=== PATIENT | male | born 1955 | race Caucasian/White ===

== ENCOUNTER 2023-07-13 09:52 | Outpatient (RCR) | payer OTHER, MEDICARE, SELFPAY ==
[2023-07-13] MEDS: FLEXBUMIN 50 IV (10:07)
[2023-07-13 10:08] VITALS: BP 100/51
[2023-07-13] MEDS: FLEXBUMIN 100 IV ×2 (12:16→13:58)
[2023-07-13 13:53] VITALS: BP 115/42
[2023-07-13 15:44] VITALS: BP 113/53
== END 2023-07-29 23:59 | disposition home or self-care (01) ==
LOC: OID 09:52
PROVIDERS: ATTENDING PHYSICIAN Internal Medicine Gastroenterology; FAMILY PHYSICIAN Family Medicine
DX: K70.31 Alcoholic cirrhosis of liver with ascites (principal)
CPT/HCPCS: 49083; 87015; 87070; 87205; 89051; 96365; 96366; P9047

== ENCOUNTER 2023-07-28 22:17 | Inpatient (IN) | payer OTHER, MEDICARE, SELFPAY ==
[2023-07-28] VITALS (9 sets, daily range): BP systolic 119–154; BP diastolic 56–83; BMI 26.2; BMI 25.6
[2023-07-28 19:19] LABS: % Basophils 0.8 % (0-2); % Eosinophils 3.6 % (0-6); % Immature Granulocytes 0.4 % (0-0.5); % Lymphocytes 16.9 % (20.5-51.1); % Monocytes 15.7 % (1.7-9.3); % Neutrophils 62.6 % (42.2-75.2); Absolute Eosinophils 0.2 10^3/uL (0-0.7); Absolute Lymphocytes 0.8 10^3/uL (1.2-3.4); Absolute Monocytes 0.7 10^3/uL (0.1-0.6); Hematocrit 21.5 % (39.0-52.0); Mean Corp Hgb Conc. 32.6 g/dL (33.0-37.0); Mean Corpuscular Hgb 32.4 pg (27.0-31.0); Mean Corpuscular Volume 99.5 fL (80.0-94.0); Nucleated Red Blood Cells % 0 % (-); Platelet Count 110 10^3/uL (130-400); Red Blood Cell Count 2.16 10^6/uL (4.70-6.10); Red Cell Dist. Width 15.9 % (11.5-14.5); White Blood Cell Count 4.7 10^3/uL (4.8-10.8)
[2023-07-28 19:29] LABS: INR 1.54; PT 18.8 Sec (11.4-14.6)
[2023-07-28 19:30] LABS: APTT 37.2 Sec (23.4-35.0)
[2023-07-28 19:36] LABS: ALT (SGPT) 18 U/L (0-50); AST (SGOT) 36 U/L (17-59); Albumin 2.6 g/dl (3.5-5.0); Alkaline Phosphatase 152 U/L (38-126); Blood Urea Nitrogen 27 mg/dl (9-20); Calcium 8.3 mg/dl (8.4-10.2); Carbon Dioxide 27 mmol/L (22-30); Chloride 96 mmol/L (98-107); Estimated Creatinine Clearance 80 ml/min; Glucose 129 mg/dl (70-99); Sodium 132 mmol/L (135-145); Total Protein 6.3 g/dl (6.3-8.2); eGFR > 60.00
--- NOTE | 2023-07-28 19:39 | ED.GENMED ---
Addendum entered and electronically signed by Balwinder Connor DO 07/28/23 20:29:
Chest x-ray report noted, patient consented for packed cells signed consent on the chart
Original Note:
History of Present Illness
General
Chief Complaint: Rectal Bleeding
Source: patient and records
Exam Limitations: none
Time Seen by Provider: 07/28/23 19:20
Nursing documentation reviewed up to this point in time: agreed with
Travel History
Have you had any contact with someone who has COVID-19?: No
Do you have any symptoms of coronavirus? Fever > 100 degrees, chills, cough, shortness of breath, sore throat, loss of taste or smell, muscle aches, or headache?: No
History of Present Illness
History of Present Illness:
67-year-old male nonalcoholic ? cirrhosis diabetic on aspirin gets biweekly paracentesis presents with fatigue and rectal bleeding a week or so ago fairly brisk earlier today seen in the ER few weeks ago hemoglobin of 10 discharged home nondrinker,
no vomiting
Past History
Past History
ED Past Medical History: Arrthythmia (Atrial fibrillation), HTN, NIDDM and Other (Alcoholic cirrhosis, diverticulitis, anemia)
ED Past Surgical History: Orthopedic (Knee surgery) and Urological (Hydrocele)
Social History
Tobacco: Non-smoker
Alcohol: Former
Drug: None
Personal:
Living: with family
Review of Systems
Review of Systems
All Other Systems: Not applicable
Constitutional: Reports fatigue; Denies fever
Respiratory: Reports no symptoms
ABD/GI: Reports abdominal pain (Distention) and bloody stools
: Reports no symptoms
Musculoskeletal: Reports no symptoms
Skin: Reports no symptoms
Neurological: Reports dizzy
Psychiatric: Reports no symptoms
Phy Exam
Physical Exam
Physical Exam:
Physical Exam
General: Chronically ill-appearing
Neck: Slight
Heart: s1/s2 regular rate and rhythm, no murmur. equal radial pulses.
Lungs: Diminished at the
Abdomen: Distended with ascites, umbilical hernia without tenderness
Rectal external hemorrhoid maroon stool
Neuro: alert and oriented. no focal neurological deficits
Skin: no rash
Psychiatric: Disheveled quite
Extremities: no edema.
Course
Orders/Labs/Results
Orders:
Orders
07/28/23 18:59
Cardiac Monitoring- Treatment ONCE
IV Insert/Care/Rem.- Treatment PRN
O2 Therapy [RESP] Urgent
Titrate/Wean O2 to maintain O2 sat greater than (%): 93
Special Instructions: MAINTAIN CONTINOUS O2 SATS > OR = 93%
Pulse Ox/spot Check [RESP] Urgent
Quantity: 1
Special Instructions: ON ROOM AIR
07/28/23 19:07
Type+Screen Urgent
Complete Blood Count/With Diff Urgent
Comprehensive Metabolic Panel Urgent
PTT Urgent
Prothrombin Time Urgent
07/28/23 19:42
Blood Bank Products [* Blood Bank Products] Urgent
Blood Bank Products: *Packed RBC Leuko(PRBC's)
Quantity: 2
Transfuse Today: Yes
Reason: Anemia
0.9% Sodium Chloride 500 ml [Nss] 500 ml IV BOLUS
07/28/23 19:43
Electrocardiogram (*1) Urgent
Reason for Study: QTc Monitoring
EKG- Treatment ONCE
CR Chest Portable - 1 View Urgent
Comment:
Reason For Exam: sob
Reason Study Needs to be Portable: Unable to Transport
Abnormal Lab Results
07/28/23
19:07
WBC 4.7 L 10^3/uL
(4.8-10.8)
RBC 2.16 L 10^6/uL
(4.70-6.10)
Hgb 7.0 L g/dL
(13.0-18.0)
Hct 21.5 L %
(39.0-52.0)
MCV 99.5 H fL
(80.0-94.0)
MCH 32.4 H pg
(27.0-31.0)
MCHC 32.6 L g/dL
(33.0-37.0)
RDW 15.9 H %
(11.5-14.5)
Plt Count 110 L 10^3/uL
(130-400)
Absolute Lymphs (auto) 0.8 L 10^3/uL
(1.2-3.4)
Absolute Monos (auto) 0.7 H 10^3/uL
(0.1-0.6)
Lymphocytes % 16.9 L %
(20.5-51.1)
Monocytes % 15.7 H %
(1.7-9.3)
PT 18.8 H Sec
(11.4-14.6)
APTT 37.2 H Sec
(23.4-35.0)
Sodium 132 L mmol/L
(135-145)
Chloride 96 L mmol/L
(98-107)
BUN 27 H mg/dl
(9-20)
Glucose 129 H mg/dl
(70-99)
Calcium 8.3 L mg/dl
(8.4-10.2)
Alkaline Phosphatase 152 H U/L
(38-126)
Albumin 2.6 L g/dl
(3.5-5.0)
07/28/23 19:07
07/28/23 19:07
Vital Signs
Initial and Last Documented VS:
Initial Vital Signs
Pulse Resp
77 14
07/28/23 19:00 07/28/23 19:00
Last Documented Vital Signs
Temp Pulse Resp BP Pulse Ox
98.6 F 77 14 137/63 100
07/28/23 19:05 07/28/23 19:00 07/28/23 19:00 07/28/23 19:04 07/28/23 19:04
MDM/Problems Addressed
Differential Diagnosis Includes:
Ascites rectal bleeding hemorrhoidal bleeding liver disease colitis diverticulosis AVM
MDM/Problems Addressed:
Rectal bleed
Chronic conditions affecting care:
Liver disease
Acute Exacerbation and/or Progression of Chronic Illness:
Liver disease
*Radiology
Radiology exam reviewed: preliminary read by ED provider
*Pulse Oximetry
Patient hypoxic: no
*EKG
Interpreted by ED Provider?: Yes
Interpretation: abnormal
Comparison EKG: no comparison EKG present
Heart Rate: 78
Rate: normal
Rhythm: sinus
Ischemia: non-specific ST changes
*Supervisor Pipeline Maintenance Interpretation
Rate: normal
Interpretation: normal
Heart Rate: 78
Rhythm: sinus
*Critical Care Note
Total Time (30-74mins, 75-104mins- exclusive of procedures): 30
Data Reviewed
Review of Other/Old Records Reveals: Labs and Records
Source: patient and records
Update Note
Update Note:
Patient will likely require admission potential for decompensation will get some volume and packed cells to get a paracentesis at some point
ED Attending Note
-
Portions of this chart may have been created with voice recognition software.� Occasional wrong word or��sound alike� substitutions may have occurred due to the inherent limitations of voice recognition software.
Discharge Plan
Departure
Patient Disposition: Admit
Date of Disposition: 07/28/23
Time of Disposition: 19:48
Admit to: Med/Surg
Presentation/result/management discussed w/ accepting MD/DO: Hospitalist
Patient with high blood pressure during this ER visit?: No
Condition: Fair
Discharge Problem:
Ascites due to alcoholic cirrhosis, GI (gastrointestinal bleed)
Prescriptions:
No Action
cyanocobalamin (vitamin B-12) 500 mcg Tablet
500 mcg PO DAILY
pantoprazole [Protonix] 40 mg Tablet,Delayed Release (Dr/Ec)
40 mg PO DAILY
timolol maleate 0.5 % Drops
1 drp LEFT EYE BID
PreserVision AREDS 2,148 mcg-113 mg-45 mg-17.4mg Tablet
1 tab PO BID
acetaminophen 325 mg Tablet
325 mg PO Q4HPRN PRN (Reason: mild pain/fever>100.4) Qty: 0 0RF
Januvia 100 mg Tablet
100 mg PO DAILY Qty: 0 0RF
gabapentin 300 mg Tablet Extended Release 24 Hr
300 mg PO BID
insulin glargine 100 unit/mL Solution
12 unit SC HS
insulin lispro [Humalog Pen] 100 unit/mL Insulin Pen
4 - 10 sliding scale dose SC AC
aspirin 81 mg tablet,chewable
81 mg PO DAILY
cholecalciferol (vitamin D3) [Vitamin D3] 50 mcg (2,000 unit) Capsule
50 mcg PO DAILY
atorvastatin [Lipitor] 10 mg Tablet
10 mg PO HS
tamsulosin [Flomax] 0.4 mg Capsule
0.8 mg PO HS
spironolactone 25 mg Tablet
25 mg PO DAILY
furosemide [Lasix] 20 mg Tablet
20 mg PO DAILY
Interventions
Interventions:
*Risk Screen - Suicide Last Done: 07/28/23 19:00
*General Assessment Last Done: 07/28/23 19:00
*Neglect/Abuse Screening Last Done: 07/28/23 19:00
ED- Fall Risk Assessment Last Done: 07/28/23 19:00
*ED COVID-19 Vaccine History Last Done: 07/28/23 19:00
GT-Cneexs-Ehlqctikir Assessment Last Done: 07/28/23 19:00
ED- Cardiac Assessment Last Done: 07/28/23 19:00
ED- Pulmonary Assessment Last Done: 07/28/23 19:00
[2023-07-28] MEDS: NSS 500 IV (20:01)
--- NOTE | 2023-07-28 21:57 | HPS.HSE ---
Family Physician
-
Family Physician: Chantelle Foster
Chief Complaint
-
BRBPR
History of Present Illness
Patient is a 67y M with PMH significant for alcoholic cirrhosis, ASCVD and DM-II who presents to ED complaining of BRBPR. Patient states that he has known hemorrhoids and notes that he always has small amounts of BRB in the stool / on the paper.
On Thursday evening, pateint had a large episode of gross blood per rectum while moving his bowels. Mostly liquid red blood without significant stool or clots. Some discomfort in the rectal area. Mild R sided abdominal pain. Patient had a second
similar episode this evening. He notes that he was urinating and felt that he has to pass gas. Instead, he passed another large amount of BRB. He estimates about 1 1/2 cups of blood this evening. He presented to the ED for further evaluation.
Patient complains of some lightheadedness - worse with standing.
He denies any chest pain, SOB, N/V, etc.
Patient has intermittent paracenteses for his cirrhosis with ascites. His last was > 2 weeks ago - he was due yesterday but did not go due to the bleeding Thursday evening.
He still has occasional alcohol but notes that his last drink was 3-4 weeks ago.
Medical History
Past Medical History
Past Medical History: Reports Other
Additional Past Medical History:
Alcoholic Cirrhosis with Ascites and Esophageal Varices
ASCVD
DM-II
Hypertension
BPH
Past Surgical History: Reports Other
Additional Past Surgical History:
CABG x 5
Right Knee Arthroscopy
Right Hydrocelectomy
Mastoidectomy
Social History
Tobacco: Former Smoker (Quit smoking 30 years ago)
Alcohol: Chronic Alcoholic (Still occasional glass of wine. Last drink 3-4 weeks ago. Prior history of significant alcohol overuse / abuse.)
Drug: None
Family History
Family History: Not pertinent
Allergies / Home Medications
Allergies reflects when Allergies were last updated in [employer].
Home Medications with original date entered in [employer]
Allergy/Medication List:
Allergies
Allergy/AdvReac Type Severity Reaction Status Date / Time
Sulfa (Sulfonamide Allergy Hives Verified 07/13/23 10:19
Antibiotics)
empagliflozin AdvReac potential Verified 07/13/23 10:19
[From Synjardy XR] cause of
euglycemic
DKA 03/26/23
metformin [From Synjardy XR] AdvReac potential Verified 07/13/23 10:19
cause of
euglycemic
DKA 03/26/23
Home Medications
cyanocobalamin (vitamin B-12) 500 mcg tablet 500 mcg PO DAILY Supplement 03/25/23
pantoprazole 40 mg tablet,delayed release (Protonix) 40 mg PO DAILY Gastrointestinal Issue 03/25/23
timolol maleate 0.5 % eye drops 1 drp LEFT EYE BID Eye Condition 03/25/23
vitamins A,C,J-jbgi-pghaeu 2,148 mcg-113 mg-45 mg-17.4 mg tablet (PreserVision AREDS) 1 tab PO BID Supplement 03/25/23
sitagliptin phosphate 100 mg tablet (Januvia) 100 mg PO DAILY #0 tabs 04/09/23
aspirin 81 mg chewable tablet 81 mg PO DAILY 05/04/23
gabapentin 300 mg tablet,extended release 24 hr 300 mg PO BID 05/04/23
insulin glargine 100 unit/mL subcutaneous solution (Lantus U-100 Insulin) 10 unit SC HS 05/04/23
insulin lispro 100 unit/mL subcutaneous pen 4 sliding scale dose SC AC 05/04/23
cholecalciferol (vitamin D3) 50 mcg (2,000 unit) capsule (Vitamin D3) 50 mcg PO DAILY 05/18/23
atorvastatin 10 mg tablet (Lipitor) 10 mg PO HS 05/20/23
tamsulosin 0.4 mg capsule (Flomax) 0.8 mg PO HS 05/20/23
lactulose 10 gram/15 mL oral solution 10 g PO DAILYPRN PRN constipation 07/28/23
Review of Systems
-
History Source: Patient
A 12 point ROS was completed and negative except as noted: Yes
Constitutional: Reports Fatigue; Denies Fever or Chills
EENT: Denies Sore Throat
Respiratory: Denies Cough or Trouble Breathing
Cardiac: Denies Chest Pain or Palpitations
Abdomen/GI: Reports Bloody Stools and Other (Rectal discomfort); Denies Abdominal Pain, Nausea or Vomiting
: Reports Other (Scrotal swelling.); Denies Dysuria, Frequency or Flank Pain
Neurological: Denies Dizzy or Headache
Psych: Denies Depression or Anxiety
Physical Exam
Vital Signs
Vital Signs
Temp Pulse Resp BP Pulse Ox
98.9 F 71 12 132/61 100
07/28/23 21:00 07/28/23 21:00 07/28/23 21:00 07/28/23 21:00 07/28/23 20:45
Physical Exam
General: Other (67y M in no acute distress.)
HEENT: Moist mucous membranes and PERRLA
Respiratory: Other (Decreased at bases - otherwise clear.)
Cardiac: S1/S2, Regular Rhythm and Murmur (II/ JENNIFER)
GI: Other (Abdomen is distended with pos fluid wave. No focal tenderness / rebound / guarding. Pos bowel sounds.)
Genito-urinary: Other (Scrotal swelling that is easily reduced without induration, erythema, increased warmth or tenderness.)
Musculoskeletal: No Clubbing, No Cyanosis and No Edema
Neuro: AO x 3
Laboratory Results
-
07/28/23 19:07
07/28/23 19:07
Laboratory Results
PT 18.8 Sec (11.4-14.6) H 07/28/23 19:07
INR 1.54 07/28/23 19:07
APTT 37.2 Sec (23.4-35.0) H 07/28/23 19:07
Total Bilirubin 1.0 mg/dl (0.2-1.3) 07/28/23 19:07
AST 36 U/L (17-59) 07/28/23 19:07
ALT 18 U/L (0-50) 07/28/23 19:07
Alkaline Phosphatase 152 U/L (38-126) H 07/28/23 19:07
Impression/Plan
-
A/P: Patient is a 67y M with PMH significant for alcoholic cirrhosis with ascites and varices who presents to ED complaining of BRBPR.
Hematochezia
Acute Blood Loss Anemia
Chronic Iron Deficiency Anemia
- Admit for further evaluation and treatment.
- BRBPR chronically with 2 more acute / large episodes in the past 3 days.
- Transfusion ordered in the ED for Hgb = 7 compared to baseline of around 10.
- Follow for recurrent bleeding, changes in Hgb, etc.
- Seems likely a hemorrhoidal bleed.
- Given cirrhosis / varices - will initiate PPI gtt for now.
- GI evaluation for further recommendations and work-up.
- Check iron studies, B12, etc and replace if needed.
Alcoholic Cirrhosis with Abdominal Ascites and Esophageal Varices
Mild Thrombocytopenia
- Overdue for paracentesis.
- Abdominal distention on exam and scrotal fluid that seems congruous with abdominal ascites.
- Patient not on chronic diuretic therapy or lactulose, etc.
- GI evaluation as noted above.
- IR evaluation for probable paracentesis.
ASCVD
- Stable. No current chest pain, dyspnea, etc.
- Hold ASA acutely given bleeding (no intravascular stents in place).
- Follow for any new symptoms.
DM-II
- Stable. Hold PO medications.
- Continue basal insulin at decreased dose while NPO,
- Follow glucose and cover with SSI as needed.
- Update A1C.
BPH
- Stable. Continue tamsulosin.
- Bladder scan protocol.
Alcohol Use Disorder
- Last drink was 3-4 weeks ago.
- Low risk for withdrawal symptoms.
- Monitor MSAS and advise if patient begins to experience symptoms of withdrawal.
DVT Prophylaxis: SCDs
Code Status: Full
[2023-07-29] VITALS (22 sets, daily range): BP systolic 64–144; BP diastolic 53–92; BMI 25.6
[2023-07-29] MEDS: FLOMAX 0.800000000000000044 MG PO ×2 (00:06→21:32)
[2023-07-29] MEDS: PROTONIX 100 IV ×2 (00:06→08:30)
[2023-07-29 00:08] LABS: Glucose - Point of Care 144 mg/dl (70-99)
[2023-07-29] MEDS: LANTUS 0.0599999999999999978 UNITS SC ×2 (00:30→21:33)
[2023-07-29 01:49] LABS: Iron 48 ug/dl (49-181)
[2023-07-29 01:58] LABS: Percent Saturation 23 % (20-50); Total Iron Binding Capacity 208 ug/dl (261-462)
[2023-07-29 03:15] LABS: TSH 2.65 uIU/ml (0.47-4.68)
[2023-07-29 03:34] LABS: Vitamin B12 > 1000 pg/ml (239-931)
--- NOTE | 2023-07-29 04:23 | PTCARENOTE ---
pt admitted from ED- pt is AAOx3-able to pivot from stretcher to bed x1 assistance- pt is weak. uses cane at baseline. 97% RA- round distended firm abdomen, hernia present. scrotal edema- PPI gtt hung and infusing- 2nd unit of PRBC's infused. pt
oriented to room, call harvey within reach, care ongoing.
[2023-07-29 06:20] LABS: Hematocrit 25.7 % (39.0-52.0)
--- NOTE | 2023-07-29 06:25 | PTCARENOTE ---
pt up to use BSCx1 to have a BM- pt noted to have bright red blood- some blood clots noted, stool formed. pt with mild c/o abdominal pain.
[2023-07-29 07:03] LABS: ALT (SGPT) 15 U/L (0-50); AST (SGOT) 29 U/L (17-59); Albumin 2.2 g/dl (3.5-5.0); Alkaline Phosphatase 138 U/L (38-126); Blood Urea Nitrogen 22 mg/dl (9-20); Calcium 7.9 mg/dl (8.4-10.2); Carbon Dioxide 27 mmol/L (22-30); Chloride 99 mmol/L (98-107); Direct Bilirubin 0.8 mg/dl (0.0-0.4); Estimated Creatinine Clearance 119 ml/min; Glucose 124 mg/dl (70-99); Potassium 3.5 mmol/L (3.5-5.1); Sodium 131 mmol/L (135-145); Total Bilirubin 1.8 mg/dl (0.2-1.3); Total Protein 5.4 g/dl (6.3-8.2); eGFR > 60.00
[2023-07-29 07:06] LABS: Hemoglobin 8.5 g/dL (13.0-18.0)
--- NOTE | 2023-07-29 07:19 | CON.GI ---
Addendum entered and electronically signed by Jill Espino MD 07/29/23 17:12:
I saw and examined the patient.
The WOOD CASKET ASSEMBLER or PA's note was reviewed and I agree with the note.
Comment: 67-year-old female with history of alcoholic liver disease with cirrhosis, history of grade 1 varices without bleeding, history of hepatic encephalopathy, last alcohol use 3 weeks ago presenting with intermittent bright blood per rectum.
History of constipation, has 2-3 bowel movements a week, sometimes hard stool with pushing and straining and some incomplete evacuation. Blood is on the toilet tissue and in the bowl but stool itself is brown. No abdominal or rectal pain.
Recently started MiraLAX 2 days ago but not prior to that was not on any laxatives. Paracentesis today, no evidence of SBP.
MELD-3.0-16
-Rectal bleeding, likely related to hemorrhoids with history of chronic constipation
Noted on colonoscopy in 2021
Continue MiraLAX daily for constipation, avoid pushing/ strain with bowel movements unremarkable for more than a couple of minutes at a time.
Anusol HC suppository to help prevent further rectal bleeding
-History of alcoholic cirrhosis without any active bleeding or decompensation at this time no evidence of SBP on paracentesis
Continue follow-up with Dr. Ramirez as outpatient
Will follow
Addendum entered and electronically signed by MIRELLA Price 07/29/23 14:06:
will add Anusol HC suppository
Addendum entered and electronically signed by MIRELLA Price 07/29/23 11:14:
ok to stop protonix gtt as likely Lower GI bleeding. Pt also with scrotal swelling and ascites will need to consider starting diuretics if Na level can tolerate
Original Note:
Consultation
-
Date/Time Consultation Requested: 07/28/23 1950
Date/Time Consultation Performed: 07/29/23 0720
Requesting Provider: Dakotah Dick DO
Performing Provider: MRIELLA Beltran, Jill Espino MD
Reason for Consultation: rectal bleeding
Medical History
Chief Complaint / HPI
Chief Complaint: rectal bleeding
History of Present Illness:
Pt is a 67yo presents with hx ETOH cirrhosis, grade 1 EV without bleeding, ascites without hx HE, HTN, DM, CAD with prior CABG, Anemia, hydrocele with onset of bright red blood per rectum. Pt with known hx hemorrhoids. Prior Colonoscopy 2021
small polyp due repeat 2026. On admission hbg 7, platelets 110, INR 1.54. In reviewing with patient blood in noted with straining with BM. He is concerned as will pass large amount of red blood at time and periods of blood dripping out. He does
take Miralax to help with constipation.
He also admits to abdominal distention with paracentesis every other week. He dose have occasional diffuse abdominal pain. he denies dysphagia, GERD, nausea, vomiting,diarrhea, or black stools. Pt follows with Dr. Ramirez and no prior
hepatology evaluation. Last ETOH 3 weeks ago.
Past Medical History
Past Medical History: HTN, NIDDM and Other (ETOH cirrhosis with hx EV and ascites , ASCVD, BPH, anemia, ear infection with meningitis and encephalitis )
Past Surgical History: Cardiac (CABG), Orthopedic (right knee arthroscopy) and Other (right hydrocelectomy, mastoidectomy)
Social History
Tobacco: Non-Smoker
Alcohol: Former (quit 3 weeks ago )
Drug: None
Personal:
Living: With Family
Employment: Retired
Family History
Family History: Other (no family hx liver disease )
Allergies / Home Medications
Allergy/AdvReac Type Severity Reaction Status Date / Time
Sulfa (Sulfonamide Allergy Hives Verified 07/13/23 10:19
Antibiotics)
empagliflozin AdvReac potential Verified 07/13/23 10:19
[From Synjardy XR] cause of
euglycemic
DKA 03/26/23
metformin [From Synjardy XR] AdvReac potential Verified 07/13/23 10:19
cause of
euglycemic
DKA 03/26/23
Medication Instructions Recorded
cyanocobalamin (vitamin B-12) 500 500 mcg PO DAILY Supplement 03/25/23
mcg tablet
pantoprazole 40 mg tablet,delayed 40 mg PO DAILY Gastrointestinal 03/25/23
release (Protonix) Issue
timolol maleate 0.5 % eye drops 1 drp LEFT EYE BID Eye Condition 03/25/23
vitamins A,C,V-paww-tnbqge 2,148 1 tab PO BID Supplement 03/25/23
mcg-113 mg-45 mg-17.4 mg tablet
(PreserVision AREDS)
sitagliptin phosphate 100 mg 100 mg PO DAILY #0 tabs 04/09/23
tablet (Januvia)
aspirin 81 mg chewable tablet 81 mg PO DAILY 05/04/23
gabapentin 300 mg tablet,extended 300 mg PO BID 05/04/23
release 24 hr
insulin glargine 100 unit/mL 10 unit SC HS 05/04/23
subcutaneous solution (Lantus
U-100 Insulin)
insulin lispro 100 unit/mL 4 sliding scale dose SC AC 05/04/23
subcutaneous pen
cholecalciferol (vitamin D3) 50 50 mcg PO DAILY 05/18/23
mcg (2,000 unit) capsule (Vitamin
D3)
atorvastatin 10 mg tablet (Lipitor) 10 mg PO HS 05/20/23
tamsulosin 0.4 mg capsule (Flomax) 0.8 mg PO HS 05/20/23
lactulose 10 gram/15 mL oral 10 g PO DAILYPRN PRN constipation 07/28/23
solution
Review of Systems
-
History Source: Patient
Constitutional: Reports No Symptoms
EENT: Reports No Symptoms
Respiratory: Reports No Symptoms
Cardiac: Reports No Symptoms
Abdomen/GI: Reports Abdominal Pain, Constipated and Bloody Stools
: Reports No Symptoms
Musculoskeletal: Reports No Symptoms
Skin: Reports No Symptoms
Neurological: Reports No Symptoms
Endocrine: Reports No Symptoms
Hematologic/Lymphatic: Reports Bleeding
Vital Signs
Temp Pulse Resp BP Pulse Ox
98.4 F 67 10 129/65 97
07/29/23 04:15 07/29/23 06:00 07/29/23 06:00 07/29/23 06:00 07/29/23 06:00
Physical Exam
Exam
General: Well Developed, Well Nourished and No Apparent Distress
HEENT: Normocephalic and Anicteric
Respiratory: Clear
Cardiac: Regular Rhythm
GI: Soft, Distended and Other (umbilical hernia on exam)
Rectal: Other (-- pt consented to exam grade 1 hemorrhoids, no active bleeding, brown stool trace + but noted dried blood on underpad)
Musculoskeletal: No Clubbing and No Cyanosis
Skin: Warm and Dry
Neuro: Awake and Alert
Psych: Calm
Results
WBC 4.7 10^3/uL (4.8-10.8) L 07/28/23 19:07
Hgb 8.5 g/dL (13.0-18.0) L D 07/29/23 05:49
Hct 25.7 % (39.0-52.0) L 07/29/23 05:49
MCV 99.5 fL (80.0-94.0) H 07/28/23 19:07
Plt Count 110 10^3/uL (130-400) L 07/28/23 19:07
Absolute Neuts (auto) 3.0 10^3/uL (1.4-6.5) 07/28/23 19:07
PT 18.8 Sec (11.4-14.6) H 07/28/23 19:07
INR 1.54 07/28/23 19:07
APTT 37.2 Sec (23.4-35.0) H 07/28/23 19:07
Sodium 131 mmol/L (135-145) L 07/29/23 05:49
Potassium 3.5 mmol/L (3.5-5.1) 07/29/23 05:49
Chloride 99 mmol/L (98-107) 07/29/23 05:49
Carbon Dioxide 27 mmol/L (22-30) 07/29/23 05:49
BUN 22 mg/dl (9-20) H 07/29/23 05:49
Creatinine 0.6 mg/dL (0.7-1.3) L 07/29/23 05:49
Calcium 7.9 mg/dl (8.4-10.2) L 07/29/23 05:49
Total Bilirubin 1.8 mg/dl (0.2-1.3) H 07/29/23 05:49
AST 29 U/L (17-59) 07/29/23 05:49
ALT 15 U/L (0-50) 07/29/23 05:49
Alkaline Phosphatase 138 U/L (38-126) H 07/29/23 05:49
Diagnostic Image Results:
07/10/23 � CT Abd/Pel (IV only)-DH only
Large amount of abdominopelvic ascites. Progressed
Hepatic fatty infiltration.
Findings suggesting cirrhosis.
Esophageal varices
Gallstones.
Probable benign small complex right renal cyst.
Nonobstructing right renal stone.
Moderate fecal material in the colon. Stable
Mild diverticulosis. Stable
Prior GI Procedures:
EGD: prior Limon's grade I EV
Colonoscopy: 2021 small polyp due 2026
Assessment / Plan
-
Pt is a 67yo presents with hx ETOH cirrhosis(last ETOH 3 weeks ago), grade 1 EV without bleeding, ascites without hx HE, HTN, DM, CAD with prior CABG, ear infection with encephalitis, Anemia, hydrocele with onset of bright red blood per rectum.
Pt with known hx hemorrhoids. � Prior Colonoscopy [address] Handy small polyp due repeat 2026. On admission hbg 7, platelets 110, INR 1.54. In reviewing with patient blood in noted with straining with BM. He is concerned as will pass large amount of
red blood at time and periods of blood dripping out. He does take Miralax to help with constipation. Pt also with mild abdominal pain. Pt follows with Dr. Ramirez and no prior hepatology evaluation. Last ETOH 3 weeks ago.
-rectal bleeding- hemorrhoids vs other
-abdominal pain
-hx cirrhosis secondary to ETOH and grade I EV
-ascites
-pancytopenia
-coagulopathy
-umbilical hernia on exam no drainage
other medical problems:
-DM
-CAD with prior CABG
-hydrocele
PLAN:
Etiology of bleeding related to hemorrhoids as not bleeding on exam and noted with staining with BM in setting of constipation vs other
if bleeding persists consider flex sig as colonoscopy completed in 2021
ok for clear diet advance tolerating and no further bleeding
for para with mild abdominal pain to eval for SBP -- check cell ct, cult etc
with cirrhosis recent CT as noted due for OP US and follow up labs after admission, AFP 2.31
last EGD 2021
current meld 3.0 -- 16
trend CBC with pancytopenia
add miralax daily with constipation
will follow
OP follow up with Dr. Ramirez
-
-
Thank you for consultation and allowing me to participate in the patient's care. Please call the sonogram technician GI physician during the after hours with any questions or concerns.
--- NOTE | 2023-07-29 07:43 | W.PN.HOSP.TC ---
Today's Communication/Plan
-
Continue Protonix, abdominal paracentesis, GI consult.
Assessment / Plan
Assessment / Plan
General: Other (67y M in no acute distress.)
HEENT: Moist mucous membranes and PERRLA
Respiratory: Other (Decreased at bases - otherwise clear.)
Cardiac: S1/S2, Regular Rhythm and Murmur (II/ JENNIFER)
GI: Other (Abdomen is distended with pos fluid wave.� No focal tenderness / rebound / guarding.� Pos bowel sounds.)
Genito-urinary: Other (Scrotal swelling that is easily reduced without induration, erythema, increased warmth or tenderness.)
Musculoskeletal: No Clubbing, No Cyanosis and No Edema
Neuro: AO x 3
A/P:
Hematochezia
Acute Blood Loss Anemia
Chronic Iron Deficiency Anemia
�- Admit for further evaluation and treatment. Latest hemoglobin 8.5 and continue to monitor.
�- BRBPR chronically with 2 more acute / large episodes in the past 3 days.
�- Transfusion ordered in the ED for Hgb = 7 compared to baseline of around 10.
�- Follow for recurrent bleeding, changes in Hgb, etc.
�- Seems likely a hemorrhoidal bleed.
�- Given cirrhosis / varices - will initiate PPI gtt for now.
�- GI evaluation for further recommendations and work-up.
�- Check iron studies, B12, etc and replace if needed.
Alcoholic Cirrhosis with Abdominal Ascites and Esophageal Varices
Mild Thrombocytopenia
�- Overdue for paracentesis.
�- Abdominal distention on exam and scrotal fluid that seems congruous with abdominal ascites.
�- Patient not on chronic diuretic therapy or lactulose, etc.
�- GI evaluation as noted above.
�- IR evaluation for paracentesis.
�
ASCVD
�- Stable.� No current chest pain, dyspnea, etc.
�- Hold ASA acutely given bleeding (no intravascular stents in place).
�- Follow for any new symptoms.
DM-II
�- Stable.� Hold PO medications.
�- Continue basal insulin at decreased dose while NPO,
�- Follow glucose and cover with SSI as needed.
�- Update A1C.
BPH
�- Stable.� Continue tamsulosin.
�- Bladder scan protocol.
Alcohol Use Disorder
�- Last drink was 3-4 weeks ago.
�- Low risk for withdrawal symptoms.
�- Monitor MSAS and advise if patient begins to experience symptoms of withdrawal.
DVT Prophylaxis:� SCDs
Code Status:� Full
Total time spent on today's encounter was 52 minutes which included time spent in counseling the patient/family regarding diagnosis and treatment plan as listed above, goals of care, and symptom management. Case was discussed with nursing staff,
specialists, and care coordinators/case management. All labs and imaging personally reviewed by me. Remainder the time spent in detailed review of previous records, lab data, imaging, and other medical provider documentation.
Anticipated Discharge: > 48 hours
Subjective/Interval History
-
Date of Service: July 29, 2023
Patient still having some rectal bleeding. He still have abdominal distention. Denies chest pain or shortness of breath. Afebrile
Objective Data
-
Labs:
Laboratory Results
07/28/23 07/29/23 07/29/23
23:40 05:49 11:40
Hgb Cancelled 8.5 L D Pending
Hct Cancelled 25.7 L Pending
Sodium 131 L
Potassium 3.5
Chloride 99
Carbon Dioxide 27
BUN 22 H
Creatinine 0.6 L
Glucose 124 H
Calcium 7.9 L
Total Bilirubin 1.8 H
AST 29
ALT 15
Alkaline Phosphatase 138 H
07/29/23
17:40
Hgb Pending
Hct Pending
Sodium
Potassium
Chloride
Carbon Dioxide
BUN
Creatinine
Glucose
Calcium
Total Bilirubin
AST
ALT
Alkaline Phosphatase
Vital Signs:
Vital Signs
Temp Pulse Resp BP Pulse Ox
98.4 F 67 10 129/65 97
07/29/23 04:15 07/29/23 06:00 07/29/23 06:00 07/29/23 06:00 07/29/23 06:00
I&O
07/28/23 07/29/23 07/30/23
06:59 06:59 06:59
Intake Total 500 / 500
Output Total 325 / 325
Balance 175 / 175
Review of Systems
-
All other systems: Reviewed and negative
[2023-07-29] MEDS: TIMOPTIC 0.5% OPHTHALMIC SOLUTION 1 DROP LEFT EYE ×2 (08:31→19:37)
[2023-07-29] MEDS: NOVOLOG FLEXPEN-LOW RESISTANCE SC ×2 (08:37→11:34)
[2023-07-29 08:45] LABS: Glucose - Point of Care 109 mg/dl (70-99)
[2023-07-29 09:34] LABS: Glycohemoglobin (HgbA1c) 6.9 % (4.0-5.6)
[2023-07-29 11:17] LABS: Body Fluid LDH < 90 U/L
[2023-07-29 11:22] LABS: Body Fluid Mononuclear 88.2 %; Body Fluid Polymorphonuclear 11.8 %; Body Fluid WBC 289 /CUMM
[2023-07-29 11:23] LABS: Body Fluid Second Tech AMA
[2023-07-29] MEDS: MIRALAX 17 GRAMS PO (11:34)
[2023-07-29 11:43] LABS: Glucose - Point of Care 106 mg/dl (70-99)
[2023-07-29] MEDS: DESENEX/MITRAZOL/ZEASORB 1 APPLIC TOPICAL ×2 (12:12→19:37)
--- NOTE | 2023-07-29 12:14 | PTCARENOTE ---
Patient is back from paracentesis with banaid intact on right lower abdomen. Vital signs stable, paracentesis output notified to GI doctor as per their request. Patient does not require Albumin at this time. Patient is tolerating a clear liquid
diet. In chair position in bed. Rash on groin treated with medication powder. Patient denying pain when asked.
[2023-07-29 12:18] LABS: Hematocrit 30.9 % (39.0-52.0)
[2023-07-29 12:19] LABS: Hemoglobin 10.4 g/dL (13.0-18.0)
--- NOTE | 2023-07-29 17:25 | CM ---
Patient with Hx Alcohol Use Disorder with Dx Acute Blood Loss Anemia, Alcoholic Cirrhosis with Abdominal Ascites and Esophageal Varices, s/p paracentesis. Room air. Clear liquids. PT Screen; No skilled PT needed.
Met with patient who was conversant however forgetful and changed his answers to questions asked.
The patient resides with his in a 1 story house.
The patient was Independent ADLs/ambulation. He uses his SPC when inside and RW when outside.
DME - RW, SPC, w/c
Prior [facility] V[facility].
SNF - none
PCP - Chantelle Foster
Pharmacy - [facility]
No CM d/c needs identified.
Plan contact patient's prior to confirm assessment question answers prior to d/c.
Plan home.
[2023-07-29 17:32] LABS: Glucose - Point of Care 200 mg/dl (70-99)
[2023-07-29] MEDS: NOVOLOG FLEXPEN-LOW RESISTANCE 2 UNITS SC (18:14)
[2023-07-29 18:29] LABS: Hematocrit 30.5 % (39.0-52.0); Hemoglobin 10.5 g/dL (13.0-18.0)
[2023-07-29] MEDS: NEURONTIN 300 MG PO (19:37)
[2023-07-29] MEDS: ANUSOL HC 25 MG RECTAL (19:37)
[2023-07-29 21:43] LABS: Glucose - Point of Care 231 mg/dl (70-99)
[2023-07-30] VITALS (11 sets, daily range): BP systolic 87–122; BP diastolic 46–95; BMI 22.4
[2023-07-30 04:35] LABS: Hematocrit 29.8 % (39.0-52.0); Hemoglobin 9.9 g/dL (13.0-18.0); Mean Corp Hgb Conc. 33.2 g/dL (33.0-37.0); Mean Corpuscular Hgb 31.1 pg (27.0-31.0); Mean Corpuscular Volume 93.7 fL (80.0-94.0); Mean Platelet Volume 9.6 fL (7.4-10.4); Platelet Count 106 10^3/uL (130-400); Red Blood Cell Count 3.18 10^6/uL (4.70-6.10); Red Cell Dist. Width 16.7 % (11.5-14.5); White Blood Cell Count 3.8 10^3/uL (4.8-10.8)
[2023-07-30 04:41] LABS: INR 1.47; PT 17.9 Sec (11.4-14.6)
[2023-07-30 04:48] LABS: ALT (SGPT) 15 U/L (0-50); AST (SGOT) 29 U/L (17-59); Albumin 2.4 g/dl (3.5-5.0); Alkaline Phosphatase 164 U/L (38-126); Blood Urea Nitrogen 15 mg/dl (9-20); Calcium 7.9 mg/dl (8.4-10.2); Carbon Dioxide 27 mmol/L (22-30); Chloride 101 mmol/L (98-107); Estimated Creatinine Clearance 116 ml/min; Glucose 138 mg/dl (70-99); Potassium 3.7 mmol/L (3.5-5.1); Sodium 131 mmol/L (135-145); Total Bilirubin 1.7 mg/dl (0.2-1.3); Total Protein 5.9 g/dl (6.3-8.2); eGFR > 60.00
[2023-07-30] MEDS: NOVOLOG FLEXPEN-LOW RESISTANCE SC (07:21)
[2023-07-30 07:31] LABS: Glucose - Point of Care 120 mg/dl (70-99)
[2023-07-30] MEDS: DESENEX/MITRAZOL/ZEASORB 1 APPLIC TOPICAL (08:05)
[2023-07-30] MEDS: TIMOPTIC 0.5% OPHTHALMIC SOLUTION 1 DROP LEFT EYE (08:05)
[2023-07-30] MEDS: NEURONTIN 300 MG PO (08:05)
[2023-07-30] MEDS: ANUSOL HC 25 MG RECTAL (08:05)
[2023-07-30] MEDS: MIRALAX 17 GRAMS PO (08:05)
[2023-07-30] MEDS: PROTONIX 40 MG PO (08:05)
--- NOTE | 2023-07-30 08:41 | W.PN.HOSP.TC ---
Today's Communication/Plan
-
Discharge planning today
Assessment / Plan
Assessment / Plan
General: Other (67y M in no acute distress.)
HEENT: Moist mucous membranes and PERRLA
Respiratory: Other (Decreased at bases - otherwise clear.)
Cardiac: S1/S2, Regular Rhythm and Murmur (II/ JENNIFER)
GI: Soft, nondistended, no tenderness.
Musculoskeletal: No Clubbing, No Cyanosis and No Edema
Neuro: AO x 3
A/P:
Hematochezia
Acute Blood Loss Anemia
Chronic Iron Deficiency Anemia
�- Latest hemoglobin 9.9
-No further bleeding
-GI cleared him for discharge today
Prior to today:
�- BRBPR chronically with 2 more acute / large episodes in the past 3 days.
�- Transfusion ordered in the ED for Hgb = 7 compared to baseline of around 10.
�- Follow for recurrent bleeding, changes in Hgb, etc.
�- Seems likely a hemorrhoidal bleed.
�- Given cirrhosis / varices - will initiate PPI gtt for now.
�- GI evaluation for further recommendations and work-up.
�- Check iron studies, B12, etc and replace if needed.
Alcoholic Cirrhosis with Abdominal Ascites and Esophageal Varices
Mild Thrombocytopenia
-Status post abdominal paracentesis more than 7 L and IV albumin
-Stable 24 hours post paracentesis
Prior to today:
�- Overdue for paracentesis.
�- Abdominal distention on exam and scrotal fluid that seems congruous with abdominal ascites.
�- Patient not on chronic diuretic therapy or lactulose, etc.
�- GI evaluation as noted above.
�- IR evaluation for paracentesis.
�
ASCVD
�- Stable.� No current chest pain, dyspnea, etc.
�- Hold ASA acutely given bleeding (no intravascular stents in place).
�- Follow for any new symptoms.
DM-II
�- Stable.� Hold PO medications.
�- Continue basal insulin at decreased dose while NPO,
�- Follow glucose and cover with SSI as needed.
�- Update A1C.
BPH
�- Stable.� Continue tamsulosin.
�- Bladder scan protocol.
Alcohol Use Disorder
�- Last drink was 3-4 weeks ago.
�- Low risk for withdrawal symptoms.
�- Monitor MSAS and advise if patient begins to experience symptoms of withdrawal.
DVT Prophylaxis:� SCDs
Code Status:� Full
Anticipated Discharge: Today
Subjective/Interval History
-
Date of Service: July 30, 2023
Patient denies abdominal pain. Normal bowel movement. He wants to go home today.
Objective Data
-
Labs:
Laboratory Results
07/30/23
04:21
WBC 3.8 L
Hgb 9.9 L
Hct 29.8 L
Plt Count 106 L
PT 17.9 H
INR 1.47
Sodium 131 L
Potassium 3.7
Chloride 101
Carbon Dioxide 27
BUN 15
Creatinine 0.6 L
Glucose 138 H
Calcium 7.9 L
Total Bilirubin 1.7 H
AST 29
ALT 15
Alkaline Phosphatase 164 H
Vital Signs:
Vital Signs
Temp Pulse Resp BP Pulse Ox
98.7 F 94 13 104/62 100
07/30/23 07:42 07/30/23 06:23 07/30/23 06:23 07/30/23 06:23 07/30/23 04:00
I&O
07/29/23 07/30/23 07/31/23
06:59 06:59 06:59
Intake Total 500 / 500 410 / 410
Output Total 325 / 325 2295 / 2295
Balance 175 / 175 -1885 / -1885
Review of Systems
-
All other systems: Reviewed and negative
--- NOTE | 2023-07-30 12:14 | W.DCSUMMARY ---
Discharge Summary
Discharge Data
Date of Admission: 07/28/23
Date of Discharge: 07/30/23
-
Pending Results: No
Hospital Course
Patient 67 years old male history of alcohol liver disease with cirrhosis, grade 1 varices without bleeding, history of hepatic encephalopathy in the past, alcohol use disorder, came into the hospital with bright blood per rectum, constipation,
worsening abdominal distention. GI consulted. Patient did not require any alcohol withdrawal medications since he has not been drinking 3 weeks prior to his presentation. His hemoglobin was monitored and even though there was a drift he did not
drop significantly. GI recommended MiraLAX for his chronic constipation and Anusol HC suppositories to help prevent further rectal bleeding. He had abdominal paracentesis with 7500 cc of ascitic fluid taken out. No evidence of SBP. Patient
rectal bleeding stopped. Patient abdomen improved after paracentesis. GI cleared him for discharge. He is currently discharged in stable condition today.
Discharge duration: 35 minutes
Discharge Plan
-
Patient Disposition: Home (Routine Discharge)
Discharge Diagnosis/Procedures: Acute lower gastrointestinal bleed. Acute blood loss anemia. Chronic iron deficiency anemia. Alcohol liver cirrhosis. Abdominal ascites status post abdominal paracentesis.
Diet: Low Cholesterol and Low Sodium
Activity: As tolerated
Driving Restrictions: As prior to admission
Blood Work: Please PCP to order CBC, CMP within 1 week.
Specialty Instructions: Weigh Daily- Call MD for wt gain/loss 3 lbs overnight/5 lbs in 1 week
Referrals:
Chantelle Foster MD [Family Provider] - in less than 1 week
Jill Espino MD [Active] - in two to four weeks
Prescriptions:
New
polyethylene glycol 3350 [HealthyLax] 17 gram Powder In Packet
17 g PO DAILY 10 Days Qty: 14 0RF
hydrocortisone acetate 25 mg Suppository
25 mg AR BID 10 Days Qty: 24 0RF
Continued
cyanocobalamin (vitamin B-12) 500 mcg Tablet
500 mcg PO DAILY
pantoprazole [Protonix] 40 mg Tablet,Delayed Release (Dr/Ec)
40 mg PO DAILY
timolol maleate 0.5 % Drops
1 drp LEFT EYE BID
PreserVision AREDS 2,148 mcg-113 mg-45 mg-17.4mg Tablet
1 tab PO BID
Januvia 100 mg Tablet
100 mg PO DAILY Qty: 0 0RF
gabapentin 300 mg Tablet Extended Release 24 Hr
300 mg PO BID
insulin glargine [Lantus U-100 Insulin] 100 unit/mL Solution
10 unit SC HS
insulin lispro 100 unit/mL Insulin Pen
4 sliding scale dose SC AC
aspirin 81 mg tablet,chewable
81 mg PO DAILY
cholecalciferol (vitamin D3) [Vitamin D3] 50 mcg (2,000 unit) Capsule
50 mcg PO DAILY
atorvastatin [Lipitor] 10 mg Tablet
10 mg PO HS
tamsulosin [Flomax] 0.4 mg Capsule
0.8 mg PO HS
lactulose 10 gram/15 mL Solution
10 g PO DAILYPRN PRN (Reason: constipation)
Discharge Orders:
Discharge Patient (As Directed); Ordered 07/30/23
Ordered By: Kieran Grady
Discharge Date and Time
Discharge Date/Time: 07/30/23 13:29
== END 2023-07-30 13:29 | disposition home or self-care (01) | DRG 433 ==
LOC: IMU 22:17
PROVIDERS: Nurse Practitioner Adult Health; Physician Assistant; Radiology Diagnostic Radiology; ADMITTING PHYSICIAN Hospitalist; ATTENDING PHYSICIAN Hospitalist; CONSULT PHYSICIAN Internal Medicine Gastroenterology; EMERGENCY PHYSICIAN Emergency Medicine; FAMILY PHYSICIAN Family Medicine
PROC: 0W9G3ZX Drainage of Peritoneal Cavity, Percutaneous Approach, Diagnostic (ICD-10-PCS; 2023-07-29)
DX: K70.31 Alcoholic cirrhosis of liver with ascites (principal); D61.818 Other pancytopenia; K92.1 Melena; D62 Acute posthemorrhagic anemia; K92.2 Gastrointestinal hemorrhage, unspecified; I85.10 Secondary esophageal varices without bleeding; I25.10 Atherosclerotic heart disease of native coronary artery without angina pectoris; E11.9 Type 2 diabetes mellitus without complications; Z87.891 Personal history of nicotine dependence; N40.0 Benign prostatic hyperplasia without lower urinary tract symptoms; F10.10 Alcohol abuse, uncomplicated; Z79.82 Long term (current) use of aspirin; K80.20 Calculus of gallbladder without cholecystitis without obstruction; D50.9 Iron deficiency anemia, unspecified
CPT/HCPCS: 88305; 36430; 49083; 71045; 80053; 82042; 82248; 82607; 82962; 83036; 83540; 83550; 83615; 84443; 85014; 85018; 85025; 85027; 85610; 85730; 86850; 86900; 86901; 86920; 87015; 87070; 87205; 88112; 89051; 93005; 99291; P9016

== ENCOUNTER 2023-08-07 23:34 | Observation (INO) | payer OTHER, MEDICARE, SELFPAY ==
[2023-08-07 20:34] VITALS: BP 128/68
[2023-08-07 20:36] VITALS: BP 128/68
[2023-08-07 21:00] VITALS: BP 108/57
[2023-08-07 21:10] LABS: % Eosinophils 2.9 % (0-6); % Immature Granulocytes 0.3 % (0-0.5); % Lymphocytes 20.5 % (20.5-51.1); % Monocytes 11.7 % (1.7-9.3); % Neutrophils 63.6 % (42.2-75.2); Absolute Basophils 0.1 10^3/uL (0-0.2); Absolute Eosinophils 0.2 10^3/uL (0-0.7); Absolute Lymphocytes 1.3 10^3/uL (1.2-3.4); Absolute Monocytes 0.7 10^3/uL (0.1-0.6); Hemoglobin 8.2 g/dL (13.0-18.0); Mean Corp Hgb Conc. 34.2 g/dL (33.0-37.0); Mean Corpuscular Hgb 31.3 pg (27.0-31.0); Mean Corpuscular Volume 91.6 fL (80.0-94.0); Mean Platelet Volume 9.2 fL (7.4-10.4); Nucleated Red Blood Cells % 0 % (-); Platelet Count 114 10^3/uL (130-400); Red Blood Cell Count 2.62 10^6/uL (4.70-6.10); Red Cell Dist. Width 15.7 % (11.5-14.5); White Blood Cell Count 6.3 10^3/uL (4.8-10.8)
[2023-08-07 21:19] LABS: INR 1.46; PT 17.5 Sec (11.4-14.6)
[2023-08-07 21:20] LABS: ALT (SGPT) 17 U/L (0-50); APTT 35.4 Sec (23.4-35.0); AST (SGOT) 40 U/L (17-59); Albumin 2.6 g/dl (3.5-5.0); Alkaline Phosphatase 173 U/L (38-126); Blood Urea Nitrogen 21 mg/dl (9-20); Calcium 7.8 mg/dl (8.4-10.2); Carbon Dioxide 29 mmol/L (22-30); Chloride 97 mmol/L (98-107); Glucose 219 mg/dl (70-99); Potassium 4.3 mmol/L (3.5-5.1); Sodium 127 mmol/L (135-145); Total Bilirubin 0.8 mg/dl (0.2-1.3); Total Protein 6.2 g/dl (6.3-8.2); eGFR > 60.00
[2023-08-07 21:32] VITALS: BP 128/80
[2023-08-07 22:00] VITALS: BP 115/66
--- NOTE | 2023-08-07 22:44 | ED.GENMED ---
History of Present Illness
General
Chief Complaint: Rectal Bleeding
Source: patient
Exam Limitations: none
Time Seen by Provider: 08/07/23 21:59
Travel History
Have you had any contact with someone who has COVID-19?: No
Do you have any symptoms of coronavirus? Fever > 100 degrees, chills, cough, shortness of breath, sore throat, loss of taste or smell, muscle aches, or headache?: No
History of Present Illness
History of Present Illness:
67-year-old male onset of lower GI bleeding this evening. Blood was dripping from his rectum. Bowel movement was normal earlier today. No abdominal pain. Some weakness. History of liver failure. Still drinks some.
Past History
Past History
ED Past Medical History: Arrthythmia (Atrial fibrillation), HTN, NIDDM and Other (Alcoholic cirrhosis, diverticulitis, anemia)
ED Past Surgical History: Orthopedic (Knee surgery) and Urological (Hydrocele)
Social History
Tobacco: Non-smoker
Alcohol: Former
Drug: None
Personal:
Living: with family
Review of Systems
Review of Systems
Constitutional: Reports no symptoms
Respiratory: Reports no symptoms
Cardiac: Reports no symptoms
Phy Exam
Physical Exam
Physical Exam:
GENERAL: Alert and oriented in no apparent distress. Pale. Chronically ill-appearing
EYE: Orbits normal.
NECK: Supple, no significant adenopathy.
ENT: Pharynx without erythema
CARDIAC: Regular rate and rhythm without any obvious murmurs.
LUNGS: Clear breath sounds,normal
ABDOMEN: Soft, distended. Bowel sounds present. Positive fluid wave. Periumbilical hernia. Rectal exam with inflamed bleeding hemorrhoid. Stool is brown but test positive
NEUROLOGICAL: Alert and oriented , grossly non-focal
SKIN: Warm and dry, no rash or lesion, no discoloration, skin intact.
MUSCULOSKELETAL: Chronic edema
PSYCH: Normal and appropriate interaction.
Course
Orders/Labs/Results
Orders:
Orders
08/07/23 20:48
Cardiac Monitoring- Treatment ONCE
IV Insert/Care/Rem.- Treatment PRN
O2 Therapy [RESP] Urgent
Titrate/Wean O2 to maintain O2 sat greater than (%): 93
Special Instructions: MAINTAIN CONTINOUS O2 SATS > OR = 93%
Pulse Ox/spot Check [RESP] Urgent
Quantity: 1
Special Instructions: ON ROOM AIR
08/07/23 20:58
Type+Screen Urgent
08/07/23 20:59
Complete Blood Count/With Diff Urgent
Comprehensive Metabolic Panel Urgent
PTT Urgent
Prothrombin Time Urgent
08/07/23 23:09
Admit/Transfer Patient As Directed
Co-Sign Provider:
Level of Care: Observation services
Assign to:: Medical/Surgical
Physician / Group: Kapil
Diagnosis: Rectal bleeding
08/07/23 23:13
Code Status As Directed
Resuscitation Status: Full Code
08/07/23 23:30
Furosemide [Lasix] 20 mg IV NOW STA
Abnormal Lab Results
08/07/23
20:59
RBC 2.62 L 10^6/uL
(4.70-6.10)
Hgb 8.2 L g/dL
(13.0-18.0)
Hct 24.0 L %
(39.0-52.0)
MCH 31.3 H pg
(27.0-31.0)
RDW 15.7 H %
(11.5-14.5)
Plt Count 114 L 10^3/uL
(130-400)
Absolute Monos (auto) 0.7 H 10^3/uL
(0.1-0.6)
Monocytes % 11.7 H %
(1.7-9.3)
PT 17.5 H Sec
(11.4-14.6)
APTT 35.4 H Sec
(23.4-35.0)
Sodium 127 L mmol/L
(135-145)
Chloride 97 L mmol/L
(98-107)
BUN 21 H mg/dl
(9-20)
Glucose 219 H mg/dl
(70-99)
Calcium 7.8 L mg/dl
(8.4-10.2)
Alkaline Phosphatase 173 H U/L
(38-126)
Total Protein 6.2 L g/dl
(6.3-8.2)
Albumin 2.6 L g/dl
(3.5-5.0)
08/07/23 20:59
08/07/23 20:59
Vital Signs
Initial and Last Documented VS:
Initial Vital Signs
Temp Pulse Resp BP Pulse Ox
98.5 F 82 16 128/68 100
08/07/23 20:34 08/07/23 20:34 08/07/23 20:34 08/07/23 20:34 08/07/23 20:34
Last Documented Vital Signs
Temp Pulse Resp BP Pulse Ox
98.5 F 82 16 128/68 98
08/07/23 20:34 08/07/23 20:34 08/07/23 20:34 08/07/23 20:34 08/08/23 00:19
MDM/Problems Addressed
Differential Diagnosis Includes:
Patient with a lower GI bleed likely secondary to hemorrhoids. However with drop in hemoglobin patient is bleeding disorder, hyponatremia patient warrants inpatient management
*Critical Care Note
Total Time (30-74mins, 75-104mins- exclusive of procedures): Not Applicable
Data Reviewed
Review of Other/Old Records Reveals: Labs, Records and Discharge Summary
Update Note
Update Note:
Consent for blood signed. Patient remained stable. Hospitalist contacted. Bleeding likely secondary to hemorrhoidal but with drop in hemoglobin and hyponatremia and liver disease patient warrants inpatient management
ED Attending Note
-
Portions of this chart may have been created with voice recognition software.� Occasional wrong word or��sound alike� substitutions may have occurred due to the inherent limitations of voice recognition software.
Discharge Plan
Departure
Patient Disposition: Admit
Date of Disposition: 08/07/23
Time of Disposition: 22:46
Presentation/result/management discussed w/ accepting MD/DO: Hospitalist
Discharge Problem:
Lower GI bleed, Suspect secondary to hemorrhoids, Acute on chronic anemia, Hyponatremia, History of liver failure
Interventions
Interventions:
*Risk Screen - Suicide Last Done: 08/07/23 20:34
*General Assessment Last Done: 08/07/23 20:34
*Neglect/Abuse Screening Last Done: 08/07/23 20:34
ED- Fall Risk Assessment Last Done: 08/07/23 20:34
*ED COVID-19 Vaccine History Last Done: 08/07/23 20:34
UZ-[id number]-[id number] Assessment Last Done: 08/08/23 00:19
ED- Cardiac Assessment Last Done: 08/08/23 00:19
ED- Pulmonary Assessment Last Done: 08/08/23 00:19
[2023-08-07 23:00] VITALS: BP 115/65
--- NOTE | 2023-08-07 23:25 | HPS.HSE ---
Addendum entered and electronically signed by Dakotah Dick DO 08/07/23 23:57:
Patient seen and examined independently. Agree with findings and plan as set forth by Destiny Li PA-C.
Patient is a 67y M with PMH significant for alcoholic cirrhosis, ASCVD and DM-II who presents to ED complaining of BRBPR. Patient reports bleeding that started about 5 hours ago. Bleeding noted at home and again here in the ED. No rectal pain,
burning, etc. Patient was admitted recently with similar complaints. He notes that he did drink 2 glasses of wine this evening with dinner.
No abdominal pain, fever, N/V, etc.
Ass:
Rectal Bleeding, likely hemorrhoidal
Hypervolemia Hyponatremia
Chronic Anemia
Alcoholic Cirrhosis with Esophageal Varices and Ascites
ASCVD
DM-II
BPH
Plan:
Observe overnight for further evaluation and treatment.
Continue bowel regimen.
Follow H&H for changes.
Monitor for any new / recurrent bleeding.
GI evaluation.
Patient counseled on complete cessation of EtOH, especially given his documented liver disease.
Trial of IV Lasix for hypervolemia, hyponatremia and ascites.
Hold ASA given acute bleeding.
Continue basal insulin + SSI coverage.
Original Note:
Family Physician
-
Family Physician: Chantelle Foster
Chief Complaint
-
Rectal Bleeding
History of Present Illness
Pt is a 67yo M w/ a PMH of HTN, ASCVD, Alcoholic cirrhosis w/ related ascites, esophageal varices, iron deficiency anemia, and BPH presenting to the ED c/o acute rectal bleeding x 5 hours. He states that he noticed the bleeding while urinating and
had seen some blood on the floor. He admits to fatigue and some dizziness/lightheadedness. He had similar presentation about 2 weeks ago at which he was started on Miralax for constipation and Anusol suppositories for hemorrhoids. He admits to
drinking two glasses of wine prior to the onset of his symptoms.He admits to consuming 1-2 glasses of wine with dinner 2-3 days each week, but acknowledges a need to quit. He denies abdominal pain. He denies chest pains or shortness of breath.
Medical History
Past Medical History
Past Medical History: Reports Other
Additional Past Medical History:
Alcoholic Cirrhosis with Ascites and Esophageal Varices
ASCVD
DM-II
Hypertension
BPH
Past Surgical History: Reports Other
Additional Past Surgical History:
CABG x 5
Right Knee Arthroscopy
Right Hydrocelectomy
Mastoidectomy
Social History
Tobacco: Former Smoker (Quit smoking 30 years ago)
Alcohol: Chronic Alcoholic (1-2 glasses of wine about 2-3 times per week)
Drug: None
Family History
Family History: Not pertinent
Allergies / Home Medications
Allergies reflects when Allergies were last updated in [facility].
Home Medications with original date entered in [facility]
Allergy/Medication List:
Allergies
Allergy/AdvReac Type Severity Reaction Status Date / Time
Sulfa (Sulfonamide Allergy Hives Verified 08/07/23 20:34
Antibiotics)
empagliflozin AdvReac potential Verified 08/07/23 20:34
[From Synjardy XR] cause of
euglycemic
DKA 03/26/23
metformin [From Synjardy XR] AdvReac potential Verified 08/07/23 20:34
cause of
euglycemic
DKA 03/26/23
Home Medications
cyanocobalamin (vitamin B-12) 500 mcg tablet 500 mcg PO DAILY Supplement 03/25/23
pantoprazole 40 mg tablet,delayed release (Protonix) 40 mg PO DAILY Gastrointestinal Issue 03/25/23
timolol maleate 0.5 % eye drops 1 drp LEFT EYE BID Eye Condition 03/25/23
vitamins A,C,P-imhw-osxsln 2,148 mcg-113 mg-45 mg-17.4 mg tablet (PreserVision AREDS) 1 tab PO BID Supplement 03/25/23
sitagliptin phosphate 100 mg tablet (Januvia) 100 mg PO DAILY #0 tabs 04/09/23
aspirin 81 mg chewable tablet 81 mg PO DAILY Blood Clot Prevention/Tx 05/04/23
gabapentin 300 mg tablet,extended release 24 hr 300 mg PO BID Pain 05/04/23
insulin glargine 100 unit/mL subcutaneous solution (Lantus U-100 Insulin) 10 unit SC HS Diabetes 05/04/23
insulin lispro 100 unit/mL subcutaneous pen 4 sliding scale dose SC AC Diabetes 05/04/23
cholecalciferol (vitamin D3) 50 mcg (2,000 unit) capsule (Vitamin D3) 50 mcg PO DAILY Supplement 05/18/23
atorvastatin 10 mg tablet (Lipitor) 10 mg PO HS High Cholesterol 05/20/23
tamsulosin 0.4 mg capsule (Flomax) 0.8 mg PO HS Urinary Issue 05/20/23
lactulose 10 gram/15 mL oral solution 10 g PO DAILYPRN PRN constipation 07/28/23
hydrocortisone acetate 25 mg rectal suppository 25 mg MT BID Anti-inflammatory 10 days #24 ea 07/30/23
polyethylene glycol 3350 17 gram oral powder packet (HealthyLax) 17 g PO DAILY 10 days #14 ea 07/30/23
Review of Systems
-
A 12 point ROS was completed and negative except as noted: Yes
Constitutional: Denies Fever
Respiratory: Denies Cough or Trouble Breathing
Cardiac: Denies Chest Pain or Palpitations
Abdomen/GI: Reports See HPI
Physical Exam
Vital Signs
Vital Signs
Temp Pulse Resp BP Pulse Ox
98.5 F 82 16 128/68 100
08/07/23 20:34 08/07/23 20:34 08/07/23 20:34 08/07/23 20:34 08/07/23 20:34
Physical Exam
General: Comfortable, Conversant and Other (Appears pale)
HEENT: Anicteric and Moist mucous membranes
Respiratory: Clear and Non Labored Respirations
Cardiac: S1/S2 and Regular Rhythm
GI: Soft, Non Tender and Distended (Positive fluid wave)
Musculoskeletal: No Clubbing, No Cyanosis, Edema, Left Lower Extremity and Edema, Right Lower Extremity
Skin: Warm and Dry
Neuro: Awake, Alert, Oriented and Nonfocal/grossly intact
Laboratory Results
-
08/07/23 20:59
08/07/23 20:59
Laboratory Results
PT 17.5 Sec (11.4-14.6) H 08/07/23 20:59
INR 1.46 08/07/23 20:59
APTT 35.4 Sec (23.4-35.0) H 08/07/23 20:59
Total Bilirubin 0.8 mg/dl (0.2-1.3) 08/07/23 20:59
AST 40 U/L (17-59) 08/07/23 20:59
ALT 17 U/L (0-50) 08/07/23 20:59
Alkaline Phosphatase 173 U/L (38-126) H 08/07/23 20:59
Data Reviewed
-
Lab Data: Labs Reviewed by me
Impression/Plan
-
Rectal Bleeding, suspect related to hemorrhoids
-Consult GI
-Continue Miralax and Anusol suppositories
-Trend Hgb
Hyponatremia, likely hypervolemic
-Start Lasix 20mg IV BID
-Monitor Is&Os and Daily Weights
-Recheck sodium in AM
Chronic Anemia
-Hgb slightly lower than baseline
-Continue to trend
Alcoholic Cirrhosis with Ascites and Esophageal Varices
Chronic Thrombocytopenia
-Reviewed with patient the importance of abstaining from alcohol in the future
-Continue low sodium diet and fluid restriction
-Patient due for paracentesis on Aug 10
ASCVD s/p CABG
-Hold aspirin
DM-II
-Continue Lantus
-Hold Januvia
-Monitor sugars and continue coverage insulin
BPH
-Continue Flomax
DVT proph: SCDs
Code Status: Full Code
[2023-08-08] VITALS: BP 102/58
[2023-08-08 00:08] VITALS: BP 105/62
[2023-08-08 01:11] VITALS: BP 107/50; BMI 26.5
[2023-08-08 01:55] VITALS: BMI 26.5
[2023-08-08 07:00] VITALS: BP 102/56
[2023-08-08 07:05] LABS: Hematocrit 22.3 % (39.0-52.0); Hemoglobin 7.5 g/dL (13.0-18.0); Mean Corp Hgb Conc. 33.6 g/dL (33.0-37.0); Mean Corpuscular Hgb 31.6 pg (27.0-31.0); Mean Corpuscular Volume 94.1 fL (80.0-94.0); Red Blood Cell Count 2.37 10^6/uL (4.70-6.10); Red Cell Dist. Width 15.7 % (11.5-14.5); White Blood Cell Count 4.5 10^3/uL (4.8-10.8)
[2023-08-08 07:15] LABS: INR 1.53; PT 18.2 Sec (11.4-14.6)
[2023-08-08 07:30] LABS: Glucose - Point of Care 163 mg/dl (70-99)
[2023-08-08 07:39] LABS: Blood Urea Nitrogen 18 mg/dl (9-20); Calcium 7.6 mg/dl (8.4-10.2); Carbon Dioxide 29 mmol/L (22-30); Chloride 100 mmol/L (98-107); Estimated Creatinine Clearance 112 ml/min; Glucose 138 mg/dl (70-99); Magnesium 1.4 mg/dl (1.6-2.3); Sodium 130 mmol/L (135-145); eGFR > 60.00
[2023-08-08 07:46] LABS: Mean Platelet Volume 9.8 fL (7.4-10.4); Platelet Count 99 10^3/uL (130-400)
--- NOTE | 2023-08-08 08:17 | CON.GI ---
Addendum entered and electronically signed by Jill Espino MD 08/08/23 13:35:
I saw and examined the patient.
The INBOUND TELEMARKETER or PA's note was reviewed and I agree with the note.
Comment: 67-year-old female with history of alcoholic liver disease with cirrhosis, history of grade 1 varices without bleeding, history of hepatic encephalopathy, last alcohol use 3 days ago presenting with intermittent bright blood per rectum.� He
was admitted end of June with similar episode, thought to be hemorrhoidal bleeding and was put on Anusol HC suppository which the patient says he was taking but he did stop the MiraLAX that he was supposed to take and came back in with rectal
bleeding yesterday, bright blood in the bowl. History of chronic constipation, has 2-3 bowel movements a week, sometimes hard stool with pushing and straining and some incomplete evacuation.�� No abdominal or rectal pain.� Paracentesis 07/29/2023,
no evidence of SBP.
MELD-3.0-16
-Rectal bleeding, related to hemorrhoids with history of chronic constipation
Anoscopy today showing grade 2 internal hemorrhoids in the right posterior and anterior quadrant, left posterior quadrants with normal-looking brown stool
Hemorrhoids noted on colonoscopy in 2021
Continue MiraLAX daily for constipation, avoid pushing/ strain with bowel movements unremarkable for more than a couple of minutes at a time.
Anusol HC suppository to help prevent further rectal bleeding
If bleeding continues, may need colorectal evaluation for internal hemorrhoids inpatient, if not -can be done as outpatient
-History of alcoholic cirrhosis without any active bleeding or decompensation at this time no evidence of SBP on paracentesis
Currently on Lasix 20 mg twice a day
Continue PPI
Continue follow-up with Dr. Ramirez as outpatient
Will follow
Original Note:
Consultation
-
Date/Time Consultation Requested: 08/08/2023 @ 01:18
Date/Time Consultation Performed: 08/08/2023 @ 08:30
Requesting Provider: Destiny Li PA-C
Performing Provider: MIRELLA Najera; Dr. Espino
Reason for Consultation: Rectal Bleeding
Medical History
Chief Complaint / HPI
Chief Complaint: rectal bleeding
History of Present Illness:
The pt is a 67 yo male with a PMH significant for decompensated alcoholic liver cirrhosis with ascites, hx EV grade 1 without bleeding, HTN, ASCVD, CAD s/p CABG, DM2, anemia, hydrocele, hx hemorrhoids, who presented to the ER with complaints of
rectal bleeding. We are being asked to evaluate for the presenting symptoms. Upon review of records, the pt was seen in the hospital about 2 weeks ago with the same presenting symptoms of rectal bleeding. At that time he had been reported passing of
large amounts of red blood with periods of blood dripping out. His hgb was stable at that time was 7 and he received transfusion. At discharge his hgb was 9.9, and stool was brown. He had reported constipation with straining and had been started on
MiraLax. He was advised to use Anusol suppositories as it was suspected the bleeding was hemorrhoidal related and he was discharged home advised follow-up outpatient with Dr. Ramirez. Today he reports he went home on MiraLAX daily and Anusol
suppositories BID which he was using daily with no subsequent bleeding. He reports he was having regular formed bowel movements that were brown in color with no evidence of blood. It was not until yesterday evening in which he had drank 2 glasses
of wine that within 30 minutes he developed bright red blood per rectum. He denies any abdominal pain, nausea, vomiting, fevers, chills, chest pain, shortness of breath, melena, dizziness, lightheadedness, or syncope. He notes that the blood
sometimes fills the toilet bowl and then other times is just notable on the toilet paper. He reports a history of anemia but does not take any oral iron supplements. He reports a colonoscopy 1-1/[address] Handy at [facility]. He
reports some discomfort intermittently due to his umbilical hernia otherwise no complaints. He denies use of NSAIDs or blood thinners. He undergoes paracentesis every other week and is due this coming Thursday. Routine labs showed a hgb 8.2, MCV
91.6, plt 114,000, INR 1.53, Na 127, BUN 18, Cr 0.6, T 0.8, AST 40, ALT 17, alk phos 173. Stool in the ER was brown/heme + with noted bleeding hemorrhoid. He was placed on CLD and admitted for further evaluation by GI.
Past Medical History
Past Medical History: CAD (Status post CABG), HTN, NIDDM and Other (Decompensated liver cirrhosis with ascites, history of esophageal varices grade 1 without bleeding, chronic anemia, history of hemorrhoids, hydrocele)
Past Surgical History: Other (Mastoidectomy, right hydrocelectomy, right knee arthroscopy)
Social History
Tobacco: Former Smoker
Alcohol: Chronic Alcoholic (Last use yesterday evening with 2 glasses of wine)
Drug: None
Personal:
Living: With Family
Family History
Family History: Reviewed & Not Pertinent
Allergies / Home Medications
Allergy/AdvReac Type Severity Reaction Status Date / Time
Sulfa (Sulfonamide Allergy Hives Verified 08/07/23 20:34
Antibiotics)
empagliflozin AdvReac potential Verified 08/07/23 20:34
[From Synjardy XR] cause of
euglycemic
DKA 03/26/23
metformin [From Synjardy XR] AdvReac potential Verified 08/07/23 20:34
cause of
euglycemic
DKA 03/26/23
Medication Instructions Recorded
cyanocobalamin (vitamin B-12) 500 500 mcg PO DAILY Supplement 03/25/23
mcg tablet
pantoprazole 40 mg tablet,delayed 40 mg PO DAILY Gastrointestinal 03/25/23
release (Protonix) Issue
timolol maleate 0.5 % eye drops 1 drp LEFT EYE BID Eye Condition 03/25/23
vitamins A,C,K-iqbx-lyeyyp 2,148 1 tab PO BID Supplement 03/25/23
mcg-113 mg-45 mg-17.4 mg tablet
(PreserVision AREDS)
sitagliptin phosphate 100 mg 100 mg PO DAILY #0 tabs 04/09/23
tablet (Januvia)
aspirin 81 mg chewable tablet 81 mg PO DAILY Blood Clot 05/04/23
Prevention/Tx
gabapentin 300 mg tablet,extended 300 mg PO BID Pain 05/04/23
release 24 hr
insulin glargine 100 unit/mL 10 unit SC HS Diabetes 05/04/23
subcutaneous solution (Lantus
U-100 Insulin)
insulin lispro 100 unit/mL 4 sliding scale dose SC AC Diabetes 05/04/23
subcutaneous pen
cholecalciferol (vitamin D3) 50 50 mcg PO DAILY Supplement 05/18/23
mcg (2,000 unit) capsule (Vitamin
D3)
atorvastatin 10 mg tablet (Lipitor) 10 mg PO HS High Cholesterol 05/20/23
tamsulosin 0.4 mg capsule (Flomax) 0.8 mg PO HS Urinary Issue 05/20/23
lactulose 10 gram/15 mL oral 10 g PO DAILYPRN PRN constipation 07/28/23
solution
hydrocortisone acetate 25 mg 25 mg DE BID Anti-inflammatory 10 07/30/23
rectal suppository days #24 ea
polyethylene glycol 3350 17 gram 17 g PO DAILY 10 days #14 ea 07/30/23
oral powder packet (HealthyLax)
Review of Systems
-
History Source: Patient
Constitutional: Reports No Symptoms
EENT: Reports No Symptoms
Respiratory: Reports No Symptoms
Cardiac: Reports No Symptoms
Abdomen/GI: Reports Bloody Stools
: Reports No Symptoms
Musculoskeletal: Reports No Symptoms
Skin: Reports No Symptoms
Neurological: Reports No Symptoms
Vital Signs
Temp Pulse Resp BP Pulse Ox
98.2 F 80 17 102/56 99
08/08/23 07:00 08/08/23 07:00 08/08/23 07:00 08/08/23 07:00 08/08/23 07:00
Physical Exam
Exam
General: No Apparent Distress, Comfortable and Other (Chronically ill-appearing)
HEENT: Normocephalic, Anicteric and Atraumatic
Respiratory: Clear
Cardiac: S1/S2 and Regular Rhythm
GI: Soft, Non Tender, Normal Bowel Sounds, Distended and Other (+ Ascites)
Rectal: Other (External hemorrhoid with adherent clot without evidence of active bleeding)
Skin: Warm and Dry
Neuro: Awake, Alert and Oriented
Psych: Calm
Results
WBC 4.5 10^3/uL (4.8-10.8) L 08/08/23 06:32
Hgb 7.5 g/dL (13.0-18.0) L 08/08/23 06:32
Hct 22.3 % (39.0-52.0) L 08/08/23 06:32
MCV 94.1 fL (80.0-94.0) H 08/08/23 06:32
Plt Count 99 10^3/uL (130-400) L 08/08/23 06:32
Absolute Neuts (auto) 4.0 10^3/uL (1.4-6.5) 08/07/23 20:59
PT 18.2 Sec (11.4-14.6) H 08/08/23 06:32
INR 1.53 08/08/23 06:32
APTT 35.4 Sec (23.4-35.0) H 08/07/23 20:59
Sodium 130 mmol/L (135-145) L 08/08/23 06:32
Potassium 4.0 mmol/L (3.5-5.1) 08/08/23 06:32
Chloride 100 mmol/L (98-107) 08/08/23 06:32
Carbon Dioxide 29 mmol/L (22-30) 08/08/23 06:32
BUN 18 mg/dl (9-20) 08/08/23 06:32
Creatinine 0.6 mg/dL (0.7-1.3) L 08/08/23 06:32
Calcium 7.6 mg/dl (8.4-10.2) L 08/08/23 06:32
Total Bilirubin 0.8 mg/dl (0.2-1.3) 08/07/23 20:59
AST 40 U/L (17-59) 08/07/23 20:59
ALT 17 U/L (0-50) 08/07/23 20:59
Alkaline Phosphatase 173 U/L (38-126) H 08/07/23 20:59
Diagnostic Image Results:�
07/29/23 paracentesis: 7500cc removed, WBC 289, PMN 11.8, no SBP
07/10/23 � CT Abd/Pel (IV only)-DH only
Large amount of abdominopelvic ascites. Progressed
Hepatic fatty infiltration.
Findings suggesting cirrhosis.
Esophageal varices
Gallstones.
Probable benign small complex right renal cyst.
Nonobstructing right renal stone.
Moderate fecal material in the colon. Stable
Mild diverticulosis. Stable
Prior GI Procedures:�
EGD:� prior [facility] grade I EV
Colonoscopy:� 2021 small polyp due 2026
Assessment / Plan
-
The pt is a 67 yo male with a PMH significant for decompensated alcoholic liver cirrhosis with ascites, hx EV grade 1 without bleeding, HTN, ASCVD, CAD s/p CABG, DM2, anemia, hydrocele, hx hemorrhoids, who presented to the ER with complaints of
rectal bleeding. We are being asked to evaluate for the presenting symptoms. He has had several hospitalizations for recurrent rectal bleeding thought to be secondary to hemorrhoids. Improved with MiraLAX and Anusol suppositories but recurrent
bleeding after drinking alcohol. Noted with a mild drop of hemoglobin to 7.5. No overt bleeding currently. External hemorrhoid with adherent clot but no active bleeding currently. Last episode earlier this morning of passing blood. He otherwise
denies any complaints.
Problem list:
-rectal bleeding
-chronic macrocytic anemia
-decompensated liver cirrhosis with ascites, EV grade 1 without bleeding, MELD-Na 11 (indicating a 6% 90-day mortality rate)
-mild thrombocytopenia 2/2 liver cirrhosis
-hyponatremia, improving
-hypomagnesemia
-chronically elevated alk phos
Recommendations:
-Etiology of rectal bleeding is likely secondary to hemorrhoids. Seen on anoscope by Dr. Espino.
-Continue Anusol suppository BID for one week, then daily as needed
-Continue MiraLax 1 capful daily, can adjust based on stool response up to 1 capful twice daily
-Avoid straining/constipation/prolonged toileting
-Ensure high fiber diet
-Will ask for colorectal evaluation with recurrent hemorrhoidal bleeding
-Monitor H/H
-Monitor for ongoing bleeding
-Advised on strict alcohol abstinence with hx of liver cirrhosis. He is aware this can lead to mortality in his advanced liver disease.
-electrolyte repletion as per hospitalist
-He will need close follow-up outpatient in regards to his liver cirrhosis with Dr. Ramirez/hepatology eval if he can stop drinking
-Will follow
Data Reviewed
-
Old Records: Reviewed
-
-
Thank you for consultation and allowing me to participate in the patient's care. Please call the staff occupational therapist GI physician during the after hours with any questions or concerns.
[2023-08-08] MEDS: NOVOLOG FLEXPEN-LOW RESISTANCE SC (09:15)
[2023-08-08] MEDS: NOVOLOG FLEXPEN-LOW RESISTANCE 1 UNITS SC (09:15)
[2023-08-08] MEDS: PROTONIX 40 MG PO (09:16)
[2023-08-08] MEDS: LASIX 20 MG IV ×2 (09:16→16:26)
[2023-08-08] MEDS: MIRALAX 17 GRAMS PO (09:16)
[2023-08-08] MEDS: ANUSOL HC 25 MG RECTAL ×2 (09:17→22:00)
--- NOTE | 2023-08-08 11:14 | W.PN.HOSP.TC ---
Today's Communication/Plan
-
Rpt Hb later
If dropping transfuse
Assessment / Plan
Assessment / Plan
67-year-old male presents to the hospital with rectal bleeding. He also had some dizziness and lightheadedness prior to admission. Patient was started on MiraLAX and Anusol for hemorrhoids 2 weeks ago. Patient consumes 1 to 2 glasses of wine with
dinner 3 days a week.
CVS: S1-S2 normal
Chest: CTA B/L
Abdomen: Soft, Distended, NT, Bowel sounds present
Extremities: No edema, normal pulses
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
# Rectal bleeding
Possibly hemorrhoidal or diverticular
Admitted here earlier this month and was discharged as the bleeding was felt to be secondary to hemorrhoids
He was started on Anusol and MiraLAX
Follow H&H-dropped to 7.5
May need transfusion if drops further.
Blood consent signed
GI consultation
Clears
# Hyponatremia
Started on Lasix for hypervolemic hyponatremia
Fluid restriction
# Acute on Chronic anemia
Acute drop from GI Blood loss
# Hypomagnesemia-replace
# Alcoholic cirrhosis with ascites and grade 1 esophageal varices
Patient needs to completely abstain from alcohol discussed
Salt and fluid restriction
Due for paracentesis on August 10
Last paracentesis was on 07/29/2023 and 7500 mL of fluid was removed
# Mild pancytopenia likely secondary to liver disease
# ASCVD status post CABG
Holding aspirin. Continue Lipitor
# Paroxysmal atrial fibrillation-not on anticoagulation as outpatient
# Diabetes with neuropathy
On Lantus and sliding scale-continue
Hold Januvia
On gabapentin for neuropathy
# Prostate disease-continue Flomax
# Hyperlipidemia-on Lipitor
# Foot drop on the right
# Diverticulosis
# Chronic hydrocele
# Hearing impairment
# DVT prophylaxis-SCDs
# CODE STATUS-full code
D/W at bed side
D/W RN
Anticipated Discharge: 24 - 48 hours
Subjective/Interval History
-
Date of Service: August 08, 2023
Objective Data
-
Labs:
Laboratory Results
08/08/23
06:32
WBC 4.5 L
Hgb 7.5 L
Hct 22.3 L
Plt Count 99 L
PT 18.2 H
INR 1.53
Sodium 130 L
Potassium 4.0
Chloride 100
Carbon Dioxide 29
BUN 18
Creatinine 0.6 L
Glucose 138 H
Calcium 7.6 L
Vital Signs:
Vital Signs
Temp Pulse Resp BP Pulse Ox
98.2 F 80 17 102/56 99
08/08/23 07:00 08/08/23 09:16 08/08/23 07:00 08/08/23 09:16 08/08/23 07:00
I&O
08/07/23 08/08/23 08/09/23
06:59 06:59 06:59
Intake Total 120 / 120
Output Total 625 / 625
Balance -505 / -505
[2023-08-08 11:38] LABS: Glucose - Point of Care 201 mg/dl (70-99)
[2023-08-08] MEDS: NOVOLOG FLEXPEN-LOW RESISTANCE 2 UNITS SC ×2 (12:31→16:35)
[2023-08-08 13:05] VITALS: BMI 26.1
[2023-08-08] MEDS: MAGNESIUM SULFATE 50 IV (13:38)
--- NOTE | 2023-08-08 13:49 | CM ---
Patient seen at bedside with . OBS/IRVING form reviewed and signed form placed on chart. Patient states that they live in a one story home with his and physician. Patient has a walker and cane at home. Patient PCP is Dr. Christi Foster and he
uses [facility] [place]. Patient plan is for discharge home when appropriate. Patient states he is to get a transfusion and IV today. CM will continue to follow for discharge planning needs.
Plan; home with VN vs SNF; pending assessment pt/ot
[2023-08-08 14:20] LABS: Iron 69 ug/dl (49-181)
[2023-08-08 14:29] LABS: Percent Saturation 36 % (20-50); Total Iron Binding Capacity 189 ug/dl (261-462)
[2023-08-08 15:00] VITALS: BP 120/60
[2023-08-08 15:08] LABS: Osmolality Serum 301 mOsm/kg (275-300)
[2023-08-08 15:45] LABS: Hematocrit 22.5 % (39.0-52.0); Hemoglobin 7.6 g/dL (13.0-18.0)
[2023-08-08 15:50] LABS: Cortisol, Random 12.5 ug/dl; TSH 1.29 uIU/ml (0.47-4.68)
[2023-08-08 16:09] LABS: Vitamin B12 > 1000 pg/ml (239-931)
[2023-08-08 16:32] LABS: Glucose - Point of Care 212 mg/dl (70-99)
[2023-08-08 21:14] LABS: Osmolality Urine 350 mOsm/kg (300-900)
[2023-08-08 21:59] LABS: Glucose - Point of Care 197 mg/dl (70-99)
[2023-08-08] MEDS: NEURONTIN 300 MG PO (22:00)
[2023-08-08] MEDS: LIPITOR 10 MG PO (22:00)
[2023-08-08] MEDS: FLOMAX 0.800000000000000044 MG PO (22:00)
[2023-08-08] MEDS: LANTUS 0.100000000000000006 UNITS SC (22:03)
[2023-08-08 23:50] VITALS: BP 119/58
[2023-08-09] MEDS: MAGNESIUM OXIDE 250 MG PO (02:30)
[2023-08-09 06:00] VITALS: BMI 26.2
[2023-08-09 06:22] LABS: INR 1.44; PT 17.4 Sec (11.4-14.6)
[2023-08-09 06:28] LABS: Hematocrit 24.8 % (39.0-52.0); Hemoglobin 8.4 g/dL (13.0-18.0); Mean Corp Hgb Conc. 33.9 g/dL (33.0-37.0); Mean Corpuscular Hgb 31.7 pg (27.0-31.0); Mean Corpuscular Volume 93.6 fL (80.0-94.0); Mean Platelet Volume 9.9 fL (7.4-10.4); Platelet Count 120 10^3/uL (130-400); Red Blood Cell Count 2.65 10^6/uL (4.70-6.10); Red Cell Dist. Width 15.3 % (11.5-14.5); White Blood Cell Count 5.9 10^3/uL (4.8-10.8)
[2023-08-09 06:42] LABS: ALT (SGPT) 16 U/L (0-50); AST (SGOT) 36 U/L (17-59); Albumin 2.5 g/dl (3.5-5.0); Alkaline Phosphatase 177 U/L (38-126); Blood Urea Nitrogen 18 mg/dl (9-20); Calcium 7.8 mg/dl (8.4-10.2); Carbon Dioxide 31 mmol/L (22-30); Chloride 95 mmol/L (98-107); Estimated Creatinine Clearance 112 ml/min; Glucose 144 mg/dl (70-99); Magnesium 1.6 mg/dl (1.6-2.3); Potassium 3.2 mmol/L (3.5-5.1); Sodium 128 mmol/L (135-145); Total Bilirubin 1.9 mg/dl (0.2-1.3); Total Protein 6.2 g/dl (6.3-8.2); eGFR > 60.00
[2023-08-09 07:28] LABS: Glucose - Point of Care 163 mg/dl (70-99)
[2023-08-09 07:30] VITALS: BP 95/56
[2023-08-09] MEDS: PROTONIX 40 MG PO (07:45)
[2023-08-09] MEDS: MIRALAX 17 GRAMS PO (07:45)
[2023-08-09] MEDS: ANUSOL HC 25 MG RECTAL ×2 (07:45→22:07)
[2023-08-09] MEDS: NEURONTIN 300 MG PO ×2 (07:45→22:05)
[2023-08-09] MEDS: NOVOLOG FLEXPEN-LOW RESISTANCE SC (07:45)
[2023-08-09] MEDS: LASIX IV ×2 (07:46→07:57)
[2023-08-09] MEDS: MAGNESIUM SULFATE 50 IV (08:02)
[2023-08-09] MEDS: KCL 270 MEQ IV (10:06)
[2023-08-09] MEDS: SAMSCA 15 MG PO (10:21)
--- NOTE | 2023-08-09 12:56 | W.PN.GI.CBS2 ---
Today's Communication / Plan
-
-Rectal bleeding, related to hemorrhoids with history of chronic constipation
Anoscopy 08/08 showing grade 2 internal hemorrhoids in the right posterior and anterior quadrant, left posterior quadrants with normal-looking brown stool
Hemorrhoids noted on colonoscopy in 2021
No further bleeding this admission, continue Anusol HC suppositories at home and MiraLAX at home
Give the number for colorectal surgeon to call and make an appointment for hemorrhoidal banding as outpatient
-History of alcoholic cirrhosis without any active bleeding or decompensation at this time no evidence of SBP on paracentesis
Currently on Lasix 20 mg twice a day
Continue PPI
Continue follow-up with Dr. Ramirez as outpatient
Assessment / Plan
-
The pt is a 67 yo male with a PMH significant for decompensated alcoholic liver cirrhosis with ascites, hx EV grade 1 without bleeding, HTN, ASCVD, CAD s/p CABG, DM2, anemia, hydrocele, hx hemorrhoids, who presented to the ER with complaints of
rectal bleeding. We are being asked to evaluate for the presenting symptoms. He has had several hospitalizations for recurrent rectal bleeding thought to be secondary to hemorrhoids. Improved with MiraLAX and Anusol suppositories but recurrent
bleeding after drinking alcohol. Noted with a mild drop of hemoglobin to 7.5. No overt bleeding currently. External hemorrhoid with adherent clot but no active bleeding currently. Last episode earlier this morning of passing blood. He otherwise
denies any complaints.
Problem list:
-rectal bleeding
-chronic macrocytic anemia
-decompensated liver cirrhosis with ascites, EV grade 1 without bleeding, MELD-Na 11 (indicating a 6% 90-day mortality rate)
-mild thrombocytopenia 2/2 liver cirrhosis
-hyponatremia, improving
-hypomagnesemia
-chronically elevated alk phos
Recommendations:
-Rectal bleeding, related to hemorrhoids with history of chronic constipation
Anoscopy 08/08 showing grade 2 internal hemorrhoids in the right posterior and anterior quadrant, left posterior quadrants with normal-looking brown stool
Hemorrhoids noted on colonoscopy in 2021
No further bleeding this admission, continue Anusol HC suppositories at home and MiraLAX at home
Give the number for colorectal surgeon to call and make an appointment for hemorrhoidal banding as outpatient
-History of alcoholic cirrhosis without any active bleeding or decompensation at this time no evidence of SBP on paracentesis
Currently on Lasix 20 mg twice a day
Continue PPI
Continue follow-up with Dr. Ramirez as outpatient
Subjective
Subjective
Date of Service: August 09, 2023
No further bleeding
Objective
Data Reviewed
Laboratory Data:
Laboratory Results
08/09/23 05:15
08/09/23 05:15
Laboratory Results
PT 17.4 Sec (11.4-14.6) H 08/09/23 05:15
INR 1.44 08/09/23 05:15
APTT 35.4 Sec (23.4-35.0) H 08/07/23 20:59
Magnesium 1.6 mg/dl (1.6-2.3) 08/09/23 05:15
Total Bilirubin 1.9 mg/dl (0.2-1.3) H D 08/09/23 05:15
AST 36 U/L (17-59) 08/09/23 05:15
ALT 16 U/L (0-50) 08/09/23 05:15
Alkaline Phosphatase 177 U/L (38-126) H 08/09/23 05:15
Vital Signs and I&O:
Vital Signs
Temp Pulse Resp BP Pulse Ox
97.6 F 96 18 95/56 100
08/09/23 07:30 08/09/23 07:30 08/09/23 07:30 08/09/23 07:30 08/09/23 07:30
I&O
08/08/23 08/09/23 08/10/23
06:59 06:59 06:59
Intake Total 120 / 120 420 / 420
Output Total 625 / 625 1400 / 1400
Balance -505 / -505 -980 / -980
Physical Exam
Physical Exam
GI: Soft and Non Distended
[2023-08-09 12:58] LABS: Glucose - Point of Care 270 mg/dl (70-99)
[2023-08-09] MEDS: NOVOLOG FLEXPEN-LOW RESISTANCE 3 UNITS SC (13:01)
[2023-08-09 15:30] VITALS: BP 111/61
--- NOTE | 2023-08-09 15:32 | W.PN.HOSP.TC ---
Today's Communication/Plan
-
Replace Lytes
Labs in am
Assessment / Plan
Assessment / Plan
67-year-old male presents to the hospital with rectal bleeding. He also had some dizziness and lightheadedness prior to admission. Patient was started on MiraLAX and Anusol for hemorrhoids 2 weeks ago. Patient consumes 1 to 2 glasses of wine with
dinner 3 days a week.
CVS: S1-S2 normal
Chest: CTA B/L
Abdomen: Soft, Distended, NT, Bowel sounds present
Extremities: No edema, normal pulses
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
# Rectal bleeding
Possibly hemorrhoidal or diverticular
Admitted here earlier this month and was discharged as the bleeding was felt to be secondary to hemorrhoids
He was started on Anusol and MiraLAX
Follow H&H-dropped to 7.5
May need transfusion if drops further.
Blood consent signed
GI did Anoscopy- he has hemorrhoids
Colorectal eval at some point.
Clears- Advance to diabetic diet
# Hyponatremia
Started on Lasix for hypervolemic hyponatremia
Fluid restriction
Samsca one dose
Hold Lasix tonight
# Acute on Chronic anemia
Acute drop from GI Blood loss
# Hypomagnesemia-replace
# Hypokalemia replace
# Alcoholic cirrhosis with ascites and grade 1 esophageal varices
Patient needs to completely abstain from alcohol discussed
Salt and fluid restriction
Due for paracentesis on August 10-IRAD consulted
Last paracentesis was on 07/29/2023 and 7500 mL of fluid was removed
# Mild pancytopenia likely secondary to liver disease
# ASCVD status post CABG
Restart aspirin. Continue Lipitor
# Paroxysmal atrial fibrillation-not on anticoagulation as outpatient
# Diabetes with neuropathy
On Lantus and sliding scale-continue
Restart Januvia
On gabapentin for neuropathy
# Prostate disease-continue Flomax
# Hyperlipidemia-on Lipitor
# Foot drop on the right
# Diverticulosis
# Chronic hydrocele
# Hearing impairment
# DVT prophylaxis-SCDs
# CODE STATUS-full code
D/W RN
Anticipated Discharge: Within 24 hours
Subjective/Interval History
-
Date of Service: August 09, 2023
Objective Data
-
Labs:
Laboratory Results
08/09/23
05:15
WBC 5.9
Hgb 8.4 L
Hct 24.8 L
Plt Count 120 L D
PT 17.4 H
INR 1.44
Sodium 128 L
Potassium 3.2 L
Chloride 95 L
Carbon Dioxide 31 H
BUN 18
Creatinine 0.6 L
Glucose 144 H
Calcium 7.8 L
Total Bilirubin 1.9 H D
AST 36
ALT 16
Alkaline Phosphatase 177 H
Vital Signs:
Vital Signs
Temp Pulse Resp BP Pulse Ox
97.6 F 96 18 95/56 100
08/09/23 07:30 08/09/23 07:30 08/09/23 07:30 08/09/23 07:30 08/09/23 07:30
I&O
08/08/23 08/09/23 08/10/23
06:59 06:59 06:59
Intake Total 120 / 120 420 / 420
Output Total 625 / 625 1400 / 1400
Balance -505 / -505 -980 / -980
[2023-08-09] MEDS: LOW STRENGTH ASPIRIN 81 MG PO (17:00)
[2023-08-09] MEDS: JANUVIA 100 MG PO (17:00)
[2023-08-09 17:01] LABS: Glucose - Point of Care 188 mg/dl (70-99)
[2023-08-09] MEDS: NOVOLOG FLEXPEN-LOW RESISTANCE 1 UNITS SC (17:02)
[2023-08-09 21:44] LABS: Glucose - Point of Care 251 mg/dl (70-99)
[2023-08-09] MEDS: FLOMAX 0.800000000000000044 MG PO (22:03)
[2023-08-09] MEDS: LIPITOR 10 MG PO (22:07)
[2023-08-09] MEDS: MYLICON 80 MG PO (22:07)
[2023-08-09] MEDS: LANTUS 0.100000000000000006 UNITS SC (22:08)
[2023-08-09] MEDS: TIMOPTIC 0.5% OPHTHALMIC SOLUTION 1 DROP LEFT EYE (22:54)
[2023-08-09 23:50] VITALS: BP 131/70
[2023-08-10 05:42] VITALS: BMI 26.2
[2023-08-10 05:44] LABS: Hematocrit 24.8 % (39.0-52.0); Hemoglobin 8.1 g/dL (13.0-18.0); Mean Corp Hgb Conc. 32.7 g/dL (33.0-37.0); Mean Platelet Volume 9.6 fL (7.4-10.4); Platelet Count 115 10^3/uL (130-400); Red Blood Cell Count 2.61 10^6/uL (4.70-6.10); Red Cell Dist. Width 15.6 % (11.5-14.5); White Blood Cell Count 6.5 10^3/uL (4.8-10.8)
[2023-08-10 06:09] LABS: Blood Urea Nitrogen 20 mg/dl (9-20); Calcium 8.2 mg/dl (8.4-10.2); Carbon Dioxide 29 mmol/L (22-30); Chloride 98 mmol/L (98-107); Estimated Creatinine Clearance 74 ml/min; Glucose 120 mg/dl (70-99); Potassium 3.8 mmol/L (3.5-5.1); Sodium 131 mmol/L (135-145); eGFR > 60.00
[2023-08-10 07:30] VITALS: BP 109/60
[2023-08-10 08:33] LABS: Glucose - Point of Care 140 mg/dl (70-99)
[2023-08-10] MEDS: LASIX 20 MG PO (08:39)
[2023-08-10] MEDS: LOW STRENGTH ASPIRIN 81 MG PO (08:40)
[2023-08-10] MEDS: MIRALAX 17 GRAMS PO (08:40)
[2023-08-10] MEDS: KCL 40 MEQ PO (08:40)
[2023-08-10] MEDS: JANUVIA 100 MG PO (08:40)
[2023-08-10] MEDS: PROTONIX 40 MG PO (08:40)
[2023-08-10] MEDS: NEURONTIN 300 MG PO (08:40)
[2023-08-10] MEDS: ANUSOL HC 25 MG RECTAL (08:41)
[2023-08-10] MEDS: TIMOPTIC 0.5% OPHTHALMIC SOLUTION 1 DROP LEFT EYE (08:41)
--- NOTE | 2023-08-10 09:10 | CON.CRS ---
Addendum entered and electronically signed by Rudy Bautista MD 08/10/23 14:27:
I saw and examined the patient.
The PA's note was reviewed and I agree with the note.
Comment:
Patient seen earlier with PA.
History, vitals, labs, imaging reviewed. Patient seen.
67-year-old male with alcoholic cirrhosis with secondary esophageal varices and ascites with a MELD score of 11 and a Genesis classification somewhere between B & C who has come in to the hospital with bright red blood per rectum. This has
apparently been going on intermittently for a while. He came into the ER previously for this. On exam by GI yesterday he had no external hemorrhoids and apparently anoscopy was performed by Dr. Espino showing moderate internal hemorrhoids. GI
felt that this was the source of the bleeding. The patient denies bleeding for the last 2 days or so. He is anxious to be discharged from the hospital with plans for follow-up with us in the office for potential banding. I told him this was
reasonable. He will follow-up with us as described.
Thanks.
Original Note:
Consultation
-
Date/Time Consultation Requested: 08/10/2023, 08:12
Date/Time Consultation Performed: 08/10/2023, 9:45
Requesting Provider: Gustabo Rader MD
Performing Provider: Rudy Bautista MD
Reason for Consultation: rectal bleeding
Medical History
-
Chief Complaint: rectal bleeding
History of Present Illness:
67yo male with a pmh of alcoholic liver disease with cirrhosis, history of grade 1 varices without bleeding presented to the ER on 08/07/2023 with bright red blood per rectum. The patient states he has been bleeding 'for a while' and last bled 5 days
ago. He states his hemorrhoids don't prolapse but just bleed on their own. He has been using Miralax and suppositories at home and has bowel movements 2 to 3 times per week. He denies abdominal or rectal pain. His last paracentesis was 07/29/2023. We
have been consulted for further management of the rectal bleeding.
Past Medical History
Past Medical History: CAD, HTN and Other (Alcoholic Cirrhosis with Ascites and Esophageal Varices, ASCVD, BPH)
Past Surgical History: Cardiac (CABG x 5), Orthopedic (Right Knee Arthroscopy) and Other (Right Hydrocelectomy, Mastoidectomy)
Social History
Tobacco: Former Smoker (quit 30 years ago)
Alcohol: Chronic Alcoholic (1-2 glasses of wine about 2-3 times per week)
Drug: None
Family History
Family History: Reviewed & Not Pertinent
Allergies / Home Medications
Allergy/AdvReac Type Severity Reaction Status Date / Time
Sulfa (Sulfonamide Allergy Hives Verified 08/07/23 20:34
Antibiotics)
empagliflozin AdvReac potential Verified 08/07/23 20:34
[From Synjardy XR] cause of
euglycemic
DKA 03/26/23
metformin [From Synjardy XR] AdvReac potential Verified 08/07/23 20:34
cause of
euglycemic
DKA 03/26/23
Medication Instructions Recorded Confirmed Type
cyanocobalamin (vitamin B-12) 500 500 mcg PO DAILY Supplement 03/25/23 08/07/23 History
mcg tablet
pantoprazole 40 mg tablet,delayed 40 mg PO DAILY Gastrointestinal 03/25/23 08/07/23 History
release (Protonix) Issue
timolol maleate 0.5 % eye drops 1 drp LEFT EYE BID Eye Condition 03/25/23 08/07/23 History
vitamins A,C,E-ydwe-gmmvbv 2,148 1 tab PO BID Supplement 03/25/23 08/07/23 History
mcg-113 mg-45 mg-17.4 mg tablet
(PreserVision AREDS)
aspirin 81 mg chewable tablet 81 mg PO DAILY Blood Clot 05/04/23 08/07/23 History
Prevention/Tx
insulin glargine 100 unit/mL 10 unit SC HS Diabetes 05/04/23 08/07/23 History
subcutaneous solution (Lantus
U-100 Insulin)
insulin lispro 100 unit/mL 4 sliding scale dose SC AC Diabetes 05/04/23 08/07/23 History
subcutaneous pen
cholecalciferol (vitamin D3) 50 50 mcg PO DAILY Supplement 05/18/23 08/07/23 History
mcg (2,000 unit) capsule (Vitamin
D3)
atorvastatin 10 mg tablet (Lipitor) 10 mg PO HS High Cholesterol 05/20/23 08/07/23 History
tamsulosin 0.4 mg capsule (Flomax) 0.8 mg PO HS Urinary Issue 05/20/23 08/07/23 History
lactulose 10 gram/15 mL oral 10 g PO DAILYPRN PRN constipation 07/28/23 08/07/23 History
solution
hydrocortisone acetate 25 mg 25 mg [place] BID Anti-inflammatory 10 07/30/23 08/07/23 Rx
rectal suppository days #24 ea
polyethylene glycol 3350 17 gram 17 g PO DAILY 10 days #14 ea 07/30/23 08/07/23 Rx
oral powder packet (HealthyLax)
gabapentin 300 mg capsule 300 mg PO BID Pain 08/08/23 08/08/23 History
sitagliptin phosphate 100 mg 100 mg PO DAILY Diabetes 08/08/23 08/07/23 History
tablet (Januvia)
Review of Systems
-
History Source: Patient
Constitutional: Fatigue and Other (dizziness/lightheadedness)
Abdomen/GI: Bloody Stools and Other
: Bleeding
A 10 point review of systems was completed, and was negative except as per HPI.
Physical Exam
Vital Signs
Temp 98.2 F 08/10/23 07:30
Pulse 81 08/10/23 07:30
Resp Rate 16 08/10/23 07:30
Blood pressure 109/60 08/10/23 07:30
SaO2 99 02/12/24 07:30
08/09/23 08/10/23 08/11/23
06:59 06:59 06:59
Actual Weight 75.75 kg 75.886 kg
Body Mass Index (BMI) 26.2
Lab Results / Allergies
08/10/23 05:20
08/10/23 05:20
WBC 6.5 10^3/uL (4.8-10.8) 08/10/23 05:20
Hgb 8.1 g/dL (13.0-18.0) L 08/10/23 05:20
Hct 24.8 % (39.0-52.0) L 08/10/23 05:20
Plt Count 115 10^3/uL (130-400) L 08/10/23 05:20
Abs Immat Gran (auto) 0.0 10^3/uL (0-0.05) 08/07/23 20:59
Neutrophils % 63.6 % (42.2-75.2) 08/07/23 20:59
Allergy/AdvReac Type Severity Reaction Status Date / Time
Sulfa (Sulfonamide Allergy Hives Verified 08/07/23 20:34
Antibiotics)
empagliflozin AdvReac potential Verified 08/07/23 20:34
[From Synjardy XR] cause of
euglycemic
DKA 03/26/23
metformin [From Synjardy XR] AdvReac potential Verified 08/07/23 20:34
cause of
euglycemic
DKA 03/26/23
Physical Exam
General: Well Developed and No Apparent Distress
Skin: Warm and Dry
Neuro: AO x 3
Psych: Calm
Data Reviewed
-
Labs: Labs Reviewed by me, Discussed with Physician and Discussed with Patient
Old Records: Reviewed
Assessment / Plan
-
Assessment: 67yo male with rectal bleeding and a history of alcoholic cirrhosis
Plan: Patient is not willing to undergo an exam at this time. He is interested in following up at the office to undergo an anoscopy and possible hemorrhoidal banding. I will provide follow up instructions in his discharge instructions. We will sign
off, please contact us with any further questions.
[2023-08-10] MEDS: NOVOLOG FLEXPEN-LOW RESISTANCE SC (09:45)
[2023-08-10 09:50] VITALS: BP 115/61; BP_SYST 75
[2023-08-10 10:43] LABS: Body Fluid Mononuclear 89.3 %; Body Fluid Polymorphonuclear 10.7 %; Body Fluid WBC 336 /CUMM
[2023-08-10 10:45] VITALS: BP 96/47; BP_SYST 76
[2023-08-10 10:50] LABS: Body Fluid Second Tech AMA
[2023-08-10 10:54] VITALS: BP 89/52
[2023-08-10 11:40] LABS: Glucose - Point of Care 249 mg/dl (70-99)
[2023-08-10] MEDS: NOVOLOG FLEXPEN-LOW RESISTANCE 2 UNITS SC (12:13)
[2023-08-10 12:53] VITALS: BP 96/52
--- NOTE | 2023-08-10 13:08 | W.PN.HOSP.TC ---
Today's Communication/Plan
-
Discharge
Assessment / Plan
Assessment / Plan
67-year-old male presents to the hospital with rectal bleeding. He also had some dizziness and lightheadedness prior to admission. Patient was started on MiraLAX and Anusol for hemorrhoids 2 weeks ago. Patient consumes 1 to 2 glasses of wine with
dinner 3 days a week.
CVS: S1-S2 normal
Chest: CTA B/L
Abdomen: Soft, Distended, NT, Bowel sounds present
Extremities: No edema, normal pulses
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
# Rectal bleeding
Possibly hemorrhoidal
Admitted here earlier this month and was discharged as the bleeding was felt to be secondary to hemorrhoids
He was started on Anusol and MiraLAX
Follow H&H-Hb stable at 8.1
GI did Anoscopy- he has hemorrhoids
Colorectal eval appreciated.
Patient tolerating diet
Plan is to have him follow-up with colorectal surgery office
Rpt BP stable after para
Sitting in a chair and has no complaints
# Hyponatremia
Started on Lasix for hypervolemic hyponatremia
Fluid restriction
Sodium better with Samsca
Continue Lasix for discharge
# Acute on Chronic anemia
Acute drop from GI Blood loss
# Hypomagnesemia-replaced
# Hypokalemia replaced
# Alcoholic cirrhosis with ascites and grade 1 esophageal varices
Patient needs to completely abstain from alcohol discussed
Salt and fluid restriction
Due for paracentesis on August 10-[facility] consulted
Paracentesis done on 08/10/2023 4600 mL of fluid-no evidence of SBP
# Mild pancytopenia likely secondary to liver disease
# ASCVD status post CABG
Restart aspirin. Continue Lipitor
# Paroxysmal atrial fibrillation-not on anticoagulation as outpatient
# Diabetes with neuropathy
On Lantus and sliding scale-continue
Restarted Januvia
On gabapentin for neuropathy
# Prostate disease-continue Flomax
# Hyperlipidemia-on Lipitor
# Foot drop on the right
# Diverticulosis
# Chronic hydrocele
# Hearing impairment
# DVT prophylaxis-SCDs
# CODE STATUS-full code
D/W RN
D/W Colorectal
D/W GI
All OK for discharge
Discharge follow up discussed with the patient
Discharge time 32 min
Anticipated Discharge: Today
Subjective/Interval History
-
Date of Service: August 10, 2023
Objective Data
-
Labs:
Laboratory Results
08/10/23
05:20
WBC 6.5
Hgb 8.1 L
Hct 24.8 L
Plt Count 115 L
Sodium 131 L
Potassium 3.8
Chloride 98
Carbon Dioxide 29
BUN 20
Creatinine 0.9
Glucose 120 H
Calcium 8.2 L
Vital Signs:
Vital Signs
Temp Pulse Resp BP Pulse Ox
98 F 74 14 96/52 100
08/10/23 09:50 08/10/23 12:53 08/10/23 10:54 08/10/23 12:53 08/10/23 10:45
I&O
08/09/23 08/10/23 08/11/23
06:59 06:59 06:59
Intake Total 420 / 420 500 / 500
Output Total 1400 / 1400
Balance -980 / -980 500 / 500
--- NOTE | 2023-08-10 13:12 | W.DS.TRANS ---
Addendum entered and electronically signed by Gustabo Rader MD 08/10/23 16:27:
Dictation- [id number]
Original Note:
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
-
Discharge Instructions:
Sleep Apnea Risk Low
Discharge Diagnosis/Procedures Rectal bleeding, hemorrhoids, ascites, anemia,
cirrhosis, low magnesium, low potassium, low
sodium, diabetes with neuropathy, prostate
disease, high cholesterol, right foot drop,
diverticulosis, chronic hydrocele
Diet Restrict fluids to 48 oz,Diabetic, Carb
Controlled
Activity As tolerated
Driving Restrictions As prior to admission
Blood Work CBC, BMP, liver function test, magnesium levels
-3 to 4 days
Other Services VN
Specialty Instructions Weigh Daily
Instructions:
Stand-Alone Forms:
Changes to Home Medications: Yes
Discharge Medications:
DC Medications w/original date entered in [employer]
cyanocobalamin (vitamin B-12) 500 mcg tablet 500 mcg PO DAILY Supplement 03/25/23
pantoprazole 40 mg tablet,delayed release (Protonix) 40 mg PO DAILY Gastrointestinal Issue 03/25/23
timolol maleate 0.5 % eye drops 1 drp LEFT EYE BID Eye Condition 03/25/23
vitamins A,C,P-dnbu-gnaaab 2,148 mcg-113 mg-45 mg-17.4 mg tablet (PreserVision AREDS) 1 tab PO BID Supplement 03/25/23
aspirin 81 mg chewable tablet 81 mg PO DAILY Blood Clot Prevention/Tx 05/04/23
insulin glargine 100 unit/mL subcutaneous solution (Lantus U-100 Insulin) 10 unit SC HS Diabetes 05/04/23
insulin lispro 100 unit/mL subcutaneous pen 4 sliding scale dose SC AC Diabetes 05/04/23
cholecalciferol (vitamin D3) 50 mcg (2,000 unit) capsule (Vitamin D3) 50 mcg PO DAILY Supplement 05/18/23
atorvastatin 10 mg tablet (Lipitor) 10 mg PO HS High Cholesterol 05/20/23
tamsulosin 0.4 mg capsule (Flomax) 0.8 mg PO HS Urinary Issue 05/20/23
lactulose 10 gram/15 mL oral solution 10 g PO DAILYPRN PRN constipation 07/28/23
hydrocortisone acetate 25 mg rectal suppository 25 mg [place] BID Anti-inflammatory 10 days #24 ea 07/30/23
gabapentin 300 mg capsule 300 mg PO BID Pain 08/08/23
sitagliptin phosphate 100 mg tablet (Januvia) 100 mg PO DAILY Diabetes 08/08/23
furosemide 20 mg tablet (Lasix) 20 mg PO DAILY Fluid retention/Swelling #30 tabs 08/09/23
polyethylene glycol 3350 17 gram oral powder packet (HealthyLax) 17 g PO DAILY Constipation 10 days #14 ea 08/09/23
potassium chloride 10 mEq capsule,extended release 10 meq PO DAILY Electrolyte Repletion #30 caps 08/09/23
Home Medication Changes
new
furosemide 20 mg tablet (Lasix) 20 mg PO DAILY Fluid retention/Swelling #30 tabs 08/09/23
polyethylene glycol 3350 17 gram oral powder packet (HealthyLax) 17 g PO DAILY Constipation 10 days #14 ea 08/09/23
potassium chloride 10 mEq capsule,extended release 10 meq PO DAILY Electrolyte Repletion #30 caps 08/09/23
Pending Results: Yes
Additional Pending Results:
Para fluid cytology and culture
--- NOTE | 2023-08-10 14:18 | CM ---
MD entered order for discharge.
Spoke with patient in room . He said he was ready for discharge.
He said that Jojo will drive him home.
Offered VN he declined need.
PLAN Home no needs
== END 2023-08-10 14:26 | disposition home health service (06) ==
LOC: 3 WEST ACU 23:34
PROVIDERS: Physician Assistant Medical; ADMITTING PHYSICIAN Hospitalist; ATTENDING PHYSICIAN Hospitalist; CONSULT PHYSICIAN Internal Medicine Gastroenterology; EMERGENCY PHYSICIAN Emergency Medicine; FAMILY PHYSICIAN Family Medicine; OTHER PHYSICIAN Surgery
DX: K62.5 Hemorrhage of anus and rectum (principal); K64.8 Other hemorrhoids; D62 Acute posthemorrhagic anemia; I48.0 Paroxysmal atrial fibrillation; E87.1 Hypo-osmolality and hyponatremia; I10 Essential (primary) hypertension; E11.40 Type 2 diabetes mellitus with diabetic neuropathy, unspecified; N40.0 Benign prostatic hyperplasia without lower urinary tract symptoms; K70.31 Alcoholic cirrhosis of liver with ascites; D61.818 Other pancytopenia; E87.6 Hypokalemia; M21.371 Foot drop, right foot; K57.90 Diverticulosis of intestine, part unspecified, without perforation or abscess without bleeding; H91.90 Unspecified hearing loss, unspecified ear; N43.3 Hydrocele, unspecified; D69.6 Thrombocytopenia, unspecified; E83.42 Hypomagnesemia; I85.10 Secondary esophageal varices without bleeding; I25.10 Atherosclerotic heart disease of native coronary artery without angina pectoris; D50.9 Iron deficiency anemia, unspecified; Z87.891 Personal history of nicotine dependence; Z88.2 Allergy status to sulfonamides; Z88.8 Allergy status to other drugs, medicaments and biological substances; Z95.1 Presence of aortocoronary bypass graft
CPT/HCPCS: 46600; 88305; 49083; 80048; 80053; 82533; 82607; 82728; 82962; 83540; 83550; 83735; 83930; 83935; 84443; 85014; 85018; 85025; 85027; 85610; 85730; 86850; 86900; 86901; 87015; 87070; 87205; 88112; 89051; 96374; 99285; G0378

== ENCOUNTER → 2023-08-13 15:47 | Outpatient (REF) | payer OTHER, MEDICARE, SELFPAY | LOC: RAD 15:47 | PROVIDERS: ATTENDING PHYSICIAN Internal Medicine Gastroenterology; FAMILY PHYSICIAN Family Medicine | DX: K70.31 Alcoholic cirrhosis of liver with ascites (principal) | CPT/HCPCS: 76700 ==

== ENCOUNTER → 2023-08-25 08:54 | Outpatient (REF) | payer OTHER, MEDICARE, SELFPAY ==
[2023-08-25 09:05] VITALS: BP 125/61; BP_SYST 79
[2023-08-25 10:35] VITALS: BP 108/54; BP_SYST 78
[2023-08-25 10:57] VITALS: BP 117/56
[2023-08-25 11:46] LABS: Body Fluid Mononuclear 90 %; Body Fluid Polymorphonuclear 10 %; Body Fluid WBC 338 /CUMM
[2023-08-25 11:47] LABS: Body Fluid Second Tech SS
== END ==
LOC: RADI 08:54
PROVIDERS: ATTENDING PHYSICIAN Internal Medicine Gastroenterology
DX: R18.8 Other ascites (principal)
CPT/HCPCS: 49083; 87015; 87070; 87205; 89051

== ENCOUNTER 2023-08-25 11:05 | Outpatient (RCR) | payer OTHER, MEDICARE, SELFPAY ==
[2023-08-25 11:15] VITALS: BP 121/55
[2023-08-25 11:22] VITALS: BP 121/55
[2023-08-25] MEDS: FLEXBUMIN 100 IV ×2 (11:22→12:48)
[2023-08-25 12:48] VITALS: BP 103/39
[2023-08-25 14:13] VITALS: BP 109/48
[2023-08-25] MEDS: FLEXBUMIN 50 IV (14:13)
[2023-08-25 15:08] VITALS: BP 104/40
== END 2023-08-27 23:59 | disposition home or self-care (01) ==
LOC: OID 11:05
PROVIDERS: ATTENDING PHYSICIAN Internal Medicine Gastroenterology; FAMILY PHYSICIAN Family Medicine
DX: K70.31 Alcoholic cirrhosis of liver with ascites (principal)
CPT/HCPCS: 49083; 87015; 87070; 87205; 89051; 96365; 96366; P9047

== ENCOUNTER → 2023-09-02 06:55 | Outpatient (REF) | payer OTHER, MEDICARE, SELFPAY ==
[2023-09-02 07:25] VITALS: BP 101/65; BP_SYST 86
[2023-09-02 08:45] VITALS: BP 101/51; BP_SYST 86
[2023-09-02 09:07] VITALS: BP 101/51
[2023-09-02 09:24] LABS: Body Fluid Mononuclear 92 %; Body Fluid Polymorphonuclear 8 %; Body Fluid WBC 264 /CUMM
[2023-09-02 09:25] LABS: Body Fluid Second Tech SD
== END ==
LOC: RADI 06:55
PROVIDERS: ATTENDING PHYSICIAN Internal Medicine Gastroenterology; FAMILY PHYSICIAN Family Medicine
DX: R18.8 Other ascites (principal)
CPT/HCPCS: 49083; 87015; 87070; 87205; 89051

== ENCOUNTER 2023-09-02 09:04 | Outpatient (RCR) | payer OTHER, MEDICARE, SELFPAY ==
[2023-09-02] MEDS: FLEXBUMIN 50 IV (09:16)
[2023-09-02 09:21] VITALS: BP 97/41
[2023-09-02] MEDS: FLEXBUMIN 100 IV ×2 (10:02→11:27)
[2023-09-02 10:03] VITALS: BP 117/46
[2023-09-02 11:27] VITALS: BP 104/44
[2023-09-02 12:45] VITALS: BP 95/48
== END 2023-09-25 12:50 | disposition home or self-care (01) ==
LOC: OID 09:04
PROVIDERS: ATTENDING PHYSICIAN Internal Medicine Gastroenterology; FAMILY PHYSICIAN Family Medicine
DX: K70.31 Alcoholic cirrhosis of liver with ascites (principal)
CPT/HCPCS: 49083; 87015; 87070; 87205; 89051; 96365; 96366; P9047

== ENCOUNTER → 2023-09-09 08:27 | Outpatient (REF) | payer OTHER, MEDICARE, SELFPAY ==
[2023-09-09 08:47] VITALS: BP 106/75; BP_SYST 89
[2023-09-09 10:21] LABS: Body Fluid Mononuclear 90.8 %; Body Fluid Polymorphonuclear 9.2 %; Body Fluid WBC 273 /CUMM
[2023-09-09 10:25] LABS: Body Fluid Second Tech EF
[2023-09-09 10:27] VITALS: BP 100/56
== END ==
LOC: RADI 08:27
PROVIDERS: ATTENDING PHYSICIAN Internal Medicine Gastroenterology; FAMILY PHYSICIAN Family Medicine
DX: R18.8 Other ascites (principal)
CPT/HCPCS: 49083; 87015; 87070; 87205; 89051

== ENCOUNTER 2023-09-21 19:54 | Inpatient (IN) | payer OTHER, MEDICARE, SELFPAY ==
[2023-09-21] VITALS (22 sets, daily range): BP systolic 90–144; BP diastolic 47–94; BMI 25.8; BMI 27.3
[2023-09-21 17:02] LABS: % Basophils 0.4 % (0-2); % Eosinophils 0.8 % (0-6); % Immature Granulocytes 0.7 % (0-0.5); % Lymphocytes 8.7 % (20.5-51.1); % Monocytes 11.4 % (1.7-9.3); Absolute Eosinophils 0.1 10^3/uL (0-0.7); Absolute Immature Granulocytes 0.1 10^3/uL (0-0.05); Absolute Lymphocytes 0.7 10^3/uL (1.2-3.4); Absolute Monocytes 0.9 10^3/uL (0.1-0.6); Absolute Neutrophils 5.8 10^3/uL (1.4-6.5); Mean Corp Hgb Conc. 29.9 g/dL (33.0-37.0); Mean Corpuscular Hgb 24.5 pg (27.0-31.0); Mean Corpuscular Volume 81.7 fL (80.0-94.0); Mean Platelet Volume 9.1 fL (7.4-10.4); Nucleated Red Blood Cells % 0.5 % (-); Platelet Count 173 10^3/uL (130-400); Red Blood Cell Count 2.29 10^6/uL (4.70-6.10); Red Cell Dist. Width 17.3 % (11.5-14.5); White Blood Cell Count 7.5 10^3/uL (4.8-10.8)
[2023-09-21 17:05] LABS: Hematocrit 18.7 % (39.0-52.0); Hemoglobin 5.6 g/dL (13.0-18.0)
[2023-09-21 17:13] LABS: Ammonia 21 umol/L (9-30)
[2023-09-21 17:15] LABS: ALT (SGPT) 20 U/L (0-50); AST (SGOT) 31 U/L (17-59); Alkaline Phosphatase 142 U/L (38-126); Blood Urea Nitrogen 40 mg/dl (9-20); Calcium 8.9 mg/dl (8.4-10.2); Carbon Dioxide 21 mmol/L (22-30); Chloride 95 mmol/L (98-107); Estimated Creatinine Clearance 51 ml/min; Glucose 245 mg/dl (70-99); Potassium 4.8 mmol/L (3.5-5.1); Sodium 127 mmol/L (135-145); Total Bilirubin 2.4 mg/dl (0.2-1.3); Total Protein 6.8 g/dl (6.3-8.2); eGFR 55.09
[2023-09-21 17:47] LABS: Urine Albumin Negative (Neg - Trace); Urine Bilirubin 1+ (Negative); Urine Character Clear (Clear); Urine Color Yellow; Urine Glucose 2+ (Negative); Urine Ketone 1+ (Negative); Urine Leukocyte Negative (Negative); Urine Nitrite Negative (Negative); Urine Occult Blood Negative (Negative); Urine Urobilinogen 2+ (Neg - 1+)
--- NOTE | 2023-09-21 17:57 | ED.GENMED ---
History of Present Illness
General
Chief Complaint: Fall
Source: patient and spouse
Exam Limitations: none
Time Seen by Provider: 09/21/23 17:15
Nursing documentation reviewed up to this point in time: agreed with
Travel History
Have you had any contact with someone who has COVID-19?: No
Do you have any symptoms of coronavirus? Fever > 100 degrees, chills, cough, shortness of breath, sore throat, loss of taste or smell, muscle aches, or headache?: No
History of Present Illness
History of Present Illness:
Patient is a 67-year-old male with past medical history of previous alcohol abuse now with cirrhosis, diabetes, previous GI bleeds, A-fib not currently anticoagulated, heart disease status post CABG, seizure disorder presenting to the emergency
department today with concerns of generalized weakness fatigue worsening over the past week or so has noted some intermittent blood in his stool had a fall earlier today as well may have hit his head unsure. Denies any specific chest pain no
abdominal pain but has had distention of his abdomen and swelling of his scrotum recently he claims that he is due for a paracentesis. Does get these routinely.
Past History
Past History
ED Past Medical History: Arrthythmia (Atrial fibrillation), HTN, NIDDM and Other (Alcoholic cirrhosis, diverticulitis, anemia)
ED Past Surgical History: Orthopedic (Knee surgery) and Urological (Hydrocele)
Social History
Tobacco: Non-smoker
Alcohol: Former
Drug: None
Personal:
Living: with family
Review of Systems
Review of Systems
Allergies reviewed?: Yes
All Other Systems: ROS reviewed and negative except as documented in HPI and ROS
Phy Exam
Physical Exam
Physical Exam:
GENERAL: Alert , in no apparent distress
EYE: pupils equal and reactive
NECK: Supple, no significant adenopathy.
ENT: o/p clr, mmm.
CARDIAC: Regular rate and rhythm .
LUNGS: Clear breath sounds bilaterally, no acute respiratory distress, no wheezes/rales/rhonchi
ABDOMEN: Diffusely distended abdomen without redness or warmth no focal tenderness. Scrotum is significantly enlarged and swollen without redness or warmth no tenderness
NEUROLOGICAL: Alert and oriented, no focal neuro deficits
SKIN: Warm and dry, skin intact.
MUSCULOSKELETAL: +2 pitting edema of the legs bilaterally. Well perfused.
PSYCH: Normal and appropriate interaction.
Course
Orders/Labs/Results
Orders:
Orders
09/21/23 16:46
EKG [Electrocardiogram (*1)] Urgent
Reason for Study: Vertigo / Dizzy
EKG- Treatment ONCE
09/21/23 16:47
Ammonia Urgent
Complete Blood Count/With Diff Urgent
Comprehensive Metabolic Panel Urgent
09/21/23 17:32
Type+Screen Urgent
PT/INR [Prothrombin Time] Urgent
PTT Urgent
Urinalysis Reflex To Culture Urgent
Date Specimen was Collected: 09/21/23
Time Specimen was Collected: 17:20
09/21/23 17:51
* Blood Bank Products Urgent
Blood Bank Products: *Packed RBC Leuko(PRBC's)
Quantity: 2
Transfuse Today: Yes
Reason: Anemia
09/21/23 17:53
CT Cervical Spine W/o Iv Contr Urgent
Comment:
Reason For Exam: fall neck pain
CT Head W/o Iv Contrast Urgent
Comment:
Reason For Exam: fall hit head
09/21/23 17:58
Pantoprazole [Protonix IV] 80 mg IV NOW STA
09/21/23 19:18
Consult Gastroenterology [GASTROINTESTINAL CONSULT] Routine
Consulting Provider: Darin Estrada
Was physician already notified: Yes
Reason for consult: rectal bleeding
09/21/23 19:21
Admit/Transfer Patient As Directed
Co-Sign Provider:
Level of Care: Inpatient admission
Assign to:: Telemetry
Physician / Group: skyla nowak
Diagnosis: rectal bleeding ,hx esophageal varices
Reason for Telemetry: Arrhythmia
Date to Stop Telemetry: 09/24/23
Time to Stop Telemetry: 11:00
Reason for Hospitalization: rectal bleeding ,hx esophageal varices
Expected length of stay greater than two midnights?: Yes
ELOS- Estimated Length of Stay in days: 4
I certify the patient meets the requirements for IP care: Yes
Code Status As Directed
Resuscitation Status: Full Code
09/21/23 19:30
Pantoprazole 80 mg/100 ml Nss [Protonix] 80 mg in 100 ml IV Q10H
09/21/23 19:32
0.9% Sodium Chloride [Nss (Preservative Free)] 20 ml IV NOW STA
09/21/23 20:00
Octreotide Acetate [Sandostatin] 600 mcg 0.9% Sodium Chloride 500 ml [Nss] 500 ml IV Q12H
09/21/23 22:00
H&H Q8H
09/22/23 06:00
H&H Q8H
09/24/23 11:00
DC Protocol for Telemetry ONCE
Abnormal Lab Results
09/21/23 09/21/23
16:47 17:32
RBC 2.29 L 10^6/uL
(4.70-6.10)
Hgb 5.6 L* g/dL
(13.0-18.0)
Hct 18.7 L* %
(39.0-52.0)
MCH 24.5 L pg
(27.0-31.0)
MCHC 29.9 L g/dL
(33.0-37.0)
RDW 17.3 H %
(11.5-14.5)
Abs Immat Gran (auto) 0.1 H 10^3/uL
(0-0.05)
Absolute Lymphs (auto) 0.7 L 10^3/uL
(1.2-3.4)
Absolute Monos (auto) 0.9 H 10^3/uL
(0.1-0.6)
Immature Gran % 0.7 H %
(0-0.5)
Neutrophils % 78.0 H %
(42.2-75.2)
Lymphocytes % 8.7 L %
(20.5-51.1)
Monocytes % 11.4 H %
(1.7-9.3)
PT 20.5 H Sec
(11.4-14.6)
Sodium 127 L mmol/L
(135-145)
Chloride 95 L mmol/L
(98-107)
Carbon Dioxide 21 L mmol/L
(22-30)
BUN 40 H mg/dl
(9-20)
Creatinine 1.4 H mg/dL
(0.7-1.3)
Glucose 245 H mg/dl
(70-99)
Total Bilirubin 2.4 H mg/dl
(0.2-1.3)
Alkaline Phosphatase 142 H U/L
(38-126)
Albumin 3.0 L g/dl
(3.5-5.0)
Urine Ketones 1+ A
(Negative)
Urine Bilirubin 1+ A
(Negative)
Urine Urobilinogen 2+ A
(Neg - 1+)
Urine Glucose 2+ A
(Negative)
Crossmatch IS Only See Detail
09/21/23 16:47
09/21/23 16:47
Vital Signs
Initial and Last Documented VS:
Initial Vital Signs
Temp Pulse Resp BP Pulse Ox
98.3 F 108 16 130/47 98
09/21/23 16:48 09/21/23 16:48 09/21/23 16:48 09/21/23 16:48 09/21/23 16:48
Last Documented Vital Signs
Temp Pulse Resp BP Pulse Ox
98.4 F 109 20 128/75 100
09/21/23 20:54 09/21/23 20:54 09/21/23 20:54 09/21/23 20:54 09/21/23 20:54
MDM/Problems Addressed
MDM/Problems Addressed:
67-year-old male presenting to the emergency department today with concerns of generalized weakness fatigue had a fall earlier today as well. Has noticed intermittent blood in his stool. Upon arrival mildly tachycardic otherwise vital signs are
normal afebrile patient is fully alert and oriented. Abdomen is distended but normal in color without focal tenderness scrotum is also swollen. Labs obtained hemoglobin showing 5.6. Plan to get blood products patient does have a positive guaiac
stool test that was dark brown sodium 127. Patient also significant distended of his abdomen will likely need paracentesis as well. Concerning his fall additionally CT scan ordered of his head and neck. Patient admitted in stable condition.
*Critical Care Note
Total Time (30-74mins, 75-104mins- exclusive of procedures): Not Applicable
ED Attending Note
-
Portions of this chart may have been created with voice recognition software.� Occasional wrong word or��sound alike� substitutions may have occurred due to the inherent limitations of voice recognition software.
Discharge Plan
Departure
Patient Disposition: Admit
Date of Disposition: 09/21/23
Time of Disposition: 18:02
Admit to: IMU
Admit to doctor: rodu
Presentation/result/management discussed w/ accepting MD/DO: Hospitalist
Patient with high blood pressure during this ER visit?: No
Condition: Good
Covid-19: Not Applicable
Discharge Problem:
Anemia, GI bleed, Cirrhosis, Hyponatremia
Interventions
Interventions:
*Risk Screen - Suicide Last Done: 09/21/23 16:48
*General Assessment Last Done: 09/21/23 16:48
*Neglect/Abuse Screening Last Done: 09/21/23 16:48
ED- Fall Risk Assessment Last Done: 09/21/23 16:48
*ED COVID-19 Vaccine History Last Done: 09/21/23 16:48
ED-Musculoskeletal Assessment Last Done: 09/21/23 16:48
ED- Neurological Assessment Last Done: 09/21/23 20:14
ED-Skin Assessment Last Done: 09/21/23 16:48
[2023-09-21 18:02] LABS: APTT 34.7 Sec (23.4-35.0); INR 1.77; PT 20.5 Sec (11.4-14.6)
--- NOTE | 2023-09-21 18:20 | EDRN ---
this RN dressed LFA skin tear with triple antibiotic ointment, vaseline gauze, and mary, the pt was repositioned on his right side per the pts request for comfort
[2023-09-21] MEDS: PROTONIX IV 80 MG IV (18:23)
--- NOTE | 2023-09-21 18:23 | HPS.HSE ---
Addendum entered and electronically signed by Reinaldo Horton MD 09/21/23 19:43:
Patient seen and examined independently with [employer] PLANT MANAGER.� 67-year-old male with past medical history of alcoholic cirrhosis, esophageal varices, hemorrhoidal bleeding, CAD status post CABG, paroxysmal atrial fibrillation on anticoagulation, diabetes,
diabetic neuropathy, prostate cancer, chronic hydrocele here with rectal bleeding associated with straining.� Bleeding seems to be hemorrhoidal in nature however hemoglobin down to 5.6 from 8.1 previously. Patient apparently saw colorectal surgery
and was not a candidate for hemorrhoidal banding due to his history of cirrhosis.� Patient is also supposed to undergo EGD in October.� He also presents with increased abdominal distention and testicular swelling.� Labs show worsening of hyponatremia
and CA.� Patient noncompliant with lactulose.
2 units of blood transfusion.� Hold aspirin.� NPO.� IV Protonix drip, octreotide.� GI consulted.� Hold Lasix.� IR consulted for paracentesis.� Will benefit from albumin infusion at that time.
Original Note:
Family Physician
-
Family Physician: Chantelle Foster
Chief Complaint
-
Constipation with bright red rectal bleeding post laxatives
History of Present Illness
67-year-old male complaining of generalized weakness, fatigue over the past week with intermittent bright red blood in stool and a fall earlier unsure if he hit his head. He is also complaining of increased abdominal distention with swelling of his
scrotum and is due for outpatient paracentesis. He was noted to have current hemoglobin of 5.5 guaiac positive. He states he had several weeks of constipation with no bowel movement he then began a regimen of Metamucil and MiraLAX over the last 3
days he reports straining lots with bright red blood. He denies any clots.
He was seen 08/07 - 08/10/2023 due to rectal bleeding was given Anusol and MiraLAX. He had an anoscopy performed by GI who felt he had hemorrhoids as cause. He had follow-up with colorectal surgery Dr. Thao who felt he was not a candidate for
banding. He also had a paracentesis performed on 09/12/2023 with removal of 5.5 L. He denies headache, fever, chills, abdominal pain, chest pain, palpitations, cough, nausea, vomiting, diarrhea, urinary symptoms
PMH Hx rectal bleeding/hemorrhoidal alcoholic cirrhosis, ascites requiring multiple paracentesis last performed on 09/12/2023 with removal of 5.5 L, esophageal varices grade 1, pancytopenia secondary liver disease, hyponatremia/hypervolemic, CAD
status post CABG, paroxysmal A-fib not on AC therapy, diabetes with diabetic neuropathy, prostate disease, HLD, right foot drop, diverticulosis, chronic hydrocele, KIVALINA
Medical History
Past Medical History
Past Medical History: Reports Other
Additional Past Medical History:
Alcoholic Cirrhosis with Ascites and Esophageal Varices
ASCVD
DM-II
Hypertension
BPH
Past Surgical History: Reports Other
Additional Past Surgical History:
CABG x 5
Right Knee Arthroscopy
Right Hydrocelectomy
Mastoidectomy
Social History
Tobacco: Former Smoker (Quit smoking 30 years ago)
Alcohol: Former (1-2 glasses of wine about 2-3 times per week patient reports quit approximately 6 months ago March 2023)
Drug: None
Personal:
Living: With Family ()
Employment: Disabled
Family History
Family History: Not pertinent
Allergies / Home Medications
Allergies reflects when Allergies were last updated in [facility].
Home Medications with original date entered in [facility]
Allergy/Medication List:
Allergies
Allergy/AdvReac Type Severity Reaction Status Date / Time
Sulfa (Sulfonamide Allergy Hives Verified 09/02/23 07:31
Antibiotics)
empagliflozin AdvReac potential Verified 09/02/23 07:31
[From Synjardy XR] cause of
euglycemic
DKA 03/26/23
metformin [From Synjardy XR] AdvReac potential Verified 09/02/23 07:31
cause of
euglycemic
DKA 03/26/23
Home Medications
cyanocobalamin (vitamin B-12) 500 mcg tablet 500 mcg PO DAILY Supplement 03/25/23
pantoprazole 40 mg tablet,delayed release (Protonix) 40 mg PO DAILY Gastrointestinal Issue 03/25/23
timolol maleate 0.5 % eye drops 1 drp LEFT EYE BID Eye Condition 03/25/23
vitamins A,C,F-evbq-hqhlnd 2,148 mcg-113 mg-45 mg-17.4 mg tablet (PreserVision AREDS) 1 tab PO BID Supplement 03/25/23
aspirin 81 mg chewable tablet 81 mg PO DAILY Blood Clot Prevention/Tx 05/04/23
insulin lispro 100 unit/mL subcutaneous pen 4 unit SC AC Diabetes 05/04/23
cholecalciferol (vitamin D3) 50 mcg (2,000 unit) capsule (Vitamin D3) 50 mcg PO DAILY Supplement 05/18/23
atorvastatin 10 mg tablet (Lipitor) 10 mg PO HS High Cholesterol 05/20/23
tamsulosin 0.4 mg capsule (Flomax) 0.8 mg PO HS Urinary Issue 05/20/23
lactulose 10 gram/15 mL oral solution 10 g PO DAILYPRN PRN constipation 07/28/23
gabapentin 300 mg capsule 300 mg PO BID Pain 08/08/23
sitagliptin phosphate 100 mg tablet (Januvia) 100 mg PO DAILY Diabetes 08/08/23
furosemide 20 mg tablet (Lasix) 20 mg PO DAILY Fluid retention/Swelling #30 tabs 08/09/23
potassium chloride 10 mEq capsule,extended release 10 meq PO DAILY Electrolyte Repletion #30 caps 08/09/23
insulin glargine 100 unit/mL (3 mL) subcutaneous pen (Basaglar KwikPen U-100 Insulin) 10 unit SC HS 09/21/23
Review of Systems
-
History Source: Patient and Family ( )
A 12 point ROS was completed and negative except as noted: Yes
Constitutional: Denies Fever or Fatigue
EENT: Denies Sore Throat or Runny Nose
Respiratory: Denies Cough or Trouble Breathing
Cardiac: Denies Chest Pain, Palpitations or Syncope
Abdomen/GI: Reports Constipated; Denies Nausea, Vomiting or Diarrhea
: Reports Other (chronic scrotal edema ); Denies Dysuria, Frequency, Flank Pain, Incontinence or Difficulty Voiding
Musculoskeletal: Denies Joint Pain
Skin: Denies Itching or Rash
Neurological: Denies Dizzy, Headache or Weakness
Endocrine: Reports No Symptoms
Hematologic/Lymphatic: Reports No Symptoms
Psych: Reports Calm
Physical Exam
Vital Signs
Vital Signs
Temp Pulse Resp BP Pulse Ox
98.3 F 123 16 130/47 100
09/21/23 16:48 09/21/23 17:15 09/21/23 16:48 09/21/23 16:48 09/21/23 17:15
Physical Exam
General: Comfortable and Conversant; No Fever or Chills
HEENT: NormoCephalic, Anicteric, Moist mucous membranes, PERRLA and Other (pale conjunctiva)
Respiratory: Clear; No Wheezes, Rales or Rhonchi
Cardiac: S1/S2 and Regular Rhythm; No Murmur, Rub, Gallop or Peripheral Edema
Breast: Deferred by me
GI: Soft, Normal Bowel Sounds and Distended
Rectal: Hem Positive (dark brown)
Genito-urinary: Deferred by me
Musculoskeletal: No Clubbing and No Cyanosis; No Edema, Left Upper Extremity, Edema, Right Upper Extremity, Edema, Left Lower Extremity or Edema, Right Lower Extremity
Skin: Warm and Dry; No Rash
Neuro: AO x 3, No Motor Deficits, Nonfocal/grossly intact and Cranial Nerves Intact; No Slurred Speech, Facial Droop or Tremors
Psych: Calm
Laboratory Results
-
09/21/23 16:47
09/21/23 16:47
Laboratory Results
PT 20.5 Sec (11.4-14.6) H 09/21/23 17:32
INR 1.77 09/21/23 17:32
APTT 34.7 Sec (23.4-35.0) 09/21/23 17:32
Total Bilirubin 2.4 mg/dl (0.2-1.3) H 09/21/23 16:47
AST 31 U/L (17-59) 09/21/23 16:47
ALT 20 U/L (0-50) 09/21/23 16:47
Alkaline Phosphatase 142 U/L (38-126) H 09/21/23 16:47
Impression/Plan
-
Impression/plan:
Admit to telemetry
# Rectal bleeding in setting of recent constipation hx esoph varices
#Rectal bleeding with anoscopy jul 2023
Had outpatient follow-up with colorectal surgery was not a candidate for banding
130/47, HR 123
Hgb 5.5, type and screen
-Transfuse 2 units PRBC
-Consult GI-discussed with Dr. Estrada, last [facility] document [place]
-ocreotide gtt
-IV PPI drip
-N.p.o.
-H&H
-Patient was recently treated with Metamucil and MiraLAX at home
EKG sinus tach 111 bpm, QTc 470 MS
#Hypervolemic hyponatremia 2/2 abdominal ascites
NA 127
follow bmp
#CA
Creat 1.4 > 0.9 08/10/2023
Bun 40
-hold lasix
-will give albumin post paracentesis
#Recurrent abdominal ascites with scrotal swelling chronic in setting of alcoholic cirrhosis
#Alcoholic cirrhosis
Last paracentesis 5.5 L on 09/12/2023
-Consult IR for paracentesis Give albumin after paracentesis
-Fluid restrict
-hold Lasix 20 mg daily
-Check mag follow potassium
# HX pancytopenia likely secondary to liver disease
WBC 7.5, RBC 2.29, Hgb 5.6, PLT 173
# ASCVD status post CABG x 5 vessel
Hold aspirin due to anemia/rectal bleeding
-Continue Lipitor
# Paroxysmal atrial fibrillation
-not on anticoagulation as outpatient
# Diabetes with neuropathy
Accu-Cheks with SSI, check HgbA1c
-Hold Januvia as patient is n.p.o.
-Continue gabapentin for neuropathy
# Prostate disease-continue Flomax
# Hyperlipidemia-on Lipitor
# Foot drop on the right
# Diverticulosis hx
# Chronic hydrocele
# Hearing impairment
# DVT prophylaxis-SCDs
DNR per pt with at bedside
--- NOTE | 2023-09-21 18:38 | EDRN ---
Gretel Arenas JOURNEYMAN MILLWRIGHT currently at the pts bedside speaking with the pt and the pts
--- NOTE | 2023-09-21 18:45 | EDRN ---
this RN sent blood slip for the pt to the blood bank
[2023-09-21] MEDS: PROTONIX 100 IV (20:41)
[2023-09-21] MEDS: SANDOSTATIN 500.600000000000023 MCG IV (20:41)
--- NOTE | 2023-09-21 22:42 | PTCARENOTE ---
Patient received from the ED via stretcher. Patient pulled over onto the bed. AAOx3, Protonix gtt and Sandostatin gtt running. Patient has left FA skin tear from earlier today. Dressing dry and intact. Scrotal edema noted. Patient instructed to use
urinal at bedside due to medical equipment, bleeding precautions, and fall risk. Patient made comfortable in bed, call harvey is within reach.
[2023-09-21 23:13] LABS: Glucose - Point of Care 204 mg/dl (70-99)
[2023-09-21] MEDS: FLOMAX 0.800000000000000044 MG PO (23:13)
[2023-09-21] MEDS: NEURONTIN 300 MG PO (23:13)
[2023-09-21] MEDS: TIMOPTIC 0.5% OPHTHALMIC SOLUTION 1 DROP LEFT EYE (23:18)
--- NOTE | 2023-09-21 23:23 | PTCARENOTE ---
Patient stated he has cirrhosis of the liver and was treated for alcohol withdrawal in the past during admission questions. AUDITING CODER notified per protocol. Patient stated his last drink was about a week and a half ago. [facility] protocol initiated.
[2023-09-21 23:41] LABS: Hematocrit 23.5 % (39.0-52.0)
[2023-09-21 23:46] LABS: Hemoglobin 7.4 g/dL (13.0-18.0)
[2023-09-22] VITALS (8 sets, daily range): BP systolic 92–141; BP diastolic 48–72; PULSE 77; BMI 27.3
[2023-09-22] MEDS: PROTONIX 100 IV ×2 (05:59→15:03)
[2023-09-22 06:18] LABS: Glucose - Point of Care 207 mg/dl (70-99)
[2023-09-22 06:58] LABS: Glucose - Point of Care 185 mg/dl (70-99)
[2023-09-22 07:35] LABS: % Basophils 0.6 % (0-2); % Eosinophils 1.7 % (0-6); % Immature Granulocytes 0.7 % (0-0.5); % Lymphocytes 14.6 % (20.5-51.1); % Monocytes 12.9 % (1.7-9.3); % Neutrophils 69.5 % (42.2-75.2); Absolute Eosinophils 0.1 10^3/uL (0-0.7); Absolute Lymphocytes 0.8 10^3/uL (1.2-3.4); Absolute Monocytes 0.7 10^3/uL (0.1-0.6); Absolute Neutrophils 3.8 10^3/uL (1.4-6.5); Hematocrit 24.3 % (39.0-52.0); Hemoglobin 7.7 g/dL (13.0-18.0); Mean Corp Hgb Conc. 31.7 g/dL (33.0-37.0); Mean Corpuscular Hgb 25.8 pg (27.0-31.0); Mean Corpuscular Volume 81.5 fL (80.0-94.0); Mean Platelet Volume 9.2 fL (7.4-10.4); Nucleated Red Blood Cells % 0.4 % (-); Platelet Count 128 10^3/uL (130-400); Red Blood Cell Count 2.98 10^6/uL (4.70-6.10); Red Cell Dist. Width 16.4 % (11.5-14.5); White Blood Cell Count 5.4 10^3/uL (4.8-10.8)
[2023-09-22 08:07] LABS: AST (SGOT) 30 U/L (17-59); Albumin 2.4 g/dl (3.5-5.0); Blood Urea Nitrogen 35 mg/dl (9-20); Carbon Dioxide 21 mmol/L (22-30); Estimated Creatinine Clearance 72 ml/min; Glucose 174 mg/dl (70-99); Total Bilirubin 3.3 mg/dl (0.2-1.3); Total Protein 5.9 g/dl (6.3-8.2); eGFR > 60.00
[2023-09-22 08:15] LABS: ALT (SGPT) 17 U/L (0-50); Alkaline Phosphatase 113 U/L (38-126); Calcium 8.2 mg/dl (8.4-10.2); Chloride 101 mmol/L (98-107); Sodium 128 mmol/L (135-145)
[2023-09-22] MEDS: SANDOSTATIN 500.600000000000023 MCG IV (08:38)
[2023-09-22] MEDS: NEURONTIN 300 MG PO ×2 (08:38→20:02)
[2023-09-22] MEDS: TIMOPTIC 0.5% OPHTHALMIC SOLUTION 1 DROP LEFT EYE ×2 (08:40→20:02)
[2023-09-22] MEDS: NOVOLOG FLEXPEN-LOW RESISTANCE 1 UNITS SC ×2 (09:10→12:21)
--- NOTE | 2023-09-22 09:38 | CON.GI ---
Addendum entered and electronically signed by Darin Estrada MD 09/22/23 18:00:
I saw and examined the patient.
The PA's note was reviewed and I agree with the note.
Comment:
The pt is a 67 year old male with h/o alcohol induced decompensated cirrhosis with ascites, grade 1 EV without bleeding (2021), history of hemorrhoids, HTN, DM2, CAD with prior CABG, chronic anemia, hydrocele, BPH, HLD, neuropathy, who p/w
constipation and rectal bleeding. He had several admissions for recurrent rectal bleeding, thought to be secondary to hemorrhoids. Hgb on admission 5.6 s/p 2 units PRBC with improvement to 7.7. No further bleeding since admission.
Impression / Rec:
1. Rectal bleeding, acute drop of Hgb - ? from hemorrhoidal bleeding vs other. Denies hematemesis or melena. Noted with dark brown heme positive stool in the ER.� Baseline Hgb seems 7-9. Had EGD on 2021 which showed small varices, no EVL,
recommended to repeat in 2 years. Also had colonoscopy in 2021 which showed small polyp, diverticulosis, and hemorrhoids. Curerntly on octero and protonix infusion. Will d/c this. Agree with repeat endo eval with EGD and flx sig. Pt is
scheduled for LVP every 2 weeks, endo after para.
2. Decompensated cirrhosis - continues with intermittent alcohol use. Decompensated cirrhosis with ascites, undergoing paracentesis every other week. LVP tomorrow.
Addendum entered and electronically signed by Sole Duncan NP 09/22/23 16:12:
Reviewed outpatient records. The patient had a full colonoscopy on October 01, [address] Ramirez which showed a 5 mm adenomatous polyp that was removed from the descending colon, diverticulosis in the entire examined colon, internal hemorrhoids,
otherwise was normal and was advised on a 5-year repeat. He also had an upper endoscopy on the same day which showed grade 1 of esophageal varices, erythematous mucosa in the antrum with biopsies negative for H. pylori, portal hypertensive
gastropathy, and normal examined duodenum. He was advised on a EGD for varices surveillance in 2 years.
Original Note:
Consultation
-
Date/Time Consultation Requested: 09/21/23 @ 19:18
Date/Time Consultation Performed: 09/22/23 @ 09:45
Requesting Provider: MIRELLA Mccloud
Performing Provider: MIRELLA Najera; Dr. Darin Estrada
Reason for Consultation: rectal bleeding
Medical History
Chief Complaint / HPI
Chief Complaint: Constipation with bright red blood post laxative
History of Present Illness:
The pt is a 67yo male with a past medical history significant for decompensated ETOH liver cirrhosis with ascites, grade 1 EV without bleeding, history of hemorrhoids, HTN, DM2, CAD with prior CABG, chronic anemia, hydrocele, BPH, HLD, neuropathy,
who presented to the emergency room with complaints of constipation and onset of bright red blood per rectum, which we are being asked to evaluate for. Upon review of prior records, the patient was seen by our group here in July and June
with similar presentation. At that time had reported constipation prior to onset and had been advised on a bowel regimen. He underwent anoscopy during his admission which did show grade 2 internal hemorrhoids with normal brown appearing stool. He
was placed on Anusol HC to help with bleeding. He was advised to follow-up with colorectal if he had recurrent bleeding. He was evaluated by colorectal surgery inpatient but his bleeding had subsided at the time of their evaluation, therefore they
advised outpatient follow-up for possible banding. He now presents again with recurrent rectal bleeding. Today he reports that he has been having progressive weakness and fatigue. He did suffer a fall at home, in which he reports he tripped and
hit his head on the refrigerator. He denies any loss of consciousness, but does admit to some dizziness and lightheadedness over the past few weeks. He denies any dark or black stool, but admits to intermittent blood mixed in with brown stool. He
denies any overt constipation recently but does note that his stools can be somewhat on the harder side. He does take MiraLAX daily and uses Dulcolax as needed. He reports that he did see colorectal surgery who recommended sitz bath's and did not
advise him on banding. He denies any other obvious signs of bleeding such as hematemesis or melena. He notes 1 episode of a large amount of bleeding recently in which blood filled the toilet bowl. He otherwise denies any abdominal pain, nausea,
vomiting, dysphagia, odynophagia, fevers, or chills. He does continue to drink alcohol intermittently and reports his last alcohol use was 2-1/2 weeks ago. He denies any use of blood thinners or NSAIDs. He is compliant with his diuretics. He
does undergo intermittent paracentesis, last done on 09/08 with 4550 cc of cloudy yellow ascitic fluid removed. Fluid cell counts were negative for SBP at that time. His last abdominal ultrasound was done in July showing a cirrhotic appearance
of the liver with no evidence of HCC. He follows with Dr. Ramirez and has had no prior hepatology evaluation. He reports a colonoscopy 1-1/[address] Handy at [facility]. Routine labs on admission showed a hemoglobin of 5.6, hematocrit
18.7, MCV 81.7, platelets 173,000, INR 1.77, sodium 127, potassium 4.8, BUN 40, creatinine 1.4, total bilirubin 2.4, AST 31, ALT 20, alk phos 142, albumin 3.0, ammonia 21. UA showing some ketones and bilirubin, but unrevealing for overt infection.
CT of the head and neck showed no acute abnormalities. He received 2 units of packed red blood cells with improvement in his hemoglobin to 7.7. IR was consulted for paracentesis. His Lasix was held due to CA. He was placed on octreotide drip
with history of cirrhosis. He was made n.p.o. and admitted for further evaluation by GI.
Past Medical History
Past Medical History: CAD (CABG on ASA), HTN, NIDDM and Other (decompensated ETOH liver cirrhosis with ascites, hx non-bleeding esophageal varices grade 1, chronic anemia, hemorrhoids, hydrocele, BPH)
Past Surgical History: Cardiac (CABG x 5 vessels) and Other (masteoidectomy, right hydrocelectomy, right knee arthroscopy)
Social History
Tobacco: Former Smoker
Alcohol: Chronic Alcoholic
Drug: None
Personal:
Living: With Family
Family History
Family History: Reviewed & Not Pertinent
Allergies / Home Medications
Allergy/AdvReac Type Severity Reaction Status Date / Time
empagliflozin Allergy potential Verified 09/21/23 22:24
[From Synjardy XR] cause of
euglycemic
DKA 03/26/23
metformin [From Synjardy XR] Allergy potential Verified 09/21/23 22:24
cause of
euglycemic
DKA 03/26/23
Sulfa (Sulfonamide Allergy Hives Verified 09/21/23 20:15
Antibiotics)
Medication Instructions Recorded
cyanocobalamin (vitamin B-12) 500 500 mcg PO DAILY Supplement 03/25/23
mcg tablet
pantoprazole 40 mg tablet,delayed 40 mg PO DAILY Gastrointestinal 03/25/23
release (Protonix) Issue
timolol maleate 0.5 % eye drops 1 drp LEFT EYE BID Eye Condition 03/25/23
vitamins A,C,Y-obqb-szqixe 2,148 1 tab PO BID Supplement 03/25/23
mcg-113 mg-45 mg-17.4 mg tablet
(PreserVision AREDS)
aspirin 81 mg chewable tablet 81 mg PO DAILY Blood Clot 05/04/23
Prevention/Tx
insulin lispro 100 unit/mL 4 unit SC AC Diabetes 05/04/23
subcutaneous pen
cholecalciferol (vitamin D3) 50 50 mcg PO DAILY Supplement 05/18/23
mcg (2,000 unit) capsule (Vitamin
D3)
atorvastatin 10 mg tablet (Lipitor) 10 mg PO HS High Cholesterol 05/20/23
tamsulosin 0.4 mg capsule (Flomax) 0.8 mg PO HS Urinary Issue 05/20/23
lactulose 10 gram/15 mL oral 10 g PO DAILYPRN PRN constipation 07/28/23
solution
gabapentin 300 mg capsule 300 mg PO BID Pain 08/08/23
sitagliptin phosphate 100 mg 100 mg PO DAILY Diabetes 08/08/23
tablet (Januvia)
furosemide 20 mg tablet (Lasix) 20 mg PO DAILY Fluid 08/09/23
retention/Swelling #30 tabs
potassium chloride 10 mEq 10 meq PO DAILY Electrolyte 08/09/23
capsule,extended release Repletion #30 caps
insulin glargine 100 unit/mL (3 10 unit SC HS 09/21/23
mL) subcutaneous pen (Basaglar
KwikPen U-100 Insulin)
Review of Systems
-
History Source: Patient
Constitutional: Reports Fatigue
EENT: Reports No Symptoms
Respiratory: Reports No Symptoms
Cardiac: Reports No Symptoms
Abdomen/GI: Reports Constipated, Bloody Stools and Other (abdominal distention)
: Reports No Symptoms
Musculoskeletal: Reports Other (fall, +head strike)
Skin: Reports Other (ecchymosis, petechia UE's)
Neurological: Reports Dizzy and Weakness
Vital Signs
Temp Pulse Resp BP Pulse Ox
97.7 F 82 18 120/54 96
09/22/23 07:50 09/22/23 07:50 09/22/23 07:50 09/22/23 07:50 09/22/23 08:28
Physical Exam
Exam
General: No Apparent Distress, Comfortable and Other (chronically ill appearing, jaundice, in NAD)
HEENT: Normocephalic and Atraumatic
Respiratory: Clear
Cardiac: S1/S2 and Regular Rhythm
GI: Soft, Non Tender, Normal Bowel Sounds, Distended and Other (umbilical hernia easily reducible)
Rectal: Other (pt sitting up therefore exam not done; per ER dark brown heme + stool)
Musculoskeletal: Edema (trace LE edema bilaterally)
Skin: Warm, Dry and Other (slight jaundice)
Neuro: Awake, Alert and Oriented
Psych: Calm
Results
WBC 5.4 10^3/uL (4.8-10.8) 09/22/23 07:15
Hgb 7.7 g/dL (13.0-18.0) L 09/22/23 07:15
Hct 24.3 % (39.0-52.0) L 09/22/23 07:15
MCV 81.5 fL (80.0-94.0) 09/22/23 07:15
Plt Count 128 10^3/uL (130-400) L D 09/22/23 07:15
Absolute Neuts (auto) 3.8 10^3/uL (1.4-6.5) 09/22/23 07:15
PT 20.5 Sec (11.4-14.6) H 09/21/23 17:32
INR 1.77 09/21/23 17:32
APTT 34.7 Sec (23.4-35.0) 09/21/23 17:32
Sodium 128 mmol/L (135-145) L 09/22/23 07:15
Potassium 4.0 mmol/L (3.5-5.1) 09/22/23 07:15
Chloride 101 mmol/L (98-107) 09/22/23 07:15
Carbon Dioxide 21 mmol/L (22-30) L 09/22/23 07:15
BUN 35 mg/dl (9-20) H 09/22/23 07:15
Creatinine 0.9 mg/dL (0.7-1.3) 09/22/23 07:15
Calcium 8.2 mg/dl (8.4-10.2) L 09/22/23 07:15
Total Bilirubin 3.3 mg/dl (0.2-1.3) H 09/22/23 07:15
AST 30 U/L (17-59) 09/22/23 07:15
ALT 17 U/L (0-50) 09/22/23 07:15
Alkaline Phosphatase 113 U/L (38-126) 09/22/23 07:15
Diagnostic Image Results:
09/21/23 CT Head: 'There are no focal or acute intracranial abnormalities. There is mild diffuse cortical atrophy with mild nonspecific white matter changes as described above.'
09/21/23 CT cervical spine: 'No acute osseous abnormalities. Multilevel cervical degenerative disc disease and degenerative facet joint disease as detailed above.'
Prior GI Procedures:
Anoscopy 08/08 showing grade 2 internal hemorrhoids in the right posterior and anterior quadrant, left posterior quadrants with normal-looking brown stool; Dr. Espino
EGD:� prior [facility] grade I EV
Colonoscopy:� 2021 small polyp due 2026
Assessment / Plan
-
The pt is a 67yo male with a past medical history significant for decompensated ETOH liver cirrhosis with ascites, grade 1 EV without bleeding, history of hemorrhoids, HTN, DM2, CAD with prior CABG, chronic anemia, hydrocele, BPH, HLD, neuropathy,
who presented to the emergency room with complaints of constipation and onset of bright red blood per rectum, which we are being asked to evaluate for. He has had several admissions for recurrent rectal bleeding, thought to be secondary to
hemorrhoids. Hgb on admission 5.6 s/p 2 units PRBC with improvement to 7.7. No further bleeding since admission. He continues intermittent alcohol use. Decompensated cirrhosis with ascites, undergoing paracentesis every other week. No complaints of
hematemesis or melena. Noted with dark brown heme positive stool in the ER. With history of grade 1 esophageal varices, he was started on octreotide drip and PPI drip. He denies use of blood thinners or NSAID's aside from 81 mg of aspirin. He is
otherwise hemodynamically stable.
Problem list:
-recurrent rectal bleeding, heme positive dark stool
-Acute on chronic macrocytic anemia
-decompensated liver cirrhosis with ascites, EV grade 1 without bleeding, MELD-Na 26 (indicating a 19.6% estimated 90-day mortality rate)
-chronic thrombocytopenia 2/2 liver cirrhosis
-Chronic hyponatremia
-chronically elevated alk phos
-Tachycardia, resolved
-CA, improving
Other pertinent medical history:
-HTN
-DM2
-CAD with prior CABG
-chronic hydrocele
-BPH
-HLD
Recommendations:
-Etiology of rectal bleeding is likely secondary to hemorrhoids. Seen on anoscope by Dr. Espino last admission. With dark heme positive stool to consider upper GI source as well with hx of EV grade 1 v portal HTN gastropathy v gastritis v PUD v
other, with ongoing alcohol use.
-To consider EGD +/- flex sig given recurrent bleeding anemia with history of decompensated liver cirrhosis and esophageal varices. Will review with Dr. Estrada.
-Continue to trend H&H and transfuse to maintain a hemoglobin greater than 7
-Monitor for recurrent bleeding
-Continue octreotide and PPI drip for now
-NPO for now
-Avoid constipation. Continue bowel regimen with MiraLAX 1 capful daily, will add senna/Colace as well at night as he reports stools can be on the hard side
-Avoid straining and prolonged toileting
-Consider reevaluation with colorectal surgery pending above
-No overt HE/asterixis, but he does feel forgetful at times. Ammonia is normal. Monitor mental status.
-Monitor MELD labs daily, MELD-Na 26 (indicating a 19.6% estimated 90-day mortality rate)
-Lasix on hold due to CA
-Paracentesis pending this am, albumin pending volume removed
-Monitor electrolytes
-Again advised on strict alcohol abstinence given his history of decompensated liver cirrhosis
-Will follow
-
-
Thank you for consultation and allowing me to participate in the patient's care. Please call the customer experience professional GI physician during the after hours with any questions or concerns.
[2023-09-22 11:59] LABS: Glucose - Point of Care 193 mg/dl (70-99)
--- NOTE | 2023-09-22 12:56 | W.PN.HOSP.TC ---
Today's Communication/Plan
-
Clear liquid diet
Follow H&H
Continue with PPI and octreotide
Assessment / Plan
Assessment / Plan
# Rectal bleeding with dark stools in setting of recent constipation, hx hemorrhoids, and Esophageal varices.
#Rectal bleeding with anoscopy jul 2023
# Acute blood loss anemia
Had outpatient follow-up with colorectal surgery was not a candidate for banding
Hgb 5.5
-Transfused 2 units PRBC with improved HH; HD stable
-cw ocreotide gtt
-cw IV PPI drip
- Follow H&H
-Patient was recently treated with Metamucil and MiraLAX at home
�
DW GI Dr Estrada -possible endoscopic eval tomorrow. Start on clear liquid diet.
#Hypervolemic hyponatremia 2/2 liver dz
NA 127
follow bmp
FR
#CA
Creat 1.4� > 0.9 � 08/10/2023
Bun 40
-hold lasix
- Improved with blood transfusion suggesting volume related. Cr 0.9 today
#Recurrent abdominal ascites with scrotal swelling chronic in setting of alcoholic cirrhosis
#Alcoholic cirrhosis
Last paracentesis 5.5 L on 09/12/2023
-Consulted IR for paracentesis Give albumin after paracentesis
-Fluid restrict
-hold Lasix 20 mg daily
-Check mag follow potassium
# HX pancytopenia likely secondary to liver disease
Follow counts
# ASCVD status post CABG x 5 vessel
Hold aspirin due to anemia/rectal bleeding
-Continue Lipitor
# Paroxysmal atrial fibrillation
-not on anticoagulation as outpatient
# Diabetes with neuropathy
Accu-Cheks with SSI, check HgbA1c
-Hold Januvia as patient is n.p.o.
-Continue gabapentin for neuropathy
# Prostate disease-continue Flomax
# Hyperlipidemia-on Lipitor
# Foot drop on the right
# Diverticulosis hx
# Chronic hydrocele
# Hearing impairment
# DVT prophylaxis-SCDs
DNR per pt with
Anticipated Discharge: > 48 hours
Subjective/Interval History
-
Date of Service: September 22, 2023
No further rectal bleeding since admission.
Denies any nausea vomiting or abdominal pain.
He feels hungry and would like to have a diet.
Objective Data
-
Labs:
Laboratory Results
09/22/23
07:15
WBC 5.4
Hgb 7.7 L
Hct 24.3 L
Plt Count 128 L D
Sodium 128 L
Potassium 4.0
Chloride 101
Carbon Dioxide 21 L
BUN 35 H
Creatinine 0.9
Glucose 174 H
Calcium 8.2 L
Total Bilirubin 3.3 H
AST 30
ALT 17
Alkaline Phosphatase 113
Vital Signs:
Vital Signs
Temp Pulse Resp BP Pulse Ox
97.5 F 71 18 105/48 97
09/22/23 11:04 09/22/23 11:04 09/22/23 11:04 09/22/23 11:04 09/22/23 11:04
I&O
09/21/23 09/22/23 09/23/23
06:59 06:59 06:59
Intake Total 500 / 500
Output Total 75 / 75 450 / 450
Balance 425 / 425 -450 / -450
Review of Systems
-
Constitutional: Denies Fever
EENT: Denies Sore Throat
Respiratory: Denies Cough or Trouble Breathing
Cardiac: Denies Chest Pain
Neuro: Denies Dizzy
Physical Exam
-
General: No Apparent Distress
HEENT: Moist Mucous Membranes
Respiratory: Clear to Auscultation
Cardiac: Regular Rhythm and S1/S2
GI: Soft, Nontender, Normal Bowel Sounds and Distended
Neuro: AO x 3; Negative Tremors
Psych: Calm; Negative Confused
Data Reviewed
-
Labs: Labs Reviewed by me
--- NOTE | 2023-09-22 16:15 | PTCARENOTE ---
Pt AAO x3, BILLS; OOB to chair/stands to void with assistance; tires easily; has Rt foot drop. VSS. Telemetry:NSR/sinus arrhythmia. On room air- pulse ox 95%, no SOB noted. Abd large, soft, lee clear liquid diet. Pt aware of NPO past midnight 09/22
for EGD. Voids clear yellow urine in urinal with assistance/incont large amts at times; (+)3 scrotal edema. Pale afebrile; warm and dry. IV Protonix drip @ 8 mg/hr (10 ml/hr) infusing via RT hand and Sandostatin drip @ 50 mcg/hr (41.7 ml/hr)
infusing via Rt forearm without sx of infiltration. Resting in bed at present, no c/o. Will continue to monitor.
--- NOTE | 2023-09-22 16:27 | CM ---
CM following re: d/c planning
Chart reviewed
CM met with the patient and his brothers at bedside; IA completed
Pt states he and his spouse reside in a 1SH with 3STE and a basement
[employer] patient reports independence at baseline
Pt has no past hx of VN or SNF however does have a r/w,spc, w/c, tub bars, shower rails, & shower chair for use as needed
Pt confirms prescription coverage and rx's are filled at [facility] [address] [place]
Pt PCP-Dr. Chantelle Foster
Per PT/OT eval. post d/c recommendation wavers btwn home w/assist vs SNF
CM will continue to follow patient's progress and assist with any needs at d/c as indicated
PLAN; CM following for needs
[2023-09-22 16:50] LABS: Glucose - Point of Care 347 mg/dl (70-99)
[2023-09-22] MEDS: NOVOLOG FLEXPEN-LOW RESISTANCE 4 UNITS SC (16:56)
[2023-09-22] MEDS: FLOMAX 0.800000000000000044 MG PO (21:08)
[2023-09-22] MEDS: SENOKOT-S 1 TABLET PO (21:09)
[2023-09-22 23:54] LABS: Glucose - Point of Care 294 mg/dl (70-99)
[2023-09-22] MEDS: NOVOLOG FLEXPEN-LOW RESISTANCE 3 UNITS SC (23:57)
[2023-09-23] VITALS (13 sets, daily range): BP systolic 14–127; BP diastolic 45–81; BMI 27.6
--- NOTE | 2023-09-23 04:01 | DOWNTIME ---
There was a [employer] Director Of [employer]acement Downtime on 09/23/2023 from 0100 to 09/23/2023 at 0322. Downtime documentation of patient's care, including medication administrations, has been reconciled in the electronic record per guidelines. Refer to the
patient's paper chart under the miscellaneous tab to see printed paper medication records and downtime forms.
[2023-09-23 05:43] LABS: Glucose - Point of Care 229 mg/dl (70-99)
[2023-09-23] MEDS: NOVOLOG FLEXPEN-LOW RESISTANCE 2 UNITS SC ×2 (05:54→11:54)
--- NOTE | 2023-09-23 06:06 | PTCARENOTE ---
Pt aaox3 able to make his needs known,forgetful at times only. Pt constantly keeps moving around in bed.Leads keep coming off. Pt telemetry reads tachy at times, not sustaining pt asymptomatic.. Pt keeps moving around restless at times. MSAS-0 to 1.
[employer] manager business information made aware of it. Plan of care continued.
[2023-09-23 06:20] LABS: Hematocrit 25.1 % (39.0-52.0); Hemoglobin 7.9 g/dL (13.0-18.0); Mean Corp Hgb Conc. 31.5 g/dL (33.0-37.0); Mean Corpuscular Hgb 25.9 pg (27.0-31.0); Mean Corpuscular Volume 82.3 fL (80.0-94.0); Mean Platelet Volume 9.8 fL (7.4-10.4); Platelet Count 131 10^3/uL (130-400); Red Blood Cell Count 3.05 10^6/uL (4.70-6.10); Red Cell Dist. Width 16.5 % (11.5-14.5); White Blood Cell Count 4.9 10^3/uL (4.8-10.8)
[2023-09-23 06:26] LABS: INR 1.79; PT 20.7 Sec (11.4-14.6)
[2023-09-23 06:55] LABS: ALT (SGPT) 17 U/L (0-50); AST (SGOT) 31 U/L (17-59); Albumin 2.2 g/dl (3.5-5.0); Alkaline Phosphatase 108 U/L (38-126); Blood Urea Nitrogen 26 mg/dl (9-20); Calcium 7.9 mg/dl (8.4-10.2); Carbon Dioxide 25 mmol/L (22-30); Chloride 95 mmol/L (98-107); Direct Bilirubin 0.7 mg/dl (0.0-0.4); Estimated Creatinine Clearance 92 ml/min; Glucose 210 mg/dl (70-99); Potassium 3.4 mmol/L (3.5-5.1); Sodium 128 mmol/L (135-145); Total Bilirubin 2.2 mg/dl (0.2-1.3); Total Protein 5.5 g/dl (6.3-8.2); eGFR > 60.00
--- NOTE | 2023-09-23 08:51 | W.PN.UPDATE ---
Addendum entered and electronically signed by Sole Duncan NP 09/23/23 10:18:
Hospitalist to replete potassium.
Original Note:
Update Note
Progress Note Update
6500mL removed during paracentesis. 37.5g of 25% IV albumin ordered. Plan for EGD/flex sig later today for evaluation of bleeding. No bloody stools overnight. His hgb is stable. The pt is aware of the plan. Tap water enema ordered x2. Discussed with
the nurse. NPO for procedures.
[2023-09-23] MEDS: PROTONIX IV 40 MG IV (09:18)
[2023-09-23] MEDS: NSS (PRESERVATIVE FREE) 10 ML IV (09:20)
[2023-09-23] MEDS: NEURONTIN 300 MG PO ×2 (09:23→20:57)
[2023-09-23] MEDS: MIRALAX 17 GRAMS PO (09:23)
[2023-09-23] MEDS: TIMOPTIC 0.5% OPHTHALMIC SOLUTION 1 DROP LEFT EYE ×2 (09:24→20:57)
[2023-09-23 09:53] LABS: Body Fluid Mononuclear 91.4 %; Body Fluid Polymorphonuclear 8.6 %; Body Fluid WBC 221 /CUMM
[2023-09-23 09:56] LABS: Body Fluid Second Tech SS
[2023-09-23] MEDS: KCL 160 MEQ IV (09:56)
[2023-09-23 10:03] LABS: Body Fluid Albumin < 1.0 g/dl; Body Fluid Amylase < 30 U/L; Body Fluid LDH < 90 U/L; Body Fluid Protein 2.4 g/dl
[2023-09-23] MEDS: FLEXBUMIN 100 IV (10:36)
[2023-09-23 11:34] LABS: Glucose - Point of Care 203 mg/dl (70-99)
[2023-09-23] MEDS: FLEXBUMIN 50 IV (12:10)
--- NOTE | 2023-09-23 14:02 | W.PN.HOSP.TC ---
Today's Communication/Plan
-
All discussed with the patient
Discussed with the over the phone we will call her again with procedure result.
Discussed with the nurse
Assessment / Plan
Assessment / Plan
Physical exam:
General: Lethargic and pale looking but awake, alert and oriented x3, not in distress and holds appropriate conversation.
HEENT: Dried blood on the left ear, no active discharge, ecchymosis or bruising, moist lips, tongue and mucous membrane.
Eyes: No discharge or red conjunctiva, no nystagmus, pupils are reactive and equal
Neck:Supple, no JVD no bruit no goiter.
Respiratory: Normal AP contour and diameter, normal chest wall movement, normal respiratory effort, no respiratory distress,
Lungs: Good air entry bilaterally, no wheezing or rhonchi, no rales or crackles
Heart: S1, S2 regular, normal rate, no added sound.
Gastrointestinal: Positive bowel sounds, soft, nontender, no guarding or rigidity or organomegaly
Musculoskeletal: , no chest wall abnormality or tenderness. All joints and extremities have good range of motion, no muscle tenderness or any joint swelling or tenderness.
Extremities: No pitting edema, good peripheral pulses, good range of motion
Skin: Warm and dry, no ulceration, pale looking with scattered ecchymosis and bruising
Neurological: Awake, alert and oriented x3, no facial droop, hearing impairment appreciated speech clear and comprehensive, good muscle tone, moves extremities freely.
Assessment and plan:
# Rectal bleeding with dark stools in setting of recent constipation, hx hemorrhoids, and Esophageal varices.
#Rectal bleeding with anoscopy jul 2023
# Acute blood loss anemia
Had outpatient follow-up with colorectal surgery was not a candidate for banding
Hgb 5.5 on admission
-Transfused 2 units PRBC with improved HH; HD stable
-Hemoglobin 7.9 today
-Continue to monitor
Keep n.p.o. there is a plan for EGD and sigmoidoscopy today.
-Off ocreotide gtt
-Protonix IV daily
-Monitor H&H close
-Patient was recently treated with Metamucil and MiraLAX at home
�
#Hypervolemic hyponatremia 2/2 liver dz
NA 127 on admission and today is 128
Monitor
follow bmp
#CA
Creat 1.4, back to normal
Bun 40
-hold lasix
- Improved with blood transfusion suggesting volume related. Cr 0.9 today
Hypokalemia, potassium was 3.4
IV potassium given as she is n.p.o.
Rate
#Recurrent abdominal ascites with scrotal swelling chronic in setting of alcoholic cirrhosis
#Alcoholic cirrhosis
Last paracentesis 5.5 L on 09/12/2023 and had another paracentesis today and 6.5 L removed
Albumin give
-IR and GI input appreciated
-Fluid restrict
-hold Lasix 20 mg daily for now could be restarted and may even need to be uptitrated will defer to GI
-Monitor mag follow potassium
# HX pancytopenia likely secondary to liver disease
Follow counts
# ASCVD status post CABG x 5 vessel
Hold aspirin due to anemia/rectal bleeding
-Continue Lipitor
# Paroxysmal atrial fibrillation
-not on anticoagulation as outpatient
# Diabetes with neuropathy
Accu-Cheks with SSI, check HgbA1c
-Hold Januvia as patient is n.p.o.
-Continue gabapentin for neuropathy
# Prostate disease-continue Flomax
# Hyperlipidemia-on Lipitor
# Foot drop on the right
# Diverticulosis hx
# Chronic hydrocele
# Hearing impairment
# DVT prophylaxis-SCDs
DNR per pt with
All discussed with the patient
Anticipated Discharge: > 48 hours
Subjective/Interval History
-
Date of Service: September 23, 2023
Seen and examined earlier, he is awake, alert and oriented but lethargic and pale looking, admit hearing impairment but hold appropriate conversations, he is n.p.o. agrees with plan for EGD and flex sigmoidoscopy at some point today and he has been
getting tapwater enema for sigmoidoscopy.
Had paracentesis earlier and 6500 cc removed was albumin given.
Afebrile denies any fever or chill or cough or congestion.
Some dried crusted blood on the left ear which is patient's has been there as she had a recent air surgery.
Objective Data
-
Labs:
Laboratory Results
09/23/23
05:19
WBC 4.9
Hgb 7.9 L
Hct 25.1 L
Plt Count 131
PT 20.7 H
INR 1.79
Sodium 128 L
Potassium 3.4 L
Chloride 95 L
Carbon Dioxide 25
BUN 26 H
Creatinine 0.7
Glucose 210 H
Calcium 7.9 L
Total Bilirubin 2.2 H
AST 31
ALT 17
Alkaline Phosphatase 108
Vital Signs:
Vital Signs
Temp Pulse Resp BP Pulse Ox
97.6 F 64 16 127/51 100
09/23/23 12:01 09/23/23 12:01 09/23/23 12:01 09/23/23 12:01 09/23/23 12:01
I&O
09/22/23 09/23/23 09/24/23
07:59 07:59 07:59
Intake Total 500 / 500 1940 / 1940
Output Total 525 / 525 950 / 950
Balance -25 / -25 990 / 990
Review of Systems
-
All other systems: Reviewed and negative
--- NOTE | 2023-09-23 14:15 | PTCARENOTE ---
2 enemas given, pt having large bowel movements passing mostly liquid but still with a small amount of formed stool.
[2023-09-23 18:04] LABS: Glucose - Point of Care 194 mg/dl (70-99)
[2023-09-23] MEDS: NOVOLOG FLEXPEN-LOW RESISTANCE 1 UNITS SC (19:01)
[2023-09-23] MEDS: SENOKOT-S 1 TABLET PO (21:18)
[2023-09-23] MEDS: FLOMAX 0.800000000000000044 MG PO (21:18)
[2023-09-23 21:41] LABS: Glucose - Point of Care 313 mg/dl (70-99)
[2023-09-24] VITALS (7 sets, daily range): BP systolic 70–115; BP diastolic 40–71; PULSE 72–79; O2SAT 100; BMI 24.9
[2023-09-24 08:20] LABS: Glucose - Point of Care 199 mg/dl (70-99)
[2023-09-24] MEDS: NOVOLOG FLEXPEN-LOW RESISTANCE 1 UNITS SC (08:37)
[2023-09-24] MEDS: PROTONIX IV 40 MG IV (08:38)
[2023-09-24] MEDS: MIRALAX 17 GRAMS PO (08:38)
[2023-09-24] MEDS: NSS (PRESERVATIVE FREE) 10 ML IV (08:38)
[2023-09-24] MEDS: NEURONTIN 300 MG PO ×2 (08:38→19:32)
[2023-09-24] MEDS: TIMOPTIC 0.5% OPHTHALMIC SOLUTION 1 DROP LEFT EYE ×2 (08:38→19:35)
[2023-09-24] MEDS: FLUSH (NSS) 1 FLUSH IV ×2 (08:38→14:44)
[2023-09-24 09:49] LABS: % Basophils 0.9 % (0-2); % Eosinophils 1.7 % (0-6); % Immature Granulocytes 0.3 % (0-0.5); % Lymphocytes 19.2 % (20.5-51.1); % Neutrophils 65.9 % (42.2-75.2); Absolute Basophils 0.1 10^3/uL (0-0.2); Absolute Eosinophils 0.1 10^3/uL (0-0.7); Absolute Lymphocytes 1.1 10^3/uL (1.2-3.4); Absolute Monocytes 0.7 10^3/uL (0.1-0.6); Absolute Neutrophils 3.9 10^3/uL (1.4-6.5); Hematocrit 28.9 % (39.0-52.0); Hemoglobin 8.7 g/dL (13.0-18.0); Mean Corp Hgb Conc. 30.1 g/dL (33.0-37.0); Mean Corpuscular Hgb 25.4 pg (27.0-31.0); Mean Corpuscular Volume 84.5 fL (80.0-94.0); Mean Platelet Volume 9.4 fL (7.4-10.4); Nucleated Red Blood Cells % 0 % (-); Platelet Count 125 10^3/uL (130-400); Red Blood Cell Count 3.42 10^6/uL (4.70-6.10); Red Cell Dist. Width 16.6 % (11.5-14.5); White Blood Cell Count 5.8 10^3/uL (4.8-10.8)
[2023-09-24 10:22] LABS: Blood Urea Nitrogen 19 mg/dl (9-20); Carbon Dioxide 23 mmol/L (22-30); Chloride 102 mmol/L (98-107); Estimated Creatinine Clearance 92 ml/min; Glucose 261 mg/dl (70-99); Iron 38 ug/dl (49-181); Magnesium 1.6 mg/dl (1.6-2.3); Phosphorus 2.8 mg/dl (2.5-4.5); Potassium 3.7 mmol/L (3.5-5.1); Sodium 128 mmol/L (135-145); eGFR > 60.00
[2023-09-24 10:32] LABS: Percent Saturation 16 % (20-50); Total Iron Binding Capacity 235 ug/dl (261-462)
[2023-09-24] MEDS: INDERAL 10 MG PO ×2 (11:55→19:32)
[2023-09-24 12:03] LABS: Glucose - Point of Care 355 mg/dl (70-99)
[2023-09-24] MEDS: NOVOLOG FLEXPEN-LOW RESISTANCE 4 UNITS SC (12:03)
--- NOTE | 2023-09-24 14:17 | W.PN.HOSP.TC ---
Today's Communication/Plan
-
All discussed with the patient
Discussed with the
Discussed with the nurse
Assessment / Plan
Assessment / Plan
Physical exam:
General: Lethargic and pale looking but awake, got dizzy when he stood up alert and oriented x3, not in distress and holds appropriate conversation.
HEENT: Dried blood on the left ear, no active discharge, ecchymosis or bruising, moist lips, tongue and mucous membrane.
Eyes: No discharge or red conjunctiva, no nystagmus, pupils are reactive and equal
Neck:Supple, no JVD no bruit no goiter.
Respiratory: Normal AP contour and diameter, normal chest wall movement, normal respiratory effort, no respiratory distress,
Lungs: Good air entry bilaterally, no wheezing or rhonchi, no rales or crackles
Heart: S1, S2 regular, normal rate, no added sound.
Gastrointestinal: Positive bowel sounds, soft, nontender, no guarding or rigidity or organomegaly
Musculoskeletal: , no chest wall abnormality or tenderness. All joints and extremities have good range of motion, no muscle tenderness or any joint swelling or tenderness.
Extremities: No pitting edema, good peripheral pulses, good range of motion
Skin: Warm and dry, no ulceration, pale looking with scattered ecchymosis and bruising
Assessment and plan:
# Rectal bleeding with dark stools in setting of recent constipation, hx hemorrhoids, and Esophageal varices.
#Rectal bleeding with anoscopy jul 2023
# Acute blood loss anemia
Status post EGD and sigmoidoscopy yesterday.
EGD showed esophageal varices but no evidence of bleeding
GI recommended starting propranolol, 10 mg twice daily started with monitoring of the blood pressure and vital sign.
Sigmoidoscopy look like colon was not well-prepped despite having couple tapwater enema in the hospital but this show grade 2 hemorrhoid nothing were done.
Had outpatient follow-up with colorectal surgery was not a candidate for banding
Hgb 5.5 on admission today is 8.7 now yesterday was 7.9
Continue to monitor
-Transfused 2 units PRBC with improved HH; HD stable
-Continue to monitor
-Off ocreotide gtt
-Protonix daily changed to p.o.
-Patient was recently treated with Metamucil and MiraLAX at home
�
Orthostatic hypotension: Likely multifactorial including liver cirrhosis, poor intake
His blood pressure dropped from 115 laying to his 75 standing therefore given normal saline and back at 60 mill per hour with close monitoring
If not improved then may consider adding midodrine. Explained to the patient and he is high risk for fall
Need slow positional change and adjustment.
#Hypervolemic hyponatremia 2/2 liver dz
Improving
Monitor
follow bmp
#CA
Creat 1.4, back to normal
Bun 40
-hold lasix
- Improved with blood transfusion suggesting volume related. Cr 0.9 today
Hypokalemia, potassium was 3.4
Improved
Recheck
#Recurrent abdominal ascites with scrotal swelling chronic in setting of alcoholic cirrhosis
#Alcoholic cirrhosis
Last paracentesis 5.5 L on 09/12/2023 and had another paracentesis today and 6.5 L removed
Albumin give
-IR and GI input appreciated
-Fluid restrict
-hold Lasix 20 mg daily for now could be restarted and may even need to be uptitrated will defer to GI
-Monitor mag follow potassium
# HX pancytopenia likely secondary to liver disease
Follow counts
# ASCVD status post CABG x 5 vessel
Hold aspirin due to anemia/rectal bleeding
-Continue Lipitor
# Paroxysmal atrial fibrillation
-not on anticoagulation as outpatient
# Diabetes with neuropathy
Accu-Cheks with SSI, check HgbA1c
-Hold Januvia as patient is n.p.o.
-Continue gabapentin for neuropathy
# Prostate disease-continue Flomax
# Hyperlipidemia-on Lipitor
# Foot drop on the right
# Diverticulosis hx
# Chronic hydrocele
# Hearing impairment
# DVT prophylaxis-SCDs
DNR per pt with
Still very weak and lethargic to go home he does not like the idea of placement
Explained to him and his over the phone he is not ready to come home yet specially he is very and stated he is at high risk for fall and fracture.
Continue orthostatic vital sign check
Fluid
Assess functional status.
Discharge
All discussed with the patient and his over the phone
Anticipated Discharge: > 48 hours
Subjective/Interval History
-
Date of Service: September 24, 2023
Seen and examined, awake and alert lethargic, he stood up while I was in the room with the help of PT and to check his orthostatic vital signs his blood pressure dropped from 115 systolic to 75 and he was symptomatic,
Denies any nausea or vomiting, still having some loose stool from the bowel prep yesterday,
Objective Data
-
Labs:
Laboratory Results
09/24/23
09:32
WBC 5.8
Hgb 8.7 L
Hct 28.9 L
Plt Count 125 L
Sodium 128 L
Potassium 3.7
Chloride 102
Carbon Dioxide 23
BUN 19
Creatinine 0.7
Glucose 261 H
Calcium 8.0 L
Vital Signs:
Vital Signs
Temp Pulse Resp BP Pulse Ox
98.3 F 64 18 115/55 96
09/24/23 11:00 09/24/23 11:55 09/24/23 11:00 09/24/23 11:55 09/24/23 11:00
I&O
09/23/23 09/24/23 09/25/23
07:59 07:59 07:59
Intake Total 1940 / 1940 840 / 840
Output Total 950 / 950 2360 / 2360 150 / 150
Balance 990 / 990 -1520 / -1520 -150 / -150
Review of Systems
-
All other systems: Reviewed and negative
[2023-09-24] MEDS: NSS 1000 IV (14:44)
[2023-09-24 16:23] LABS: Glucose - Point of Care 273 mg/dl (70-99)
--- NOTE | 2023-09-24 16:33 | PTCARENOTE ---
Pt AAO x3, forgetful at times; [place]. BILLS; OOB to chair with assist x1/walker, lee well; moves slowly; has Rt foot drop/RLE brace. VSS. Telemetry:NSR with PAC's/sinus arrhythmia. On room air- pulse ox 97%, no c/o SOB. Abd sl firm, rounded, lee reg
diet. Voids clear yellow uirne in urinal with assistance. IVF's NSS @ 60 ml/hr infusing via Rt upper arm without sx of infiltration. resting in chair at present, no c/o. Will continue to monitor.
[2023-09-24] MEDS: NOVOLOG FLEXPEN-LOW RESISTANCE 3 UNITS SC (17:48)
[2023-09-24] MEDS: TIMOPTIC 0.5% OPHTHALMIC SOLUTION LEFT EYE (19:32)
[2023-09-24 21:12] LABS: Glucose - Point of Care 308 mg/dl (70-99)
[2023-09-24] MEDS: SENOKOT-S 1 TABLET PO (21:16)
--- NOTE | 2023-09-24 21:16 | W.PN.UPDATE ---
Update Note
Progress Note Update
begin non-selective beta luz for portal HTN gastropathy, f/u with GI/hepatology for continued care, GI s/o, pls call with questions.
[2023-09-24] MEDS: FLOMAX 0.800000000000000044 MG PO (21:17)
[2023-09-25] VITALS (9 sets, daily range): BP systolic 75–118; BP diastolic 33–56; PULSE 66–77; BMI 25.9
[2023-09-25 06:16] LABS: Hematocrit 27.6 % (39.0-52.0); Hemoglobin 8.4 g/dL (13.0-18.0); Mean Corp Hgb Conc. 30.4 g/dL (33.0-37.0); Mean Corpuscular Hgb 25.7 pg (27.0-31.0); Mean Corpuscular Volume 84.4 fL (80.0-94.0); Mean Platelet Volume 9.9 fL (7.4-10.4); Platelet Count 150 10^3/uL (130-400); Red Blood Cell Count 3.27 10^6/uL (4.70-6.10); Red Cell Dist. Width 16.8 % (11.5-14.5); White Blood Cell Count 10.1 10^3/uL (4.8-10.8)
[2023-09-25 06:37] LABS: Blood Urea Nitrogen 22 mg/dl (9-20); Calcium 7.6 mg/dl (8.4-10.2); Carbon Dioxide 25 mmol/L (22-30); Chloride 100 mmol/L (98-107); Estimated Creatinine Clearance 81 ml/min; Glucose 210 mg/dl (70-99); Magnesium 1.6 mg/dl (1.6-2.3); Potassium 3.5 mmol/L (3.5-5.1); Sodium 127 mmol/L (135-145); eGFR > 60.00
[2023-09-25 07:20] LABS: Glucose - Point of Care 218 mg/dl (70-99)
--- NOTE | 2023-09-25 08:58 | W.PN.HOSP.TC ---
Today's Communication/Plan
-
Monitor sodium. Monitor orthostatic. Nephrology consult.
Assessment / Plan
Assessment / Plan
Physical exam:
General: Chronically ill
HEENT: Normocephalic, Atraumatic and Moist Mucous Membranes
Respiratory: Clear to Auscultation; Negative Wheezes, Rales or Rhonchi
Cardiac: Regular Rhythm and S1/S2
GI: Soft, Nontender and Distended but much less than before per patient report.
Musculoskeletal: No Clubbing, No Cyanosis and some edema
Neuro: Awake, Alert and Oriented
Psych: Calm
Assessment and plan:
# Rectal bleeding with dark stools in setting of recent constipation, hx hemorrhoids, and Esophageal varices.
#Rectal bleeding with anoscopy jul 2023
# Acute blood loss anemia
Status post EGD and sigmoidoscopy yesterday.
EGD showed esophageal varices but no evidence of bleeding
GI recommended starting propranolol, 10 mg twice daily started with monitoring of the blood pressure and vital sign.
Sigmoidoscopy look like colon was not well-prepped despite having couple tapwater enema in the hospital but this show grade 2 hemorrhoid nothing were done.
Had outpatient follow-up with colorectal surgery was not a candidate for banding
Hgb 5.5 on admission today is 8.7 now yesterday was 7.9--> today hemoglobin is 8.4
Continue to monitor
-Transfused 2 units PRBC with improved HH; HD stable
-Continue to monitor
-Off ocreotide gtt
-Protonix daily changed to p.o.
-Patient was recently treated with Metamucil and MiraLAX at home
�
Orthostatic hypotension: Likely multifactorial including liver cirrhosis, poor intake
His blood pressure dropped from 115 laying to his 75 standing therefore given normal saline and back at 60 mill per hour with close monitoring--> currently improvement but will monitor for 24 more hours.
If not improved then may consider adding midodrine. Explained to the patient and he is high risk for fall
Need slow positional change and adjustment.
# Multifactorial hyponatremia, hypervolemic, alcohol-related, liver disease related, etc.
-Sodium 127 today
-Nephrology consult for further advice
Monitor
follow bmp
#CA
Creat 0.8, back to normal
Bun 40
-hold lasix
- Improved with blood transfusion suggesting volume related. Cr 0.9 today
Hypokalemia, potassium was 3.4
Improved
Recheck
#Recurrent abdominal ascites with scrotal swelling chronic in setting of alcoholic cirrhosis
#Alcoholic cirrhosis
Last paracentesis 5.5 L on 09/12/2023 and had another paracentesis yesterday 6.5 L removed
Albumin given
-IR and GI input appreciated
-Fluid restrict
-hold Lasix 20 mg daily for now could be restarted and may even need to be uptitrated will defer to GI
-Monitor mag follow potassium
# HX pancytopenia likely secondary to liver disease
Follow counts
# ASCVD status post CABG x 5 vessel
Hold aspirin due to anemia/rectal bleeding
-Continue Lipitor
# Paroxysmal atrial fibrillation
-not on anticoagulation as outpatient
# Diabetes with neuropathy
Accu-Cheks with SSI, check HgbA1c
-Hold Januvia as patient is n.p.o.
-Continue gabapentin for neuropathy
# Prostate disease-continue Flomax
# Hyperlipidemia-on Lipitor
# Foot drop on the right
# Diverticulosis hx
# Chronic hydrocele
# Hearing impairment
# DVT prophylaxis-SCDs
DNR per pt with
Still very weak although improving. He does not like the idea of going to skilled rehab.
Explained to him and his over the phone he is not ready to come home yet and we are monitoring his sodium and convinced him to stay.
Continue orthostatic vital sign and also monitor sodium again tomorrow.
Fluid
Assess functional status.
All discussed with the patient and his over the phone today on 09/24
Anticipated Discharge: 24 - 48 hours
Subjective/Interval History
-
Date of Service: September 25, 2023
Patient feels better overall today. No active bleeding.
Objective Data
-
Labs:
Laboratory Results
09/25/23
05:09
WBC 10.1
Hgb 8.4 L
Hct 27.6 L
Plt Count 150
Sodium 127 L
Potassium 3.5
Chloride 100
Carbon Dioxide 25
BUN 22 H
Creatinine 0.8
Glucose 210 H
Calcium 7.6 L
Vital Signs:
Vital Signs
Temp Pulse Resp BP Pulse Ox
98 F 68 18 105/51 99
09/25/23 07:00 09/25/23 07:00 09/25/23 07:00 09/25/23 07:00 09/25/23 07:00
I&O
09/24/23 09/25/23 09/26/23
06:59 06:59 06:59
Intake Total 840 / 840 1999 / 1999
Output Total 2360 / 2360 400 / 400
Balance -1520 / -1520 1600 / 1600
[2023-09-25] MEDS: NOVOLOG FLEXPEN-LOW RESISTANCE 2 UNITS SC (09:00)
[2023-09-25] MEDS: NEURONTIN 300 MG PO ×2 (09:01→21:11)
[2023-09-25] MEDS: PROTONIX 40 MG PO (09:01)
[2023-09-25] MEDS: INDERAL 10 MG PO ×2 (09:01→21:11)
[2023-09-25] MEDS: TIMOPTIC 0.5% OPHTHALMIC SOLUTION 1 DROP LEFT EYE ×2 (09:01→21:12)
[2023-09-25] MEDS: MIRALAX 17 GRAMS PO (09:01)
[2023-09-25 11:41] LABS: Glucose - Point of Care 274 mg/dl (70-99)
[2023-09-25] MEDS: NOVOLOG FLEXPEN-LOW RESISTANCE 3 UNITS SC (12:44)
--- NOTE | 2023-09-25 13:15 | W.CON.NEPH ---
Consultation
-
Date/Time Consultation Requested: September 25, 2023 10 AM
Date/Time Consultation Performed: September 25, 2023 1:15 PM
Requesting Provider: Dr. Nicole
Performing Provider: Dr. Valentin
Reason for Consultation: Hyponatremia
Medical History
-
Chief Complaint: Hyponatremia
History of Present Illness:
This is a 67-year-old gentleman with known alcoholic cirrhosis on chronic diuretic therapy who also has diabetes mellitus type 2 on insulin therapy as well as hyperlipidemia on statin therapy recently he has had worsening abdominal distention as
well as scrotal swelling. He was noted to have a hemoglobin of 5.6 this resulted in admission. He had previously seen colorectal surgery and was felt not to be a candidate for hemorrhoidal banding. At the time of admission his creatinine was
elevated at 1.4 though this improved with correction of his hemoglobin. His sodium level remains low at 127 and we are asked to assist with management of that.
Past Medical History
Alcoholic Cirrhosis with Ascites and Esophageal Varices
ASCVD
DM-II
Hypertension
BPH
CABG x 5
Right Knee Arthroscopy
Right Hydrocelectomy
Mastoidectomy
Social History
Tobacco: Former Smoker
Alcohol: Former
Family History
Family History: Not Pertinent
Allergies / Home Medications
Allergy/AdvReac Type Severity Reaction Status Date / Time
empagliflozin Allergy potential Verified 09/21/23 22:24
[From Synjardy XR] cause of
euglycemic
DKA 03/26/23
metformin [From Synjardy XR] Allergy potential Verified 09/21/23 22:24
cause of
euglycemic
DKA 03/26/23
Sulfa (Sulfonamide Allergy Hives Verified 09/21/23 20:15
Antibiotics)
�Medication �Instructions �Recorded �Confirmed �Type
cyanocobalamin (vitamin B-12) 500 500 mcg PO DAILY Supplement 03/25/23 09/21/23 History
mcg tablet
pantoprazole 40 mg tablet,delayed 40 mg PO DAILY Gastrointestinal 03/25/23 09/21/23 History
release (Protonix) Issue
timolol maleate 0.5 % eye drops 1 drp LEFT EYE BID Eye Condition 03/25/23 09/21/23 History
vitamins A,C,F-xsvu-epmwsh 2,148 1 tab PO BID Supplement 03/25/23 09/21/23 History
mcg-113 mg-45 mg-17.4 mg tablet
(PreserVision AREDS)
aspirin 81 mg chewable tablet 81 mg PO DAILY Blood Clot 05/04/23 09/21/23 History
Prevention/Tx
insulin lispro 100 unit/mL 4 unit SC AC Diabetes 05/04/23 09/21/23 History
subcutaneous pen
cholecalciferol (vitamin D3) 50 50 mcg PO DAILY Supplement 05/18/23 09/21/23 History
mcg (2,000 unit) capsule (Vitamin
D3)
atorvastatin 10 mg tablet (Lipitor) 10 mg PO HS High Cholesterol 05/20/23 09/21/23 History
tamsulosin 0.4 mg capsule (Flomax) 0.8 mg PO HS Urinary Issue 05/20/23 09/21/23 History
lactulose 10 gram/15 mL oral 10 g PO DAILYPRN PRN constipation 07/28/23 09/21/23 History
solution
gabapentin 300 mg capsule 300 mg PO BID Pain 08/08/23 09/21/23 History
sitagliptin phosphate 100 mg 100 mg PO DAILY Diabetes 08/08/23 09/21/23 History
tablet (Januvia)
furosemide 20 mg tablet (Lasix) 20 mg PO DAILY Fluid 08/09/23 09/21/23 Rx
retention/Swelling #30 tabs
potassium chloride 10 mEq 10 meq PO DAILY Electrolyte 08/09/23 09/21/23 Rx
capsule,extended release Repletion #30 caps
insulin glargine 100 unit/mL (3 10 unit SC HS 09/21/23 09/21/23 History
mL) subcutaneous pen (Basaglar
KwikPen U-100 Insulin)
Review of Systems
-
Scrotal swelling, abdominal distention. No fevers chills or sweats. No chest pain no shortness of breath. No issues with urine output. The remainder of the complete review of systems was negative.
Physical Exam
Vital Signs
Vital Signs
Temp Pulse Resp BP Pulse Ox
97.9 F 68 18 118/56 100
09/25/23 11:45 09/25/23 11:45 09/25/23 11:45 09/25/23 11:45 09/25/23 11:45
Lab Results
WBC 10.1 10^3/uL (4.8-10.8) 09/25/23 05:09
RBC 3.27 10^6/uL (4.70-6.10) L 09/25/23 05:09
Hgb 8.4 g/dL (13.0-18.0) L 09/25/23 05:09
Hct 27.6 % (39.0-52.0) L 09/25/23 05:09
Plt Count 150 10^3/uL (130-400) 09/25/23 05:09
Sodium 127 mmol/L (135-145) L 09/25/23 05:09
Potassium 3.5 mmol/L (3.5-5.1) 09/25/23 05:09
Chloride 100 mmol/L (98-107) 09/25/23 05:09
Carbon Dioxide 25 mmol/L (22-30) 09/25/23 05:09
BUN 22 mg/dl (9-20) H 09/25/23 05:09
Creatinine 0.8 mg/dL (0.7-1.3) 09/25/23 05:09
eGFR > 60.00 09/25/23 05:09
Glucose 210 mg/dl (70-99) H 09/25/23 05:09
Calcium 7.6 mg/dl (8.4-10.2) L 09/25/23 05:09
Phosphorus 2.8 mg/dl (2.5-4.5) 09/24/23 09:32
Albumin 2.2 g/dl (3.5-5.0) L 09/23/23 05:19
Physical Exam
General: AOx3
HEENT: PERRL, EOMI, Anicteric, Ear/Nose Intact, Hearing Normal, Neck Supple, Trachea Midline and No JVD
Respiratory: Clear and Normal Excursion
Cardiac: Regular Rate/Rhythm and No Edema
Abdomen: Soft, Nontender, Nondistended, Normal Bowel Sounds and No Hepatosplenomegaly
Genito-urinary: Other (Scrotal swelling)
Skin: No Rash and No Cyanosis
Psych: Mood/afflect pleasant and Insight/judgement good
Assessment/Plan
-
Assessment:
Rectal bleeding
Anemia
Hyponatremia
Alcoholic cirrhosis
Coronary disease
Paroxysmal atrial fibrillation
Hyperlipidemia
Plan:
On the whole his sodium level is low but fairly stable. Lasix will be continued at 20 mg daily.
Samsca could be considered if his sodium level falls further.
Fluid restriction 1200 cc/day will be continued.
His blood pressure is otherwise stable.
Data Reviewed
-
Ultrasound: Report Reviewed by me (Paracentesis on 09/23/2023 with 6.5 L removed)
Medical Tests (Nuc Med, Echo etc): Image Personally Visualized and interpreted (EKG on 09/21/2023 by my reading shows sinus tachycardia)
Labs: Labs Reviewed by me
Old Records: Reviewed
[2023-09-25] MEDS: LASIX 20 MG PO (14:10)
[2023-09-25 17:33] LABS: Glucose - Point of Care 341 mg/dl (70-99)
[2023-09-25] MEDS: NOVOLOG FLEXPEN-LOW RESISTANCE 4 UNITS SC (17:50)
[2023-09-25] MEDS: FLOMAX 0.800000000000000044 MG PO (21:11)
[2023-09-25] MEDS: SENOKOT-S 1 TABLET PO (21:11)
[2023-09-25 21:58] LABS: Glucose - Point of Care 364 mg/dl (70-99)
[2023-09-25] MEDS: NOVOLOG FLEXPEN 5 UNITS SC (22:09)
--- NOTE | 2023-09-25 23:02 | PTCARENOTE ---
Patient very confused, restless, possibly hallucinating-asking for things that are 'infront of him' that aren't there, family that's not here etc. Hr variable. no fever. Notified [employer] asking if I should add MSAS due to possible withdrawal. per pt, has
not had a drink in a month and a half but not sure if that is correct. [employer] to order labs to evaluate patient. Will continue to monitor.
[2023-09-25 23:26] LABS: Hematocrit 26.8 % (39.0-52.0); Hemoglobin 8.6 g/dL (13.0-18.0); Mean Corp Hgb Conc. 32.1 g/dL (33.0-37.0); Mean Corpuscular Hgb 26.1 pg (27.0-31.0); Mean Corpuscular Volume 81.5 fL (80.0-94.0); Mean Platelet Volume 10.2 fL (7.4-10.4); Platelet Count 141 10^3/uL (130-400); Red Blood Cell Count 3.29 10^6/uL (4.70-6.10); Red Cell Dist. Width 16.9 % (11.5-14.5); White Blood Cell Count 9.3 10^3/uL (4.8-10.8)
[2023-09-25 23:43] LABS: Ammonia 18 umol/L (9-30); Lactic Acid 2.6 mmol/L (0.7-2.0)
[2023-09-25 23:50] LABS: Blood Urea Nitrogen 24 mg/dl (9-20); Calcium 7.6 mg/dl (8.4-10.2); Carbon Dioxide 22 mmol/L (22-30); Chloride 100 mmol/L (98-107); Estimated Creatinine Clearance 92 ml/min; Glucose 310 mg/dl (70-99); Sodium 126 mmol/L (135-145); eGFR > 60.00
[2023-09-26 01:05] LABS: Glucose - Point of Care 309 mg/dl (70-99)
[2023-09-26 01:10] LABS: Urine Albumin Negative (Neg - Trace); Urine Bilirubin Negative (Negative); Urine Character Slightly Cloudy (Clear); Urine Color Yellow; Urine Glucose 3+ (Negative); Urine Ketone Negative (Negative); Urine Leukocyte 2+ (Negative); Urine Nitrite Negative (Negative); Urine Occult Blood Negative (Negative); Urine Specific Gravity 1.015 (<1.030); Urine Urobilinogen 2+ (Neg - 1+)
[2023-09-26 01:26] LABS: COVID-19 Antigen Negative (Negative)
[2023-09-26 01:37] LABS: Urine Red Blood Cell 0-2 /HPF (0-2)
[2023-09-26 01:38] LABS: Urine Bacteria Moderate (Negative); Urine White Cell >100 /HPF (0-5)
[2023-09-26 03:50] VITALS: BP 97/48
[2023-09-26 07:24] LABS: Hemoglobin 8.3 g/dL (13.0-18.0); Mean Corp Hgb Conc. 30.7 g/dL (33.0-37.0); Mean Corpuscular Hgb 25.5 pg (27.0-31.0); Mean Corpuscular Volume 83.1 fL (80.0-94.0); Platelet Count 122 10^3/uL (130-400); Red Blood Cell Count 3.25 10^6/uL (4.70-6.10); Red Cell Dist. Width 16.8 % (11.5-14.5); White Blood Cell Count 9.1 10^3/uL (4.8-10.8)
[2023-09-26 07:33] LABS: Glucose - Point of Care 266 mg/dl (70-99)
[2023-09-26 07:40] VITALS: BP 100/50; BP 79/41; BP 99/50; PULSE 66; PULSE 71
[2023-09-26 07:48] LABS: Lactic Acid 1.7 mmol/L (0.7-2.0)
[2023-09-26 07:54] LABS: Albumin 2.3 g/dl (3.5-5.0); Alkaline Phosphatase 130 U/L (38-126); Blood Urea Nitrogen 22 mg/dl (9-20); Carbon Dioxide 25 mmol/L (22-30); Chloride 99 mmol/L (98-107); Estimated Creatinine Clearance 108 ml/min; Glucose 243 mg/dl (70-99); Potassium 3.9 mmol/L (3.5-5.1); Sodium 129 mmol/L (135-145); Total Bilirubin 1.1 mg/dl (0.2-1.3); Total Protein 5.4 g/dl (6.3-8.2); eGFR > 60.00
[2023-09-26 07:55] LABS: ALT (SGPT) 18 U/L (0-50); AST (SGOT) 29 U/L (17-59)
[2023-09-26 08:01] LABS: Direct Bilirubin 0.6 mg/dl (0.0-0.4)
--- NOTE | 2023-09-26 08:16 | W.PN.HOSP.TC ---
Addendum entered and electronically signed by Kieran Grady MD 09/26/23 15:28:
Also start Lantus 10 units nightly and Humalog 5 units before meals and increase insulin sliding scale to moderate for better blood sugars control. Noted hemoglobin A1c 8 on 09/21
Original Note:
Today's Communication/Plan
-
Start midodrine. Furosemide. PT OT
Assessment / Plan
Assessment / Plan
Physical exam:
General: Chronically ill
HEENT: Normocephalic, Atraumatic and Moist Mucous Membranes
Respiratory: Clear to Auscultation; Negative Wheezes, Rales or Rhonchi
Cardiac: Regular Rhythm and S1/S2
GI: Soft, Nontender and Distended but much less than before overall. Still scrotal swelling.
Musculoskeletal: No Clubbing, No Cyanosis and some bilateral peripheral edema
Neuro: Awake, Alert and Oriented, generalized weakness
Psych: Calm
EGD:
Impression: - Small (< 5 mm) possible esophageal varices.
- Portal hypertensive gastropathy.
- Normal duodenal bulb, first portion of the duodenum
and second portion of the duodenum.
- No specimens collected.
Sigmoidoscopy:
Impression: - Preparation of the colon was poor.
- Hemorrhoids found on perianal exam.
- Stool in the rectum, in the recto-sigmoid colon and
in the sigmoid colon.
- Internal hemorrhoids.
- No specimens collected.
Paracentesis on 09/22:
FINDINGS: 6500 cc of clear urine ascitic fluid was evacuated. Samples sent for analysis as requested.
Assessment and plan:
# Rectal bleeding with dark stools in setting of recent constipation, hx hemorrhoids, and Esophageal varices.
#Rectal bleeding with anoscopy jul 2023
# Acute blood loss anemia
Status post EGD and sigmoidoscopy.
EGD showed esophageal varices but no evidence of bleeding.
GI recommended starting propranolol, 10 mg twice daily started with monitoring of the blood pressure and vital signs.
Sigmoidoscopy look like colon was not well-prepped despite having couple tap water enema in the hospital but showed grade 2 hemorrhoid.
Had outpatient follow-up with colorectal surgery was not a candidate for banding
Hgb 5.5 on admission today is 8.3
Continue to monitor
-S/P Transfused 2 units PRBC with improved HH; HD stable
-Continue to monitor
-Off octreotide gtt
-Protonix daily changed to p.o.
-Patient was recently treated with Metamucil and MiraLAX at home
�
Orthostatic hypotension: Likely multifactorial including liver cirrhosis, poor intake
Patient still significant orthostatic
We will start him on midodrine today on 09/25 and monitor electrolytes and volume-discussed with nephrology and they are okay.
Need slow positional change and adjustment.
When he participated with physical therapy yesterday on 09/24 he was very dizzy and orthostatic but he attempted not to disclose his symptoms hoping to get ready for discharge but staff educated him about disclosing symptoms to allow us for better
diagnosis and management.
# Multifactorial hyponatremia, hypervolemic, alcohol-related, liver disease related, etc.
-Sodium 129 today
-Nephrology consult appreciated--> nephrology increasing Lasix to 40 mg daily today. Will have to see if he tolerates.
-Monitor sodium, rest of electrolytes, and renal function.
#CA
Creat 0.6, back to normal
Bun 40
-Resume Lasix by nephrology
- Improved with blood transfusion suggesting volume related. Cr stable
Hypokalemia, potassium was 3.4. K3.9 today
Improved
Recheck
#Recurrent abdominal ascites with scrotal swelling chronic in setting of alcoholic cirrhosis
#Alcoholic cirrhosis
Last paracentesis 5.5 L on 09/12/2023 and had another paracentesis yesterday 6.5 L removed
Albumin given. Diuretics reinitiated today on 09/25
-IR and GI input appreciated
-Fluid restrict
-Restart Lasix.
-Monitor mag follow potassium
# HX pancytopenia likely secondary to liver disease
Follow counts
# ASCVD status post CABG x 5 vessel
Hold aspirin due to anemia/rectal bleeding
-Continue Lipitor
# Paroxysmal atrial fibrillation
-not on anticoagulation as outpatient
# Diabetes with neuropathy
Accu-Cheks with SSI, check HgbA1c
-Hold Januvia
-Continue gabapentin for neuropathy
# Prostate disease-continue Flomax
# Hyperlipidemia-on Lipitor
# Foot drop on the right
# Diverticulosis hx
# Chronic hydrocele
# Hearing impairment
# DVT prophylaxis-SCDs
DNR per pt with
Still very weak although improving. He does not like the idea of going to skilled rehab but is open to this idea especially since she has MS and challenged to care for him so we will reevaluate.
Explained to him and his over the phone he is not ready to come home yet and continue to reassess for discharge readiness but not yet.
Continue orthostatic vital sign and also monitor sodium and blood pressure closely.
All discussed with the patient and his over the phone today on 09/25
Total time spent on today's encounter was 52 minutes which included time spent in counseling the patient/family regarding diagnosis and treatment plan as listed above, goals of care, and symptom management. Case was discussed with nursing staff,
specialists, and care coordinators/case management. All labs and imaging personally reviewed by me. Remainder the time spent in detailed review of previous records, lab data, imaging, and other medical provider documentation.
Anticipated Discharge: > 48 hours
Subjective/Interval History
-
Date of Service: September 26, 2023
Patient still having significant orthostatic changes. He also has significant hyperglycemia. Generalized weakness present. Peripheral edema. Afebrile. No bleeding
Objective Data
-
Labs:
Laboratory Results
09/25/23 09/26/23
23:17 07:17
WBC 9.3 9.1
Hgb 8.6 L 8.3 L
Hct 26.8 L 27.0 L
Plt Count 141 122 L
Sodium 126 L 129 L
Potassium 4.0 3.9
Chloride 100 99
Carbon Dioxide 22 25
BUN 24 H 22 H
Creatinine 0.7 0.6 L
Glucose 310 H 243 H
Calcium 7.6 L 8.0 L
Total Bilirubin 1.1
AST 29
ALT 18
Alkaline Phosphatase 130 H
Vital Signs:
Vital Signs
Temp Pulse Resp BP Pulse Ox
98.3 F 69 18 97/48 98
09/26/23 03:50 09/26/23 03:50 09/26/23 03:50 09/26/23 03:50 09/26/23 03:50
I&O
09/25/23 09/26/23 09/27/23
06:59 06:59 06:59
Intake Total 1999 / 1999 1040 / 1040 300 / 300
Output Total 400 / 400 575 / 575
Balance 1600 / 1600 1040 / 1040 -275 / -275
[2023-09-26] MEDS: INDERAL 10 MG PO ×2 (09:22→20:04)
[2023-09-26] MEDS: NEURONTIN 300 MG PO ×2 (09:22→19:58)
[2023-09-26] MEDS: PROTONIX 40 MG PO (09:23)
[2023-09-26] MEDS: LASIX 20 MG PO (09:24)
[2023-09-26] MEDS: MIRALAX 17 GRAMS PO (09:24)
[2023-09-26] MEDS: TIMOPTIC 0.5% OPHTHALMIC SOLUTION 1 DROP LEFT EYE ×2 (09:35→19:58)
[2023-09-26] MEDS: NOVOLOG FLEXPEN-LOW RESISTANCE 3 UNITS SC (09:37)
[2023-09-26 11:10] VITALS: BP 98/56
[2023-09-26 11:46] LABS: Glucose - Point of Care 475 mg/dl (70-99)
[2023-09-26] MEDS: ProAmatine 5 MG PO ×2 (12:47→17:23)
[2023-09-26] MEDS: NOVOLOG FLEXPEN-LOW RESISTANCE 6 UNITS SC (12:50)
--- NOTE | 2023-09-26 12:54 | W.PN.NEPH.PH ---
Today's Communication / Plan
-
lasix
Assessment/Plan
-
Assessment:
Rectal bleeding
Anemia
Hyponatremia
Alcoholic cirrhosis
Coronary disease
Paroxysmal atrial fibrillation
Hyperlipidemia
Plan:
midodrine TID
follow BMP
increase lasix
-
-
Date of Service: September 26, 2023
CC / HPI / ROS
-
Chief Complaint:
hyponatremia
History of Present Illness:
Na up to 129
orthostatic
still with scrotal swelling
Review of Systems:
no CP/SOB
Labs
-
Labs:
WBC 9.1 10^3/uL (4.8-10.8) 09/26/23 07:17
RBC 3.25 10^6/uL (4.70-6.10) L 09/26/23 07:17
Hgb 8.3 g/dL (13.0-18.0) L 09/26/23 07:17
Hct 27.0 % (39.0-52.0) L 09/26/23 07:17
Plt Count 122 10^3/uL (130-400) L 09/26/23 07:17
Sodium 129 mmol/L (135-145) L 09/26/23 07:17
Potassium 3.9 mmol/L (3.5-5.1) 09/26/23 07:17
Chloride 99 mmol/L (98-107) 09/26/23 07:17
Carbon Dioxide 25 mmol/L (22-30) 09/26/23 07:17
BUN 22 mg/dl (9-20) H 09/26/23 07:17
Creatinine 0.6 mg/dL (0.7-1.3) L 09/26/23 07:17
eGFR > 60.00 09/26/23 07:17
Calcium 8.0 mg/dl (8.4-10.2) L 09/26/23 07:17
Phosphorus 2.8 mg/dl (2.5-4.5) 09/24/23 09:32
Albumin 2.3 g/dl (3.5-5.0) L 09/26/23 07:17
Physical Exam
-
Vital Signs:
Vital Signs
Temp Pulse Resp BP Pulse Ox
98.2 F 64 18 90/52 98
09/26/23 11:10 09/26/23 11:10 09/26/23 11:10 09/26/23 12:47 09/26/23 11:10
Cardiovascular:: Regular rate and rhythm
Respiratory:: Bilateral: Coarse
Lung Excursion:: Normal
Abdomen:: Nontender and Soft
Bowel Sounds:: Normal
Extremity Edema:: +2: Bilateral:
[2023-09-26 13:24] LABS: Glucose 430 mg/dl (70-99)
[2023-09-26 15:00] VITALS: BP 100/70
[2023-09-26] MEDS: DESENEX/MITRAZOL/ZEASORB 1 APPLIC TOPICAL ×2 (16:16→19:55)
[2023-09-26] MEDS: LASIX 40 MG PO (16:18)
[2023-09-26 16:45] LABS: Glucose - Point of Care 364 mg/dl (70-99)
[2023-09-26] MEDS: NOVOLOG FLEXPEN 5 UNITS SC (17:19)
[2023-09-26] MEDS: NOVOLOG FLEXPEN-MODERATE RESISTANCE 9 UNITS SC (17:20)
[2023-09-26 19:50] VITALS: BP 102/47; BP 106/46; BP 80/45; PULSE 76; PULSE 79
[2023-09-26] MEDS: FLOMAX 0.800000000000000044 MG PO (19:58)
[2023-09-26] MEDS: SENOKOT-S PO (19:58)
[2023-09-26] MEDS: LANTUS 0.100000000000000006 UNITS SC (21:54)
[2023-09-26 21:55] LABS: Glucose - Point of Care 241 mg/dl (70-99)
[2023-09-26 23:55] VITALS: BP 104/49
[2023-09-27 03:30] VITALS: BP 104/46
[2023-09-27 05:58] VITALS: BMI 26.4
[2023-09-27 07:30] VITALS: BP 97/48
[2023-09-27 07:45] LABS: Glucose - Point of Care 250 mg/dl (70-99)
[2023-09-27 08:27] LABS: Hematocrit 25.3 % (39.0-52.0); Hemoglobin 7.7 g/dL (13.0-18.0); Mean Corp Hgb Conc. 30.4 g/dL (33.0-37.0); Mean Corpuscular Hgb 25.4 pg (27.0-31.0); Mean Corpuscular Volume 83.5 fL (80.0-94.0); Mean Platelet Volume 10.9 fL (7.4-10.4); Platelet Count 114 10^3/uL (130-400); Red Blood Cell Count 3.03 10^6/uL (4.70-6.10); Red Cell Dist. Width 17.4 % (11.5-14.5); White Blood Cell Count 8.6 10^3/uL (4.8-10.8)
--- NOTE | 2023-09-27 08:27 | W.PN.HOSP.TC ---
Today's Communication/Plan
-
K replacement. Lantus increase. Lasix. PT OT reeval.
Assessment / Plan
Assessment / Plan
Physical exam:
General: Chronically ill
HEENT: Normocephalic, Atraumatic and Moist Mucous Membranes
Respiratory: Clear to Auscultation; Negative Wheezes, Rales or Rhonchi
Cardiac: Regular Rhythm and S1/S2
GI: Soft, Nontender and Distended but much less than before overall. Still scrotal swelling.
Musculoskeletal: No Clubbing, No Cyanosis and some bilateral peripheral edema
Neuro: Awake, Alert and Oriented, generalized weakness
Psych: Calm
EGD:
Impression: - Small (< 5 mm) possible esophageal varices.
- Portal hypertensive gastropathy.
- Normal duodenal bulb, first portion of the duodenum
and second portion of the duodenum.
- No specimens collected.
Sigmoidoscopy:
Impression: - Preparation of the colon was poor.
- Hemorrhoids found on perianal exam.
- Stool in the rectum, in the recto-sigmoid colon and
in the sigmoid colon.
- Internal hemorrhoids.
- No specimens collected.
Paracentesis on 09/22:
FINDINGS: 6500 cc of clear urine ascitic fluid was evacuated. Samples sent for analysis as requested.
Assessment and plan:
# Rectal bleeding with dark stools in setting of recent constipation, hx hemorrhoids, and Esophageal varices.
#Rectal bleeding with anoscopy jul 2023
# Acute blood loss anemia
Status post EGD and sigmoidoscopy.
EGD showed esophageal varices but no evidence of bleeding.
GI recommended starting propranolol, 10 mg twice daily started with monitoring of the blood pressure and vital signs.
Sigmoidoscopy look like colon was not well-prepped despite having couple tap water enema in the hospital but showed grade 2 hemorrhoid.
Had outpatient follow-up with colorectal surgery was not a candidate for banding
Hgb 5.5 on admission and went up after transfusion and today is 7.7 mild drift down--> cont to monitor
-S/P Transfused 2 units PRBC with improved HH; HD stable
-Continue to monitor
-Off octreotide gtt
-Protonix daily changed to p.o.
-Patient was recently treated with Metamucil and MiraLAX at home
-Discussed with sister at bedside
-Discussed with over the phone yesterday
�
Orthostatic hypotension: Likely multifactorial including liver cirrhosis, poor intake
Patient still significant orthostatic
Started him on midodrine on 09/25 and monitor electrolytes and volume-discussed with nephrology and they are okay.
Need slow positional change and adjustment.
When he participated with physical therapy on 09/24 he was very dizzy and orthostatic
# Multifactorial hyponatremia, hypervolemic, alcohol-related, liver disease related, etc.
-Sodium 130 today
-Nephrology consult appreciated--> nephrology increasing Lasix to 40 mg daily today. Will have to see if he tolerates (needed to hold today).
-Monitor sodium, rest of electrolytes, and renal function.
#Hypokalemia
-replete and trend
#confusion
-Delirium ??mild hepatic encephalopathy
-check ammonia levels
#CA
Creat 0.6, back to normal
Bun 40
-Resume Lasix by nephrology
- Improved with blood transfusion suggesting volume related. Cr stable
#Recurrent abdominal ascites with scrotal swelling chronic in setting of alcoholic cirrhosis
#Alcoholic cirrhosis
Last paracentesis 5.5 L on 09/12/2023 and had another paracentesis yesterday 6.5 L removed
Albumin given. Diuretics reinitiated on 09/25
-IR and GI input appreciated
-Fluid restrict
-Restart Lasix.
-Monitor mag follow potassium
-Might need to repeat paracentesis over the next 24-48 hrs if cont accumulate rather quickly
# HX pancytopenia likely secondary to liver disease
Follow counts
# ASCVD status post CABG x 5 vessel
Hold aspirin due to anemia/rectal bleeding
-Continue Lipitor
# Paroxysmal atrial fibrillation
-not on anticoagulation as outpatient
# Diabetes mellitus type 2 with neuropathy and hyperglycemia
Accu-Cheks with SSI, checked HgbA1c. BS still elevated although slight better than before.
-Lantus increased to 15 units HS
-Cont Humalog 5 units with each meal and might increase if BS not a goal
-Hold Januvia
-Continue gabapentin for neuropathy
# Prostate disease-continue Flomax
# Hyperlipidemia-on Lipitor
# Foot drop on the right
# Diverticulosis hx
# Chronic hydrocele
# Hearing impairment
# DVT prophylaxis-SCDs
DNR per pt with
Still very weak although improving. He does not like the idea of going to skilled rehab but is open to this idea especially since she has MS and challenged to care for him so we will reevaluate.
Explained to him and his over the phone he is not ready to come home yet and continue to reassess for discharge readiness but not yet.
Continue orthostatic vital sign and also monitor sodium and blood pressure closely.
All discussed with the patient and his over the phone on 09/25 and with sister at beside today 09/26
Total time spent on today's encounter was 52 minutes which included time spent in counseling the patient/family regarding diagnosis and treatment plan as listed above, goals of care, and symptom management. Case was discussed with nursing staff,
specialists, and care coordinators/case management. All labs and imaging personally reviewed by me. Remainder the time spent in detailed review of previous records, lab data, imaging, and other medical provider documentation.
Anticipated Discharge: 24 - 48 hours
Subjective/Interval History
-
Date of Service: September 27, 2023
Patient feels weak overall. BP dropped this morning. Abd appears to start getting more distended. No abd pain n/v. Mild confusion.
Objective Data
-
Labs:
Laboratory Results
09/27/23 09/27/23
07:03 07:04
WBC Pending
Hgb Pending
Hct Pending
Plt Count Pending
Sodium Pending
Potassium Pending
Chloride Pending
Carbon Dioxide Pending
BUN Pending
Creatinine Pending
Glucose Pending
Calcium Pending
Vital Signs:
Vital Signs
Temp Pulse Resp BP Pulse Ox
98.6 F 65 18 104/46 99
09/27/23 03:30 09/27/23 03:30 09/27/23 03:30 09/27/23 03:30 09/27/23 03:30
I&O
09/26/23 09/27/23 09/28/23
06:59 06:59 06:59
Intake Total 1040 / 1040 1560 / 1560
Output Total 1590 / 1590
Balance 1040 / 1040 -30 / -30
Review of Systems
-
All other systems: Reviewed and negative
[2023-09-27 08:29] LABS: Blood Urea Nitrogen 23 mg/dl (9-20); Calcium 7.8 mg/dl (8.4-10.2); Carbon Dioxide 27 mmol/L (22-30); Chloride 96 mmol/L (98-107); Estimated Creatinine Clearance 108 ml/min; Glucose 196 mg/dl (70-99); Potassium 3.4 mmol/L (3.5-5.1); Sodium 130 mmol/L (135-145); eGFR > 60.00
[2023-09-27] MEDS: PROTONIX 40 MG PO (09:48)
[2023-09-27] MEDS: DESENEX/MITRAZOL/ZEASORB 1 APPLIC TOPICAL ×2 (09:48→20:59)
[2023-09-27] MEDS: MIRALAX 17 GRAMS PO (09:49)
[2023-09-27] MEDS: NEURONTIN 300 MG PO ×3 (09:49→21:14)
[2023-09-27] MEDS: ProAmatine 5 MG PO ×3 (09:55→17:53)
[2023-09-27] MEDS: NOVOLOG FLEXPEN 5 UNITS SC ×3 (09:59→17:53)
[2023-09-27] MEDS: TIMOPTIC 0.5% OPHTHALMIC SOLUTION 1 DROP LEFT EYE ×2 (09:59→20:57)
[2023-09-27] MEDS: NOVOLOG FLEXPEN-MODERATE RESISTANCE 5 UNITS SC (10:00)
[2023-09-27] MEDS: INDERAL PO ×2 (10:01→20:33)
[2023-09-27] MEDS: LASIX PO (10:02)
--- NOTE | 2023-09-27 11:20 | W.PN.NEPH.PH ---
Today's Communication / Plan
-
K
Assessment/Plan
-
Assessment:
Rectal bleeding
Anemia
Hyponatremia
Alcoholic cirrhosis
Coronary disease
Paroxysmal atrial fibrillation
Hyperlipidemia
Plan:
midodrine TID continues
follow BMP
continue lasix
replete K
-
-
Date of Service: September 27, 2023
CC / HPI / ROS
-
Chief Complaint:
hyponatremia
History of Present Illness:
Na up to 130
K low 3.4
still with scrotal swelling but improving with lasix
BP stable
Review of Systems:
no CP/SOB
Labs
-
Labs:
WBC 8.6 10^3/uL (4.8-10.8) 09/27/23 07:03
RBC 3.03 10^6/uL (4.70-6.10) L 09/27/23 07:03
Hgb 7.7 g/dL (13.0-18.0) L 09/27/23 07:03
Hct 25.3 % (39.0-52.0) L 09/27/23 07:03
Plt Count 114 10^3/uL (130-400) L 09/27/23 07:03
Sodium 130 mmol/L (135-145) L 09/27/23 07:04
Potassium 3.4 mmol/L (3.5-5.1) L 09/27/23 07:04
Chloride 96 mmol/L (98-107) L 09/27/23 07:04
Carbon Dioxide 27 mmol/L (22-30) 09/27/23 07:04
BUN 23 mg/dl (9-20) H 09/27/23 07:04
Creatinine 0.6 mg/dL (0.7-1.3) L 09/27/23 07:04
eGFR > 60.00 09/27/23 07:04
Glucose 196 mg/dl (70-99) H 09/27/23 07:04
Calcium 7.8 mg/dl (8.4-10.2) L 09/27/23 07:04
Phosphorus 2.8 mg/dl (2.5-4.5) 09/24/23 09:32
Albumin 2.3 g/dl (3.5-5.0) L 09/26/23 07:17
Physical Exam
-
Vital Signs:
Vital Signs
Temp Pulse Resp BP Pulse Ox
98.3 F 73 18 93/38 96
09/27/23 07:30 09/27/23 09:55 09/27/23 07:30 09/27/23 09:55 09/27/23 07:30
Cardiovascular:: Regular rate and rhythm
Respiratory:: Bilateral: Coarse
Lung Excursion:: Normal
Abdomen:: Nontender and Soft
Bowel Sounds:: Normal
Extremity Edema:: None: Bilateral:
[2023-09-27 11:56] LABS: Glucose - Point of Care 245 mg/dl (70-99)
[2023-09-27 12:11] VITALS: BP 101/41
[2023-09-27] MEDS: NOVOLOG FLEXPEN-MODERATE RESISTANCE 3 UNITS SC ×2 (13:53→17:53)
[2023-09-27] MEDS: KCL 40 MEQ PO (14:35)
[2023-09-27 15:20] VITALS: BP 104/48
[2023-09-27 16:37] LABS: Glucose - Point of Care 242 mg/dl (70-99)
[2023-09-27 16:52] LABS: Urine Albumin 1+ (Neg - Trace); Urine Bilirubin 1+ (Negative); Urine Character Very Cloudy (Clear); Urine Color Yellow; Urine Glucose 3+ (Negative); Urine Ketone Trace (Negative); Urine Leukocyte 2+ (Negative); Urine Nitrite Negative (Negative); Urine Occult Blood 3+ (Negative); Urine Urobilinogen 1+ (Neg - 1+)
[2023-09-27 16:59] LABS: Urine Bacteria Many (Negative); Urine Red Blood Cell 0-2 /HPF (0-2); Urine White Cell 16-20 /HPF (0-5)
[2023-09-27 19:51] VITALS: BP 103/39
[2023-09-27] MEDS: SENOKOT-S PO (20:57)
[2023-09-27] MEDS: FLOMAX 0.800000000000000044 MG PO (20:57)
[2023-09-27 21:49] LABS: Glucose - Point of Care 248 mg/dl (70-99)
[2023-09-27] MEDS: LANTUS 0.149999999999999994 UNITS SC (22:41)
--- NOTE | 2023-09-27 23:02 | W.PN.UPDATE ---
Addendum entered and electronically signed by MIRELLA Jamison 09/27/23 23:14:
upon discussion with pharmacy- based on pt prelim urine culture done yesterday (enteroccocus isolated) ceftriaxone cifuentes not cover this
from pharmacist recommendations will broaded to ampicillin/sulbactam 3g q6
Original Note:
Update Note
Progress Note Update
pt with uti symptoms (dysuria, freq)
UA today with cloudy urine, and many wbc, nitrite neg but compared to yesterdays UA there are more WBC
Will start rocephin for now and can deescalate when culture comes back
[2023-09-27 23:29] VITALS: BP 127/51
[2023-09-28] VITALS (11 sets, daily range): BP systolic 70–127; BP diastolic 31–70; PULSE 65–78; O2SAT 97; BMI 26.4
[2023-09-28] MEDS: UNASYN IV ×5 (00:27→23:14)
[2023-09-28 08:18] LABS: % Basophils 0.5 % (0-2); % Eosinophils 0.7 % (0-6); % Immature Granulocytes 0.8 % (0-0.5); Absolute Basophils 0.1 10^3/uL (0-0.2); Absolute Eosinophils 0.1 10^3/uL (0-0.7); Absolute Immature Granulocytes 0.1 10^3/uL (0-0.05); Absolute Lymphocytes 0.9 10^3/uL (1.2-3.4); Absolute Monocytes 1.1 10^3/uL (0.1-0.6); Absolute Neutrophils 8.1 10^3/uL (1.4-6.5); Hematocrit 26.1 % (39.0-52.0); Hemoglobin 7.9 g/dL (13.0-18.0); Mean Corp Hgb Conc. 30.3 g/dL (33.0-37.0); Mean Corpuscular Hgb 25.2 pg (27.0-31.0); Mean Corpuscular Volume 83.1 fL (80.0-94.0); Mean Platelet Volume 10.4 fL (7.4-10.4); Nucleated Red Blood Cells % 0 % (-); Platelet Count 106 10^3/uL (130-400); Red Blood Cell Count 3.14 10^6/uL (4.70-6.10); Red Cell Dist. Width 17.9 % (11.5-14.5); White Blood Cell Count 10.4 10^3/uL (4.8-10.8)
[2023-09-28 08:24] LABS: Ammonia 24 umol/L (9-30)
[2023-09-28 08:33] LABS: Glucose - Point of Care 233 mg/dl (70-99)
[2023-09-28 08:50] LABS: ALT (SGPT) 20 U/L (0-50); AST (SGOT) 33 U/L (17-59); Albumin 2.2 g/dl (3.5-5.0); Alkaline Phosphatase 136 U/L (38-126); Blood Urea Nitrogen 28 mg/dl (9-20); Calcium 7.9 mg/dl (8.4-10.2); Carbon Dioxide 26 mmol/L (22-30); Chloride 97 mmol/L (98-107); Direct Bilirubin 0.9 mg/dl (0.0-0.4); Estimated Creatinine Clearance 108 ml/min; Glucose 169 mg/dl (70-99); Magnesium 1.2 mg/dl (1.6-2.3); Potassium 3.9 mmol/L (3.5-5.1); Sodium 129 mmol/L (135-145); Total Bilirubin 1.6 mg/dl (0.2-1.3); Total Protein 5.4 g/dl (6.3-8.2); eGFR > 60.00
[2023-09-28] MEDS: TIMOPTIC 0.5% OPHTHALMIC SOLUTION 1 DROP LEFT EYE ×2 (09:26→20:44)
[2023-09-28] MEDS: NEURONTIN 300 MG PO ×2 (09:27→20:43)
[2023-09-28] MEDS: MIRALAX PO (09:27)
[2023-09-28] MEDS: NOVOLOG FLEXPEN 5 UNITS SC (09:27)
[2023-09-28] MEDS: INDERAL 10 MG PO ×2 (09:27→20:42)
[2023-09-28] MEDS: PROTONIX 40 MG PO (09:27)
[2023-09-28] MEDS: ProAmatine 5 MG PO ×3 (09:27→17:50)
[2023-09-28] MEDS: LASIX 40 MG PO (09:27)
--- NOTE | 2023-09-28 09:27 | W.PN.HOSP.TC ---
Today's Communication/Plan
-
IV magnesium
Paracentesis
Adjust insulin
ENT consult
Assessment / Plan
Assessment / Plan
Gen-AAOx3, NAD, chronically ill
HEENT-NC, AT, anicteric, clear oral mm, dried blood in left auditory canal
Neck-supple
CV-reg, no M, +S1/S2
Lungs-clear B/L
Abd-soft, NT, ND
Ext-no edema
Musculoskeletal-no cyanosis, clubbing
Skin-warm and dry
Neuro-grossly non-focal
Psych-calm, cooperative
Acute blood loss anemia -hemoglobin relatively stable. Transfused 2 units of blood on 09/20. Etiology of blood loss anemia due to acute GI bleed, esophageal varices.
Acute GI bleed - status post EGD and sigmoidoscopy.
EGD showed esophageal varices but no evidence of bleeding. Continue propranolol.
Sigmoidoscopy look like colon was not well-prepped despite having couple tap water enema in the hospital but showed grade 2 hemorrhoid.
�
Orthostatic hypotension: Likely multifactorial including liver cirrhosis, poor intake
Patient still significant orthostatic
Started him on midodrine on 09/25 and monitor electrolytes and volume-discussed with nephrology and they are okay.
Need slow positional change and adjustment.
When he participated with physical therapy on 09/24 he was very dizzy and orthostatic
Multifactorial hyponatremia, hypervolemic, alcohol-related, liver disease related, etc.
-Sodium 129 today
-Nephrology consult appreciated--> nephrology increasing Lasix to 40 mg daily today.
-Monitor sodium, rest of electrolytes, and renal function.
Enterococcus UTI -urine culture noted. No signs or symptoms of sepsis. He did have symptoms of UTI. IV Unasyn started last night.
Left mastoidectomy -performed in May [address] Brannon. Has been draining blood and pus since. requesting ENT to see, will consult Dr. Stiefel.
Hypokalemia -resolved.
Hypomagnesemia -replete intravenously.
Delirium -resolved. Doubt hepatic encephalopathy. Ammonia level has been normal.
CA -resolved.
Decompensated alcoholic cirrhosis -recurrent ascites. Last paracentesis was 09/22. For repeat paracentesis today. May need IV albumin. Patient states his abdomen is more distended compared to last week.
HX pancytopenia likely secondary to liver disease
Follow counts
CAD/CABG x 5 vessel -resume aspirin.
Paroxysmal atrial fibrillation
-not on anticoagulation as outpatient
DM2 with neuropathy and hyperglycemia -hemoglobin A1c 8.0%. Glucose 169 this morning. Daytime glucoses over 200. Increase NovoLog to 10 units AC.
-Hold Januvia
-Continue gabapentin for neuropathy
BPH -continue Flomax
Hyperlipidemia-on Lipitor
Chronic Foot drop on the right
Diverticulosis hx
Chronic hydrocele
Hearing impairment
DNR
Dispo - potential discharge tomorrow, home with VN, if stable. Updated on the phone and she agrees with plan.
Anticipated Discharge: Within 24 hours
Subjective/Interval History
-
Date of Service: September 28, 2023
Patient seen and examined. Eager to go home. No complaints.
Objective Data
-
Labs:
Laboratory Results
09/28/23
07:54
WBC 10.4
Hgb 7.9 L
Hct 26.1 L
Plt Count 106 L
Sodium 129 L
Potassium 3.9
Chloride 97 L
Carbon Dioxide 26
BUN 28 H
Creatinine 0.6 L
Glucose 169 H
Calcium 7.9 L
Total Bilirubin 1.6 H
AST 33
ALT 20
Alkaline Phosphatase 136 H
Vital Signs:
Vital Signs
Temp Pulse Resp BP Pulse Ox
98.3 F 71 18 108/45 98
09/28/23 08:37 09/28/23 08:37 09/28/23 08:37 09/28/23 08:37 09/28/23 08:37
I&O
09/27/23 09/28/23 09/29/23
06:59 06:59 06:59
Intake Total 1560 / 1560 660 / 660
Output Total 1590 / 1590 300 / 300
Balance -30 / -30 360 / 360
Review of Systems
-
History Source: Patient
All other systems: Reviewed and negative
[2023-09-28] MEDS: NOVOLOG FLEXPEN-MODERATE RESISTANCE 3 UNITS SC ×2 (09:28→12:23)
[2023-09-28] MEDS: DESENEX/MITRAZOL/ZEASORB 1 APPLIC TOPICAL ×2 (09:28→20:43)
[2023-09-28] MEDS: MAGNESIUM SULFATE 100 IV (09:32)
--- NOTE | 2023-09-28 10:41 | CON.MD ---
Consultation - Medical
-
dicated.
Pt well known to me for chronic L otitis media despite aggressive medical and surgical treatment.
His sx and exam are unchanged.
Will ask Nursing to clean around his left ear and I suctioned a little pus from his ear again.
He has an appt at [facility] with Dr. Ortiz for further treatment.
[2023-09-28 12:02] LABS: Body Fluid Mononuclear 90.1 %; Body Fluid Polymorphonuclear 9.9 %; Body Fluid WBC 141 /CUMM
[2023-09-28 12:05] LABS: Body Fluid Second Tech HB
[2023-09-28 12:22] LABS: Glucose - Point of Care 204 mg/dl (70-99)
[2023-09-28] MEDS: ASPIR LOW (ENTERIC COATED) 81 MG PO (12:22)
[2023-09-28] MEDS: NOVOLOG FLEXPEN 10 UNITS SC ×2 (12:23→17:52)
--- NOTE | 2023-09-28 14:59 | CM ---
CM reviewed chart and ADC tomorrow
Bedside meeting with pt
VN vs SNF recommended- pt would like VN to be arranged
Provider choices discussed- he requested call to his tomorrow morning to pick provider
VN order on chart
Discharge Disposition- home with VN
--- NOTE | 2023-09-28 16:29 | W.PN.NEPH.PH ---
Today's Communication / Plan
-
cont lasix and FR
Assessment/Plan
-
Assessment:
Rectal bleeding
Anemia
Hyponatremia
Alcoholic cirrhosis
Coronary disease
Paroxysmal atrial fibrillation
Hyperlipidemia
Plan:
hyponatremia stable 129, cont lasix
BP soft on midodrine TID
replace mg
FR 48 ounces/day
-
-
Date of Service: September 28, 2023
CC / HPI / ROS
-
Chief Complaint:
hyponatremia
History of Present Illness:
Na down to 129
K normal
BP stable
Review of Systems:
no CP/SOB
Labs
-
Labs:
WBC 10.4 10^3/uL (4.8-10.8) 09/28/23 07:54
RBC 3.14 10^6/uL (4.70-6.10) L 09/28/23 07:54
Hgb 7.9 g/dL (13.0-18.0) L 09/28/23 07:54
Hct 26.1 % (39.0-52.0) L 09/28/23 07:54
Plt Count 106 10^3/uL (130-400) L 09/28/23 07:54
Sodium 129 mmol/L (135-145) L 09/28/23 07:54
Potassium 3.9 mmol/L (3.5-5.1) 09/28/23 07:54
Chloride 97 mmol/L (98-107) L 09/28/23 07:54
Carbon Dioxide 26 mmol/L (22-30) 09/28/23 07:54
BUN 28 mg/dl (9-20) H 09/28/23 07:54
Creatinine 0.6 mg/dL (0.7-1.3) L 09/28/23 07:54
eGFR > 60.00 09/28/23 07:54
Glucose 169 mg/dl (70-99) H 09/28/23 07:54
Calcium 7.9 mg/dl (8.4-10.2) L 09/28/23 07:54
Phosphorus 2.8 mg/dl (2.5-4.5) 09/24/23 09:32
Albumin 2.2 g/dl (3.5-5.0) L 09/28/23 07:54
Physical Exam
-
Vital Signs:
Vital Signs
Temp Pulse Resp BP Pulse Ox
98.6 F 70 18 95/44 100
09/28/23 15:58 09/28/23 15:58 09/28/23 15:58 09/28/23 15:58 09/28/23 15:58
Cardiovascular:: Regular rate and rhythm
Respiratory:: Bilateral: CTA
Lung Excursion:: Normal
Abdomen:: Nontender and Soft
Extremity Edema:: +1: Bilateral: (trace)
Perla Catheter: No
[2023-09-28 16:57] LABS: Glucose - Point of Care 157 mg/dl (70-99)
[2023-09-28] MEDS: NOVOLOG FLEXPEN-MODERATE RESISTANCE 1 UNITS SC (17:52)
[2023-09-28] MEDS: SENOKOT-S PO (20:44)
[2023-09-28] MEDS: FLOMAX 0.800000000000000044 MG PO (20:44)
[2023-09-28 21:17] LABS: Glucose - Point of Care 193 mg/dl (70-99)
[2023-09-28] MEDS: LANTUS 0.149999999999999994 UNITS SC (21:35)
[2023-09-29 03:14] VITALS: BP 115/46
[2023-09-29] MEDS: UNASYN IV (05:08)
[2023-09-29 06:00] VITALS: BMI 24.6
[2023-09-29 06:11] LABS: % Basophils 0.9 % (0-2); % Eosinophils 2.3 % (0-6); % Immature Granulocytes 0.3 % (0-0.5); % Lymphocytes 18.3 % (20.5-51.1); % Monocytes 12.9 % (1.7-9.3); % Neutrophils 65.3 % (42.2-75.2); Absolute Basophils 0.1 10^3/uL (0-0.2); Absolute Eosinophils 0.2 10^3/uL (0-0.7); Absolute Lymphocytes 1.2 10^3/uL (1.2-3.4); Absolute Monocytes 0.8 10^3/uL (0.1-0.6); Absolute Neutrophils 4.2 10^3/uL (1.4-6.5); Hematocrit 23.5 % (39.0-52.0); Hemoglobin 7.3 g/dL (13.0-18.0); Mean Corp Hgb Conc. 31.1 g/dL (33.0-37.0); Mean Corpuscular Hgb 25.6 pg (27.0-31.0); Mean Corpuscular Volume 82.5 fL (80.0-94.0); Mean Platelet Volume 10.3 fL (7.4-10.4); Nucleated Red Blood Cells % 0 % (-); Platelet Count 110 10^3/uL (130-400); Red Blood Cell Count 2.85 10^6/uL (4.70-6.10); Red Cell Dist. Width 18.1 % (11.5-14.5); White Blood Cell Count 6.4 10^3/uL (4.8-10.8)
[2023-09-29 06:40] LABS: ALT (SGPT) 17 U/L (0-50); AST (SGOT) 27 U/L (17-59); Alkaline Phosphatase 136 U/L (38-126); Blood Urea Nitrogen 26 mg/dl (9-20); Calcium 7.5 mg/dl (8.4-10.2); Carbon Dioxide 26 mmol/L (22-30); Chloride 97 mmol/L (98-107); Estimated Creatinine Clearance 108 ml/min; Glucose 141 mg/dl (70-99); Potassium 3.1 mmol/L (3.5-5.1); Sodium 127 mmol/L (135-145); Total Bilirubin 1.1 mg/dl (0.2-1.3); Total Protein 5.1 g/dl (6.3-8.2); eGFR > 60.00
[2023-09-29 07:35] LABS: Glucose - Point of Care 149 mg/dl (70-99)
[2023-09-29 07:40] VITALS: BP 107/49; BP 108/43; BP 88/41; PULSE 57; PULSE 64; PULSE 65
[2023-09-29] MEDS: INDERAL PO (08:52)
[2023-09-29] MEDS: NOVOLOG FLEXPEN-MODERATE RESISTANCE SC (08:55)
[2023-09-29] MEDS: NOVOLOG FLEXPEN 10 UNITS SC (08:56)
[2023-09-29] MEDS: PROTONIX 40 MG PO (08:56)
[2023-09-29] MEDS: ProAmatine 5 MG PO ×2 (08:56→10:18)
[2023-09-29] MEDS: LASIX 40 MG PO (08:57)
[2023-09-29] MEDS: ASPIR LOW (ENTERIC COATED) 81 MG PO (08:57)
[2023-09-29] MEDS: NEURONTIN 300 MG PO (08:57)
[2023-09-29] MEDS: MIRALAX 17 GRAMS PO (08:58)
[2023-09-29] MEDS: TIMOPTIC 0.5% OPHTHALMIC SOLUTION 1 DROP LEFT EYE (08:59)
[2023-09-29] MEDS: DESENEX/MITRAZOL/ZEASORB 1 APPLIC TOPICAL (09:06)
--- NOTE | 2023-09-29 09:59 | W.PN.HOSP.TC ---
Today's Communication/Plan
-
Recheck hemoglobin
Check magnesium
Replete potassium
Possible discharge
Assessment / Plan
Assessment / Plan
Gen-AAOx3, NAD, chronically ill
HEENT-NC, AT, anicteric, clear oral mm, dried blood in left auditory canal
Neck-supple
CV-reg, no M, +S1/S2
Lungs-clear B/L
Abd-soft, NT, ND
Ext-no edema
Musculoskeletal-no cyanosis, clubbing
Skin-warm and dry
Neuro-grossly non-focal
Psych-calm, cooperative
Acute blood loss anemia - Transfused 2 units of blood on 09/20. Etiology of blood loss anemia due to acute GI bleed, esophageal varices. Hemoglobin 7.3 this morning, repeat hemoglobin pending. Discussed with nursing to sit him up prior to
repeating it.
Acute GI bleed - status post EGD and sigmoidoscopy.
EGD showed esophageal varices but no evidence of bleeding. Continue propranolol.
Sigmoidoscopy look like colon was not well-prepped despite having couple tap water enema in the hospital but showed grade 2 hemorrhoid.
�
Orthostatic hypotension: Likely multifactorial including liver cirrhosis, poor intake. Increase midodrine to 10 mg 3 times daily.
Started him on midodrine on 09/25 and monitor electrolytes and volume-discussed with nephrology and they are okay.
Need slow positional change and adjustment.
When he participated with physical therapy on 09/24 he was very dizzy and orthostatic
Multifactorial hyponatremia, hypervolemic, alcohol-related, liver disease related, etc.
-Sodium 127 today. Hopefully if we improve his blood pressure the sodium will improve. Fluid restriction ordered.
-Nephrology consult appreciated--> nephrology increasing Lasix to 40 mg daily today.
-Monitor sodium, rest of electrolytes, and renal function.
Enterococcus UTI -urine culture noted. No signs or symptoms of sepsis. He did have symptoms of UTI. IV Unasyn started last night.
Left mastoidectomy -performed in [place] [address] Brannon. Has been draining blood and pus since. requesting ENT to see, will consult Dr. Mills.
Hypokalemia -will treat.
Hypomagnesemia -replete intravenously. Recheck magnesium today.
Delirium -resolved. Doubt hepatic encephalopathy. Ammonia level has been normal.
CA -resolved.
Decompensated alcoholic cirrhosis -recurrent ascites. Last paracentesis was 09/22. For repeat paracentesis today. May need IV albumin. Patient states his abdomen is more distended compared to last week.
HX pancytopenia likely secondary to liver disease
Follow counts
CAD/CABG x 5 vessel -resume aspirin.
Paroxysmal atrial fibrillation
-not on anticoagulation as outpatient
DM2 with neuropathy and hyperglycemia -hemoglobin A1c 8.0%. Glucose 141 this morning. Received Lantus 15 units last night. Daytime glucoses improved on higher dose of NovoLog 10 units AC.
-Hold Januvia
-Continue gabapentin for neuropathy
BPH -continue Flomax
Hyperlipidemia-on Lipitor
Chronic Foot drop on the right
Diverticulosis hx
Chronic hydrocele
Hearing impairment
DNR
Dispo -await repeat labs to decide on stability for discharge. Patient eager to go home with VN.
Anticipated Discharge: Today
Subjective/Interval History
-
Date of Service: September 29, 2023
Patient seen and examined. No new complaints.
Objective Data
-
Labs:
Laboratory Results
09/29/23 09/29/23
05:42 09:37
WBC 6.4
Hgb 7.3 L Pending
Hct 23.5 L Pending
Plt Count 110 L
Sodium 127 L
Potassium 3.1 L
Chloride 97 L
Carbon Dioxide 26
BUN 26 H
Creatinine 0.6 L
Glucose 141 H
Calcium 7.5 L
Total Bilirubin 1.1
AST 27
ALT 17
Alkaline Phosphatase 136 H
Vital Signs:
Vital Signs
Temp Pulse Resp BP Pulse Ox
97.8 F 57 18 107/49 100
09/29/23 07:40 09/29/23 07:40 09/29/23 07:40 09/29/23 08:56 09/29/23 07:40
I&O
09/28/23 09/29/23 09/30/23
06:59 06:59 06:59
Intake Total 660 / 660 1420 / 1420
Output Total 300 / 300 850 / 850
Balance 360 / 360 570 / 570
Review of Systems
-
History Source: Patient
All other systems: Reviewed and negative
[2023-09-29] MEDS: KCL 40 MEQ PO (10:19)
[2023-09-29 10:22] LABS: Hematocrit 26.2 % (39.0-52.0); Hemoglobin 8.3 g/dL (13.0-18.0)
--- NOTE | 2023-09-29 10:47 | W.DS.TRANS ---
DC Summary - Director Patient Accounting
-
Discharge Instructions:
Sleep Apnea Risk Low
Discharge Diagnosis/Procedures Acute gastrointestinal bleed. Portal
hypertension gastropathy. Esophageal varices.
Hemorrhoids. Hyponatremia. Decompensated
cirrhosis. Abdominal ascites status post
paracentesis. Alcohol use disorder. Acute
blood loss anemia. Acute kidney injury.
History of coronary disease. History of
hypertension. History of diabetes mellitus type
2. History hyperlipidemia. History of benign
prostatic hypertrophy. History of chronic
hydrocele.
Diet Low Cholesterol,Restrict fluids to 48 oz
Activity As tolerated
Driving Restrictions As prior to admission
Blood Work Please PCP to order CBC, CMP, INR within 1 week.
Specialty Instructions Weigh Daily
Instructions:
Stand-Alone Forms:
Changes to Home Medications: Yes
Discharge Medications:
DC Medications w/original date entered in [facility]
cyanocobalamin (vitamin B-12) 500 mcg tablet 500 mcg PO DAILY Supplement 03/25/23
pantoprazole 40 mg tablet,delayed release (Protonix) 40 mg PO DAILY Gastrointestinal Issue 03/25/23
timolol maleate 0.5 % eye drops 1 drp LEFT EYE BID Eye Condition 03/25/23
vitamins A,C,T-tvet-caapcl 2,148 mcg-113 mg-45 mg-17.4 mg tablet (PreserVision AREDS) 1 tab PO BID Supplement 03/25/23
cholecalciferol (vitamin D3) 50 mcg (2,000 unit) capsule (Vitamin D3) 50 mcg PO DAILY Supplement 05/18/23
atorvastatin 10 mg tablet (Lipitor) 10 mg PO HS High Cholesterol 05/20/23
tamsulosin 0.4 mg capsule (Flomax) 0.8 mg PO HS Urinary Issue 05/20/23
lactulose 10 gram/15 mL oral solution 10 g PO DAILYPRN PRN constipation 07/28/23
gabapentin 300 mg capsule 300 mg PO BID Pain 08/08/23
sitagliptin phosphate 100 mg tablet (Januvia) 100 mg PO DAILY Diabetes 08/08/23
propranolol 10 mg tablet 10 mg PO BID 30 days #60 tabs 09/25/23
amoxicillin 875 mg tablet 875 mg PO BID #12 tabs 09/29/23
aspirin 81 mg tablet,delayed release 81 mg PO DAILY #0 tabs 09/29/23
furosemide 40 mg tablet 40 mg PO DAILY #30 tabs 09/29/23
insulin glargine 100 unit/mL (3 mL) subcutaneous pen (Basaglar KwikPen U-100 Insulin) 15 unit (0.15 mL) SC HS #0 mL 09/29/23
insulin lispro 100 unit/mL subcutaneous pen 10 unit (0.1 mL) SC AC Diabetes #0 mL 09/29/23
midodrine 5 mg tablet 10 mg (2 x 5 mg) PO TID@0800,1300,1800 #180 tabs 09/29/23
potassium chloride 20 mEq tablet,extended release(part/cryst) 20 meq PO DAILY #7 tabs 09/29/23
Home Medication Changes
Insulin doses adjusted
Furosemide dose increased
Pending Results: No
[2023-09-29 11:07] VITALS: BP 95/45
--- NOTE | 2023-09-29 11:08 | CM ---
CM reviewed chart and noted dc order
Bedside meeting with pt
Conference call with spouse- [facility] is provider choice
Both are in agreement with dc plan
IMM verbally reviewed- copy provided
Referral to [facility]
VN order on chart
Discharge Disposition- home with [facility]- spouse transport
[2023-09-29 11:23] LABS: Magnesium 1.7 mg/dl (1.6-2.3)
--- NOTE | 2023-09-29 12:38 | VNURNOTE ---
Home Health Liaison met with patient and Jojo at 1130 to discuss [facility] nurse/therapy, visits, schedule and homebound status. Patient is agreeable and understands that visits at home will be 2-3 x per week to assess and teach medical management.
[facility] brochure provided with contact information. Patient is aware that [facility] will contact them for start of care in 1-2 days after discharge from .
[facility] referral completed in [facility].
== END 2023-09-29 12:29 | disposition home health service (06) | DRG 369 ==
LOC: 4 EAST ACU 19:54
PROVIDERS: Clinical Nurse Specialist Family Health; Hospitalist; Internal Medicine; Nurse Practitioner Family; Nurse Practitioner Gerontology; Physician Assistant; Radiology Diagnostic Radiology; Radiology Vascular & Interventional Radiology; ADMITTING PHYSICIAN Hospitalist; ATTENDING PHYSICIAN Hospitalist; CONSULT PHYSICIAN Internal Medicine Gastroenterology; CONSULT PHYSICIAN Specialist; EMERGENCY PHYSICIAN Emergency Medicine; FAMILY PHYSICIAN Family Medicine; OTHER PHYSICIAN Otolaryngology
PROC: 30233N1 Transfusion of Nonautologous Red Blood Cells into Peripheral Vein, Percutaneous Approach (ICD-10-PCS; 2023-09-21)
PROC: 0DJ08ZZ Inspection of Upper Intestinal Tract, Via Natural or Artificial Opening Endoscopic (ICD-10-PCS; 2023-09-23)
PROC: 0W9G3ZZ Drainage of Peritoneal Cavity, Percutaneous Approach (ICD-10-PCS; 2023-09-23)
PROC: 0DJD8ZZ Inspection of Lower Intestinal Tract, Via Natural or Artificial Opening Endoscopic (ICD-10-PCS; 2023-09-23)
DX: I85.01 Esophageal varices with bleeding (principal); D62 Acute posthemorrhagic anemia; E87.1 Hypo-osmolality and hyponatremia; N17.9 Acute kidney failure, unspecified; N39.0 Urinary tract infection, site not specified; K76.6 Portal hypertension; K92.2 Gastrointestinal hemorrhage, unspecified; K59.00 Constipation, unspecified; I85.10 Secondary esophageal varices without bleeding; K31.89 Other diseases of stomach and duodenum; Z87.891 Personal history of nicotine dependence; H66.92 Otitis media, unspecified, left ear; I25.10 Atherosclerotic heart disease of native coronary artery without angina pectoris; Z79.01 Long term (current) use of anticoagulants; I48.0 Paroxysmal atrial fibrillation; E78.00 Pure hypercholesterolemia, unspecified; M21.371 Foot drop, right foot; E87.6 Hypokalemia; Z66 Do not resuscitate; I95.1 Orthostatic hypotension; K64.1 Second degree hemorrhoids; E83.42 Hypomagnesemia; E11.40 Type 2 diabetes mellitus with diabetic neuropathy, unspecified; B95.2 Enterococcus as the cause of diseases classified elsewhere; K70.31 Alcoholic cirrhosis of liver with ascites; D50.9 Iron deficiency anemia, unspecified
CPT/HCPCS: 36430; 49083; 70450; 72125; 80048; 80053; 81003; 81015; 82042; 82140; 82150; 82248; 82728; 82746; 82947; 82962; 83036; 83540; 83550; 83605; 83615; 83735; 84100; 84157; 85014; 85018; 85025; 85027; 85610; 85730; 86850; 86900; 86901; 86920; 87015; 87070; 87077; 87086; 87186; 87205; 87502; 87811; 89051; 93005; 97110; 97116; 97163; 97167; 97530; 99285; P9016; P9047

== ENCOUNTER 2023-10-08 13:07 | Inpatient (IN) | payer OTHER, MEDICARE, SELFPAY ==
[2023-10-08] VITALS (17 sets, daily range): BP systolic 67–117; BP diastolic 40–65; PULSE 60–67; BMI 30.3; BMI 26.6
[2023-10-08 10:47] LABS: % Eosinophils 3.2 % (0-6); % Immature Granulocytes 0.5 % (0-0.5); % Lymphocytes 16.6 % (20.5-51.1); % Monocytes 10.8 % (1.7-9.3); % Neutrophils 67.9 % (42.2-75.2); Absolute Eosinophils 0.1 10^3/uL (0-0.7); Absolute Lymphocytes 0.7 10^3/uL (1.2-3.4); Absolute Monocytes 0.4 10^3/uL (0.1-0.6); Absolute Neutrophils 2.8 10^3/uL (1.4-6.5); Hematocrit 22.9 % (39.0-52.0); Hemoglobin 7.2 g/dL (13.0-18.0); Mean Corp Hgb Conc. 31.4 g/dL (33.0-37.0); Mean Corpuscular Volume 82.7 fL (80.0-94.0); Mean Platelet Volume 8.9 fL (7.4-10.4); Nucleated Red Blood Cells % 0 % (-); Platelet Count 155 10^3/uL (130-400); Red Blood Cell Count 2.77 10^6/uL (4.70-6.10); Red Cell Dist. Width 19.6 % (11.5-14.5); White Blood Cell Count 4.1 10^3/uL (4.8-10.8)
[2023-10-08 10:52] LABS: APTT 33.2 Sec (23.4-35.0); INR 1.41; PT 17.3 Sec (11.4-14.6)
[2023-10-08 11:01] LABS: ALT (SGPT) 24 U/L (0-50); AST (SGOT) 35 U/L (17-59); Albumin 2.5 g/dl (3.5-5.0); Alkaline Phosphatase 206 U/L (38-126); Blood Urea Nitrogen 33 mg/dl (9-20); Calcium 8.1 mg/dl (8.4-10.2); Carbon Dioxide 26 mmol/L (22-30); Chloride 97 mmol/L (98-107); Glucose 330 mg/dl (70-99); Potassium 4.1 mmol/L (3.5-5.1); Sodium 127 mmol/L (135-145); Total Bilirubin 0.7 mg/dl (0.2-1.3); Total Protein 6.3 g/dl (6.3-8.2); eGFR > 60.00
--- NOTE | 2023-10-08 12:46 | HPS.HSE ---
Family Physician
-
Family Physician: Chantelle Foster
Chief Complaint
-
weakness
History of Present Illness
67 male extensive past medical history is presenting from home with weakness. Patient was recently in the hospital with GI bleeding. Patient states the past 24 hours he had multiple bowel movements with bright red blood. Also complaining of
weakness and mild lightheadedness. Denies abdominal pain nausea or vomiting. States of abdominal distention however no discomfort. States receives paracentesis every 7 to 10 days. States he is due to see shrimp peeling machine tender at [place] next week on
Thursday. Currently denies any nausea or vomiting. Denies any dysuria or increase in urgency. Patient with episode of hyperparathyroidism in the ER. Currently states feeling tired. Denies any fevers or chills or cough.
Medical History
Past Medical History
Past Medical History: Reports Other
Additional Past Medical History:
Esophageal varices.
Orthostatic hypotension.
Chronic Hyponatremia.
Decompensated alcoholic liver cirrhosis.
PBH
HLD
Chronic Foot drop on the right
Diverticulosis hx
Chronic hydrocele
Hearing impairment
Past Surgical History: Reports Other
Additional Past Surgical History:
Left mastoidectomy
CABG x 5
Right Knee Arthroscopy
Right Hydrocelectomy
Social History
Tobacco: Former Smoker (Quit smoking 30 years ago))
Alcohol: Former
Living: With Family
Family History
Family History: Not pertinent
Allergies / Home Medications
Allergies reflects when Allergies were last updated in [facility].
Home Medications with original date entered in [facility]
Allergy/Medication List:
Allergies
Allergy/AdvReac Type Severity Reaction Status Date / Time
empagliflozin Allergy potential Verified 10/08/23 08:46
[From Synjardy XR] cause of
euglycemic
DKA 03/26/23
metformin [From Synjardy XR] Allergy potential Verified 10/08/23 08:46
cause of
euglycemic
DKA 03/26/23
Sulfa (Sulfonamide Allergy Hives Verified 10/08/23 08:46
Antibiotics)
Home Medications
cyanocobalamin (vitamin B-12) 500 mcg tablet 500 mcg PO DAILY Supplement 03/25/23
pantoprazole 40 mg tablet,delayed release (Protonix) 40 mg PO DAILY Gastrointestinal Issue 03/25/23
timolol maleate 0.5 % eye drops 1 drp LEFT EYE BID Eye Condition 03/25/23
vitamins A,C,C-xove-mitpgg 2,148 mcg-113 mg-45 mg-17.4 mg tablet (PreserVision AREDS) 1 tab PO BID Supplement 03/25/23
cholecalciferol (vitamin D3) 50 mcg (2,000 unit) capsule (Vitamin D3) 50 mcg PO DAILY Supplement 05/18/23
atorvastatin 10 mg tablet (Lipitor) 10 mg PO HS High Cholesterol 05/20/23
tamsulosin 0.4 mg capsule (Flomax) 0.8 mg PO DAILY Urinary Issue 05/20/23
gabapentin 300 mg capsule 300 mg PO BID Pain 08/08/23
sitagliptin phosphate 100 mg tablet (Januvia) 100 mg PO DAILY Diabetes 08/08/23
propranolol 10 mg tablet 10 mg PO BID 30 days #60 tabs 09/25/23
aspirin 81 mg tablet,delayed release 81 mg PO DAILY #0 tabs 09/29/23
furosemide 40 mg tablet 40 mg PO DAILY #30 tabs 09/29/23
insulin glargine 100 unit/mL (3 mL) subcutaneous pen (Basaglar KwikPen U-100 Insulin) 15 unit (0.15 mL) SC HS #0 mL 09/29/23
insulin lispro 100 unit/mL subcutaneous pen 10 unit (0.1 mL) SC AC Diabetes #0 mL 09/29/23
midodrine 5 mg tablet 10 mg (2 x 5 mg) PO TID@0800,1300,1800 #180 tabs 09/29/23
potassium chloride 20 mEq tablet,extended release(part/cryst) 20 meq PO DAILY #7 tabs 09/29/23
Review of Systems
-
History Source: Patient
A 12 point ROS was completed and negative except as noted: Yes
Physical Exam
Vital Signs
Vital Signs
Temp Pulse Resp BP Pulse Ox
98.0 F 59 10 108/55 98
10/08/23 08:45 10/08/23 12:00 10/08/23 12:00 10/08/23 12:00 10/08/23 08:45
Physical Exam
General: Well Developed, Well Nourished and No Apparent Distress
HEENT: NormoCephalic, Moist mucous membranes and Atraumatic
Respiratory: Clear
Cardiac: S1/S2 and Regular Rhythm; No Murmur or Rub
GI: Soft, Non Tender, Normal Bowel Sounds and Distended; No Organomegaly
Rectal: Deferred by Provider
Musculoskeletal: No Clubbing, No Cyanosis and No Edema
Skin: No Rash
Neuro: Awake and Nonfocal/grossly intact
Psych: Calm
Laboratory Results
-
10/08/23 10:31
10/08/23 10:31
Laboratory Results
PT 17.3 Sec (11.4-14.6) H 10/08/23 10:31
INR 1.41 10/08/23 10:31
APTT 33.2 Sec (23.4-35.0) 10/08/23 10:31
Total Bilirubin 0.7 mg/dl (0.2-1.3) 10/08/23 10:31
AST 35 U/L (17-59) 10/08/23 10:31
ALT 24 U/L (0-50) 10/08/23 10:31
Alkaline Phosphatase 206 U/L (38-126) H 10/08/23 10:31
Impression/Plan
-
#Acute blood loss anemia secondary to GI bleed
#Recent GI bleeding
Recent endoscopy showed esophagus varices but no evidence of bleeding.
Recent sigmoidoscopy look-alike: Will start bowel prep. Grade 2 hemorrhoids.
Receiving 1 unit of PRBC
Trend H&H
PPI
Clear liquid diet
GI evaluation
#Orthostatic hypotension: Likely multifactorial including liver cirrhosis, poor intake.
Continue midodrine to 10 mg 3 times daily.
Need slow positional change and adjustment.
#Multifactorial hyponatremia, hypervolemic, alcohol-related, liver disease related, etc.
Sodium 127 today.
hold lasix for today.
Monitor sodium, rest of electrolytes, and renal function.
#Decompensated alcoholic cirrhosis
Check abdomen ultrasound to assess for ascites
#HX pancytopenia likely secondary to liver disease
Follow counts
#CAD/CABG x 5 vessel
resume aspirin in am
#Paroxysmal atrial fibrillation
not on anticoagulation as outpatient
DM2 with neuropathy and hyperglycemia -hemoglobin A1c 8.0%.
Hold Januvia
Continue gabapentin for neuropathy
Cont lantus 15u and hold premeal 10u for now
BPH -continue Flomax
Hyperlipidemia-on Lipitor
Chronic Foot drop on the right
Diverticulosis hx
Chronic hydrocele
Hearing impairment
DVT ppx- scds in setting of GIB
I spent a total of 78 minutes with the patient or on the floor. More than 50% of this time involved counseling and coordination of care.
--- NOTE | 2023-10-08 13:19 | CON.GI ---
Addendum entered and electronically signed by Idalia Nicolas DO 10/08/23 16:31:
Also add 1 g of ceftriaxone in the setting of cirrhosis and bleeding
Addendum entered and electronically signed by Idalia Nicolas, 10/08/23 16:30:
Patient seen and examined independently of CRITICAL CARE TRANSPORT NURSE. I agree with her note with my additions below.
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 Patient was just discharged on 09/29/2023 for the same. During that
admission Dr. Estrada did both an endoscopy and sigmoidoscopy. The endoscopy showed's small less than 5 mm esophageal varices with no gastric varices. Sigmoidoscopy was a very poor prep but he had hemorrhoids. No mention of rectal varices.
Patient was sitting on the toilet and noticed a significant amount of bright red blood. Says it runs down and feels like he is urinating out of his rear. He does get intermittent dripping.
He also is dealing with significant scrotal edema.
Patient was placed on Anusol last admission to help with the bleeding. He was evaluated by colorectal surgery and patient that the bleeding had subsided and they advised outpatient follow-up for banding.
Last admission his admission hemoglobin was 5.6 and he was transfused 2 units of blood with a discharge hemoglobin of 8.3. He also has ascites and undergoes paracentesis roughly every 7 to 10 days.
today, his hemoglobin on admission is 7.2 and he was given 1 unit of blood. His baseline hemoglobin runs around mid 8. Today platelets are 155, hyponatremic at 127, BUN 33, creatinine 0.9, total bilirubin 0.7, AST 35, ALT 24, alkaline phosphatase
206. Patient has an upcoming appointment with Dr. Womack
--Will advise inpatient colorectal consult for banding and hemorrhoid care
-- Also to think about rectal varices. They were not seen during sigmoidoscopy however the prep was very poor
-- Monitor hemoglobin and vital signs
Original Note:
Consultation
-
Date/Time Consultation Requested: 10/08/23 1245
Date/Time Consultation Performed: 10/08/23 1300
Requesting Provider: Jarek Lam MD
Performing Provider: MIRELLA Beltran, Idalia Nicolas DO
Reason for Consultation: rectal bleeding
Medical History
Chief Complaint / HPI
Chief Complaint: bright red blood per rectum
History of Present Illness:
Pt is a 67yo male with a past medical history significant for decompensated ETOH liver cirrhosis with ascites with periodic paracentesis(follows with Dr. Ramirez and due for Dr. Shanta pappas) , small <5 EV without bleeding, history of
hemorrhoids/GI bleeding, HTN, DM2, CAD with prior CABG, chronic anemia, hydrocele, BPH, HLD, unbilical hernia, neuropathy, who presented to the emergency room with recurrent rectal bleeding. He has been seen several time by GI for similar
symptoms. He has had anoscopy which did show grade 2 internal hemorrhoids with normal brown appearing stool. He was placed on Anusol HC to help with bleeding. He was evaluated by colorectal surgery inpatient but his bleeding had subsided at the
time of their evaluation, therefore they advised outpatient follow-up for possible banding. In August he completed EGD with small <5mm EV, portal HTN gastropathy and normal duodenum. He also completed flex sig at that time with Hemorrhoids were
found on perianal exam. A large amount of stool was found in the rectum, in the recto-sigmoid colon and in the sigmoid colon, precluding visualization.Internal hemorrhoids were found during retroflexion. The hemorrhoids were medium-sized and Grade
II (internal hemorrhoids that prolapse but reduce spontaneously). He was recommended adding Beta luz and is noted on Propranolol. He now presents with recurrent bleeding. He reports a colonoscopy [address] Handy at [facility].
Labs on admission notable for hbg 7.2, platelets 155, INR 1.41, Na 127, Glucose 330, albumin 2.5 with otherwise stable.
Pt states he has periodic bleeding. He will have larger amount unable to control with dripping and other times smaller amount with some period of no bleeding. He has had constipation but admits to recent regiment of Miralax every other day.
He otherwise denies dysphagia, GERD, nausea, vomiting, abdominal pain, or black stools.
Past Medical History
Past Medical History: CAD (CABG on ASA), HTN, NIDDM and Other (decompensated ETOH liver cirrhosis with ascites, hx non-bleeding esophageal varices grade 1, chronic anemia, hemorrhoids, hydrocele, BPH)
Past Surgical History: Cardiac (CABG x 5 vessels) and Other (masteoidectomy, right hydrocelectomy, right knee arthroscopy)
Social History
Tobacco: Former Smoker
Alcohol: Former (denies current use with hx ETOH in past )
Drug: None
Living: With Family (lives with mother )
Employment: Retired
Family History
Family History: Reviewed & Not Pertinent
Allergies / Home Medications
Allergy/AdvReac Type Severity Reaction Status Date / Time
empagliflozin Allergy potential Verified 10/08/23 08:46
[From Synjardy XR] cause of
euglycemic
DKA 03/26/23
metformin [From Synjardy XR] Allergy potential Verified 10/08/23 08:46
cause of
euglycemic
DKA 03/26/23
Sulfa (Sulfonamide Allergy Hives Verified 10/08/23 08:46
Antibiotics)
�Medication �Instructions �Recorded
cyanocobalamin (vitamin B-12) 500 500 mcg PO DAILY Supplement 03/25/23
mcg tablet
pantoprazole 40 mg tablet,delayed 40 mg PO DAILY Gastrointestinal 03/25/23
release (Protonix) Issue
timolol maleate 0.5 % eye drops 1 drp LEFT EYE BID Eye Condition 03/25/23
vitamins A,C,B-tuos-sfjeyj 2,148 1 tab PO BID Supplement 03/25/23
mcg-113 mg-45 mg-17.4 mg tablet
(PreserVision AREDS)
cholecalciferol (vitamin D3) 50 50 mcg PO DAILY Supplement 05/18/23
mcg (2,000 unit) capsule (Vitamin
D3)
atorvastatin 10 mg tablet (Lipitor) 10 mg PO HS High Cholesterol 05/20/23
tamsulosin 0.4 mg capsule (Flomax) 0.8 mg PO DAILY Urinary Issue 05/20/23
gabapentin 300 mg capsule 300 mg PO BID Pain 08/08/23
sitagliptin phosphate 100 mg 100 mg PO DAILY Diabetes 08/08/23
tablet (Januvia)
propranolol 10 mg tablet 10 mg PO BID 30 days #60 tabs 09/25/23
aspirin 81 mg tablet,delayed 81 mg PO DAILY #0 tabs 09/29/23
release
furosemide 40 mg tablet 40 mg PO DAILY #30 tabs 09/29/23
insulin glargine 100 unit/mL (3 15 unit (0.15 mL) SC HS #0 mL 09/29/23
mL) subcutaneous pen (Basaglar
KwikPen U-100 Insulin)
insulin lispro 100 unit/mL 10 unit (0.1 mL) SC AC Diabetes #0 09/29/23
subcutaneous pen mL
midodrine 5 mg tablet 10 mg (2 x 5 mg) PO 09/29/23
TID@0800,1300,1800 #180 tabs
potassium chloride 20 mEq 20 meq PO DAILY #7 tabs 09/29/23
tablet,extended release(part/cryst)
Review of Systems
-
History Source: Patient
Constitutional: Reports Chills
EENT: Reports No Symptoms
Respiratory: Reports No Symptoms
Cardiac: Reports No Symptoms
Abdomen/GI: Reports Abdominal Pain (with distention), Constipated, Bloody Stools and Other (scrotal swelling/umbilical hernia )
: Reports No Symptoms
Musculoskeletal: Reports No Symptoms
Skin: Reports No Symptoms
Neurological: Reports No Symptoms
Endocrine: Reports No Symptoms
Hematologic/Lymphatic: Reports Bleeding
Vital Signs
Temp Pulse Resp BP Pulse Ox
97.6 F 61 12 100/56 99
10/08/23 13:01 10/08/23 13:01 10/08/23 13:01 10/08/23 13:01 10/08/23 13:01
Physical Exam
Exam
General: Well Developed, No Apparent Distress and Other (chronically ill appearing, jaundice, in NAD)
HEENT: Normocephalic
Respiratory: Clear
Cardiac: S1/S2 and Regular Rhythm
GI: Soft, Non Tender, Normal Bowel Sounds, Distended and Other (umbilical hernia easily reducible, large scrotal swelling)
Rectal: Other (bright red blood dripping on floor in ER. rectal exam with hemorrhoids and red bloood-- difficulty to ID source from external exam )
Musculoskeletal: Edema (trace LE edema bilaterally)
Skin: Warm, Dry and Other (slight jaundice)
Neuro: Awake, Alert and Oriented
Psych: Calm
Results
WBC 4.1 10^3/uL (4.8-10.8) L 10/08/23 10:31
Hgb 7.2 g/dL (13.0-18.0) L 10/08/23 10:31
Hct 22.9 % (39.0-52.0) L 10/08/23 10:31
MCV 82.7 fL (80.0-94.0) 10/08/23 10:31
Plt Count 155 10^3/uL (130-400) 10/08/23 10:31
Absolute Neuts (auto) 2.8 10^3/uL (1.4-6.5) 10/08/23 10:31
PT 17.3 Sec (11.4-14.6) H 10/08/23 10:31
INR 1.41 10/08/23 10:31
APTT 33.2 Sec (23.4-35.0) 10/08/23 10:31
Sodium 127 mmol/L (135-145) L 10/08/23 10:31
Potassium 4.1 mmol/L (3.5-5.1) 10/08/23 10:31
Chloride 97 mmol/L (98-107) L 10/08/23 10:31
Carbon Dioxide 26 mmol/L (22-30) 10/08/23 10:31
BUN 33 mg/dl (9-20) H 10/08/23 10:31
Creatinine 0.9 mg/dL (0.7-1.3) 10/08/23 10:31
Calcium 8.1 mg/dl (8.4-10.2) L 10/08/23 10:31
Total Bilirubin 0.7 mg/dl (0.2-1.3) 10/08/23 10:31
AST 35 U/L (17-59) 10/08/23 10:31
ALT 24 U/L (0-50) 10/08/23 10:31
Alkaline Phosphatase 206 U/L (38-126) H 10/08/23 10:31
Diagnostic Image Results:
09/28/23 last paracentesis -4700ml neg SBP
Prior GI Procedures:
EGD: 08/2022 Leee with small <5mm EV, portal HTN gastropathy and normal duodenum.
flex sig-- Sean 08/2022 at that time with Hemorrhoids were found on perianal exam.
Colonoscopy: colonoscopy [address] Handy at [facility]
Assessment / Plan
-
Pt is a 67yo male with a past medical history significant for decompensated ETOH liver cirrhosis with ascites with periodic paracentesis(follows with Dr. Ramirez and due for Dr. Shanta pappas) , small <5 EV without bleeding, history of
hemorrhoids/GI bleeding, HTN, DM2, CAD with prior CABG, chronic anemia, hydrocele, BPH, HLD, umbilical hernia, neuropathy, who presented to the emergency room with recurrent rectal bleeding. He has been seen several time by GI for similar
symptoms. He has had anoscopy which did show grade 2 internal hemorrhoids with normal brown appearing stool. He was placed on Anusol HC to help with bleeding. He was evaluated by colorectal surgery inpatient but his bleeding had subsided at the
time of their evaluation, therefore they advised outpatient follow-up for possible banding. In August he completed EGD with small <5mm EV, portal HTN gastropathy and normal duodenum. He also completed flex sig at that time with Hemorrhoids were
found on perianal exam. A large amount of stool was found in the rectum, in the recto-sigmoid colon and in the sigmoid colon, precluding visualization.Internal hemorrhoids were found during retroflexion. The hemorrhoids were medium-sized and Grade
II (internal hemorrhoids that prolapse but reduce spontaneously). He was recommended adding Beta luz and is noted on Propranolol. He now presents with recurrent bleeding. He reports a colonoscopy [address] Handy at [facility].
Labs on admission notable for hbg 7.2, platelets 155, INR 1.41, Na 127, Glucose 330, albumin 2.5 with otherwise stable.
-recurrent rectal bleeding- hemorrhoids vs other
-anemia
-hx cirrhosis secondary to ETOH
-ascites
-EV small <5mm last EGD in August
-coagulopathy- mild
-umbilical hernia on exam no drainage
-scrotal swelling
-constipation
-hyponatremia
other medical problems:
-DM
-CAD with prior CABG
-hydrocele
PLAN:
Etiology of bleeding related to hemorrhoids as note on prior evaluation vs other
will get colorectal evaluation to see if can ID source during active bleeding noted in ER
for transfusion now
cont to trend hbg
will need to continue miralax with constipation
clear diet as tolerated
will need eventual paracentesis with some distention on exam
current meld 3.0 -- 19 up from 16
cont Propranolol with EV
on Lasix 40mg daily prior to admission close follow with hyponatremia
noted large umbilical hernia on exam no current drainage
OP follow up with Dr. Ramirez and Dr. Womack as planned
-
-
Thank you for consultation and allowing me to participate in the patient's care. Please call the [facility] physician during the after hours with any questions or concerns.
[2023-10-08 16:20] LABS: Hematocrit 22.8 % (39.0-52.0); Hemoglobin 7.3 g/dL (13.0-18.0)
--- NOTE | 2023-10-08 16:32 | W.PN.UPDATE ---
Update Note
Progress Note Update
For billing purposes
[2023-10-08 17:37] LABS: Glucose - Point of Care 453 mg/dl (70-99)
[2023-10-08] MEDS: ProAmatine 10 MG PO (17:48)
[2023-10-08] MEDS: ROCEPHIN 1000 MG IV (17:48)
[2023-10-08] MEDS: STERILE WATER FOR INJECTION 10 ML IV (17:49)
[2023-10-08] MEDS: ProAmatine PO (18:09)
[2023-10-08 18:16] LABS: Glucose 359 mg/dl (70-99)
[2023-10-08] MEDS: NOVOLOG FLEXPEN-LOW RESISTANCE 5 UNITS SC (19:10)
--- NOTE | 2023-10-08 19:15 | GLUCOSE ---
Pt's Blood Sugar was 453 at 1735. Stat Glucose Ordered an drawn. Venous Glucose 359. Dr. Lam made aware. Pt medicated with 5 units of aspart insulin. Pt will be rechecked in 1 hr. Cont to assess patient status.
--- NOTE | 2023-10-08 19:18 | PTCARENOTE ---
1530 Received patient from ED AAOx3. Pt oriented to room. Tolerated clear liquids. Offered no complaints. Made patient comfortable. Cont to assess patient status.
[2023-10-08] MEDS: LIPITOR 10 MG PO (20:22)
[2023-10-08] MEDS: OCUVITE SOFTGEL 1 CAP PO (20:22)
[2023-10-08] MEDS: NEURONTIN 300 MG PO (20:22)
[2023-10-08] MEDS: TIMOPTIC 0.5% OPHTHALMIC SOLUTION 1 DROP LEFT EYE (20:23)
[2023-10-08 20:52] LABS: Glucose - Point of Care 207 mg/dl (70-99)
[2023-10-08] MEDS: LANTUS 0.149999999999999994 UNITS SC (21:40)
[2023-10-09] VITALS (7 sets, daily range): BP systolic 84–132; BP diastolic 44–94; PULSE 54–75; BMI 25.8
[2023-10-09 00:35] LABS: Hematocrit 22.3 % (39.0-52.0); Hemoglobin 7.1 g/dL (13.0-18.0)
[2023-10-09 00:50] LABS: COVID-19 Antigen Negative (Negative)
--- NOTE | 2023-10-09 04:45 | PTCARENOTE ---
Patient's orthostatic vital signs positive, asymptomatic. Lying 111/50 HR 60, sitting 83/43 HR 67, standing 67/40 HR 66. Patient's repeat hemoglobin 7.1. CHARGING MANIPULATOR made aware, 1 unit of PRBCs ordered and infused without difficulty.
[2023-10-09 07:56] LABS: Glucose - Point of Care 70 mg/dl (70-99)
[2023-10-09] MEDS: NOVOLOG FLEXPEN-LOW RESISTANCE SC (07:57)
[2023-10-09 08:10] LABS: Hematocrit 26.9 % (39.0-52.0)
[2023-10-09 08:15] LABS: INR 1.52; PT 18.1 Sec (11.4-14.6)
[2023-10-09 08:16] LABS: APTT 36.1 Sec (23.4-35.0)
[2023-10-09 08:25] LABS: ALT (SGPT) 17 U/L (0-50); AST (SGOT) 28 U/L (17-59); Albumin 2.1 g/dl (3.5-5.0); Alkaline Phosphatase 169 U/L (38-126); Blood Urea Nitrogen 26 mg/dl (9-20); Calcium 8.2 mg/dl (8.4-10.2); Carbon Dioxide 27 mmol/L (22-30); Chloride 97 mmol/L (98-107); Estimated Creatinine Clearance 121 ml/min; Glucose 54 mg/dl (70-99); Potassium 3.7 mmol/L (3.5-5.1); Sodium 130 mmol/L (135-145); Total Protein 5.5 g/dl (6.3-8.2); eGFR > 60.00
[2023-10-09 08:33] LABS: Hemoglobin 8.6 g/dL (13.0-18.0)
--- NOTE | 2023-10-09 08:56 | VNURNOTE ---
Patient is current with [facility] since 09/29 w/SN/PT, will monitor progress and plan at discharge.
--- NOTE | 2023-10-09 09:10 | W.PN.GI.CBS2 ---
Addendum entered and electronically signed by Corina Rivera Do, MD 10/09/23 13:42:
I saw and examined the patient.
The BUN PANNER's note was reviewed and I agree with the note.
Comment: He denies any further bleeding. Exam VSS NTTP, skin tears on arms. Labs reviewed Hbg improved
Impression
- Recurrent rectal bleeding
Ddx includes hemorrhoidal vs rectal varices
Recommendations
- Hbg improved
- Tolerating ADA diet
- Appreciate CRC recommendations
- Strongly encourage to use miralax and metamucil DAILY basis
- At this juncture ok for hosp d/c from GI perspective. OP FU set up with Jeanine Naranjo BUN PANNER 10/[address] Lott/transplant hepatology at [place] for Thursday
At this juncture GI will sign off please call for questions.
Addendum entered and electronically signed by MIRELLA Price 10/09/23 10:16:
office reviewed with . Will stay on Thursday appt with Jeanine Naranjo as best option as due for upcoming EGD with Dr. Ramirez. Changed to telehealth as can also do appt with Dr. Lott that day.
Original Note:
Today's Communication / Plan
-
Etiology of bleeding related to hemorrhoids as note on prior evaluation, vs rectal varices vs other
seen by colorectal awaiting input no plan for intervention today
bleeding now stopped and asking about discharge
s/p 2 units transfused up to hbg 8.6 today cont to trend
some distention but pt wishes to hold on para and will proceed next week-- will cancel US
abx added with bleeding and hx cirrhosis will review need to continued with bleeding resolved
cont Miralax daily
advance to 2 gram Na ADA diet
current meld 3.0 -- 19 on admission up from 16
cont Propranolol with EV
on Lasix 40mg daily prior to admission close follow with hyponatremia though up to 130 today
noted large umbilical hernia on exam no current drainage
pt has moved up to telehealth with dr. lott for Thursday-- will text office to rescheduled 10/11 appt with Jeanine naranjo
Assessment / Plan
-
Pt is a 67yo male with a past medical history significant for decompensated ETOH liver cirrhosis with ascites with periodic paracentesis(follows with Dr. Ramirez and due for Dr. Lott eval soon) , small <5 EV without bleeding, history of
hemorrhoids/GI bleeding, HTN, DM2, CAD with prior CABG, chronic anemia, hydrocele, BPH, HLD, umbilical hernia, neuropathy, who presented to the emergency room with recurrent rectal bleeding. He has been seen several time by GI for similar
symptoms. He has had anoscopy which did show grade 2 internal hemorrhoids with normal brown appearing stool. He was placed on Anusol HC to help with bleeding. He was evaluated by colorectal surgery inpatient but his bleeding had subsided at the
time of their evaluation, therefore they advised outpatient follow-up for possible banding. In August he completed EGD with small <5mm EV, portal HTN gastropathy and normal duodenum. He also completed flex sig at that time with Hemorrhoids were
found on perianal exam. A large amount of stool was found in the rectum, in the recto-sigmoid colon and in the sigmoid colon, precluding visualization.Internal hemorrhoids were found during retroflexion. The hemorrhoids were medium-sized and Grade
II (internal hemorrhoids that prolapse but reduce spontaneously). He was recommended adding Beta luz and is noted on Propranolol. He now presents with recurrent bleeding. He reports a colonoscopy [address] Handy at [facility].
Labs on admission notable for hbg 7.2, platelets 155, INR 1.41, Na 127, Glucose 330, albumin 2.5 with otherwise stable.
-recurrent rectal bleeding- hemorrhoids vs other
-anemia
-hx cirrhosis secondary to ETOH
-ascites
-scrotal swelling
-EV small <5mm last EGD in August
-coagulopathy- mild
-umbilical hernia on exam no drainage
-scrotal swelling
-constipation
-hyponatremia
other medical problems:
-DM
-CAD with prior CABG
-hydrocele
PLAN:
Etiology of bleeding related to hemorrhoids as note on prior evaluation, vs rectal varices vs other
seen by colorectal awaiting input no plan for intervention today
bleeding now stopped and asking about discharge
s/p 2 units transfused up to hbg 8.6 today cont to trend
some distention but pt wishes to hold on para and will proceed next week-- will cancel US
abx added with bleeding and hx cirrhosis will review need to continued with bleeding resolved
cont Miralax daily
advance to 2 gram Na ADA diet
current meld 3.0 -- 19 on admission up from 16
cont Propranolol with EV
on Lasix 40mg daily prior to admission close follow with hyponatremia though up to 130 today
noted large umbilical hernia on exam no current drainage
pt has moved up to telehealth with dr. lott for Thursday-- will text office to rescheduled 10/11 appt with Jeanine naranjo
Subjective
Subjective
Date of Service: October 09, 2023
no further bleeding, asking for diet, 10/08 large stool with blood
Objective
Data Reviewed
Laboratory Data:
Laboratory Results
10/09/23 06:43
10/09/23 06:43
Laboratory Results
PT 18.1 Sec (11.4-14.6) H 10/09/23 06:43
INR 1.52 10/09/23 06:43
APTT 36.1 Sec (23.4-35.0) H 10/09/23 06:43
Total Bilirubin 2.0 mg/dl (0.2-1.3) H D 10/09/23 06:43
AST 28 U/L (17-59) 10/09/23 06:43
ALT 17 U/L (0-50) 10/09/23 06:43
Alkaline Phosphatase 169 U/L (38-126) H 10/09/23 06:43
Vital Signs and I&O:
Vital Signs
Temp Pulse Resp BP Pulse Ox
97.5 F 78 20 121/63 94
10/09/23 07:55 10/09/23 07:55 10/09/23 07:55 10/09/23 07:55 10/09/23 07:55
I&O
10/08/23 10/09/23 10/10/23
06:59 06:59 06:59
Intake Total 500 / 500
Output Total 395 / 395
Balance 105 / 105
Physical Exam
Physical Exam
HEENT: Other (jaundice )
Cardiology: Normal Sinus Rhythm
Pulmonary: Clear
GI: Soft, Distended and Non Tender
Extremities: No Edema
Neuro: Non Focal
[2023-10-09] MEDS: PROTONIX 40 MG PO (09:52)
[2023-10-09] MEDS: NEURONTIN 300 MG PO (09:52)
[2023-10-09] MEDS: FLOMAX 0.800000000000000044 MG PO (09:53)
[2023-10-09] MEDS: VITAMIN B-12 500 MCG PO (09:53)
[2023-10-09] MEDS: ProAmatine 10 MG PO ×2 (09:53→14:41)
[2023-10-09] MEDS: OCUVITE SOFTGEL 1 CAP PO (09:54)
[2023-10-09] MEDS: VITAMIN D3 (cholecalciferol) 50 MCG PO (09:54)
[2023-10-09] MEDS: MIRALAX PO ×2 (09:54→12:43)
[2023-10-09] MEDS: TIMOPTIC 0.5% OPHTHALMIC SOLUTION 1 DROP LEFT EYE (09:55)
[2023-10-09] MEDS: DESENEX/MITRAZOL/ZEASORB 1 APPLIC TOPICAL (10:02)
[2023-10-09 10:31] LABS: Glucose - Point of Care 103 mg/dl (70-99)
--- NOTE | 2023-10-09 11:53 | CON.CRS ---
Consultation
-
Date/Time Consultation Requested: 10/08/2023, 14:07
Date/Time Consultation Performed: 10/09/2023, 08:30
Requesting Provider: Jennyfer Vicente
Performing Provider: Rudy Bautista MD
Reason for Consultation: rectal bleeding
Medical History
-
Chief Complaint: rectal bleeding
History of Present Illness:
67-year-old male with a past medical history of alcoholic liver disease with cirrhosis, history of grade 1 varices without bleeding, presented to the ER on 10/08/2023 Due to rectal bleeding. The patient states the blood was dripping out of him
uncontrollably. He has seen Dr. Locke as an outpatient and underwent a flexible sigmoidoscopy on 09/23/2023 which revealed a poor prep, hemorrhoids, and stool noted, no varices were visualized at that time. In the ER his hemoglobin was 7.2 and he
was given 1 unit of blood. He has a scheduled follow-up visit with a registered mail clerk, Dr. Womack, next week at [place]. Dr. Bautista and myself saw him in consult a few months ago for the same issue and it was recommended that he follow-up in our office but
has not yet done so.We have been consulted for further surgical opinion.
Past Medical History
Past Medical History: Other (CAD, HTN and Other (Alcoholic Cirrhosis with Ascites and Esophageal Varices, ASCVD, BPH))
Past Surgical History: Other (Cardiac (CABG x 5), Orthopedic (Right Knee Arthroscopy) and Other (Right Hydrocelectomy, Mastoidectomy))
Social History
Tobacco: Former Smoker (quit 30 years ago)
Alcohol: Former
Family History
Family History: Reviewed & Not Pertinent
Allergies / Home Medications
Allergy/AdvReac Type Severity Reaction Status Date / Time
empagliflozin Allergy potential Verified 10/08/23 08:46
[From Synjardy XR] cause of
euglycemic
DKA 03/26/23
metformin [From Synjardy XR] Allergy potential Verified 10/08/23 08:46
cause of
euglycemic
DKA 03/26/23
Sulfa (Sulfonamide Allergy Hives Verified 10/08/23 08:46
Antibiotics)
�Medication �Instructions �Recorded �Confirmed �Type
cyanocobalamin (vitamin B-12) 500 500 mcg PO DAILY Supplement 03/25/23 10/08/23 History
mcg tablet
pantoprazole 40 mg tablet,delayed 40 mg PO DAILY Gastrointestinal 03/25/23 10/08/23 History
release (Protonix) Issue
timolol maleate 0.5 % eye drops 1 drp LEFT EYE BID Eye Condition 03/25/23 10/08/23 History
vitamins A,C,Q-cjbn-yiggiq 2,148 1 tab PO BID Supplement 03/25/23 10/08/23 History
mcg-113 mg-45 mg-17.4 mg tablet
(PreserVision AREDS)
cholecalciferol (vitamin D3) 50 50 mcg PO DAILY Supplement 05/18/23 10/08/23 History
mcg (2,000 unit) capsule (Vitamin
D3)
atorvastatin 10 mg tablet (Lipitor) 10 mg PO HS High Cholesterol 05/20/23 10/08/23 History
tamsulosin 0.4 mg capsule (Flomax) 0.8 mg PO DAILY Urinary Issue 05/20/23 10/08/23 History
gabapentin 300 mg capsule 300 mg PO BID Pain 08/08/23 10/08/23 History
sitagliptin phosphate 100 mg 100 mg PO DAILY Diabetes 08/08/23 10/08/23 History
tablet (Januvia)
insulin glargine 100 unit/mL (3 15 unit (0.15 mL) SC HS #0 mL 09/29/23 10/08/23 Rx
mL) subcutaneous pen (Basaglar
KwikPen U-100 Insulin)
insulin lispro 100 unit/mL 10 unit (0.1 mL) SC AC Diabetes #0 09/29/23 10/08/23 Rx
subcutaneous pen mL
midodrine 5 mg tablet 10 mg (2 x 5 mg) PO 09/29/23 10/08/23 Rx
TID@0800,1300,1800 #180 tabs
aspirin 81 mg tablet,delayed 81 mg PO DAILY Blood Clot 10/08/23 10/08/23 History
release Prevention/Tx
furosemide 40 mg tablet 40 mg PO DAILY Fluid 10/08/23 10/08/23 History
Retention/Swelling
potassium chloride 20 mEq 20 meq PO DAILY Electrolyte 10/08/23 10/08/23 History
tablet,extended release(part/cryst) Repletion
propranolol 10 mg tablet 10 mg PO BID Blood Pressure 10/08/23 10/08/23 History
Review of Systems
-
History Source: Patient
: Bleeding
A 10 point review of systems was completed, and was negative except as per HPI.
Physical Exam
Vital Signs
Temp 97.8 F 10/09/23 11:34
Pulse 65 10/09/23 11:34
Resp Rate 18 10/09/23 11:34
Blood pressure 104/49 10/09/23 11:34
SaO2 100 10/09/23 11:34
10/08/23 10/09/23 10/10/23
06:59 06:59 06:59
Actual Weight 80.331 kg
Body Mass Index (BMI) 25.8
Lab Results / Allergies
10/09/23 06:43
10/09/23 06:43
WBC 4.1 10^3/uL (4.8-10.8) L 10/08/23 10:31
Hgb 8.6 g/dL (13.0-18.0) L D 10/09/23 06:43
Hct 26.9 % (39.0-52.0) L 10/09/23 06:43
Plt Count 155 10^3/uL (130-400) 10/08/23 10:31
Abs Immat Gran (auto) 0.0 10^3/uL (0-0.05) 10/08/23 10:31
Neutrophils % 67.9 % (42.2-75.2) 10/08/23 10:31
Allergy/AdvReac Type Severity Reaction Status Date / Time
empagliflozin Allergy potential Verified 10/08/23 08:46
[From Synjardy XR] cause of
euglycemic
DKA 03/26/23
metformin [From Synjardy XR] Allergy potential Verified 10/08/23 08:46
cause of
euglycemic
DKA 03/26/23
Sulfa (Sulfonamide Allergy Hives Verified 10/08/23 08:46
Antibiotics)
Physical Exam
General: Well Developed, Well Nourished and No Apparent Distress
GI: Soft, Non Tender and Non Distended
Rectal: Hemorrhoids and Other (Internal prolapsing and external hemorrhoids noted, CHRIS with no masses and some loose stool in the rectal vault with a slight amount of blood on fingertip)
Assessment / Plan
-
Assessment: 67yo male with rectal bleeding and a history of alcoholic cirrhosis
Plan: There is no role for surgical intervention at this time. He can follow-up in the office with Dr. Bautista for an anoscope for further visualization of the anal canal. Patient will follow-up with Dr. Womack next week at [place] in regards to his
liver. I will provide instructions for follow-up in the discharge instructions. We will sign off please contact us with any further issues.
[2023-10-09 12:05] LABS: Glucose - Point of Care 208 mg/dl (70-99)
--- NOTE | 2023-10-09 12:14 | W.PN.HOSP.TC ---
Today's Communication/Plan
-
Await colorectal input
Advance diet
Plan for tentative discharge later today
Assessment / Plan
Assessment / Plan
#Acute blood loss anemia secondary to GI bleed likely secondary to hemorrhoidal
#Recent GI bleeding
Recent endoscopy showed esophagus varices but no evidence of bleeding.
Recent sigmoidoscopy Grade 2 hemorrhoids.
Hemoglobin 8.6. Status post units of PRBC. Bleeding stopped.
Trend H&H
PPI
Diet advanced. Monitor for diet tolerance.
Seen by colorectal recommending outpatient evaluation
GI evaluation
#Orthostatic hypotension: Likely multifactorial including liver cirrhosis, poor intake.
Continue midodrine to 10 mg 3 times daily.
Need slow positional change and adjustment.
#Multifactorial hyponatremia, hypervolemic, alcohol-related, liver disease related, etc.
Sodium 130
Restart Lasix
Monitor sodium, rest of electrolytes, and renal function.
#Decompensated alcoholic cirrhosis
Patient will plan to undergo regular outpatient schedule paracentesis
Has appointment with item processor Dr. Womack on Thursday for liver transplant evaluation
#HX pancytopenia likely secondary to liver disease
Follow counts
#CAD/CABG x 5 vessel
resume aspirin in am
#Paroxysmal atrial fibrillation
not on anticoagulation as outpatient
DM2 with neuropathy and hyperglycemia -hemoglobin A1c 8.0%.
Hold Januvia
Continue gabapentin for neuropathy
Cont lantus 15u and restart premeal 10u
POC 70-->103-->208
Yesterday POC was elevated at 453
BPH -continue Flomax
Hyperlipidemia-on Lipitor
Chronic Foot drop on the right
Diverticulosis hx
Chronic hydrocele
Hearing impairment
DVT ppx- scds in setting of GIB
More than 30 minutes spent in discharge including
Final examination of the patient
Summarizing hospital stay
Instructions for continuing care to all relevant caregivers
Preparation of discharge records, prescriptions, and referral forms
Total time spent (in minutes): 52
Anticipated Discharge: Today
Subjective/Interval History
-
Date of Service: October 09, 2023
States does not feel like abdominal as distended
Does not want to get assess for paracentesis
States will undergo paracentesis next week
Denies any further bright red blood per rectum
Denies any abdominal pain, nausea or vomiting
Objective Data
-
Labs:
Laboratory Results
10/09/23 10/09/23
00:21 06:43
Hgb 7.1 L 8.6 L D
Hct 22.3 L 26.9 L
PT 18.1 H
INR 1.52
APTT 36.1 H
Sodium 130 L
Potassium 3.7
Chloride 97 L
Carbon Dioxide 27
BUN 26 H
Creatinine 0.6 L
Glucose 54 L*
Calcium 8.2 L
Total Bilirubin 2.0 H D
AST 28
ALT 17
Alkaline Phosphatase 169 H
Vital Signs:
Vital Signs
Temp Pulse Resp BP Pulse Ox
97.8 F 65 18 104/49 100
10/09/23 11:34 10/09/23 11:34 10/09/23 11:34 10/09/23 11:34 10/09/23 11:34
I&O
10/08/23 10/09/23 10/10/23
06:59 06:59 06:59
Intake Total 500 / 500
Output Total 395 / 395
Balance 105 / 105
Physical Exam
-
General: No Apparent Distress
HEENT: Moist Mucous Membranes
Respiratory: Clear to Auscultation
Cardiac: Regular Rhythm and S1/S2
GI: Soft, Nontender, Normal Bowel Sounds and Distended
Rectal: Deferred by Provider
Genito-urinary: Deferred by me
Skin: Warm
Neuro: Awake, Oriented and AO x 3; Negative Tremors
Psych: Calm; Negative Confused
[2023-10-09] MEDS: NOVOLOG FLEXPEN-LOW RESISTANCE 2 UNITS SC (12:37)
--- NOTE | 2023-10-09 12:39 | W.DCSUMMARY ---
Discharge Summary
Discharge Data
Date of Admission: 10/08/23
Date of Discharge: 10/09/23
-
Pending Results: No
Hospital Course
67-year-old male with extensive past medical history of decompensated liver cirrhosis, chronic hyponatremia, orthostatic hypotension chronic, pancytopenia, CAD status post CABG, atrial fibrillation, diabetes, BPH, hyperlipidemia, who is presenting
with bright red blood per the rectum. Patient was found to have symptomatic anemia. Patient received units of PRBC. Patient hemoglobin up trended. Patient was eval by gastroenterology. Colorectal surgery was consulted. Hemorrhoidal bleeding
stopped. Colorectal surgery recommended outpatient evaluation for hemorrhoidal management. Patient with abdominal distention however he did state that his belly is not as distended as prior admission and would follow-up next week with outpatient
regularly scheduled paracentesis. Patient has appointment coming up with gastroenterology and topographical surveyor on Thursday. Patient be discharged home.
Discharge Plan
-
Patient Disposition: Home (Routine Discharge)
Discharge Diagnosis/Procedures: Acute blood loss anemia secondary to lower GI bleed secondary to hemorrhoidal bleed
Condition: Fair
Diet: 2 Gram Sodium, Diabetic, Carb Controlled and Restrict fluids to 48 oz
Activity: With assistance and As tolerated
Blood Work: CBC and BMP in 1 week with primary doctor
Referrals:
Rudy Bautista MD [Active] - in three to four weeks
Chantelle Foster MD [Family Provider] - in less than 1 week
Blane Womack MD [Non-Admitting Privileges] - 10/12/23 (follow up next week as planned )
Jeanine Naranjo PA-C [Specified Professional Personl] - 10/12/23 11:30 am (follow up via telehealth as scheduled )
Prescriptions:
New
polyethylene glycol 3350 [ClearLax] 17 gram powder in packet
17 g PO DAILY Qty: 30 0RF
Continued
cyanocobalamin (vitamin B-12) 500 mcg Tablet
500 mcg PO DAILY
pantoprazole [Protonix] 40 mg Tablet,Delayed Release (Dr/Ec)
40 mg PO DAILY
timolol maleate 0.5 % Drops
1 drp LEFT EYE BID
PreserVision AREDS 2,148 mcg-113 mg-45 mg-17.4mg Tablet
1 tab PO BID
cholecalciferol (vitamin D3) [Vitamin D3] 50 mcg (2,000 unit) Capsule
50 mcg PO DAILY
atorvastatin [Lipitor] 10 mg Tablet
10 mg PO HS
tamsulosin [Flomax] 0.4 mg Capsule
0.8 mg PO DAILY
Januvia 100 mg tablet
100 mg PO DAILY
gabapentin 300 mg capsule
300 mg PO BID
midodrine 5 mg Tablet
10 mg PO TID@0800,1300,1800 Qty: 180 0RF
insulin lispro 100 unit/mL Insulin Pen
10 unit SC AC Qty: 0 0RF
insulin glargine [Basaglar KwikPen U-100 Insulin] 100 unit/mL (3 mL) insulin pen
15 unit SC HS Qty: 0 0RF
furosemide 40 mg tablet
40 mg PO DAILY
aspirin 81 mg tablet,delayed release (DR/EC)
81 mg PO DAILY
propranolol 10 mg tablet
10 mg PO BID
potassium chloride 20 mEq tablet,ER particles/crystals
20 meq PO DAILY
Discharge Orders:
Discharge Patient (As Directed); Ordered 10/09/23
Ordered By: Jarek Lam
Discharge Date and Time
Print Language: HUNGARIAN
[2023-10-09] MEDS: MIRALAX 17 GRAMS PO ×2 (12:43→12:51)
--- NOTE | 2023-10-09 13:43 | W.PN.UPDATE ---
Update Note
Progress Note Update
Billing purposes
--- NOTE | 2023-10-09 13:53 | CM ---
Alert awake oriented patient who lives with his Jojo who lives in a 1 story home with 3 step to enter and 10 steps to bed and bathroom. He is assisted in all activities of daily living.He was offered VN he requested resumption [facility] Nancy Liaison
notified via TT..
ANGEL[facility] hx /[facility] history
Pharmacy [facility]
PCP DR Mag Foster
PLAN Home with [facility]
== END 2023-10-09 17:03 | disposition home health service (06) | DRG 394 ==
LOC: 4 EAST ACU 13:07
PROVIDERS: Registered Nurse; ADMITTING PHYSICIAN Hospitalist; CONSULT PHYSICIAN Internal Medicine; EMERGENCY PHYSICIAN Emergency Medicine; FAMILY PHYSICIAN Family Medicine; OTHER PHYSICIAN Surgery
PROC: 30233N1 Transfusion of Nonautologous Red Blood Cells into Peripheral Vein, Percutaneous Approach (ICD-10-PCS; 2023-10-08)
DX: K64.9 Unspecified hemorrhoids (principal); D62 Acute posthemorrhagic anemia; K92.2 Gastrointestinal hemorrhage, unspecified; E87.1 Hypo-osmolality and hyponatremia; I85.10 Secondary esophageal varices without bleeding; Z87.891 Personal history of nicotine dependence; I95.1 Orthostatic hypotension; K70.31 Alcoholic cirrhosis of liver with ascites; N40.0 Benign prostatic hyperplasia without lower urinary tract symptoms; E78.00 Pure hypercholesterolemia, unspecified; N43.3 Hydrocele, unspecified; Z79.82 Long term (current) use of aspirin; I25.10 Atherosclerotic heart disease of native coronary artery without angina pectoris; Z95.1 Presence of aortocoronary bypass graft; Z11.52 Encounter for screening for COVID-19
CPT/HCPCS: 80053; 82947; 82962; 85014; 85018; 85025; 85610; 85730; 86850; 86900; 86901; 86920; 87811; 99285; P9016

== ENCOUNTER 2023-10-13 10:27 | Inpatient (IN) | payer OTHER, MEDICARE, SELFPAY ==
[2023-10-13] VITALS (25 sets, daily range): BP systolic 66–121; BP diastolic 41–70; BMI 27.7; BMI 25.9
--- NOTE | 2023-10-13 08:08 | ED.GENMED ---
History of Present Illness
General
Chief Complaint: Rectal Bleeding
Source: patient
Exam Limitations: none
Time Seen by Provider: 10/13/23 07:59
Travel History
Have you had any contact with someone who has COVID-19?: No
Do you have any symptoms of coronavirus? Fever > 100 degrees, chills, cough, shortness of breath, sore throat, loss of taste or smell, muscle aches, or headache?: No
History of Present Illness
History of Present Illness:
Patient with recurrent lower GI bleed. Here last week for the same. [place] at that time to be hemorrhoidal bleeding. Discharged 10/09/2023. This morning around 3 AM with recurring bright red rectal bleeding. Blood was dripping out. No significant
fever abdominal pain or other complaints.
Past History
Past History
ED Past Medical History: Arrthythmia (Atrial fibrillation), HTN, NIDDM and Other (Alcoholic cirrhosis, diverticulitis, anemia)
ED Past Surgical History: Orthopedic (Knee surgery) and Urological (Hydrocele)
Social History
Tobacco: Non-smoker
Alcohol: Former
Drug: None
Personal:
Living: with family
Review of Systems
Review of Systems
All Other Systems: Not applicable
Constitutional: Denies fever
Respiratory: Reports no symptoms
Cardiac: Reports no symptoms
Phy Exam
Physical Exam
Physical Exam:
GENERAL: Alert and oriented in no apparent distress. Old for stated age
EYE: Orbits normal.
NECK: Supple
CARDIAC: Regular rate and rhythm without any obvious murmurs.
LUNGS: Clear breath sounds,normal
ABDOMEN: Distended. Positive fluid wave. Periumbilical hernia easily reducible. Rectal exam test positive. Stool does appear brown. Some internal hemorrhoids noted
NEUROLOGICAL: Alert and oriented , grossly non-focal
SKIN: Warm and dry, multiple areas of superficial ecchymosis to both arms. Small amount of dried blood the clearly had ripped down his legs
MUSCULOSKELETAL: Chronic edema
PSYCH: Normal and appropriate interaction.
Course
Orders/Labs/Results
Orders:
Orders
10/13/23 08:07
Electrocardiogram (*1) Stat
Reason for Study: Other
Other Reason for Exam: GI Bleed
Cardiac Monitoring- Treatment ONCE
EKG- Treatment ONCE
IV Insert/Care/Rem.- Treatment PRN
10/13/23 08:18
Type+Screen Urgent
Complete Blood Count/With Diff Urgent
Comprehensive Metabolic Panel Urgent
PTT Urgent
Prothrombin Time Urgent
10/13/23 09:13
* Blood Bank Products Urgent
Blood Bank Products: *Packed RBC Leuko(PRBC's)
Quantity: 1
Transfuse Today: Yes
Reason: Bleeding
IV Insert/Care/Rem.- Treatment PRN
10/13/23 10:04
Admit/Transfer Patient As Directed
Co-Sign Provider:
Level of Care: Inpatient admission
Assign to:: Telemetry
Physician / Group: Glenn Almodovar
Diagnosis: Lower GI bleed
Reason for Telemetry: Arrhythmia
Date to Stop Telemetry: 10/16/23
Time to Stop Telemetry: 11:00
Reason for Hospitalization: Recurrent lower GI bleed and anemia
Expected length of stay greater than two midnights?: Yes
ELOS- Estimated Length of Stay in days: 3
I certify the patient meets the requirements for IP care: Yes
10/13/23 10:12
Code Status As Directed
Resuscitation Status: Do not resuscitate
Reached after discussion with pt or family/Healthcare POA: Yes
DNR Bracelet Application ONCE
10/13/23 13:34
Dextrose 50%-Water [Dextrose 50% Syringe] 12.5 grams IV [id number] PRN
Glucagon [GlucaGen] 1 mg IM PRN PRN
10/13/23 13:34
GASTROINTESTINAL CONSULT Routine
Consulting Provider: Spencer Frank
Was physician already notified: Yes
Reason for consult: GI bleed
IRAD CONSULT Routine
Consulting Provider: Howard Stacy
Was physician already notified: Yes
Reason for consult: paracentesis-- large volume as BP tolerated call GI with volume
Activity As Directed
Activity Level: With Assistance
Bedside Glucose Monitoring As Directed
Frequency: AC&HS
Comment: Change to q6h if pt on TPN, tube feeding or not eating
INT (Intravenous Needle Therapy) As Directed
Comment: Place 2 IV catheters of the largest bore possible until stable
Pneumatic Compression Sleeves As Directed
Type: Knee high
Vital Signs As Directed
Frequency: Per unit guidelines
DX Deep Vein Thrombosis Video Routine
10/13/23 14:00
Midodrine [ProAmatine] 10 mg PO TID@0800,1300,1800
10/13/23 16:30
Insulin Aspart Corrective Low [Novolog Flexpen-Low Resistance] See Protocol SC AC
Insulin Aspart [NOVOLOG vial] 5 units SC AC
10/13/23 18:00
Complete Blood Count/No Diff Routine
10/13/23 20:00
Gabapentin [Neurontin] 300 mg PO BID
10/13/23 22:00
Atorvastatin [Lipitor] 10 mg PO HS
10/14/23 06:00
Complete Blood Count/No Diff IN AM
Comprehensive Metabolic Panel IN AM
Prothrombin Time IN AM
10/14/23 08:00
Cholecalciferol (Vitamin D3) [VITAMIN D3 (cholecalciferol)] 50 mcg PO DAILY
Cyanocobalamin [Vitamin B-12] 1,000 mcg PO DAILY
Furosemide [Lasix] 40 mg PO DAILY
Pantoprazole [Protonix] 40 mg PO DAILY
Tamsulosin [Flomax] 0.8 mg PO DAILY
10/15/23 06:00
Complete Blood Count/No Diff IN AM
Comprehensive Metabolic Panel IN AM
Prothrombin Time IN AM
10/16/23 06:00
Complete Blood Count/No Diff IN AM
Comprehensive Metabolic Panel IN AM
10/16/23 11:00
DC Protocol for Telemetry ONCE
Abnormal Lab Results
10/13/23
08:18
WBC 4.7 L 10^3/uL
(4.8-10.8)
RBC 2.57 L 10^6/uL
(4.70-6.10)
Hgb 6.8 L* D g/dL
(13.0-18.0)
Hct 21.8 L %
(39.0-52.0)
MCH 26.5 L pg
(27.0-31.0)
MCHC 31.2 L g/dL
(33.0-37.0)
RDW 19.4 H %
(11.5-14.5)
Absolute Lymphs (auto) 0.9 L 10^3/uL
(1.2-3.4)
Absolute Monos (auto) 0.7 H 10^3/uL
(0.1-0.6)
Immature Gran % 0.6 H %
(0-0.5)
Lymphocytes % 18.5 L %
(20.5-51.1)
Monocytes % 14.2 H %
(1.7-9.3)
PT 17.7 H Sec
(11.4-14.6)
APTT 36.6 H Sec
(23.4-35.0)
Sodium 129 L mmol/L
(135-145)
BUN 30 H mg/dl
(9-20)
Glucose 214 H mg/dl
(70-99)
Calcium 7.9 L mg/dl
(8.4-10.2)
Alkaline Phosphatase 183 H U/L
(38-126)
Total Protein 5.7 L g/dl
(6.3-8.2)
Albumin 2.2 L g/dl
(3.5-5.0)
Crossmatch IS Only See Detail
10/13/23 08:18
10/13/23 08:18
Vital Signs
Initial and Last Documented VS:
Initial Vital Signs
Temp Pulse Resp BP Pulse Ox
97.8 F 70 16 105/53 100
10/13/23 07:50 10/13/23 07:50 10/13/23 07:50 10/13/23 07:50 10/13/23 07:50
Last Documented Vital Signs
Temp Pulse Resp BP Pulse Ox
97.8 F 64 12 106/61 99
10/13/23 11:16 10/13/23 14:00 10/13/23 14:00 10/13/23 14:00 10/13/23 13:45
MDM/Problems Addressed
Differential Diagnosis Includes:
Recurring lower GI bleed in a gentleman with known significant liver disease. Likely secondary to hemorrhoids. Workup in progress
*Critical Care Note
Total Time (30-74mins, 75-104mins- exclusive of procedures): 40
Data Reviewed
Review of Other/Old Records Reveals: Labs, Records, Progress Notes and Discharge Summary
ED Attending Note
-
Portions of this chart may have been created with voice recognition software.� Occasional wrong word or��sound alike� substitutions may have occurred due to the inherent limitations of voice recognition software.
Discharge Plan
Departure
Patient Disposition: Admit
Date of Disposition: 10/13/23
Time of Disposition: 09:15
Presentation/result/management discussed w/ accepting MD/DO: Hospitalist
Discharge Problem:
Recurrent lower GI bleed, Chronic anemia, History of cirrhosis
Interventions
Interventions:
*Risk Screen - Suicide Last Done: 10/13/23 07:50
*General Assessment Last Done: 10/13/23 07:50
*Neglect/Abuse Screening Last Done: 10/13/23 07:50
ED- Fall Risk Assessment Last Done: 10/13/23 08:07
*ED COVID-19 Vaccine History Last Done: 10/13/23 08:06
QU-Ezicts-Pvxmyicwpo Assessment Last Done: 10/13/23 08:15
ED- Cardiac Assessment Last Done: 10/13/23 08:15
ED- Pulmonary Assessment Last Done: 10/13/23 08:15
[2023-10-13 08:34] LABS: % Basophils 0.9 % (0-2); % Eosinophils 2.8 % (0-6); % Immature Granulocytes 0.6 % (0-0.5); % Lymphocytes 18.5 % (20.5-51.1); % Monocytes 14.2 % (1.7-9.3); Absolute Eosinophils 0.1 10^3/uL (0-0.7); Absolute Lymphocytes 0.9 10^3/uL (1.2-3.4); Absolute Monocytes 0.7 10^3/uL (0.1-0.6); Absolute Neutrophils 2.9 10^3/uL (1.4-6.5); Hematocrit 21.8 % (39.0-52.0); Mean Corp Hgb Conc. 31.2 g/dL (33.0-37.0); Mean Corpuscular Hgb 26.5 pg (27.0-31.0); Mean Corpuscular Volume 84.8 fL (80.0-94.0); Mean Platelet Volume 10.3 fL (7.4-10.4); Nucleated Red Blood Cells % 0 % (-); Platelet Count 144 10^3/uL (130-400); Red Blood Cell Count 2.57 10^6/uL (4.70-6.10); Red Cell Dist. Width 19.4 % (11.5-14.5); White Blood Cell Count 4.7 10^3/uL (4.8-10.8)
[2023-10-13 08:40] LABS: INR 1.48; PT 17.7 Sec (11.4-14.6)
[2023-10-13 08:41] LABS: APTT 36.6 Sec (23.4-35.0)
[2023-10-13 08:51] LABS: Hemoglobin 6.8 g/dL (13.0-18.0)
[2023-10-13 09:00] LABS: ALT (SGPT) 16 U/L (0-50); AST (SGOT) 31 U/L (17-59); Albumin 2.2 g/dl (3.5-5.0); Alkaline Phosphatase 183 U/L (38-126); Blood Urea Nitrogen 30 mg/dl (9-20); Calcium 7.9 mg/dl (8.4-10.2); Carbon Dioxide 26 mmol/L (22-30); Chloride 100 mmol/L (98-107); Estimated Creatinine Clearance 90 ml/min; Glucose 214 mg/dl (70-99); Potassium 4.1 mmol/L (3.5-5.1); Sodium 129 mmol/L (135-145); Total Bilirubin 0.6 mg/dl (0.2-1.3); Total Protein 5.7 g/dl (6.3-8.2); eGFR > 60.00
--- NOTE | 2023-10-13 10:14 | HPS.HSE ---
Family Physician
-
Family Physician: NOT KNOW UNKNOWN - PT DOES
Chief Complaint
-
Bright red blood per rectum
History of Present Illness
Patient is a 67-year-old male with past medical history of coronary disease status post bypass, type 2 diabetes mellitus, alcoholic cirrhosis, portal hypertension, portal gastropathy, esophageal varices, hemorrhoids, BPH, pancytopenia, hyponatremia,
orthostatic hypotension came to ER with recurrence of bright red blood per rectum. Patient was admitted last week for similar problem and was evaluated by GI and colorectal surgery. Patient was considered a high risk for any hemorrhoidal surgery
by colorectal surgeon. Plan for patient to follow-up with outpatient dry cleaning counter clerk and possible evaluation for TIPS procedure. Unfortunately patient recurrence of rectal bleed yesterday and in morning today. Patient spouse had taken pictures and
no stool mixed with blood. Patient had some abdominal discomfort as well. Denies nausea vomiting fever.
Patient also worried about increasing scrotal size. Patient does have history of large hiatal hernia connecting to peritoneal cavity and not a candidate for any surgical correction.
Patient also noticed worsening ascites. Patient usually gets every week elective paracentesis although did not have any paracentesis for last 2 weeks.
No other problems of chest pain/shortness of breath/palpitation/dizziness.
Medical History
Past Medical History
Past Medical History: Reports Other
Additional Past Medical History:
coronary disease status post bypass, type 2 diabetes mellitus, alcoholic cirrhosis, portal hypertension, portal gastropathy, esophageal varices, hemorrhoids, BPH, pancytopenia, hyponatremia, orthostatic hypotension
Past Surgical History: Reports Other
Social History
Tobacco: Non-smoker
Alcohol: Former
Drug: None
Personal:
Living: With Family
Employment: Not Employed
Family History
Family History: Not pertinent
Allergies / Home Medications
Allergies reflects when Allergies were last updated in [facility].
Home Medications with original date entered in [facility] [facility]
Allergy/Medication List:
Allergies
Allergy/AdvReac Type Severity Reaction Status Date / Time
empagliflozin Allergy potential Verified 10/13/23 07:50
[From Synjardy XR] cause of
euglycemic
DKA 03/26/23
metformin [From Synjardy XR] Allergy potential Verified 10/13/23 07:50
cause of
euglycemic
DKA 03/26/23
Sulfa (Sulfonamide Allergy Hives Verified 10/13/23 07:50
Antibiotics)
Home Medications
cyanocobalamin (vitamin B-12) 500 mcg tablet 500 mcg PO DAILY Supplement 03/25/23
pantoprazole 40 mg tablet,delayed release (Protonix) 40 mg PO DAILY Gastrointestinal Issue 03/25/23
timolol maleate 0.5 % eye drops 1 drp LEFT EYE BID Eye Condition 03/25/23
vitamins A,C,O-okpx-vpjhsd 2,148 mcg-113 mg-45 mg-17.4 mg tablet (PreserVision AREDS) 1 tab PO BID Supplement 03/25/23
atorvastatin 10 mg tablet (Lipitor) 10 mg PO HS High Cholesterol 05/20/23
tamsulosin 0.4 mg capsule (Flomax) 0.8 mg PO DAILY Urinary Issue 05/20/23
gabapentin 300 mg capsule 300 mg PO BID Pain 08/08/23
sitagliptin phosphate 100 mg tablet (Januvia) 100 mg PO DAILY Diabetes 08/08/23
insulin glargine 100 unit/mL (3 mL) subcutaneous pen (Basaglar KwikPen U-100 Insulin) 15 unit (0.15 mL) SC HS #0 mL 09/29/23
midodrine 5 mg tablet 10 mg (2 x 5 mg) PO TID@0800,1300,1800 #180 tabs 09/29/23
aspirin 81 mg tablet,delayed release 81 mg PO DAILY Blood Clot Prevention/Tx 10/08/23
furosemide 40 mg tablet 40 mg PO DAILY Fluid Retention/Swelling 10/08/23
propranolol 10 mg tablet 10 mg PO BID Blood Pressure 10/08/23
polyethylene glycol 3350 17 gram oral powder packet (ClearLax) 17 g PO DAILY #30 ea 10/09/23
Metamucil 1 dose PO DAILYPRN PRN constipation 10/13/23
cholecalciferol (vitamin D3) 50 mcg (2,000 unit) tablet 50 mcg PO DAILY 10/13/23
insulin aspart U-100 100 unit/mL subcutaneous solution (Novolog U-100 Insulin aspart) 10 unit SC AC 10/13/23
Review of Systems
-
A 12 point ROS was completed and negative except as noted: Yes
Physical Exam
Vital Signs
Vital Signs
Temp Pulse Resp BP Pulse Ox
98.0 F 62 16 104/64 100
10/13/23 10:07 10/13/23 10:07 10/13/23 10:07 10/13/23 10:07 10/13/23 10:07
Physical Exam
General: No Apparent Distress
HEENT: Atraumatic; No Oxygen
Respiratory: Clear
Cardiac: S1/S2 and Regular Rhythm; No Murmur or Rub
GI: Soft and Distended
Genito-urinary: Other (Small prolapsed internal hemorrhoid. Blood around perianal area. Per Rectal examination deferred. Large hydrocele)
Musculoskeletal: No Clubbing, No Cyanosis and No Edema
Skin: No Rash
Neuro: Awake, Alert, Oriented and Nonfocal/grossly intact
Laboratory Results
-
10/13/23 08:18
10/13/23 08:18
Laboratory Results
PT 17.7 Sec (11.4-14.6) H 10/13/23 08:18
INR 1.48 10/13/23 08:18
APTT 36.6 Sec (23.4-35.0) H 10/13/23 08:18
Total Bilirubin 0.6 mg/dl (0.2-1.3) 10/13/23 08:18
AST 31 U/L (17-59) 10/13/23 08:18
ALT 16 U/L (0-50) 10/13/23 08:18
Alkaline Phosphatase 183 U/L (38-126) H 10/13/23 08:18
Data Reviewed
-
Diagnostic Radiology: Image Personally Visualized and interpreted and Report Reviewed by me
CT Scan: Image Personally Visualized and interpreted (From Jul 22.)
Old Records: Reviewed
Impression/Plan
-
1. Recurrent lower GI bleed from Internal hemorrhoids
Acute blood loss anemia
-Patient have recurrent lower GI bleed occurring from internal hemorrhoids secondary to portal hypertension
-Patient has been evaluated by corrective surgery on previous visit not a candidate for surgery
-Patient having recurrent painless hematochezia x2 episodes last 24 hours
-Hemoglobin 6.8 in ER, last check on 10/08 was 8.6
-Patient getting 1 unit of blood transfusion in ER
-Unfortunately high risk for recurrence of bleed due to underlying portal hypertension and related issues.
-GI consultation requested for possible candidacy of TIPS procedure, may benefit with expedited outpatient procedure vs transfer to tertiary care center
-Maintain on full liquid diet for now. Avoid unnecessary IV fluid
2. Ascites
-Patient got every weekly paracentesis, last 2 weeks back
-[facility]AD consulted for elective paracentesis
3. Hydrocele
-Bilateral large scrotum with sac communicating to peritoneal cavity
-Has been evaluated by urology in June and no definitive treatment available except treatment of ascites
4. Cirrhosis
Pancytopenia
Coagulopathy
-No signs of decompensation of cirrhosis
-INR 1.48. Plt 144k. WBC 4.7k. continue monitoring
5. Chronic Hyponatremia
- close to baseline, monitor
6. Type II DM
-Continue Lantus 15 units at bedtime. Maintained on NovoLog 5 U AC.
-maintain on ISS.
Coronary disease status post bypass
portal gastropathy
BPH
Orthostatic hypotension
DVTPPX - scd
DNR/DNI
Total time spent : 77 mins
I personally saw and examined the patient.
I have reviewed all diagnostic interpretations and treatment plans as written.
Time includes patient management by me, time spent at the patients bedside, time to review lab and imaging results, discussing patient care, documentation in the medical record, and time spent with the family or caregiver and discussing care plan
with RN/Consultants.
--- NOTE | 2023-10-13 12:31 | CON.GI ---
Addendum entered and electronically signed by Spencer Frank MD 10/13/23 16:23:
I saw and examined the patient.
The RADIO/TV TECHNICIAN or PA's note was reviewed and I agree with the note.
Comment: 67yo male with hx EtOH cirrhosis, ascites, presents with rectal bleeding. He has had intermittent rectal bleeding requiring recent hospitalization and transfusion. EGD/flex sig were done last admission on 09/22 showing Grade II internal
hemorrhoids. He was seen by Colorectal Surgery who recommended OP f/u, though he is not great surgical candidate due to liver disease. He was seen by in GI office by our group and Dr Womack yesterday. TIPS was discussed but needs further eval at
[facility]. Now presents with more bleeding. Hgb 6.8. Pt seen in IR getting paracentesis.
RECTAL small external hemorrhoids, no significant prolapse
REC:
Trend Hgb
Hemodynamically stable
Message sent to Dr Womack to update
Will give IV albumin post paracentesis given Na was 129.
May need TIPS given recurrent ascites, scrotal edema and rectal bleeding due to hemorrhoids/possible rectal varices
Original Note:
Consultation
-
Date/Time Consultation Requested: 10/13/23 1030
Date/Time Consultation Performed: 10/13/23 1215
Requesting Provider: Dolores Almodovar MD
Performing Provider: MIRELLA Beltran, Spencer Frank MD
Reason for Consultation: GI bleed
Medical History
Chief Complaint / HPI
Chief Complaint: bright red blood per rectum
History of Present Illness:
Pt is a 67yo male with a past medical history significant for decompensated ETOH liver cirrhosis with ascites with periodic paracentesis(follows with Dr. Beard and newly seen by Dr. Womack this week) , small <5 EV without bleeding, history of
hemorrhoids/GI bleeding, HTN, DM2, CAD with prior CABG, chronic anemia, hydrocele, BPH, HLD, umbilical hernia, neuropathy, who presented to the emergency room with recurrent rectal bleeding. He has been seen several time by GI for similar symptoms
including inpatient evaluation last week. He has been noted with anoscopy which did show grade 2 internal hemorrhoids with normal brown appearing stool. He was placed on Anusol HC without improvement. . He was evaluated by colorectal surgery
inpatient but his bleeding had subsided at the time of their evaluation, therefore they advised outpatient follow-up for possible banding Repeat evaluation last week with colorectal again deferred intervention as not great surgical candidate with
liver issues and OP followup. In August he completed EGD with small <5mm EV, portal HTN gastropathy and normal duodenum. He also completed flex sig at that time with Hemorrhoids were found on perianal exam. A large amount of stool was found in
the rectum, in the recto-sigmoid colon and in the sigmoid colon, precluding visualization.Internal hemorrhoids were found during retroflexion. The hemorrhoids were medium-sized and Grade II (internal hemorrhoids that prolapse but reduce
spontaneously). He was recommended adding Beta luz and is noted on Propranolol. He now presents with recurrent bleeding. He reports a colonoscopy [address] Handy at [facility]. He has also had issue with anemia with labs on
admission notable for hbg 6.8, platelets 144, INR 1.48, Na 129, Glucose 214, BUN 30, albumin 2.2 with otherwise stable. Pt also admits to continued scrotal swelling with discomfort. He now returns with recurrence of larger volume of red blood
dripping from rectum.
Pt states he has periodic bleeding but per worse since July. He will have larger amount unable to control with blood dripping similar to this am and other times smaller amount with some period of no bleeding. He has had
constipation but admits to recent regiment with Miralax. He otherwise denies dysphagia, GERD, nausea, vomiting, abdominal pain, or black stools. Pt also relates he had evaluation with Dr. Womack this week who recommended further testing and was
reviewing with patient and for possible TIPS procedure.
Past Medical History
Past Medical History: CAD (CABG on ASA), HTN, NIDDM and Other (decompensated ETOH liver cirrhosis with ascites, hx non-bleeding esophageal varices grade 1, chronic anemia, hemorrhoids, hydrocele, BPH)
Past Surgical History: Cardiac (CABG x 5 vessels) and Other (masteoidectomy, right hydrocelectomy, right knee arthroscopy)
Social History
Tobacco: Former Smoker
Alcohol: Former (denies current use with hx ETOH in past )
Drug: None
Living: With Family (lives with mother )
Employment: Retired
Family History
Family History: Reviewed & Not Pertinent
Allergies / Home Medications
Allergy/AdvReac Type Severity Reaction Status Date / Time
empagliflozin Allergy potential Verified 10/13/23 07:50
[From Synjardy XR] cause of
euglycemic
DKA 03/26/23
metformin [From Synjardy XR] Allergy potential Verified 10/13/23 07:50
cause of
euglycemic
DKA 03/26/23
Sulfa (Sulfonamide Allergy Hives Verified 10/13/23 07:50
Antibiotics)
�Medication �Instructions �Recorded
cyanocobalamin (vitamin B-12) 500 500 mcg PO DAILY Supplement 03/25/23
mcg tablet
pantoprazole 40 mg tablet,delayed 40 mg PO DAILY Gastrointestinal 03/25/23
release (Protonix) Issue
timolol maleate 0.5 % eye drops 1 drp LEFT EYE BID Eye Condition 03/25/23
vitamins A,C,V-ovhv-dzwzgf 2,148 1 tab PO BID Supplement 03/25/23
mcg-113 mg-45 mg-17.4 mg tablet
(PreserVision AREDS)
atorvastatin 10 mg tablet (Lipitor) 10 mg PO HS High Cholesterol 05/20/23
tamsulosin 0.4 mg capsule (Flomax) 0.8 mg PO DAILY Urinary Issue 05/20/23
gabapentin 300 mg capsule 300 mg PO BID Pain 08/08/23
sitagliptin phosphate 100 mg 100 mg PO DAILY Diabetes 08/08/23
tablet (Januvia)
insulin glargine 100 unit/mL (3 15 unit (0.15 mL) SC HS #0 mL 09/29/23
mL) subcutaneous pen (Basaglar
KwikPen U-100 Insulin)
midodrine 5 mg tablet 10 mg (2 x 5 mg) PO 09/29/23
TID@0800,1300,1800 #180 tabs
aspirin 81 mg tablet,delayed 81 mg PO DAILY Blood Clot 10/08/23
release Prevention/Tx
furosemide 40 mg tablet 40 mg PO DAILY Fluid 10/08/23
Retention/Swelling
propranolol 10 mg tablet 10 mg PO BID Blood Pressure 10/08/23
polyethylene glycol 3350 17 gram 17 g PO DAILY #30 ea 10/09/23
oral powder packet (ClearLax)
Metamucil 1 dose PO DAILYPRN PRN constipation 10/13/23
cholecalciferol (vitamin D3) 50 50 mcg PO DAILY 10/13/23
mcg (2,000 unit) tablet
insulin aspart U-100 100 unit/mL 10 unit SC AC 10/13/23
subcutaneous solution (Novolog
U-100 Insulin aspart)
Review of Systems
-
History Source: Patient and Family
Constitutional: Reports No Symptoms
EENT: Reports No Symptoms
Respiratory: Reports No Symptoms
Cardiac: Reports No Symptoms
Abdomen/GI: Reports Abdominal Pain (with distention), Constipated (but now on miralax ), Bloody Stools (larger volume red blood dripping prior to admission) and Other (scrotal swelling/umbilical hernia )
: Reports No Symptoms
Musculoskeletal: Reports No Symptoms
Skin: Reports No Symptoms
Neurological: Reports No Symptoms
Endocrine: Reports No Symptoms
Hematologic/Lymphatic: Reports Bleeding
Vital Signs
Temp Pulse Resp BP Pulse Ox
97.8 F 65 18 110/70 99
10/13/23 11:16 10/13/23 11:16 10/13/23 11:16 10/13/23 11:16 10/13/23 11:16
Physical Exam
Exam
General: Well Developed, No Apparent Distress and Other (chronically ill appearing, jaundice, in NAD)
HEENT: Normocephalic
Respiratory: Clear
Cardiac: S1/S2 and Regular Rhythm
GI: Soft, Non Tender, Normal Bowel Sounds, Distended and Other (umbilical hernia easily reducible, large scrotal swelling)
Rectal: Other (per ER red blood with some brown stools)
Genito-urinary: Other (large amount of scrotal swelling)
Musculoskeletal: Edema (trace LE edema bilaterally)
Skin: Warm, Dry and Other (slight jaundice)
Neuro: Awake, Alert and Oriented
Psych: Calm
Results
WBC 4.7 10^3/uL (4.8-10.8) L 10/13/23 08:18
Hgb 6.8 g/dL (13.0-18.0) L* D 10/13/23 08:18
Hct 21.8 % (39.0-52.0) L 10/13/23 08:18
MCV 84.8 fL (80.0-94.0) 10/13/23 08:18
Plt Count 144 10^3/uL (130-400) 10/13/23 08:18
Absolute Neuts (auto) 2.9 10^3/uL (1.4-6.5) 10/13/23 08:18
PT 17.7 Sec (11.4-14.6) H 10/13/23 08:18
INR 1.48 10/13/23 08:18
APTT 36.6 Sec (23.4-35.0) H 10/13/23 08:18
Sodium 129 mmol/L (135-145) L 10/13/23 08:18
Potassium 4.1 mmol/L (3.5-5.1) 10/13/23 08:18
Chloride 100 mmol/L (98-107) 10/13/23 08:18
Carbon Dioxide 26 mmol/L (22-30) 10/13/23 08:18
BUN 30 mg/dl (9-20) H 10/13/23 08:18
Creatinine 0.8 mg/dL (0.7-1.3) 10/13/23 08:18
Calcium 7.9 mg/dl (8.4-10.2) L 10/13/23 08:18
Total Bilirubin 0.6 mg/dl (0.2-1.3) 10/13/23 08:18
AST 31 U/L (17-59) 10/13/23 08:18
ALT 16 U/L (0-50) 10/13/23 08:18
Alkaline Phosphatase 183 U/L (38-126) H 10/13/23 08:18
Diagnostic Image Results:
09/28/23 last paracentesis -4700ml neg SBP
Prior GI Procedures:
EGD: 08/2022 Lee[facility] with small <5mm EV, portal HTN gastropathy and normal duodenum.
flex sig-- Sean 08/2022 at that time with Hemorrhoids were found on perianal exam.
Colonoscopy: colonoscopy [address] Handy at [facility]
Assessment / Plan
-
Pt is a 67yo male with a past medical history significant for decompensated ETOH liver cirrhosis with ascites with periodic paracentesis(follows with Dr. Beard and newly seen by Dr. Womack this week) , small <5 EV without bleeding, history of
hemorrhoids/GI bleeding, HTN, DM2, CAD with prior CABG, chronic anemia, hydrocele, BPH, HLD, umbilical hernia, neuropathy, who presented to the emergency room with recurrent rectal bleeding. He has been seen several time by GI for similar symptoms
including inpatient evaluation last week. He has been noted with anoscopy which did show grade 2 internal hemorrhoids with normal brown appearing stool. He was placed on Anusol HC without improvement. . He was evaluated by colorectal surgery
inpatient but his bleeding had subsided at the time of their evaluation, therefore they advised outpatient follow-up for possible banding Repeat evaluation last week with colorectal again deferred intervention as not great surgical candidate with
liver issues and OP followup. In August he completed EGD with small <5mm EV, portal HTN gastropathy and normal duodenum. He also completed flex sig at that time with Hemorrhoids were found on perianal exam. A large amount of stool was found in
the rectum, in the recto-sigmoid colon and in the sigmoid colon, precluding visualization.Internal hemorrhoids were found during retroflexion. The hemorrhoids were medium-sized and Grade II (internal hemorrhoids that prolapse but reduce
spontaneously). He was recommended adding Beta luz and is noted on Propranolol. He now presents with recurrent bleeding. He reports a colonoscopy [address] Handy at [facility]. He has also had issue with anemia with labs on
admission notable for hbg 6.8, platelets 144, INR 1.48, Na 129, Glucose 214, BUN 30, albumin 2.2 with otherwise stable. Pt also admits to continued scrotal swelling with discomfort. He now returns with recurrence of larger volume of red blood
dripping from rectum.
-recurrent rectal bleeding- hemorrhoids vs other
-anemia with further drop in hbg on admission
-hx cirrhosis secondary to ETOH
-ascites
-scrotal swelling
-EV small <5mm last EGD in August
-coagulopathy- mild
-mild confusion per family with concern for mild HE
-umbilical hernia on exam no drainage
-scrotal swelling
-constipation
-hyponatremia
other medical problems:
-DM
-CAD with prior CABG
-hydrocele
PLAN:
Etiology of recurrent bleeding related to hemorrhoids as note on prior evaluation, vs rectal varices vs other
currently less bleeding in ER
seen by colorectal last week concern for high risk for intervention with liver disease for intervention and recommended OP follow up
patient also with continued ascites and marked scrotal swelling
he discussed with Dr. Womack this week for eventual tips procedure--will need to review with Dr. Womack any further testing to expedite proceeding with TIPS
hbg 6.8 1 unit transfused
last full US abdomen 07/2023
for IR eval for paracentesis -- to call GI for albumin replacement
consider abx if any further bleeding
add Lactulose daily as family recently discussed with Dr. Womack --- will need script on discharge
advance to 2 gram Na ADA diet
current meld 3.0 -- 19 and was 19 last week
cont Propranolol with EV
cont Lasix 40mg daily prior to admission close follow with hyponatremia
noted large umbilical hernia on exam no current drainage
=pt also recent telehealth 10/11 with jimenez davidson and due follow up 01/24 at 7:30am with Dr. beard
-
-
Thank you for consultation and allowing me to participate in the patient's care. Please call the womens health nurse practitioner GI physician during the after hours with any questions or concerns.
[2023-10-13 16:19] LABS: Body Fluid Polymorphonuclear 9.8 %; Body Fluid WBC 214 /CUMM
[2023-10-13 16:20] LABS: Body Fluid Mononuclear 90.2 %
--- NOTE | 2023-10-13 16:23 | W.PN.UPDATE ---
Update Note
Progress Note Update
For billing purposes
--- NOTE | 2023-10-13 16:24 | W.PN.UPDATE ---
Update Note
Progress Note Update
Na 129 para 4800 ml will give albumin 25 grams x 1 now
[2023-10-13 16:28] LABS: Body Fluid Second Tech DB
[2023-10-13 17:07] LABS: Glucose - Point of Care 131 mg/dl (70-99)
[2023-10-13] MEDS: NOVOLOG FLEXPEN-LOW RESISTANCE SC (17:33)
[2023-10-13] MEDS: ProAmatine PO ×2 (17:40→19:18)
[2023-10-13] MEDS: DUPHALAC/CHRONULAC 20 GRAMS PO (17:41)
[2023-10-13] MEDS: FLEXBUMIN 100 IV (17:42)
[2023-10-13 18:06] LABS: Hematocrit 23.9 % (39.0-52.0); Hemoglobin 7.9 g/dL (13.0-18.0); Mean Corp Hgb Conc. 33.1 g/dL (33.0-37.0); Mean Corpuscular Hgb 27.1 pg (27.0-31.0); Mean Corpuscular Volume 82.1 fL (80.0-94.0); Mean Platelet Volume 9.6 fL (7.4-10.4); Platelet Count 142 10^3/uL (130-400); Red Blood Cell Count 2.91 10^6/uL (4.70-6.10); Red Cell Dist. Width 18.6 % (11.5-14.5); White Blood Cell Count 3.2 10^3/uL (4.8-10.8)
[2023-10-13] MEDS: ProAmatine 10 MG PO (18:44)
[2023-10-13] MEDS: NEURONTIN 300 MG PO (19:55)
[2023-10-13 21:10] LABS: Glucose - Point of Care 220 mg/dl (70-99)
[2023-10-13] MEDS: LIPITOR 10 MG PO (22:04)
[2023-10-13] MEDS: LANTUS 0.149999999999999994 UNITS SC (22:04)
[2023-10-14 03:55] VITALS: BP 108/53
--- NOTE | 2023-10-14 05:00 | DOWNTIME ---
There was a [facility] Client Rn Acute Dialysis Downtime on 10/14/2023 from 0100 to 10/14/2023 at 0439. Downtime documentation of patient's care, including medication administrations, has been reconciled in the electronic record per guidelines. Refer to the
patient's paper chart under the miscellaneous tab to see printed paper medication records and downtime forms.
[2023-10-14] MEDS: BenGay-Like 1 APPLIC TOPICAL (06:00)
[2023-10-14 07:10] VITALS: BP 124/56
[2023-10-14 07:20] LABS: Glucose - Point of Care 129 mg/dl (70-99)
[2023-10-14] MEDS: NOVOLOG FLEXPEN-LOW RESISTANCE SC (08:44)
[2023-10-14] MEDS: ANUSOL HC 25 MG RECTAL (08:45)
[2023-10-14] MEDS: FLOMAX 0.800000000000000044 MG PO (08:46)
[2023-10-14] MEDS: VITAMIN B-12 1000 MCG PO (08:46)
[2023-10-14] MEDS: LASIX 40 MG PO (08:46)
[2023-10-14] MEDS: DUPHALAC/CHRONULAC 20 GRAMS PO (08:46)
[2023-10-14] MEDS: ProAmatine 10 MG PO ×2 (08:46→12:25)
[2023-10-14] MEDS: VITAMIN D3 (cholecalciferol) 50 MCG PO (08:46)
[2023-10-14] MEDS: PROTONIX 40 MG PO (08:47)
[2023-10-14] MEDS: NEURONTIN 300 MG PO (08:47)
[2023-10-14 08:52] LABS: Hematocrit 23.4 % (39.0-52.0); Hemoglobin 7.7 g/dL (13.0-18.0); Mean Corp Hgb Conc. 32.9 g/dL (33.0-37.0); Mean Corpuscular Hgb 27.2 pg (27.0-31.0); Mean Corpuscular Volume 82.7 fL (80.0-94.0); Platelet Count 149 10^3/uL (130-400); Red Blood Cell Count 2.83 10^6/uL (4.70-6.10); Red Cell Dist. Width 18.7 % (11.5-14.5); White Blood Cell Count 3.7 10^3/uL (4.8-10.8)
[2023-10-14] MEDS: NOVOLOG FLEXPEN 5 UNITS SC ×2 (08:53→12:25)
[2023-10-14 09:10] LABS: INR 1.52; PT 18.4 Sec (11.4-14.6)
[2023-10-14 09:52] LABS: ALT (SGPT) 11 U/L (0-50); AST (SGOT) 27 U/L (17-59); Albumin 2.2 g/dl (3.5-5.0); Alkaline Phosphatase 166 U/L (38-126); Blood Urea Nitrogen 19 mg/dl (9-20); Calcium 8.1 mg/dl (8.4-10.2); Carbon Dioxide 25 mmol/L (22-30); Chloride 97 mmol/L (98-107); Estimated Creatinine Clearance 119 ml/min; Glucose 113 mg/dl (70-99); Potassium 3.7 mmol/L (3.5-5.1); Sodium 129 mmol/L (135-145); Total Bilirubin 1.8 mg/dl (0.2-1.3); Total Protein 5.4 g/dl (6.3-8.2); eGFR > 60.00
--- NOTE | 2023-10-14 10:33 | W.PN.GI.CBS2 ---
Addendum entered and electronically signed by Spencer Frank MD 10/14/23 12:16:
I saw and examined the patient.
The AMBULATORY SERVICES REPRESENTATIVE or PA's note was reviewed and I agree with the note.
Comment: No further bleeding. Denies abd pain.
ABD soft, mild distention
REC:
I discussed with Dr Womack. Plan is for TIPS for refractory ascites, but needs OLT eval first.
Pt in touch with his office to proceed
No further bleed
OK for d/c
Ascites neg SBP. IV albumin given post tap given his low Na
Original Note:
Today's Communication / Plan
-
Etiology of recurrent bleeding related to hemorrhoids as note on prior evaluation, vs rectal varices vs other
no further bleeding today
seen by colorectal last week concern for high risk for intervention with liver disease for intervention and recommended OP follow up
patient also with continued ascites and marked scrotal swelling s/p urology evaluation await input
Dr. Frank reviewed with Dr. Womack 10/12 he is reviewing data and plan to get patient to [facility] for transplant eval prior to TIPS
hbg 7.7 with transfusion
last US abdomen 07/2023
s/p para 10/12 for 4800ml with albumin replacement with hyponatremia neg SBP
add Lactulose daily as family recently discussed with Dr. Womack and mild confusion in conversation --- Also discussed may need titration up at dose based on stools will need script on discharge per reviewed with Dr. Almodovar
also asking about Potassium script -- management per hospitalist as K stable
cont 2 gram Na ADA diet
current meld 3.0 -- 19 on admission and was 19 last week
cont Propranolol with EV
cont Lasix 40mg daily prior to admission close follow with hyponatremia to see if Aldactone can eventually be added
noted large umbilical hernia on exam no current drainage
due follow up 01/24 at 7:30am with Dr. beard and Dr. Womack for transplant eval -- will call Thursday for [facility] update
updated at [facility]
Assessment / Plan
-
Pt is a 67yo male with a past medical history significant for decompensated ETOH liver cirrhosis with ascites with periodic paracentesis(follows with Dr. Beard and newly seen by Dr. Womack this week) , small <5 EV without bleeding, history of
hemorrhoids/GI bleeding, HTN, DM2, CAD with prior CABG, chronic anemia, hydrocele, BPH, HLD, umbilical hernia, neuropathy, who presented to the emergency room with recurrent rectal bleeding. He has been seen several time by GI for similar symptoms
including inpatient evaluation last week. He has been noted with anoscopy which did show grade 2 internal hemorrhoids with normal brown appearing stool. He was placed on Anusol HC without improvement. . He was evaluated by colorectal surgery
inpatient but his bleeding had subsided at the time of their evaluation, therefore they advised outpatient follow-up for possible banding Repeat evaluation last week with colorectal again deferred intervention as not great surgical candidate with
liver issues and OP followup. In August he completed EGD with small <5mm EV, portal HTN gastropathy and normal duodenum. He also completed flex sig at that time with Hemorrhoids were found on perianal exam. A large amount of stool was found in
the rectum, in the recto-sigmoid colon and in the sigmoid colon, precluding visualization.Internal hemorrhoids were found during retroflexion. The hemorrhoids were medium-sized and Grade II (internal hemorrhoids that prolapse but reduce
spontaneously). He was recommended adding Beta luz and is noted on Propranolol. He now presents with recurrent bleeding. He reports a colonoscopy [address] Handy at [facility]. He has also had issue with anemia with labs on
admission notable for hbg 6.8, platelets 144, INR 1.48, Na 129, Glucose 214, BUN 30, albumin 2.2 with otherwise stable. Pt also admits to continued scrotal swelling with discomfort. He now returns with recurrence of larger volume of red blood
dripping from rectum.
-recurrent rectal bleeding- hemorrhoids vs other
-anemia with further drop in hbg on admission
-hx cirrhosis secondary to ETOH
-ascites
-scrotal swelling
-EV small <5mm last EGD in August
-coagulopathy- mild
-mild confusion per family with concern for mild HE
-umbilical hernia on exam no drainage
-scrotal swelling
-constipation
-hyponatremia
other medical problems:
-DM
-CAD with prior CABG
-hydrocele
PLAN:
Etiology of recurrent bleeding related to hemorrhoids as note on prior evaluation, vs rectal varices vs other
no further bleeding today
seen by colorectal last week concern for high risk for intervention with liver disease for intervention and recommended OP follow up
patient also with continued ascites and marked scrotal swelling s/p urology evaluation await input
Dr. Frank reviewed with Dr. Womack 10/12 he is reviewing data and plan to get patient to [facility] for transplant eval prior to TIPS
hbg 7.7 with transfusion
last US abdomen 07/2023
s/p para 10/12 for 4800ml with albumin replacement with hyponatremia neg SBP
add Lactulose daily as family recently discussed with Dr. Womack and mild confusion in conversation. Also discussed may need titration up at dose based on stools-- will need script on discharge per reviewed with Dr. Almodovar
also asking about Potassium script -- management per hospitalist as K stable
cont 2 gram Na ADA diet
current meld 3.0 -- 19 on admission and was 19 last week
cont Propranolol with EV
cont Lasix 40mg daily prior to admission close follow with hyponatremia to see if Aldactone can eventually be added
noted large umbilical hernia on exam no current drainage
due follow up 01/24 at 7:30am with Dr. beard and Dr. Womack for transplant eval -- will call Thursday for [facility] update
Subjective
Subjective
Date of Service: October 14, 2023
10/12 brown stool on 2 gram Na diet feeling well no further bleeding
Objective
Data Reviewed
Laboratory Data:
Laboratory Results
10/14/23 07:48
10/14/23 07:48
Laboratory Results
PT 18.4 Sec (11.4-14.6) H 10/14/23 07:48
INR 1.52 10/14/23 07:48
APTT 36.6 Sec (23.4-35.0) H 10/13/23 08:18
Total Bilirubin 1.8 mg/dl (0.2-1.3) H D 10/14/23 07:48
AST 27 U/L (17-59) 10/14/23 07:48
ALT 11 U/L (0-50) 10/14/23 07:48
Alkaline Phosphatase 166 U/L (38-126) H 10/14/23 07:48
Vital Signs and I&O:
Vital Signs
Temp Pulse Resp BP Pulse Ox
98 F 65 18 124/56 97
10/14/23 07:10 10/14/23 08:46 10/14/23 07:10 10/14/23 08:46 10/14/23 08:39
I&O
10/13/23 10/14/23 10/15/23
06:59 06:59 06:59
Intake Total 1090 / 1090
Output Total 725 / 725
Balance 365 / 365
Physical Exam
Physical Exam
HEENT: Anicteric and Moist mucous membranes
Cardiology: Normal Sinus Rhythm
Pulmonary: Clear
GI: Soft, Distended and Non Tender
Extremities: Edema (trace)
Neuro: Non Focal (some forgetfulness to questions )
[2023-10-14 10:46] VITALS: BMI 25.9
--- NOTE | 2023-10-14 10:47 | VNURNOTE ---
Patient is current with [facility] since 09/29 w/ SN/PT, will monitor progress and plan at discharge.
[2023-10-14 11:05] VITALS: BP 99/64
[2023-10-14 11:42] LABS: Glucose - Point of Care 272 mg/dl (70-99)
[2023-10-14] MEDS: NOVOLOG FLEXPEN-LOW RESISTANCE 3 UNITS SC (12:24)
--- NOTE | 2023-10-14 13:47 | VNURNOTE ---
[facility] resumption of care completed in [facility] after review of chart and discussion with patient and spouse. Both confirm having [facility] contact number.
--- NOTE | 2023-10-14 15:00 | W.PN.HOSP.TC ---
Today's Communication/Plan
-
d/c home
Assessment / Plan
Assessment / Plan
1. Recurrent lower GI bleed from Internal hemorrhoids
Acute blood loss anemia
-Patient have recurrent lower GI bleed occurring from internal hemorrhoids secondary to portal hypertension
-Patient has been evaluated by corrective surgery on previous visit not a candidate for surgery
-Patient having recurrent painless hematochezia x2 episodes last 24 hours
-Hemoglobin 6.8 in ER, last check on 10/08 was 8.6
-Patient getting 1 unit of blood transfusion in ER. Hbg 7.7 today.
-Unfortunately high risk for recurrence of bleed due to underlying portal hypertension and related issues.
-GI evaluated and patient will be following up with Dr. Womack for TIPS procedure
2. Ascites
-Patient got every weekly paracentesis, last 2 weeks back
-S/p drainage of 4.8 L transudative fluid. Posttransfusion albumin provided.
-Patient instructed to follow-up with [facility] department within 1 week for periodic paracentesis.
3. Hydrocele
-Bilateral large scrotum with sac communicating to peritoneal cavity
-Has been evaluated by urology in June and no definitive treatment available except treatment of ascites
-Patient may be candidate for psych resection although surgical risk high.
4. Cirrhosis
Pancytopenia
Coagulopathy
-No signs of decompensation of cirrhosis
-INR 1.48. Plt 144k. WBC 4.7k. continue monitoring
5. Chronic Hyponatremia
- close to baseline, monitor
6. Type II DM
-Continue Lantus 15 units at bedtime. Maintained on NovoLog 5 U AC.
-maintain on ISS.
Coronary disease status post bypass
portal gastropathy
BPH
Orthostatic hypotension
DVTPPX - scd
DNR/DNI
Case discussed with GI.
More than 30 minutes spent in discharge including
Final examination of the patient
Summarizing hospital stay
Instructions for continuing care to all relevant caregivers
Preparation of discharge records, prescriptions, and referral forms
Total time spent (in minutes): 38 mins
Anticipated Discharge: Today
Subjective/Interval History
-
Date of Service: October 14, 2023
Feeling better
no issues overnight
Objective Data
-
Labs:
Laboratory Results
10/14/23
07:48
WBC 3.7 L
Hgb 7.7 L
Hct 23.4 L
Plt Count 149
PT 18.4 H
INR 1.52
Sodium 129 L
Potassium 3.7
Chloride 97 L
Carbon Dioxide 25
BUN 19
Creatinine 0.6 L
Glucose 113 H
Calcium 8.1 L
Total Bilirubin 1.8 H D
AST 27
ALT 11
Alkaline Phosphatase 166 H
Vital Signs:
Vital Signs
Temp Pulse Resp BP Pulse Ox
97.7 F 78 18 99/64 96
10/14/23 11:05 10/14/23 12:25 10/14/23 11:05 10/14/23 12:25 10/14/23 11:05
I&O
10/13/23 10/14/23 10/15/23
06:59 06:59 06:59
Intake Total 1090 / 1090 480 / 480
Output Total 725 / 725
Balance 365 / 365 480 / 480
Review of Systems
-
Respiratory: Reports No Symptoms
Cardiac: Reports No Symptoms
Abdomen/GI: Reports No Symptoms
Physical Exam
-
General: No Apparent Distress
HEENT: Moist Mucous Membranes
Respiratory: Clear to Auscultation
Cardiac: Regular Rhythm and S1/S2
GI: Soft, Nontender, Normal Bowel Sounds and Distended
Rectal: Deferred by Provider
Genito-urinary: Deferred by me
Skin: Warm
Neuro: Awake, Oriented and AO x 3; Negative Tremors
Psych: Calm; Negative Confused
--- NOTE | 2023-10-14 17:35 | CM ---
met with patient and at bedside.patient lives with his in ranch home with 3 steps to enter,he amb with a cane and walker,he needs A with his adl's.his pcp is dr shiela vieira and he uses [facility] in [place].he is diabetic and tests
his bs 3 x per day.he is known to [facility] currently and [facility] is aware of pt's adm.he is adm with gi bleed.is sp paracentesis with 4.8 fluid drained.his hgb is stable and he is dc home with [facility]. to transport home.he signed medicare letter.
--- NOTE | 2023-10-15 17:07 | W.DCSUMMARY ---
Discharge Summary
Discharge Data
Date of Admission: 10/13/23
Date of Discharge: 10/14/23
-
Pending Results: No
Hospital Course
Discharging Physician : Dr Glenn Almodovar
Disposition : To home
Primary care physician : Unknown
Principal Discharge diagnosis :
Recurrent lower gastrointestinal bleed from internal hemorrhoids
Acute blood loss anemia
Severe ascites
Massive Hydrocele
Chronic Discharge diagnosis :
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
Pancytopenia
Coagulopathy
Chronic hyponatremia
Type 2 diabetes mellitus
Coronary artery disease post bypass
Portal gastropathy
Benign prostatic hyperplasia
Orthostatic hypotension
Hospital Course :
Patient is a 67-year-old male with above-mentioned past medical history came to ER with recurrence of bright red blood in stool. Patient was just discharged last week after diagnosis of internal hemorrhoids secondary to portal hypertension causing
recurrent lower GI bleed. This admission patient had similar finding and no further workup was done. Patient had anemia from blood loss and required 1 unit of blood transfusion. GI was involved in care and discussed case with primary resin remover
and patient likely will require TIPS procedure to help portal hypertension and in turn related problems. Patient also had significant ascites and resulting hydrocele from patent tunica vaginalis. Patient had a paracentesis of 4.8 L transudative
fluid and albumin is provided postprocedure. Patient interested in definitive treatment of massive hydrocele although high risk for surgery. Patient advised to continue follow-up with urology outpatient.
Important imaging findings :
None
Procedure findings :
None
Discharge Plan
-
Patient Disposition: Home (Routine Discharge)
Discharge Diagnosis/Procedures: hemorrohoidal bleed, recurrent ascites, portal hypertension
Condition: Fair
Diet: 2 Gram Sodium and Diabetic, Carb Controlled
Activity: As tolerated
Driving Restrictions: No driving
Bathing Restrictions: OK to Shower
Blood Work: CMP in 1 week
Referrals:
Blane Womack MD [Non-Admitting Privileges] -
UNKNOWN - PT DOES,NOT KNOW [Family Provider] -
Prescriptions:
New
lactulose 20 gram/30 mL solution
20 g PO DAILY Qty: 1200 0RF
Continued
cyanocobalamin (vitamin B-12) 500 mcg Tablet
500 mcg PO DAILY
pantoprazole [Protonix] 40 mg Tablet,Delayed Release (Dr/Ec)
40 mg PO DAILY
timolol maleate 0.5 % Drops
1 drp LEFT EYE BID
PreserVision AREDS 2,148 mcg-113 mg-45 mg-17.4mg Tablet
1 tab PO BID
atorvastatin [Lipitor] 10 mg Tablet
10 mg PO HS
tamsulosin [Flomax] 0.4 mg Capsule
0.8 mg PO DAILY
Januvia 100 mg tablet
100 mg PO DAILY
gabapentin 300 mg capsule
300 mg PO BID
midodrine 5 mg Tablet
10 mg PO TID@0800,1300,1800 Qty: 180 0RF
insulin glargine [Basaglar KwikPen U-100 Insulin] 100 unit/mL (3 mL) insulin pen
15 unit SC HS Qty: 0 0RF
furosemide 40 mg tablet
40 mg PO DAILY
aspirin 81 mg tablet,delayed release (DR/EC)
81 mg PO DAILY
propranolol 10 mg tablet
10 mg PO BID
insulin aspart U-100 [Novolog U-100 Insulin aspart] 100 unit/mL Solution
10 unit SC AC
cholecalciferol (vitamin D3) 50 mcg (2,000 unit) Tablet
50 mcg PO DAILY
Metamucil powder
1 dose PO DAILYPRN PRN (Reason: constipation)
polyethylene glycol 3350 [ClearLax] 17 gram powder in packet
17 g PO DAILY
Discharge Orders:
Discharge Patient (As Directed); Ordered 10/14/23
Ordered By: Glenn Almodovar
Discharge Date and Time
Discharge Date/Time: 10/14/23 13:51
Print Language: UPPER SORBIAN
== END 2023-10-14 13:51 | disposition home health service (06) | DRG 394 ==
LOC: 4 EAST ACU 10:27
PROVIDERS: Nurse Practitioner Adult Health; Radiology Diagnostic Radiology; ADMITTING PHYSICIAN Hospitalist; CONSULT PHYSICIAN Specialist; EMERGENCY PHYSICIAN Emergency Medicine
PROC: 0W9G3ZZ Drainage of Peritoneal Cavity, Percutaneous Approach (ICD-10-PCS; 2023-10-13)
PROC: 30233N1 Transfusion of Nonautologous Red Blood Cells into Peripheral Vein, Percutaneous Approach (ICD-10-PCS; 2023-10-13)
DX: K64.9 Unspecified hemorrhoids (principal); D61.818 Other pancytopenia; K76.6 Portal hypertension; D68.9 Coagulation defect, unspecified; E87.1 Hypo-osmolality and hyponatremia; D62 Acute posthemorrhagic anemia; Z66 Do not resuscitate; K70.31 Alcoholic cirrhosis of liver with ascites; E11.9 Type 2 diabetes mellitus without complications; Z79.4 Long term (current) use of insulin; K64.4 Residual hemorrhoidal skin tags; Z87.891 Personal history of nicotine dependence; N43.3 Hydrocele, unspecified; I95.1 Orthostatic hypotension; I25.10 Atherosclerotic heart disease of native coronary artery without angina pectoris
CPT/HCPCS: 49083; 80053; 82962; 85025; 85027; 85610; 85730; 86850; 86900; 86901; 86920; 87015; 87070; 87205; 89051; 93005; 99291; P9016; P9047

== ENCOUNTER → 2023-10-21 07:30 | Outpatient (REF) | payer OTHER, MEDICARE, SELFPAY ==
[2023-10-21 07:42] VITALS: BP 104/60; BP_SYST 72
[2023-10-21 08:47] VITALS: BP 100/55
[2023-10-21 11:31] LABS: Body Fluid Mononuclear 92.9 %; Body Fluid Polymorphonuclear 7.1 %; Body Fluid WBC 296 /CUMM
[2023-10-21 11:35] LABS: Body Fluid Second Tech EF
== END ==
LOC: RADI 07:30
PROVIDERS: ATTENDING PHYSICIAN Internal Medicine Gastroenterology
DX: R18.8 Other ascites (principal)
CPT/HCPCS: 49083; 87015; 87070; 87205; 89051

== ENCOUNTER 2023-10-21 09:04 | Outpatient (RCR) | payer OTHER, MEDICARE, SELFPAY ==
[2023-10-21] MEDS: FLEXBUMIN 50 IV (09:24)
[2023-10-21 09:25] VITALS: BP 82/40
[2023-10-21 09:36] VITALS: BP 82/40
[2023-10-21 10:10] VITALS: BP 93/38
[2023-10-21] MEDS: FLEXBUMIN 100 IV ×2 (10:12→11:37)
[2023-10-21 11:43] VITALS: BP 100/46
[2023-10-21 11:45] VITALS: BP 107/47
== END 2023-10-23 13:21 | disposition home or self-care (01) ==
LOC: OID 09:04
PROVIDERS: ATTENDING PHYSICIAN Internal Medicine Gastroenterology; FAMILY PHYSICIAN Family Medicine
DX: K70.31 Alcoholic cirrhosis of liver with ascites (principal)
CPT/HCPCS: 96365; 96366; P9047

== ENCOUNTER → 2023-10-28 06:48 | Outpatient (REF) | payer OTHER, MEDICARE, SELFPAY ==
[2023-10-28 07:25] VITALS: BP 100/62; BP_SYST 59
[2023-10-28 08:35] VITALS: BP 105/47; BP_SYST 63
[2023-10-28 08:48] VITALS: BP 105/47
[2023-10-28 09:00] LABS: Body Fluid Mononuclear 87.6 %; Body Fluid Polymorphonuclear 12.4 %; Body Fluid WBC 428 /CUMM
[2023-10-28 09:17] LABS: Body Fluid Second Tech SS
== END ==
LOC: RADI 06:48
PROVIDERS: ATTENDING PHYSICIAN Internal Medicine Gastroenterology; FAMILY PHYSICIAN Family Medicine
DX: R18.8 Other ascites (principal)
CPT/HCPCS: 49083; 89051

== ENCOUNTER 2023-10-28 08:56 | Outpatient (RCR) | payer OTHER, MEDICARE, SELFPAY ==
[2023-10-28] MEDS: FLEXBUMIN 100 IV ×2 (09:17→10:44)
[2023-10-28 09:20] VITALS: BP 96/41
[2023-10-28 10:48] VITALS: BP 97/40
[2023-10-28] MEDS: FLEXBUMIN 50 IV (12:09)
[2023-10-28 12:12] VITALS: BP 95/46
[2023-10-28 13:00] VITALS: BP 90/42
== END 2023-11-27 15:20 | disposition home or self-care (01) ==
LOC: OID 08:56
PROVIDERS: ATTENDING PHYSICIAN Internal Medicine Gastroenterology; FAMILY PHYSICIAN Family Medicine
DX: K70.31 Alcoholic cirrhosis of liver with ascites (principal)
CPT/HCPCS: 96365; 96366; P9047

== ENCOUNTER 2023-10-31 11:00 | Emergency (ER) | payer OTHER, MEDICARE, SELFPAY ==
[2023-10-31 11:05] VITALS: BP 102/43
--- NOTE | 2023-10-31 12:32 | ED.GENMED ---
History of Present Illness
<Kirit Finley PA-C - Last Filed: 10/31/23 13:49>
General
Chief Complaint: Abnormal Lab Value
Source: patient
Exam Limitations: none
Time Seen by Provider: 10/31/23 12:19
Travel History
Have you had any contact with someone who has COVID-19?: No
Do you have any symptoms of coronavirus? Fever > 100 degrees, chills, cough, shortness of breath, sore throat, loss of taste or smell, muscle aches, or headache?: No
History of Present Illness
History of Present Illness:
67-year-old male with history of cirrhosis, anemia presents in referral from his specialist after outpatient labs this week demonstrated a hemoglobin of 7.1. He was here about a week ago for GI bleeding and anemia. He denies any further GI
bleeding. He has followed with Dr. Locke. He notes just fatigue but denies chest pain or shortness of breath. He denies dark or tarry stools. No fever. He most recently had a paracentesis 3 days ago which removed almost 10 L.
Past History
<Kirit Finley PA-C - Last Filed: 10/31/23 13:49>
Past History
ED Past Medical History: Arrthythmia (Atrial fibrillation), HTN, NIDDM and Other (Alcoholic cirrhosis, diverticulitis, anemia)
ED Past Surgical History: Orthopedic (Knee surgery) and Urological (Hydrocele)
Social History
Tobacco: Non-smoker
Alcohol: Former
Drug: None
Personal:
Living: with family
Phy Exam
<Kirit Finley PA-C - Last Filed: 10/31/23 13:49>
Physical Exam
Physical Exam:
General: Chronically ill-appearing male no respiratory distress
HEENT: Normocephalic atraumatic
Heart: Regular rate and rhythm no murmurs
Lungs: Clear no wheeze or rales
Abdomen is soft mildly distended no guarding rebound normal bowel sounds
Extremities: No cyanosis but mild edema
Skin is pale
Course
<Kirit Finley PA-C - Last Filed: 10/31/23 13:49>
Orders/Labs/Results
Orders:
Orders
10/31/23 12:32
Type+Screen Urgent
Complete Blood Count/With Diff Urgent
Comprehensive Metabolic Panel Urgent
Abnormal Lab Results
10/31/23
12:32
RBC 2.79 L 10^6/uL
(4.70-6.10)
Hgb 7.6 L g/dL
(13.0-18.0)
Hct 23.8 L %
(39.0-52.0)
MCHC 31.9 L g/dL
(33.0-37.0)
RDW 19.5 H %
(11.5-14.5)
Absolute Lymphs (auto) 0.8 L 10^3/uL
(1.2-3.4)
Absolute Monos (auto) 0.8 H 10^3/uL
(0.1-0.6)
Lymphocytes % 13.5 L %
(20.5-51.1)
Monocytes % 13.3 H %
(1.7-9.3)
Sodium 129 L mmol/L
(135-145)
BUN 54 H mg/dl
(9-20)
Creatinine 1.6 H mg/dL
(0.7-1.3)
Glucose 220 H mg/dl
(70-99)
Calcium 8.1 L mg/dl
(8.4-10.2)
Total Bilirubin 1.6 H mg/dl
(0.2-1.3)
Alkaline Phosphatase 160 H U/L
(38-126)
Total Protein 5.6 L g/dl
(6.3-8.2)
Albumin 2.3 L g/dl
(3.5-5.0)
10/31/23 12:32
10/31/23 12:32
Vital Signs
Initial and Last Documented VS:
Initial Vital Signs
Temp Pulse Resp BP Pulse Ox
98.2 F 79 18 102/43 100
10/31/23 11:05 10/31/23 11:05 10/31/23 11:05 10/31/23 11:05 10/31/23 11:05
Last Documented Vital Signs
Temp Pulse Resp BP Pulse Ox
98.2 F 63 15 113/55 95
10/31/23 11:05 10/31/23 13:00 10/31/23 12:33 10/31/23 13:00 10/31/23 13:00
Jorge Luislt;Balwinder Connor, DO - Last Filed: 10/31/23 13:41>
Orders/Labs/Results
Orders:
Orders
10/31/23 12:32
Type+Screen Urgent
Complete Blood Count/With Diff Urgent
Comprehensive Metabolic Panel Urgent
Abnormal Lab Results
10/31/23
12:32
RBC 2.79 L 10^6/uL
(4.70-6.10)
Hgb 7.6 L g/dL
(13.0-18.0)
Hct 23.8 L %
(39.0-52.0)
MCHC 31.9 L g/dL
(33.0-37.0)
RDW 19.5 H %
(11.5-14.5)
Absolute Lymphs (auto) 0.8 L 10^3/uL
(1.2-3.4)
Absolute Monos (auto) 0.8 H 10^3/uL
(0.1-0.6)
Lymphocytes % 13.5 L %
(20.5-51.1)
Monocytes % 13.3 H %
(1.7-9.3)
Sodium 129 L mmol/L
(135-145)
BUN 54 H mg/dl
(9-20)
Creatinine 1.6 H mg/dL
(0.7-1.3)
Glucose 220 H mg/dl
(70-99)
Calcium 8.1 L mg/dl
(8.4-10.2)
Total Bilirubin 1.6 H mg/dl
(0.2-1.3)
Alkaline Phosphatase 160 H U/L
(38-126)
Total Protein 5.6 L g/dl
(6.3-8.2)
Albumin 2.3 L g/dl
(3.5-5.0)
10/31/23 12:32
10/31/23 12:32
Vital Signs
Initial and Last Documented VS:
Initial Vital Signs
Temp Pulse Resp BP Pulse Ox
98.2 F 79 18 102/43 100
10/31/23 11:05 10/31/23 11:05 10/31/23 11:05 10/31/23 11:05 10/31/23 11:05
Last Documented Vital Signs
Temp Pulse Resp BP Pulse Ox
98.2 F 63 15 113/55 95
10/31/23 11:05 10/31/23 13:00 10/31/23 12:33 10/31/23 13:00 10/31/23 13:00
<Kirit Finley PA-C - Last Filed: 10/31/23 13:49>
MDM/Problems Addressed
Differential Diagnosis Includes:
Patient presents with low outpatient hemoglobin. Vital signs are stable. Will recheck labs.
<Kirit Finley PA-C - Last Filed: 10/31/23 13:49>
*Critical Care Note
Total Time (30-74mins, 75-104mins- exclusive of procedures): Not Applicable
<Kirit Finley PA-C - Last Filed: 10/31/23 13:49>
Update Note
Update Note:
Labs today demonstrate hemoglobin of 7.6 which upon review of prior records, patient has a baseline hemoglobin of 7.6. Vital signs are stable. He notes no further bleeding. At this point given his hemoglobin did return to baseline there is no
indication for emergent blood transfusion. Discussed with emergency room attending as well as GI. GI also recommended against the use of unnecessary blood transfusions in cirrhotic patients secondary to increased risk of variceal bleeding.
Patient was explained this. He is okay without any transfusion will be discharged and follow-up with his specialist with chronic anemia
ED Attending Note
<Kirit Finley PA-C - Last Filed: 10/31/23 13:49>
-
Portions of this chart may have been created with voice recognition software.� Occasional wrong word or��sound alike� substitutions may have occurred due to the inherent limitations of voice recognition software.
<Balwinder Connor DO - Last Filed: 10/31/23 13:41>
ED Attending Note
Patient seen and examined by attending physician: Yes
I performed the substantive portion of visit, reviewed & personally made and approve the management plan that is documented in note by myself or KARTHIK.: Yes
ED Attending Note:
Seen with PA examined independently
Cirrhotic status post 9 L removed earlier this week
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
Looks chronically ill but nontoxic
Discharge Plan
Departure
Patient Disposition: Home (Routine Discharge)
Date of Disposition: 10/31/23
Time of Disposition: 13:47
Patient with high blood pressure during this ER visit?: No
Discharge Problem:
Anemia, chronic disease
Prescriptions:
No Action
cyanocobalamin (vitamin B-12) 500 mcg Tablet
500 mcg PO DAILY
pantoprazole [Protonix] 40 mg Tablet,Delayed Release (Dr/Ec)
40 mg PO DAILY
timolol maleate 0.5 % Drops
1 drp LEFT EYE BID
PreserVision AREDS 2,148 mcg-113 mg-45 mg-17.4mg Tablet
1 tab PO BID
atorvastatin [Lipitor] 10 mg Tablet
10 mg PO HS
Januvia 100 mg tablet
100 mg PO DAILY
gabapentin 300 mg capsule
300 mg PO BID
midodrine 5 mg Tablet
10 mg PO TID@0800,1300,1800 Qty: 180 0RF
insulin glargine [Basaglar KwikPen U-100 Insulin] 100 unit/mL (3 mL) insulin pen
15 unit SC HS Qty: 0 0RF
aspirin 81 mg tablet,delayed release (DR/EC)
81 mg PO DAILY
propranolol 10 mg tablet
10 mg PO BID
Metamucil Packet
1 packet PO TID PRN (Reason: constipation) Qty: 0
insulin aspart U-100 [Novolog U-100 Insulin aspart] 100 unit/mL Solution
10 unit SC AC
cholecalciferol (vitamin D3) 50 mcg (2,000 unit) Tablet
50 mcg PO DAILY
polyethylene glycol 3350 [ClearLax] 17 gram powder in packet
17 g PO DAILY
lactulose 20 gram/30 mL solution
20 g PO DAILY Qty: 1200 0RF
Referrals:
Chantelle Foster MD [Family Provider] -
Activity Restrictions/Additional Instructions:
Please return here if needed otherwise continue to follow-up with your specialist as planned
Interventions
Interventions:
*Risk Screen - Suicide Last Done: 10/31/23 11:05
*General Assessment Last Done: 10/31/23 11:05
*Neglect/Abuse Screening Last Done: 10/31/23 11:05
*ED COVID-19 Vaccine History Last Done: 10/31/23 11:05
Discharge Date and Time
Print Language: SIERRA LEONEAN
[2023-10-31 12:49] LABS: % Basophils 1.6 % (0-2); % Eosinophils 2.6 % (0-6); % Immature Granulocytes 0.3 % (0-0.5); % Lymphocytes 13.5 % (20.5-51.1); % Monocytes 13.3 % (1.7-9.3); % Neutrophils 68.7 % (42.2-75.2); Absolute Basophils 0.1 10^3/uL (0-0.2); Absolute Eosinophils 0.2 10^3/uL (0-0.7); Absolute Lymphocytes 0.8 10^3/uL (1.2-3.4); Absolute Monocytes 0.8 10^3/uL (0.1-0.6); Hematocrit 23.8 % (39.0-52.0); Hemoglobin 7.6 g/dL (13.0-18.0); Mean Corp Hgb Conc. 31.9 g/dL (33.0-37.0); Mean Corpuscular Hgb 27.2 pg (27.0-31.0); Mean Corpuscular Volume 85.3 fL (80.0-94.0); Mean Platelet Volume 9.7 fL (7.4-10.4); Nucleated Red Blood Cells % 0 % (-); Platelet Count 130 10^3/uL (130-400); Red Blood Cell Count 2.79 10^6/uL (4.70-6.10); Red Cell Dist. Width 19.5 % (11.5-14.5); White Blood Cell Count 5.8 10^3/uL (4.8-10.8)
[2023-10-31 13:00] VITALS: BP 113/55
[2023-10-31 13:26] LABS: ALT (SGPT) 13 U/L (0-50); AST (SGOT) 28 U/L (17-59); Albumin 2.3 g/dl (3.5-5.0); Alkaline Phosphatase 160 U/L (38-126); Blood Urea Nitrogen 54 mg/dl (9-20); Calcium 8.1 mg/dl (8.4-10.2); Carbon Dioxide 24 mmol/L (22-30); Chloride 101 mmol/L (98-107); Glucose 220 mg/dl (70-99); Sodium 129 mmol/L (135-145); Total Bilirubin 1.6 mg/dl (0.2-1.3); Total Protein 5.6 g/dl (6.3-8.2); eGFR 46.93
== END 2023-10-31 14:06 | disposition home or self-care (01) ==
LOC: EMR 11:00
PROVIDERS: Physician Assistant; EMERGENCY PHYSICIAN Emergency Medicine; FAMILY PHYSICIAN Family Medicine
DX: D63.8 Anemia in other chronic diseases classified elsewhere (principal); R53.83 Other fatigue; I48.91 Unspecified atrial fibrillation; I10 Essential (primary) hypertension; E11.9 Type 2 diabetes mellitus without complications; K70.30 Alcoholic cirrhosis of liver without ascites; K57.92 Diverticulitis of intestine, part unspecified, without perforation or abscess without bleeding; Z79.82 Long term (current) use of aspirin; Z88.2 Allergy status to sulfonamides; Z88.8 Allergy status to other drugs, medicaments and biological substances
CPT/HCPCS: 99283; 80053; 85025; 86850; 86900; 86901

== ENCOUNTER 2023-11-04 14:57 | Inpatient (IN) | payer OTHER, MEDICARE, SELFPAY ==
[2023-11-04] VITALS (20 sets, daily range): BP systolic 106–141; BP diastolic 41–83; BMI 26.7; BMI 25.2
[2023-11-04 08:35] LABS: % Eosinophils 2.5 % (0-6); % Immature Granulocytes 0.3 % (0-0.5); % Lymphocytes 18.2 % (20.5-51.1); Absolute Basophils 0.1 10^3/uL (0-0.2); Absolute Eosinophils 0.2 10^3/uL (0-0.7); Absolute Lymphocytes 1.1 10^3/uL (1.2-3.4); Absolute Monocytes 0.8 10^3/uL (0.1-0.6); Absolute Neutrophils 3.9 10^3/uL (1.4-6.5); Mean Corp Hgb Conc. 32.5 g/dL (33.0-37.0); Mean Corpuscular Hgb 27.4 pg (27.0-31.0); Mean Corpuscular Volume 84.3 fL (80.0-94.0); Mean Platelet Volume 9.6 fL (7.4-10.4); Nucleated Red Blood Cells % 0 % (-); Platelet Count 162 10^3/uL (130-400)
[2023-11-04 08:38] LABS: Hematocrit 19.4 % (39.0-52.0); Hemoglobin 6.3 g/dL (13.0-18.0)
[2023-11-04 08:47] LABS: ALT (SGPT) 14 U/L (0-50); AST (SGOT) 35 U/L (17-59); Albumin 2.4 g/dl (3.5-5.0); Alkaline Phosphatase 193 U/L (38-126); Blood Urea Nitrogen 58 mg/dl (9-20); Calcium 8.3 mg/dl (8.4-10.2); Carbon Dioxide 22 mmol/L (22-30); Chloride 103 mmol/L (98-107); Estimated Creatinine Clearance 40 ml/min; Glucose 148 mg/dl (70-99); Potassium 4.6 mmol/L (3.5-5.1); Sodium 133 mmol/L (135-145); Total Bilirubin 1.1 mg/dl (0.2-1.3); Total Protein 5.8 g/dl (6.3-8.2); eGFR 40.75
[2023-11-04 09:24] LABS: INR 1.51; PT 18.3 Sec (11.4-14.6)
--- NOTE | 2023-11-04 10:03 | ED.GENMED ---
History of Present Illness
General
Chief Complaint: Rectal Bleeding
Source: patient and spouse
Exam Limitations: none
Time Seen by Provider: 11/04/23 07:56
Travel History
Have you had any contact with someone who has COVID-19?: No
Do you have any symptoms of coronavirus? Fever > 100 degrees, chills, cough, shortness of breath, sore throat, loss of taste or smell, muscle aches, or headache?: No
History of Present Illness
History of Present Illness:
67-year-old male with history of liver disease who presents with rectal bleeding. spouse also states that he has been confused. was here recently but hgb was stable. Patient last night and today again had blood from his rectum. states not
even bloody stool but just blood from the rectum. Patient offers no complaints but is slightly confused. concerned because he has been more confused. No fevers. No reported abdominal pain. states that he has large internal hemorrhoids
but that surgical fixation was not advised due to his risk
Past History
Past History
ED Past Medical History: Arrthythmia (Atrial fibrillation), HTN, NIDDM and Other (Alcoholic cirrhosis, diverticulitis, anemia)
ED Past Surgical History: Orthopedic (Knee surgery) and Urological (Hydrocele)
Social History
Tobacco: Non-smoker
Alcohol: Former
Drug: None
Personal:
Living: with family
Phy Exam
Physical Exam
Physical Exam:
CONSTITUTIONAL Patient alert and oriented to person, place. ill-appearing. Vital signs reviewed. pale
HEAD atraumatic, normocephalic.
EYES eyelids normal to inspection, Extraocular muscles intact, Conjunctiva normal, Sclera normal.
NECK normal range of motion, Trachea midline, no jugular venous distention.
RESPIRATORY CHEST No respiratory distress noted, Chest expansion equal,
ABDOMEN abdomen nontender, Bowel sounds normal. Mild distention.
BACK normal inspection, no obvious deformities
UPPER EXTREMITY range of motion normal, Motor strength normal, no cyanosis, no edema.
LOWER EXTREMITY range of motion normal, Motor strength normal, no cyanosis, no edema.
NEURO Speech normal, No focal motor deficits, Cranial Nerves intact to screening exam. Asterixis noted
SKIN pale
Course
Orders/Labs/Results
Orders:
Orders
11/04/23 07:57
IV Insert/Care/Rem.- Treatment PRN
11/04/23 08:09
Type+Screen Urgent
Ammonia Urgent
Complete Blood Count/With Diff Urgent
Comprehensive Metabolic Panel Urgent
Prothrombin Time Urgent
11/04/23 08:39
* Blood Bank Products Urgent
Blood Bank Products: *Packed RBC Leuko(PRBC's)
Quantity: 2
Transfuse Today: Yes
Reason: Anemia
IV Insert/Care/Rem.- Treatment PRN
11/04/23 Lunch
Clear Liquid
Clear Liquids: No red liquids
11/04/23 12:00
Octreotide Acetate [Sandostatin] 600 mcg 0.9% Sodium Chloride 500 ml [Nss] 500 ml IV Q12H
11/04/23 12:09
Octreotide [Sandostatin] 50 mcg IV NOW STA
11/04/23 12:16
Notify MD As Directed
Notify physician if: call if patient not tolerating colonoscopy prep
11/04/23 13:00
Midodrine [ProAmatine] 10 mg PO TID@0800,1300,1800
Pantoprazole [Protonix IV] 40 mg IV BID
11/04/23 14:00
CefTRIAXone [Rocephin] 1,000 mg IV Q24H
11/04/23 15:00
Colyte Peg Electrolyte Soln [Nulytely Solution] 4 liters PO ONCE ONE
11/04/23 17:00
CBC/No Diff [Complete Blood Count/No Diff] Routine
11/04/23 20:00
Rifaximin [Xifaxan] 550 mg PO BID
11/04/23 22:00
CBC/No Diff [Complete Blood Count/No Diff] Routine
11/05/23 Breakfast
NPO
Allow oral meds: Yes
Allow clear liquids: 4hrs prior to procedure
NPO for procedure after (time): midnight for GI Procedure tomorrow
Comment: may have unrestricted clear liquids up to 4 hrs prior to scheduled proc
Complete Blood Count/No Diff IN AM
Comprehensive Metabolic Panel IN AM
Direct Bilirubin IN AM
Prothrombin Time IN AM
11/05/23 08:00
Surgical Procedure As Directed
Surgical Procedure: EGD/COLO
Abnormal Lab Results
11/04/23
08:09
RBC 2.30 L 10^6/uL
(4.70-6.10)
Hgb 6.3 L* g/dL
(13.0-18.0)
Hct 19.4 L* %
(39.0-52.0)
MCHC 32.5 L g/dL
(33.0-37.0)
RDW 20.0 H %
(11.5-14.5)
Absolute Lymphs (auto) 1.1 L 10^3/uL
(1.2-3.4)
Absolute Monos (auto) 0.8 H 10^3/uL
(0.1-0.6)
Lymphocytes % 18.2 L %
(20.5-51.1)
Monocytes % 13.0 H %
(1.7-9.3)
PT 18.3 H Sec
(11.4-14.6)
Sodium 133 L mmol/L
(135-145)
BUN 58 H mg/dl
(9-20)
Creatinine 1.8 H mg/dL
(0.7-1.3)
Glucose 148 H mg/dl
(70-99)
Calcium 8.3 L mg/dl
(8.4-10.2)
Alkaline Phosphatase 193 H U/L
(38-126)
Ammonia 46 H umol/L
(9-30)
Total Protein 5.8 L g/dl
(6.3-8.2)
Albumin 2.4 L g/dl
(3.5-5.0)
Crossmatch IS Only See Detail
11/04/23 08:09
Vital Signs
Initial and Last Documented VS:
Initial Vital Signs
Temp Pulse Resp BP Pulse Ox
98.1 F 77 18 107/53 100
11/04/23 07:14 11/04/23 07:14 11/04/23 07:14 11/04/23 07:14 11/04/23 07:14
Last Documented Vital Signs
Temp Pulse Resp BP Pulse Ox
98.2 F 76 15 141/66 100
11/04/23 10:56 11/04/23 12:15 11/04/23 12:15 11/04/23 12:00 11/04/23 12:15
MDM/Problems Addressed
MDM/Problems Addressed:
Acute severe anemia, chronic liver disease, asterixis, GI bleed
*Pulse Oximetry
Patient hypoxic: no
*Master Rigger Interpretation
Rate: normal
Interpretation: normal
Rhythm: sinus
*Critical Care Note
Total Time (30-74mins, 75-104mins- exclusive of procedures): 35 minutes
Data Reviewed
Review of Other/Old Records Reveals: Progress Notes (Gastroenterology notes reviewed. Was recommended TIPS.)
Source: patient and spouse
Further Testing Considered But Not Given:
Considered paracentesis but no abdominal tenderness to suspect SBP
Patient Management
Discussion with other providers: Hospitalist and Pattern Clerk (Gastroenterology)
Escalation/DeEscalation of care consider admission/obs:
67-year-old male who presents with continued bleeding. Found to have a hemoglobin in the sixes. Await ammonia but suspect at least mild hepatic encephalopathy. Discussed with gastroenterology. Admit. Transfuse
ED Attending Note
-
Portions of this chart may have been created with voice recognition software.� Occasional wrong word or��sound alike� substitutions may have occurred due to the inherent limitations of voice recognition software.
Discharge Plan
Departure
Patient Disposition: Admit
Date of Disposition: 11/04/23
Time of Disposition: 10:40
Admit to: Telemetry
Presentation/result/management discussed w/ accepting MD/DO: Hospitalist
Discharge Problem:
Acute GI bleeding, Acute hepatic encephalopathy
Prescriptions:
No Action
cyanocobalamin (vitamin B-12) 500 mcg Tablet
500 mcg PO DAILY
pantoprazole [Protonix] 40 mg Tablet,Delayed Release (Dr/Ec)
40 mg PO DAILY
timolol maleate 0.5 % Drops
1 drp LEFT EYE BID
PreserVision AREDS 2,148 mcg-113 mg-45 mg-17.4mg Tablet
1 tab PO BID
atorvastatin [Lipitor] 10 mg Tablet
10 mg PO HS
Januvia 100 mg tablet
100 mg PO DAILY
gabapentin 300 mg capsule
300 mg PO BID
aspirin 81 mg tablet,delayed release (DR/EC)
81 mg PO DAILY
cholecalciferol (vitamin D3) 50 mcg (2,000 unit) Tablet
50 mcg PO DAILY
insulin aspart U-100 [Novolog FlexPen U-100 Insulin] 100 unit/mL (3 mL) insulin pen
10 unit SC AC
insulin glargine [Basaglar KwikPen U-100 Insulin] 100 unit/mL (3 mL) insulin pen
12 unit SC HS
midodrine 5 mg tablet
10 mg PO TID@0800,1300,1800
lactulose 20 gram/30 mL solution
20 g PO DAILY
Referrals:
Chantelle Foster MD [Family Provider] -
Interventions
Interventions:
*Risk Screen - Suicide Last Done: 11/04/23 08:04
*General Assessment Last Done: 11/04/23 08:04
*Neglect/Abuse Screening Last Done: 11/04/23 08:04
ED- Fall Risk Assessment Last Done: 11/04/23 08:04
*ED COVID-19 Vaccine History Last Done: 11/04/23 07:14
JP-Vnopgm-Kgociopihd Assessment Last Done: 11/04/23 08:04
ED- Cardiac Assessment Last Done: 11/04/23 08:04
ED- Pulmonary Assessment Last Done: 11/04/23 08:04
Discharge Date and Time
Print Language: IVORIAN
--- NOTE | 2023-11-04 11:08 | CON.GI ---
Addendum entered and electronically signed by Winnie Landry DO 11/04/23 12:45:
I saw and examined the patient.
The COOK [employer]IP or PA's note was reviewed and I agree with the note.
Comment:
Himanshu Garrido is a 67 y.o. male with history of Decompensated EtoH cirrhosis c/b recurrent ascites requiring large volume paracentesis, hx GI bleeding, DM2, HTN, CAD s/p CABG, BPH, HLD, umbilical hernia, hydrocele, neuropathy admitted with
large-volume hematochezia and encephalopathy.
On exam he is AAOx3 with mild asterixes, hemodynamically stable. reports hallucinations this morning. Currently on lactulose with 2 soft BMs daily. Last drink of alcohol was 10 days ago.
Labs on arrival: WBC 6.0, hemoglobin 6.3 (previously 7.6 on 10/30), platelets 162, INR 1.51, sodium 133, potassium 4.6, BUN 58, creatinine 1.58, glucose 148, total bilirubin 1.1, AST 35, ALT 14, alk phos 193, albumin 2.4
Patient has frequent readmissions for intermittent hematochezia as well as large-volume hematochezia with what I feel is an unclear etiology. We do not have adequate visualization of rectal varices and I find it hard to believe that his internal
hemorrhoids are causing such profuse bleeding leading to significant drops in hemoglobin. So far, he has had 7 units of blood transfused since the start of 2023, with 1 more being transfused at this time. Last full colonoscopy was in 2021 at [facility] do not have records of this, reports a few small polyps. Recent flex sig with poor visualization. EGD with small varices, portal HTN gastropathy. Recommend performing both EGD and Colonoscopy tomorrow-- need to determine etiology of
recurrent GI Bleeding so we can direct the correct management for him. He does not have any hemodynamic instability, typically has hypotension, recently stopped propanolol, unable to tolerate due to hypotension, now on midodrine. However, elevated
BUN/Cr., slightly worse from labs on 10/31 but new elevation from baseline.
Due for repeat paracentesis, some abdominal distension but nonperitonitic and patient comfortable. Discussed concerns of precipitating HRS with large-volume paracentesis given CA and active GI bleeding, will defer paracentesis until acute issues
have stabilized.
Recommendations:
-Okay for clear liquids, prep orders placed, NPO PMN for EGD/Colonoscopy tomorrow
-INR <1.7, Plt >50, Hgb >7.0
-PPI BID okay for now, Octreotide gtt, Ceftriaxone for SBP ppx
-lactulose on hold while receiving prep, will resume following procedure. Needs addition of rifaximin as reports of ongoing encephalopathy despite daily lactulose
-Unable to tolerate beta-luz, now on midodrine
-Eventual paracentesis, timing TBD
-Will notify Dr. Womack of patient's presentation, depending on results of endoscopy tomorrow, may require transfer to [facility] for expedited TIPS evaluation
I discussed plan at length with patient, and [id number] at bedside.
Original Note:
Consultation
-
Date/Time Consultation Requested: 11/04/23 1100
Date/Time Consultation Performed: 11/04/23 1108
Requesting Provider:
Performing Provider: Dr. odonnell/Sudha VU
Reason for Consultation: GI Bleed/Cirrhosis
Medical History
Chief Complaint / HPI
Chief Complaint: rectal bleeding, cirrhosis
History of Present Illness:
67yo male with a past medical history significant for decompensated ETOH liver cirrhosis with ascites with weekly large volume paracentesis (7-9 Liters), is due today(follows with Dr. Ramirez and newly seen by Dr. Womack on
10/12/23) , small <5 EV without bleeding, history of hemorrhoids/GI bleeding, HTN, DM2, CAD with prior CABG, chronic anemia, hydrocele, BPH, HLD, umbilical hernia, neuropathy, who presented to the emergency room with recurrent rectal bleeding, last
time 10/13/23. He has been seen several time by GI for similar symptoms. He has been noted with anoscopy which did show grade 2 internal hemorrhoids with normal brown appearing stool. He was placed on Anusol HC without improvement.He was evaluated
by colorectal surgery inpatient but his bleeding had subsided at the time of their evaluation, therefore they advised outpatient follow-up for possible banding Repeat evaluation with colorectal again deferred intervention as not great surgical
candidate with liver issues and OP followup. In August he completed EGD with small <5mm EV, portal HTN gastropathy and normal duodenum. He also completed flex sig at that time with Hemorrhoids were found on perianal exam. A large amount of
stool was found in the rectum, in the recto-sigmoid colon and in the sigmoid colon, precluding visualization.Internal hemorrhoids were found during retroflexion. The hemorrhoids were medium-sized and Grade II (internal hemorrhoids that prolapse but
reduce spontaneously). He was recommended adding Beta luz and is noted on Propranolol, this was just DC last week as he could not tolerate. He also has been off Lasix and Aldactone for a couple months. The patient recently stopped ETOH 10 days
ago and prior was drinking 4 glasses of wine daily. He is on ASA 81 mg daily, no other NSAIDs. He was started on Lactulose 2 weeks ago and has 1-2 soft BMs daily. He now presents with recurrent bleeding. The patient started on Thursday with bright
red blood per rectum that is dripping with large amount with a puddle in the bed. His family member had cleaned this up. This then continued down the hallway with large amount in the toilet. Patient had recurrent episode Thursday in the middle of
the night. He also has a large episode on Thursday, With clots in it. His family member then states that today he also had a large puddle in his bed as well as recurrent episodes. At first the patient declined to come to the emergency room but
then agreed. Patient WBC 6.0, hemoglobin 6.3, platelets 162, INR 1.51, sodium 133, potassium 4.6, BUN 58, creatinine 1.58, glucose 148, total bilirubin 1.1, AST 35, ALT 14, alk phos 193, ammonia pending, albumin 2.4. Of note patient's last
hemoglobin was on 10/31/2023 and this was 7.6. The patient denies any chest pain, shortness of breath or dyspnea on exertion. He denies any fevers, nausea, vomiting, melena, dysphagia or odynophagia.
Past Medical History
Past Medical History: CAD (CABG on ASA), HTN, NIDDM and Other (decompensated ETOH liver cirrhosis with ascites, hx non-bleeding esophageal varices grade 1, chronic anemia, hemorrhoids, hydrocele, BPH)
Past Surgical History: Cardiac (CABG x 5 vessels) and Other (masteoidectomy, right hydrocelectomy, right knee arthroscopy)
Social History
Tobacco: Former Smoker
Alcohol: Former (denies current use with hx ETOH in past )
Drug: None
Living: With Family (lives with mother )
Employment: Retired
Family History
Family History: Reviewed & Not Pertinent
Allergies / Home Medications
Allergy/AdvReac Type Severity Reaction Status Date / Time
empagliflozin Allergy potential Verified 11/04/23 07:14
[From Synjardy XR] cause of
euglycemic
DKA 03/26/23
metformin [From Synjardy XR] Allergy potential Verified 11/04/23 07:14
cause of
euglycemic
DKA 03/26/23
Sulfa (Sulfonamide Allergy Hives Verified 11/04/23 07:14
Antibiotics)
�Medication �Instructions �Recorded
cyanocobalamin (vitamin B-12) 500 500 mcg PO DAILY Supplement 03/25/23
mcg tablet
pantoprazole 40 mg tablet,delayed 40 mg PO DAILY Gastrointestinal 03/25/23
release (Protonix) Issue
timolol maleate 0.5 % eye drops 1 drp LEFT EYE BID Eye Condition 03/25/23
vitamins A,C,P-eylt-brgfls 2,148 1 tab PO BID Supplement 03/25/23
mcg-113 mg-45 mg-17.4 mg tablet
(PreserVision AREDS)
atorvastatin 10 mg tablet (Lipitor) 10 mg PO HS High Cholesterol 05/20/23
gabapentin 300 mg capsule 300 mg PO BID Pain 08/08/23
sitagliptin phosphate 100 mg 100 mg PO DAILY Diabetes 08/08/23
tablet (Januvia)
aspirin 81 mg tablet,delayed 81 mg PO DAILY Blood Clot 10/08/23
release Prevention/Tx
cholecalciferol (vitamin D3) 50 50 mcg PO DAILY Supplement 10/13/23
mcg (2,000 unit) tablet
insulin aspart U-100 100 unit/mL 10 unit SC AC Diabetes 11/04/23
(3 mL) subcutaneous pen (Novolog
FlexPen U-100 Insulin aspart)
insulin glargine 100 unit/mL (3 12 unit SC HS Diabetes 11/04/23
mL) subcutaneous pen (Basaglar
KwikPen U-100 Insulin)
lactulose 20 gram/30 mL oral 20 g PO DAILY Constipation 11/04/23
solution
midodrine 5 mg tablet 10 mg PO TID@0800,1300,1800 Blood 11/04/23
Pressure
Review of Systems
-
All other systems: A 12 pt ROS was Negative except as stated above in HPI
Vital Signs
Temp Pulse Resp BP Pulse Ox
98.2 F 74 14 107/41 100
11/04/23 10:56 11/04/23 10:56 11/04/23 10:56 11/04/23 10:56 11/04/23 10:56
Physical Exam
Exam
General: No Apparent Distress
HEENT: Anicteric
Respiratory: Clear
Cardiac: Regular Rhythm
GI: Soft, Non Tender, Normal Bowel Sounds, Distended and Other (+ ascites)
Musculoskeletal: No Edema
Skin: Warm, Dry and Other (pale, areas of ecchymosis on left arm)
Neuro: AO x 3 and Other (mild asterixis)
Psych: Calm
Results
WBC 6.0 10^3/uL (4.8-10.8) 11/04/23 08:09
Hgb 6.3 g/dL (13.0-18.0) L* 11/04/23 08:09
Hct 19.4 % (39.0-52.0) L* 11/04/23 08:09
MCV 84.3 fL (80.0-94.0) 11/04/23 08:09
Plt Count 162 10^3/uL (130-400) D 11/04/23 08:09
Absolute Neuts (auto) 3.9 10^3/uL (1.4-6.5) 11/04/23 08:09
PT 18.3 Sec (11.4-14.6) H 11/04/23 08:09
INR 1.51 11/04/23 08:09
Sodium 133 mmol/L (135-145) L 11/04/23 08:09
Potassium 4.6 mmol/L (3.5-5.1) 11/04/23 08:09
Chloride 103 mmol/L (98-107) 11/04/23 08:09
Carbon Dioxide 22 mmol/L (22-30) 11/04/23 08:09
BUN 58 mg/dl (9-20) H 11/04/23 08:09
Creatinine 1.8 mg/dL (0.7-1.3) H 11/04/23 08:09
Calcium 8.3 mg/dl (8.4-10.2) L 11/04/23 08:09
Total Bilirubin 1.1 mg/dl (0.2-1.3) 11/04/23 08:09
AST 35 U/L (17-59) 11/04/23 08:09
ALT 14 U/L (0-50) 11/04/23 08:09
Alkaline Phosphatase 193 U/L (38-126) H 11/04/23 08:09
Diagnostic Image Results:
Last paracentesis 10/28/2023:
9900 cc clear yellow ascitic fluid evacuated.
Prior GI Procedures:
EGD: 08/2022 [facility] with small <5mm EV, portal HTN gastropathy and normal duodenum.
flex sig-- Sean 08/2022 at that time with Hemorrhoids were found on perianal exam.
Colonoscopy: colonoscopy [address] Handy at [facility]
Assessment / Plan
-
67yo male with a past medical history significant for decompensated ETOH liver cirrhosis with ascites with weekly large volume paracentesis (7-9 Liters), is due today(follows with Dr. Ramirez and newly seen by Dr. Womack on
10/12/23) , small <5 EV without bleeding, history of hemorrhoids/GI bleeding, HTN, DM2, CAD with prior CABG, chronic anemia, hydrocele, BPH, HLD, umbilical hernia, neuropathy, who presented to the emergency room with recurrent rectal bleeding, last
time 10/13/23. He has been seen several time by GI for similar symptoms. He has been noted with anoscopy which did show grade 2 internal hemorrhoids with normal brown appearing stool. He was placed on Anusol HC without improvement. Has been seen
by Dr. Womack on 10/12/2023. TIPS was discussed but needs further evaluation at [facility]. Now presents again with further bleeding with hemoglobin currently 6.3 down from 7.6 on 10/31/2023. Patient is also due for paracentesis usually has large
volume once weekly. Was due today. Patient was removed off of propranolol approximately 1 week ago secondary to labile blood pressure. Was also placed on midodrine 3 times a day. Continues on lactulose 20 g daily and produces 1-2 soft bowel
movements daily. Patient has been off of Lasix and Aldactone for a couple months. Currently with bright red blood per rectum initially with persistent dripping and pedaling since Thursday now progressed to clots since Thursday. Vital signs are
stable. Patient without any chest pain shortness of breath or nausea/vomiting or abdominal pain. Patient currently being transfused 1 unit packed red blood cells. MELD 3.0->21.
Impression:
Recurrent rectal bleeding-> hemorrhoidal versus rectal varices
Decompensated cirrhosis, secondary to alcohol. Now abstinent
Ascites, weekly large-volume paracentesis (approximately 7 to 9 L) with albumin to follow after
History of esophageal varices, small less than 5 mm with last endoscopy August 2023
Plan:
-Transfuse as ordered, keep hemoglobin around 7-8 range
-Will start octreotide bolus and drip as prophylaxis until EGD.
-Plan on EGD/COLO tomorrow
-Pantoprazole 40 mg IV BID
-Start Ceftriaxone 1 gm daily for SBP ppx
-Repeat CBC 2 hrs post transfusion, if <7 give another unit PRBC.
-Repeat CBC at 2200 and am
-CMP, direct bili, PT/INR in am
-Clear liquid no reds
-Continue midodrine
-Patient has not been able to tolerate propranolol in the past secondary to hypotension
-Will need paracentesis this admission, timing to be determined. With fluid analysis. Will require albumin after.
-Will hold Lactulose until after EGD/COLO then resume 20 gm daily.
-Add Xifaxin 550 mg po BID
-Patient not to ambulate to bathroom, needs assistance/bedside commode.
-Will update Dr. Womack
-Further recommendations to be forthcoming.
-
-
Thank you for consultation and allowing me to participate in the patient's care. Please call the foreman/pile driving and erection GI physician during the after hours with any questions or concerns.
[2023-11-04 11:28] LABS: Ammonia 46 umol/L (9-30)
--- NOTE | 2023-11-04 14:12 | CM ---
CM reviewed medical records. CM spoke with patient's sister Missy who is expressing a desire to be updated on patient's prognosis. Patient's sister expressed that she would be agreeable to Hospice or Palliative Care, but she feels patient and
are still unclear on discharge plan. CM spoke with resident to updated on sister's questions. Resident will speak with patient once attending is available.
CM updated bedside RN>
[2023-11-04] MEDS: SANDOSTATIN 500.600000000000023 MCG IV (14:51)
[2023-11-04] MEDS: ROCEPHIN 1000 MG IV (15:04)
[2023-11-04] MEDS: NSS (PRESERVATIVE FREE) 10 ML IV ×2 (15:05→20:39)
[2023-11-04] MEDS: STERILE WATER FOR INJECTION 10 ML IV (15:05)
[2023-11-04] MEDS: PROTONIX IV 40 MG IV ×2 (15:05→20:38)
--- NOTE | 2023-11-04 15:21 | HPS.HSE ---
Addendum entered and electronically signed by Junito Uriostegui MD 11/04/23 22:59:
Attending Addendum-
I performed a history and physical exam of the patient and discussed his management with the resident. I reviewed the resident's note and agree with the documented findings and plan of care Patient presents due to hematochezia. Has has multiple
admissions for the same. had large amount bright red blood this am. Denies inciting events. Full 12 point ROS reviewed and negative except as documented Exam- vitals reviewed in chart GEN-jaundiced heart RRR lungs crackles at bases abd distended pos
fluid wave pos HJR LE +1 pitting edema B/L - large hydrocele Neuro AAO x 2 asterixis present Plan:
#Recurrent lower GI bleed from Internal hemorrhoids/Acute blood loss anemia
-Hb 6.3
-Patient have recurrent lower GI bleed occurring from internal hemorrhoids secondary to portal hypertension
-transfused 2 units prbc in ED
-GBBS- 13
-trend H and H
-Unfortunately high risk for recurrence of bleed due to underlying portal hypertension and related issues.
-NPOpMN for colon and endo in am
-cont octreotide and IV PPI BID
-GI evaluated and patient will be following up with Dr. Womack for TIPS procedure
# EToH abuse
- last drink 10 days ago per patient
- MVI thiamine folic acid
- start MSAS
# Ascites
-Patient gets large volume paracentesis almost every 2 weeks
-S/p recent drainage of 9.9 L transudative fluid. Posttransfusion albumin provided.
-depending on prognosis may benefit from Pleurx peritoneal cath
- for paracentesis after scopes
# CA-
likely from third spacing volume overload prerenal
- for paracentesis when able
- cont to monitor
- start lasix/spironolactone when able
# Hepatic Encephalopathy
- hold lactulose for scope
- start xifaxan
- for TIPS at [place] when able
# Massive Hydrocele
-Bilateral large scrotum with sac communicating to peritoneal cavity
-Has been evaluated by urology in June and no definitive treatment available except treatment of ascites
# End Stage Liver Disease/Cirrhosis
Pancytopenia
Coagulopathy
-MELD- 21
-monitor INR and LFT's daily
-for likely transfer to [place] for TIPS
-vit k x 1 SQ given
# Chronic Hyponatremia
- close to baseline, monitor
# Type II DM
-Continue Lantus 15 units at bedtime. Maintained on NovoLog 10 U AC.
-adjust when NPO
-maintain on ISS.
# Coronary disease status post bypass
portal gastropathy
BPH
Orthostatic hypotension
DVTPPX - scd
Code FULL d/w patient and family present will verify with
Time spent coordinating care, review of plan of care with resident, review of records, med rec, consults, notes, labs, rads, d/w nursing - 79 mins
Original Note:
Family Physician
-
Family Physician: Chantelle Foster
Chief Complaint
-
Acute GI bleeding
History of Present Illness
History was obtained from pt, past medical records, alongside his sister and his brother on bedside and on the phone. Patient is a 67-year-old male with past medical history of type II DM, decompensated alcohol cirrhosis, hemorrhoids,
esophageal varices, portal hypertension, CAD s/p bypass surgery, hyperlipidemia, hydrocele, who presented to the ED 11/04/2023 large-volume hematochezia. He started having rectal bleeding 10/31 which was intermittent at first but worsened earlier this
A.m. Pt's confirmed that patient appeared slightly confused earlier in the day with hallucinations. He was recently discharged from the hospital 10/15/2023 for similar presentation at which time he hemoglobin was 7.6.
While in the ED, his hemoglobin was 6.3, platelet 162, sodium 133, INR 1.51, AST 35, ALT 14, LP 139 albumin 2.4, creatinine 1.58 (baseline 0.6), WBC 6.0. Patient has received a total of 7 units of blood transfusions since June 2023. Patient had
colonoscopy in 2021 at [facility] reported few polyps by family. Patient and his family confirmed that patient has continued to drink, is last drink was 10 days ago. He drinks wine only, but no drugs or smoking. Flexible sigmoidoscopy and
endoscopy 09/23/2023 showed perianal and internal grade 2 hemorrhoids; small possible esophageal varices with portal hypertensive gastropathy. Patient stopped taking propranolol because of hypotension and is now on midodrine. Patient denies chest
pain, shortness of breath, palpitations, nausea, vomiting, dysphagia, odynophagia, fever, chills, or exertional dyspnea.
Medical History
Past Medical History
Past Medical History: Reports CAD, HTN, Hypercholesterolemia, IDDM and Other
Additional Past Medical History:
Hemorrhoid
Chronic anemia
Hydrocele
BPH
Umbilical hernia
Neuropathy
Portal hypertension
Portal gastropathy
Esophageal varices
Past Surgical History: Reports Other
Additional Past Surgical History:
Left mastoidectomy
CABG x 5
Right knee arthroscopy
Right hydrocelectomy
Social History
Tobacco: Other (Quit 30 years ago)
Alcohol: Former (Last drink 10 days ago)
Drug: None
Personal:
Living: With Family
Family History
Family History: Not pertinent
Allergies / Home Medications
Allergies reflects when Allergies were last updated in [facility].
Home Medications with original date entered in [facility]
Allergy/Medication List:
Allergies
Allergy/AdvReac Type Severity Reaction Status Date / Time
empagliflozin Allergy potential Verified 11/04/23 07:14
[From Synjardy XR] cause of
euglycemic
DKA 03/26/23
metformin [From Synjardy XR] Allergy potential Verified 11/04/23 07:14
cause of
euglycemic
DKA 03/26/23
Sulfa (Sulfonamide Allergy Hives Verified 11/04/23 07:14
Antibiotics)
Review of Systems
-
History Source: Patient
A 12 point ROS was completed and negative except as noted: Yes
Physical Exam
Vital Signs
Vital Signs
Temp Pulse Resp BP Pulse Ox
98.4 F 78 18 134/59 100
11/04/23 14:15 11/04/23 14:15 11/04/23 14:15 11/04/23 14:15 11/04/23 13:45
Home Medications
�Medication �Instructions �Recorded
cyanocobalamin (vitamin B-12) 500 500 mcg PO DAILY Supplement 03/25/23
mcg tablet
pantoprazole 40 mg tablet,delayed 40 mg PO DAILY Gastrointestinal 03/25/23
release (Protonix) Issue
timolol maleate 0.5 % eye drops 1 drp LEFT EYE BID Eye Condition 03/25/23
vitamins A,C,S-wcql-dqfock 2,148 1 tab PO BID Supplement 03/25/23
mcg-113 mg-45 mg-17.4 mg tablet
(PreserVision AREDS)
atorvastatin 10 mg tablet (Lipitor) 10 mg PO HS High Cholesterol 05/20/23
gabapentin 300 mg capsule 300 mg PO BID Pain 08/08/23
sitagliptin phosphate 100 mg 100 mg PO DAILY Diabetes 08/08/23
tablet (Januvia)
aspirin 81 mg tablet,delayed 81 mg PO DAILY Blood Clot 10/08/23
release Prevention/Tx
cholecalciferol (vitamin D3) 50 50 mcg PO DAILY Supplement 10/13/23
mcg (2,000 unit) tablet
insulin aspart U-100 100 unit/mL 10 unit SC AC Diabetes 11/04/23
(3 mL) subcutaneous pen (Novolog
FlexPen U-100 Insulin aspart)
insulin glargine 100 unit/mL (3 12 unit SC HS Diabetes 11/04/23
mL) subcutaneous pen (Basaglar
KwikPen U-100 Insulin)
lactulose 20 gram/30 mL oral 20 g PO DAILY Constipation 11/04/23
solution
midodrine 5 mg tablet 10 mg PO TID@0800,1300,1800 Blood 11/04/23
Pressure
Allergies
Allergy/AdvReac Type Severity Reaction Status Date / Time
empagliflozin Allergy potential Verified 11/04/23 07:14
[From Synjardy XR] cause of
euglycemic
DKA 03/26/23
metformin [From Synjardy XR] Allergy potential Verified 11/04/23 07:14
cause of
euglycemic
DKA 03/26/23
Sulfa (Sulfonamide Allergy Hives Verified 11/04/23 07:14
Antibiotics)
Physical Exam
General: No Apparent Distress, Comfortable and Conversant
HEENT: Moist mucous membranes
Respiratory: Clear; No Wheezes or Crackles
Cardiac: S1/S2 and Regular Rhythm; No Murmur, Rub or JVD
GI: Soft, Normal Bowel Sounds, Distended and Other (Ascites)
Skin: Warm and Other (Ecchymosis on left arm)
Neuro: Awake, Alert, Oriented, AO x 3 and Other (Asterixis)
Psych: Calm
Laboratory Results
-
11/04/23 08:09
Laboratory Results
PT 18.3 Sec (11.4-14.6) H 11/04/23 08:09
INR 1.51 11/04/23 08:09
Total Bilirubin 1.1 mg/dl (0.2-1.3) 11/04/23 08:09
AST 35 U/L (17-59) 11/04/23 08:09
ALT 14 U/L (0-50) 11/04/23 08:09
Alkaline Phosphatase 193 U/L (38-126) H 11/04/23 08:09
Data Reviewed
-
Lab Data: Labs Reviewed by me and Discussed with Physician
Old Records: Reviewed
Impression/Plan
-
ASSESSMENT: Patient is a 67-year-old male with past medical history of alcoholic cirrhosis, ascites, esophageal varices, multiple admissions for GI bleeding who presents to the ED on 11/04/2023 with severe large-volume hematochezia. Patient was
admitted for evaluation, and further workup for the source of bleeding. He admits to consuming 1 to 2 glasses of wine occasionally but no beer or liquor.
IMPRESSION:
Presentation with large-volume hematochezia.
Coagulopathy with thrombocytopenia
Anemia-Acute blood loss vs anemia of chronic disease
Alcoholic cirrhosis with esophageal varices and ascites
CA
Massive hydrocele
Hyponatremia
Conditions SURGICAL ASST:
Type 2 diabetes mellitus
CAD (s/p CABG)
Anemia of chronic disease
BPH
Orthostatic hypotension
Portal gastropathy
PLAN:
Presentation with large-volume hematochezia:
-Recurrent hematochezia likely due to GI bleed from internal hemorrhoids vs rectal varices.
-Recent EGD with portal hypertensive gastropathy but no active bleeding.
-Internal hemorrhoids found on perianal sigmoidoscopy, however the study was limited by inadequate prep.
-Repeat EGD and colonoscopy in AM.
-N.p.o.
-GI consulted and following, recs appreciated.
Anemia:
-Acute blood loss vs anemia of chronic disease.
-Hgb 6.3 on admission (was 7.6 on 10/30); improved to 9.2 s/p 2 units PRBC transfusion.
-Monitor H&H.
Pancytopenia with coagulopathy:
-INR 1.51, platelets 162 on admission, now 150, WBC 6.0 on admission now 5.4.
-Continue to monitor.
Coagulopathy with thrombocytopenia:
-Likely due to cirrhosis.
Alcoholic cirrhosis with esophageal varices, asterixis and ascites:
-MELD score 21.
-Maddrey score 18, no indication for glucocorticoids at this point.
-[place] Blatchford score, 12. Patient may benefit from TIPS.
-Last paracentesis with 9900 cc of clear yellow ascitic fluid evacuated.
-Gentle repeat paracentesis due to risk of hepatorenal syndrome with large volume paracentesis.
-Patient discontinued beta-luz due to hypotension, now on midodrine.
-Monitor hemodynamics while on midodrine.
-Pantoprazole.
-Lactulose.
-Consider IR consult for paracentesis
-Continue antibiotics.
-GI on board.
Hyponatremia:
-Likely hypervolemic hyponatremia given ascites and volume overload.
-Consider Lasix.
-Monitor and replete electrolytes as needed.
Massive hydrocele:
-Due to pressure from ascites.
-Paracentesis.
-Pain management.
DM2 with neuropathy and hyperglycemia
-Hemoglobin A1c 8.0 09/22/2023
-Hold Januvia
-Continue gabapentin for neuropathy
-Continue Lantus 12 units and NovoLog before meals 10 units per protocol.
-Maintain on ISS.
CA
-Creatinine 1.8 on admission, baseline creat 0.6.
-Likely volume related (prerenal).
-Consider Lasix
-Monitor renal function.
DVT prophylaxis:
-SCD
CODE STATUS: DNR/DNI

Data:
EGD:
Impression: - Small (< 5 mm) possible esophageal varices.
- Portal hypertensive gastropathy.
- Normal duodenal bulb, first portion of the duodenum
and second portion of the duodenum.
- No specimens collected.
Sigmoidoscopy:
Impression: - Preparation of the colon was poor.
- Hemorrhoids found on perianal exam.
- Stool in the rectum, in the recto-sigmoid colon and
in the sigmoid colon.
- Internal hemorrhoids.
- No specimens collected.
Paracentesis on 09/22:
FINDINGS: 6500 cc of clear urine ascitic fluid was evacuated. Samples sent for analysis as requested.
[2023-11-04] MEDS: SANDOSTATIN 50 MCG IV (16:00)
--- NOTE | 2023-11-04 16:00 | PTCARENOTE ---
11/02- Patient oriented and transferred to unit without issue. AAOX3; Skin CDI; Scrotum +3 pitting edema and tender to touch; Abdomen Round/Ascites; Patient reports melena at home today and just now in bathroom. Telemetry #32- NSR currently.
Patient denies any current needs.
[2023-11-04] MEDS: ProAmatine PO ×2 (16:41→17:50)
[2023-11-04 17:19] LABS: Hematocrit 27.2 % (39.0-52.0); Mean Corp Hgb Conc. 33.5 g/dL (33.0-37.0); Mean Corpuscular Hgb 28.5 pg (27.0-31.0); Mean Corpuscular Volume 85.3 fL (80.0-94.0); Mean Platelet Volume 9.5 fL (7.4-10.4); Platelet Count 150 10^3/uL (130-400); Red Blood Cell Count 3.19 10^6/uL (4.70-6.10); Red Cell Dist. Width 17.7 % (11.5-14.5); White Blood Cell Count 5.4 10^3/uL (4.8-10.8)
[2023-11-04] MEDS: NULYTELY SOLUTION 4 LITERS PO (17:19)
[2023-11-04 17:23] LABS: Hemoglobin 9.1 g/dL (13.0-18.0)
[2023-11-04] MEDS: NOVOLOG FLEXPEN 10 UNITS SC (17:27)
[2023-11-04 17:29] LABS: Glucose - Point of Care 123 mg/dl (70-99)
--- NOTE | 2023-11-04 18:48 | PTCARENOTE ---
pt from ed with infiltrate +1 edema above ac. iv removed, 20p p ac line is in place (below infiltrate). warmth applied, arm elevated. will cont to monitor
--- NOTE | 2023-11-04 19:16 | PTCARENOTE ---
Addendum entered by Jeanine Velez RN 11/04/23 19:18:
Oncoming Nurse made aware.
Original Note:
11/02- Patient called RN into room during Colonoscopy Prep. He is having profuse rectal bleeding during his bowel movements. Toilet bowel is full of blood with some stool mixed. Cleaned patient, put extra pads on anus, though patient continues to
bleed from rectum. IK=310/77, POX=98%, HR=83, RR=14, T=97.6. Skin=pale/jaundice. Patient remains AAOX3, denies pain or dizziness or weakness. TT'ed On-Call Physician and BUSINESS DIRECTOR.
[2023-11-04 19:37] LABS: Hematocrit 27.1 % (39.0-52.0); Hemoglobin 9.2 g/dL (13.0-18.0)
--- NOTE | 2023-11-04 20:01 | W.PN.UPDATE ---
Update Note
Progress Note Update
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 patient is on nulytly for EGD/Colonoscopy tomorrow. Vitals BP 124/77, HR 83,RR 14, T 97.6, Pox 98%. Stat h/h done and its 9.2. Patient seen and evaluated. Patient is stable, denies chest pain and
shortness of breath at baseline, seems to know what is going on and aware of the tests tomorrow at this moment. Dr Segura (GI) made aware, advised to continue the Nulytly for the test tomorrow, Patient and RN made aware.
[2023-11-04] MEDS: NEURONTIN 300 MG PO (20:35)
[2023-11-04] MEDS: XIFAXAN 550 MG PO (20:39)
[2023-11-04] MEDS: OCUVITE SOFTGEL 1 CAP PO (20:39)
[2023-11-04] MEDS: TIMOPTIC 0.5% OPHTHALMIC SOLUTION 1 DROP LEFT EYE (20:52)
[2023-11-04 21:27] LABS: Glucose - Point of Care 81 mg/dl (70-99)
[2023-11-04] MEDS: LANTUS SC (22:48)
[2023-11-04] MEDS: LIPITOR PO (22:49)
[2023-11-05] VITALS (10 sets, daily range): BP systolic 13–142; BP diastolic 52–75; BMI 25.2
[2023-11-05] MEDS: SANDOSTATIN IV
[2023-11-05 06:24] LABS: PT 19.2 Sec (11.4-14.6)
[2023-11-05 06:32] LABS: Hemoglobin 8.7 g/dL (13.0-18.0); Mean Corp Hgb Conc. 33.5 g/dL (33.0-37.0); Mean Corpuscular Hgb 28.7 pg (27.0-31.0); Mean Corpuscular Volume 85.8 fL (80.0-94.0); Mean Platelet Volume 9.8 fL (7.4-10.4); Platelet Count 154 10^3/uL (130-400); Red Blood Cell Count 3.03 10^6/uL (4.70-6.10); Red Cell Dist. Width 18.4 % (11.5-14.5); White Blood Cell Count 6.8 10^3/uL (4.8-10.8)
--- NOTE | 2023-11-05 06:49 | W.PN.HOSP.TC ---
Addendum entered and electronically signed by Junito Uriostegui MD 11/05/23 21:46:
Attending Addendum-
Attending Addendum-
I saw and evaluated the patient. I reviewed the resident�s note and agree with findings and plan as documented in the resident�s note. Full 12 point ROS reviewed and negative except as documented. Wants to eat. Seems confused. Seen with
present. Feels weak. No further bloody bm's today. Seen post endo/colon. Exam- vitals reviewed in chart GEN-jaundiced heart RRR lungs crackles at bases abd distended pos fluid wave pos HJR LE +1 pitting edema B/L - large hydrocele Neuro AAO x 2 no
asterixis present Plan:
#Recurrent lower GI bleed from Internal hemorrhoids/Acute blood loss anemia
-initial Hb 6.3
-transfused 2 units prbc in ED now improved
-trend H and H
-Colon/endo- 11/04- several AD lesions noted and cauterized, grade 1 esoph varices, rectal varices, non bleeding int hemorrhoids
-cont octreotide x 72 hours and DC IV PPI BID
-GI evaluated and patient will be following up with Dr. Womack for TIPS procedure
# EToH abuse
- last drink 10 days ago per patient
- MVI thiamine folic acid
- cont MSAS
# Ascites
-Patient gets large volume paracentesis almost every 2 weeks
-S/p recent drainage of 9.9 L transudative fluid. Posttransfusion albumin provided.
-depending on prognosis may benefit from Pleurx peritoneal cath
- for paracentesis in AM Irad c/s placed
# CA-
- resolving
- likely from third spacing volume overload prerenal
- for paracentesis when able
- cont to monitor
- start lasix/spironolactone when able
# Hepatic Encephalopathy
- restart lactulose for 3-4 BM s daily
- start xifaxan
- for TIPS at [place] when able
# Massive Hydrocele
-Bilateral large scrotum with sac communicating to peritoneal cavity
-Has been evaluated by urology in June and no definitive treatment available except treatment of ascites
# End Stage Liver Disease/Cirrhosis
Pancytopenia
Coagulopathy
-MELD- 21
-monitor INR and LFT's daily
-eventual will need to go to [place] for TIPS
# Chronic Hyponatremia
- close to baseline, monitor
# Type II DM
-Continue Lantus 15 units at bedtime. Maintained on NovoLog 10 U AC.
-adjust when NPO
-maintain on ISS.
# Coronary disease status post bypass- cont meds
BPH - cont meds
# Orthostatic hypotension- contmidodrine
DVTPPX - scd
Code FULL-->DNR verifed with
Dispo- hopeful DC after paracentesis if able
Time spent coordinating care, review of plan of care with resident, review of records, med rec, consults, notes, labs, rads, d/w nursing - 59 mins
Original Note:
Today's Communication/Plan
-
S/p endoscopy and colonoscopy.
Continue octreotide for the next 72 hours.
Monitor H&H and replete as needed.
Assessment / Plan
Assessment / Plan
ASSESSMENT: Patient is a 37-year-old male past medical history of compensated alcoholic cirrhosis, hemorrhoids, esophageal varices, hypertension, who presented to ED on 11/04/2023 with complaints of large-volume hematochezia that worsened in the
a.m. of presentation. Patient was treated with 2 units of PRBC transferred to telemetry for further evaluation and management.
CONDITIONS PRIOR TO ADMISSION:
Type 2 diabetes mellitus
CAD (s/p CABG)
Anemia of chronic disease
BPH
Orthostatic hypotension
Portal gastropathy
IMPRESSION:
Presentation with large-volume hematochezia.
Coagulopathy with thrombocytopenia
EtOH abuse
Anemia-Acute blood loss vs anemia of chronic disease
Alcoholic cirrhosis with esophageal varices and ascites
CA
Massive hydrocele
Hyponatremia
PLAN:
Presentation with large-volume hematochezia:
-Recurrent hematochezia with acute blood loss likely due to GI bleed from internal hemorrhoids vs rectal varices.
-Colonoscopy 11/05/2023 reported to recently bleeding colonic angiodysplastic lesions, nonbleeding internal hemorrhoids, perianal hemorrhoids and rectal varices appreciated.
-EGD 11/05/2023 reported grade 1 esophageal varices, and 2 angioplastic lesions in the duodenum that was treated intra operatively.
-Continue octreotide for the next 72 hours per GI.
-GI following, recs appreciated.
-Diet advanced to clears, will advance to regular diet if hemoglobin levels stabilized in the a.m.
-Hgb 6.3 on admission, improved to 9.2 s/p 2 units PRBC, currently 8.7. Goal hemoglobin level 13.
-Monitor H&H.
-Outpatient follow-up with Dr. Womack for TIPS procedure.
Ascites with history of esophageal varices and cirrhosis:
-Large-volume paracentesis 10/28/2023 s/p 9900 cc of clear yellow ascites fluid evacuated.
-Maddrey score 18, no indication for glucocorticoids at this point.
-Considering repeat paracentesis in a.m.
-IR consult.
GI following.
Massive hydrocele:
-Left-sided scrotal, communicating hydrocele due to ascites.
-Evaluated by urology in June with no definitive treatment except treatments of ascites.
-Pain management.
Hepatic encephalopathy:
-Presentation with asterixis and other stigmata of HE.
-Continue lactulose and rifaximin.
-[place] Blatchford score, 12. Patient may benefit from TIPS, able to get this at [place].
EtOH abuse:
-Msass protocol, last drink 11 days ago per patient.
-Thiamine and folic acid replacement.
End-stage renal disease:
-Pancytopenia with coagulopathy.
-MELD score 21.
-Due to end-stage liver disease.
-Continue to monitor.
Hyponatremia:
-Likely hypervolemic hyponatremia given ascites and volume overload.
-Consider Lasix.
-Monitor and replete electrolytes as needed.
DM2 with neuropathy and hyperglycemia
-Hemoglobin A1c 8.0 09/22/2023
-Hold Januvia
-Continue Lantus 12 units and NovoLog before meals 10 units per protocol.
-Maintain on ISS.
CA
-Improved.
-Monitor renal function.
DVT prophylaxis:
-SCD
CODE STATUS: DNR/DNI

Data:
EGD 11/05/2023:
- Grade I esophageal varices.
- Z-line regular, 42 cm from the incisors.
- Erythematous mucosa in the antrum.
- Two angiodysplastic lesions in the duodenum. Treated with a monopolar probe.
- No specimens collected.
Colonoscopy 11/05/2023:
- Hemorrhoids found on perianal exam.
- The examined portion of the ileum was normal.
- One diminutive polyp in the cecum, removed with a cold biopsy forceps. Resected and retrieved. Clip was placed.
- Two recently bleeding colonic angiodysplastic lesions. Treated with a monopolar probe.
- Three non-bleeding colonic angiodysplastic lesions. treated with a monopolar probe.
- A single colonic angiodysplastic lesion. Treated with a monopolar probe.
- Moderate colonic spasm.
- Submucosal nodule in the rectum. Not biopsied.
- Diverticulosis in the recto-sigmoid colon, in the sigmoid colon and in the descending colon.
- Non-bleeding internal hemorrhoids.
- Rectal varices.
EGD 09/23/2023:
- Small (< 5 mm) possible esophageal varices.
- Portal hypertensive gastropathy.
- Normal duodenal bulb, first portion of the duodenum and second portion of the duodenum.
- No specimens collected.
Sigmoidoscopy 09/23/2023:
- Preparation of the colon was poor.
- Hemorrhoids found on perianal exam.
- Stool in the rectum, in the recto-sigmoid colon and in the sigmoid colon.
- Internal hemorrhoids.
- No specimens collected.
Paracentesis on 09/22:
FINDINGS: 6500 cc of clear urine ascitic fluid was evacuated. Samples sent for analysis as requested.
Anticipated Discharge: > 48 hours
Subjective/Interval History
-
Date of Service: November 05, 2023
Overnight , Pt had another large-volume bloody bowel movement. Patient tolerated the scheduled colonoscopy and endoscopy. His vitals remained stable. He denied pain, dizziness, SOB, or palpitation.
Objective Data
-
Labs:
Laboratory Results
11/04/23 11/04/23 11/05/23
19:32 22:00 04:55
WBC Cancelled 6.8
Hgb 9.2 L Cancelled 8.7 L
Hct 27.1 L Cancelled 26.0 L
Plt Count Cancelled 154
PT 19.2 H
INR 1.60
Sodium Pending
Potassium Pending
Chloride Pending
Carbon Dioxide Pending
BUN Pending
Creatinine Pending
Glucose Pending
Calcium Pending
Total Bilirubin Pending
AST Pending
ALT Pending
Alkaline Phosphatase Pending
Vital Signs:
Vital Signs
Temp Pulse Resp BP Pulse Ox
98.0 F 69 16 136/62 99
11/05/23 03:34 11/05/23 03:34 11/05/23 03:34 11/05/23 03:34 11/05/23 03:34
I&O
11/03/23 11/04/23 11/05/23
06:59 06:59 06:59
Intake Total 1220 / 1220
Output Total 500 / 500
Balance 720 / 720
Review of Systems
-
History Source: Patient and Family
Constitutional: Reports No Symptoms; Denies Fever
EENT: Reports No Symptoms Reported; Denies Sore Throat
Respiratory: Reports No Symptoms
Cardiac: Reports No Symptoms
Abdomen/GI: Reports No Symptoms
Skin: Reports Other (Jaundiced)
Psych: Reports Other (Intermittently confused)
Physical Exam
-
General: No Apparent Distress
HEENT: Moist Mucous Membranes
Respiratory: Crackles (Bilateral lower lobe crackles)
Cardiac: Regular Rhythm and S1/S2
GI: Soft, Nontender, Normal Bowel Sounds and Distended
Rectal: Deferred by Provider
Genito-urinary: Other (Large hydrocele)
Musculoskeletal: No Clubbing and Other (Bilateral +1 pitting edema)
Skin: Warm
Neuro: Awake, Oriented and AO x 3; Negative Tremors
Psych: Calm and Confused
Data Reviewed
-
Diagnostic Radiology: Image personally visualized and interpreted, Report Reviewed by me and Discussed with Physician
Labs: Labs Reviewed by me
Old Records: Reviewed
[2023-11-05 07:15] LABS: ALT (SGPT) 15 U/L (0-50); AST (SGOT) 34 U/L (17-59); Albumin 2.4 g/dl (3.5-5.0); Alkaline Phosphatase 171 U/L (38-126); Blood Urea Nitrogen 45 mg/dl (9-20); Calcium 8.2 mg/dl (8.4-10.2); Carbon Dioxide 23 mmol/L (22-30); Chloride 104 mmol/L (98-107); Direct Bilirubin 0.8 mg/dl (0.0-0.4); Estimated Creatinine Clearance 55 ml/min; Glucose 66 mg/dl (70-99); Potassium 3.8 mmol/L (3.5-5.1); Sodium 133 mmol/L (135-145); Total Bilirubin 1.8 mg/dl (0.2-1.3); Total Protein 5.8 g/dl (6.3-8.2); eGFR > 60.00
[2023-11-05 08:51] LABS: Glucose - Point of Care 86 mg/dl (70-99)
[2023-11-05] MEDS: ASPIR LOW (ENTERIC COATED) PO (09:06)
[2023-11-05] MEDS: NEURONTIN PO (09:06)
[2023-11-05] MEDS: FOLVITE PO (09:06)
[2023-11-05] MEDS: THERAGRAN PO (09:06)
[2023-11-05] MEDS: OCUVITE SOFTGEL PO (09:06)
[2023-11-05] MEDS: XIFAXAN PO (09:10)
[2023-11-05] MEDS: VITAMIN D3 (cholecalciferol) PO (09:10)
[2023-11-05] MEDS: VITAMIN B-12 PO (09:11)
[2023-11-05] MEDS: NOVOLOG FLEXPEN SC ×2 (09:27→12:00)
[2023-11-05] MEDS: DUPHALAC/CHRONULAC PO (09:28)
[2023-11-05] MEDS: ProAmatine PO ×2 (09:28→13:00)
[2023-11-05] MEDS: NSS (PRESERVATIVE FREE) 10 ML IV ×2 (09:29→21:12)
[2023-11-05] MEDS: PROTONIX IV 40 MG IV ×2 (09:29→21:11)
[2023-11-05] MEDS: TIMOPTIC 0.5% OPHTHALMIC SOLUTION LEFT EYE (10:07)
[2023-11-05 11:41] LABS: Glucose - Point of Care 131 mg/dl (70-99)
[2023-11-05] MEDS: NOVOLOG FLEXPEN-LOW RESISTANCE SC (13:24)
--- NOTE | 2023-11-05 14:13 | CM ---
Patient seen bedside, initial assessment completed. 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 Patient has a cane for inside of the house if needed, walker for outside. Patient reports he is current with [facility] TT sent to
liaison to confirm. Patient PCP Chantelle Foster, pharmacy [facility], confirms prescription coverage. Patient denies food insecurities at home. Per PT, no skilled need. CM will continue to follow for discharge planning needs.
Plan; home no needs.
[2023-11-05] MEDS: SANDOSTATIN 500.600000000000023 MCG IV (14:14)
[2023-11-05] MEDS: THIAMINE INJECTION 100 MG IV (14:15)
[2023-11-05] MEDS: ROCEPHIN 1000 MG IV (14:19)
[2023-11-05] MEDS: STERILE WATER FOR INJECTION 10 ML IV (14:19)
[2023-11-05 17:23] LABS: Glucose - Point of Care 227 mg/dl (70-99)
[2023-11-05] MEDS: NOVOLOG FLEXPEN 10 UNITS SC (18:32)
[2023-11-05] MEDS: ProAmatine 10 MG PO (18:32)
[2023-11-05] MEDS: NOVOLOG FLEXPEN-LOW RESISTANCE 2 UNITS SC (18:33)
[2023-11-05] MEDS: NEURONTIN 300 MG PO (21:11)
[2023-11-05] MEDS: OCUVITE SOFTGEL 1 CAP PO (21:11)
[2023-11-05] MEDS: XIFAXAN 550 MG PO (21:11)
[2023-11-05] MEDS: LIPITOR 10 MG PO (21:12)
[2023-11-05] MEDS: TIMOPTIC 0.5% OPHTHALMIC SOLUTION 1 DROP LEFT EYE (21:12)
[2023-11-05 21:22] LABS: Glucose - Point of Care 144 mg/dl (70-99)
[2023-11-05] MEDS: LANTUS SC (21:23)
[2023-11-06] VITALS (11 sets, daily range): BP systolic 60–138; BP diastolic 41–62; BMI 25.3
[2023-11-06] MEDS: SANDOSTATIN 500.600000000000023 MCG IV (01:44)
[2023-11-06 07:03] LABS: % Basophils 1.3 % (0-2); % Eosinophils 2.5 % (0-6); % Immature Granulocytes 0.5 % (0-0.5); % Lymphocytes 10.8 % (20.5-51.1); % Monocytes 10.5 % (1.7-9.3); % Neutrophils 74.4 % (42.2-75.2); Absolute Basophils 0.1 10^3/uL (0-0.2); Absolute Eosinophils 0.3 10^3/uL (0-0.7); Absolute Immature Granulocytes 0.1 10^3/uL (0-0.05); Absolute Lymphocytes 1.2 10^3/uL (1.2-3.4); Absolute Monocytes 1.2 10^3/uL (0.1-0.6); Absolute Neutrophils 8.3 10^3/uL (1.4-6.5); Hematocrit 26.2 % (39.0-52.0); Hemoglobin 8.7 g/dL (13.0-18.0); Mean Corp Hgb Conc. 33.2 g/dL (33.0-37.0); Mean Corpuscular Hgb 27.9 pg (27.0-31.0); Mean Platelet Volume 8.9 fL (7.4-10.4); Nucleated Red Blood Cells % 0 % (-); Platelet Count 211 10^3/uL (130-400); Red Blood Cell Count 3.12 10^6/uL (4.70-6.10); Red Cell Dist. Width 18.5 % (11.5-14.5); White Blood Cell Count 11.2 10^3/uL (4.8-10.8)
[2023-11-06 07:35] LABS: Glucose - Point of Care 106 mg/dl (70-99)
[2023-11-06 07:53] LABS: Blood Urea Nitrogen 42 mg/dl (9-20); Calcium 8.3 mg/dl (8.4-10.2); Carbon Dioxide 20 mmol/L (22-30); Chloride 105 mmol/L (98-107); Estimated Creatinine Clearance 60 ml/min; Glucose 99 mg/dl (70-99); Potassium 4.1 mmol/L (3.5-5.1); Sodium 131 mmol/L (135-145); eGFR > 60.00
[2023-11-06] MEDS: NOVOLOG FLEXPEN 10 UNITS SC (09:21)
[2023-11-06] MEDS: NEURONTIN 300 MG PO ×2 (09:22→21:07)
[2023-11-06] MEDS: NOVOLOG FLEXPEN-LOW RESISTANCE SC ×3 (09:22→17:10)
[2023-11-06] MEDS: PROTONIX IV 40 MG IV (09:23)
[2023-11-06] MEDS: ProAmatine 10 MG PO ×3 (09:24→18:41)
[2023-11-06] MEDS: XIFAXAN 550 MG PO ×2 (09:24→21:07)
[2023-11-06] MEDS: OCUVITE SOFTGEL 1 CAP PO ×2 (09:24→21:07)
[2023-11-06] MEDS: TIMOPTIC 0.5% OPHTHALMIC SOLUTION 1 DROP LEFT EYE ×2 (09:25→22:29)
[2023-11-06] MEDS: ASPIR LOW (ENTERIC COATED) 81 MG PO (09:26)
[2023-11-06] MEDS: FOLVITE 1 MG PO (09:26)
[2023-11-06] MEDS: NSS (PRESERVATIVE FREE) 10 ML IV (09:26)
[2023-11-06] MEDS: THERAGRAN 1 TABLET PO (09:27)
[2023-11-06] MEDS: THIAMINE INJECTION 100 MG IV (09:27)
[2023-11-06] MEDS: VITAMIN D3 (cholecalciferol) 50 MCG PO (09:28)
[2023-11-06] MEDS: VITAMIN B-12 500 MCG PO (09:28)
--- NOTE | 2023-11-06 10:03 | W.PN.HOSP.TC ---
Addendum entered and electronically signed by Junito Uriostegui MD 11/06/23 22:02:
Attending Addendum-
I saw and evaluated the patient. I reviewed the resident�s note and agree with findings and plan as documented in the resident�s note. Full 12 point ROS reviewed and negative except as documented. Seen prior to paracentesis. Per patient is at
baseline mentation. Patient would like to go home after paracentesis. Denies bloody BM's. Exam- vitals reviewed in chart GEN-jaundiced heart RRR lungs crackles at bases abd distended pos fluid wave pos HJR LE +1 pitting edema B/L - large
hydrocele Neuro AAO x 2 no asterixis present Plan:
#Recurrent lower GI bleed from Internal hemorrhoids/Acute blood loss anemia
-initial Hb 6.3
-transfused 2 units prbc in ED now improved
-trend H and H
-Colon/endo- 11/04- EGD with 1 small varix; 2 AVMs treated with APC in D2. Colonoscopy with scattered AVMs treated with APC as well as large prolapsed internal hemorrhoids and rectal varices, which did not have any stigmata of recent bleeding; suspect
bleeding was likely due to bleeding AVMs rather than his rectal varices
-completing 5 days of antibiotics for SBP prophylaxis, today is day3/5
-completed 3 days of octreotide
-GI evaluated and patient will be following up with Dr. Womack for TIPS procedure
-was initially scheduled for DC after paracentesis but had large bloody bowel movements after paracentesis- cont to monitor- repeat H and H this pm and in am
# EToH abuse
- last drink 10 days prior to admission per patient
- MVI thiamine folic acid
- cont MSAS
# Ascites
- Patient gets large volume paracentesis every week as OP
- 11/05- drainage of 9250 mls transudative fluid. sent for culture/gram stain
- post paracentesis-hematochezia- cont to monitor until resolved
- repeat labs in am
# CA-
- resolving
- likely from third spacing and volume overload prerenal
- paracentesis 11/05
- cont to monitor
- restart lasix/spironolactone in am
# Hepatic Encephalopathy
- cont lactulose for 3-4 BM s daily
- cont xifaxan
- for TIPS at [place] when able
# Massive Hydrocele
-Bilateral large scrotum with sac communicating to peritoneal cavity
-Has been evaluated by urology in June and no definitive treatment available except treatment of ascites
# End Stage Liver Disease/Cirrhosis
Pancytopenia
Coagulopathy
-MELD- 21
-monitor INR and LFT's daily
-eventual will need to go to [facility] for TIPS
# Chronic Hyponatremia
- close to baseline, monitor
# Type II DM
-Continue Lantus 12 units at bedtime. Maintained on NovoLog 10 U AC.
-maintain on ISS.
# Coronary disease status post bypass- cont meds
# BPH - cont meds
# Orthostatic hypotension- cont midodrine
DVTPPX - scd
Code FULL-->DNR verified with
Dispo- possible DC home over weekend
Time spent coordinating care, review of plan of care with resident, review of records, med rec, consults, notes, labs, rads, d/w nursing and GI - 60 mins
Original Note:
Today's Communication/Plan
-
Follow H&H and replete as appropriate, goal Hb 13.
Anusol HC suppository.
Colorectal surgery consult.
Repeat large-volume paracentesis 11/06/2023 s/p 9000 250 mL of ascitic fluid obtained. Follow fluid analysis.
Continue ceftriaxone for SBP prophylaxis.
Continue rifaximin and lactulose.
Hold routine NovoLog 10 units and continue sliding scale
Assessment / Plan
Assessment / Plan
ASSESSMENT: Patient is a 37-year-old male past medical history of compensated alcoholic cirrhosis, hemorrhoids, esophageal varices, hypertension, who presented to ED on 11/04/2023 with complaints of large-volume hematochezia that worsened in the
a.m. of presentation. Patient was treated with 2 units of PRBC transferred to telemetry for further evaluation and management.
CONDITIONS PRIOR TO ADMISSION:
Type 2 diabetes mellitus
CAD (s/p CABG)
Anemia of chronic disease
BPH
Orthostatic hypotension
Portal gastropathy
IMPRESSION:
Presentation with large-volume hematochezia.
Coagulopathy with thrombocytopenia
EtOH abuse
Anemia-Acute blood loss vs anemia of chronic disease
Alcoholic cirrhosis with esophageal varices and ascites
CA
Massive hydrocele
Hyponatremia
PLAN:
Presentation with large-volume hematochezia:
-Recurrent hematochezia with acute blood loss likely due to GI bleed from internal hemorrhoids vs rectal varices.
-Colonoscopy 11/05/2023 reported to recently bleeding colonic angiodysplastic lesions, nonbleeding internal hemorrhoids, perianal hemorrhoids and rectal varices appreciated.
-EGD 11/05/2023 reported grade 1 esophageal varices, and 2 angioplastic lesions in the duodenum that was treated intra operatively.
-Continue to have large volume hematochezia post paracentesis.
-Patient remained hemodynamically stable.
-Repeat Hb 8.6, was 8.7 in a.m.
-Follow H&H and replete as appropriate, goal Hb 13.
-Anusol HC suppository.
-Colorectal surgery consult.
-Patient tolerating diet. Will advance to full liquids in a.m.
-No real indication for emergent TIPS, continue octreotide for the next 48 hours per GI
-GI following, recs appreciated.
-Outpatient follow-up with Dr. Womack for TIPS procedure.
Ascites with history of esophageal varices and cirrhosis:
-Large-volume paracentesis 10/28/2023 s/p 9900 cc of clear yellow ascites fluid evacuated.
-Repeat large-volume paracentesis 11/06/2023 s/p 9000 250 mL of ascitic fluid obtained. Fluid sent for lab analysis.
-Albumin gtt. administered.
-Continue ceftriaxone for SBP prophylaxis.
-IR appreciated.
-Maddrey score 18, no indication for glucocorticoids at this point.
Intermittent hypoglycemia:
-Patient with intermittent decrease in blood glucose level.
-Hold NovoLog for now since patient not eating regular diet.
-Continue sliding scale protocol.
Massive hydrocele:
-Left-sided scrotal, communicating hydrocele due to ascites.
-Evaluated by urology in June with no definitive treatment except treatments of ascites.
-Pain management.
Hepatic encephalopathy:
-Presentation with asterixis and other stigmata of HE.
-Continue lactulose and rifaximin.
-[place] score, 12. Patient may benefit from TIPS, able to get this at [place].
EtOH abuse:
-Msass protocol, last drink 11 days ago per patient.
-Thiamine and folic acid replacement.
End-stage renal disease:
-Pancytopenia with coagulopathy.
-MELD score 21.
-Due to end-stage liver disease.
-Continue to monitor.
Hyponatremia:
-Likely hypervolemic hyponatremia given ascites and volume overload.
-Consider Lasix.
-Monitor and replete electrolytes as needed.
DM2 with neuropathy and hyperglycemia
-Hemoglobin A1c 8.0 09/22/2023
-Hold Januvia
-Continue Lantus 12 units and NovoLog before meals 10 units per protocol.
-Maintain on ISS.
CA
-Improved.
-Monitor renal function.
DVT prophylaxis:
-SCD
CODE STATUS: DNR/DNI

Data:
EGD 11/05/2023:
- Grade I esophageal varices.
- Z-line regular, 42 cm from the incisors.
- Erythematous mucosa in the antrum.
- Two angiodysplastic lesions in the duodenum. Treated with a monopolar probe.
- No specimens collected.
Colonoscopy 11/05/2023:
- Hemorrhoids found on perianal exam.
- The examined portion of the ileum was normal.
- One diminutive polyp in the cecum, removed with a cold biopsy forceps. Resected and retrieved. Clip was placed.
- Two recently bleeding colonic angiodysplastic lesions. Treated with a monopolar probe.
- Three non-bleeding colonic angiodysplastic lesions. treated with a monopolar probe.
- A single colonic angiodysplastic lesion. Treated with a monopolar probe.
- Moderate colonic spasm.
- Submucosal nodule in the rectum. Not biopsied.
- Diverticulosis in the recto-sigmoid colon, in the sigmoid colon and in the descending colon.
- Non-bleeding internal hemorrhoids.
- Rectal varices.
EGD 09/23/2023:
- Small (< 5 mm) possible esophageal varices.
- Portal hypertensive gastropathy.
- Normal duodenal bulb, first portion of the duodenum and second portion of the duodenum.
- No specimens collected.
Sigmoidoscopy 09/23/2023:
- Preparation of the colon was poor.
- Hemorrhoids found on perianal exam.
- Stool in the rectum, in the recto-sigmoid colon and in the sigmoid colon.
- Internal hemorrhoids.
- No specimens collected.
Paracentesis on 09/22:
FINDINGS: 6500 cc of clear urine ascitic fluid was evacuated. Samples sent for analysis as requested.
Anticipated Discharge: 24 - 48 hours
Subjective/Interval History
-
Date of Service: November 06, 2023
Patient was reported to be intermittently confused overnight. He was seen and examined with by bedside prior to receiving diagnostic paracentesis today. Patient was not in any acute distress before and immediately after the procedure.
However patient had to bloody bowel movements postprocedure. He remained hemodynamically stable, awake, alert and oriented x 3. He denied chest pain, shortness of breath, abdominal pain, nausea, and palpitations.
Objective Data
-
Labs:
Laboratory Results
11/06/23
06:52
WBC 11.2 H
Hgb 8.7 L
Hct 26.2 L
Plt Count 211 D
Sodium 131 L
Potassium 4.1
Chloride 105
Carbon Dioxide 20 L
BUN 42 H
Creatinine 1.2
Glucose 99
Calcium 8.3 L
Vital Signs:
Vital Signs
Temp Pulse Resp BP Pulse Ox
98.1 F 87 18 111/61 99
11/06/23 07:00 11/06/23 07:00 11/06/23 07:00 11/06/23 07:00 11/06/23 07:00
I&O
11/05/23 11/06/23 11/07/23
06:59 06:59 06:59
Intake Total 1220 / 1220 950 / 950
Output Total 500 / 500 350 / 350
Balance 720 / 720 600 / 600
Review of Systems
-
History Source: Patient and Family
Constitutional: Reports No Symptoms; Denies Fever
EENT: Reports No Symptoms Reported; Denies Sore Throat
Respiratory: Reports No Symptoms
Cardiac: Reports No Symptoms
Abdomen/GI: Reports No Symptoms and Bloody Stools; Denies Abdominal Pain or Black Stools
Genitourinary: Reports No Symptoms
Skin: Reports Other (Jaundiced)
Neuro: Reports Weakness and Other; Denies Headache or Lightheadedness
Psych: Reports Other (Intermittently confused)
Physical Exam
-
General: No Apparent Distress
HEENT: Moist Mucous Membranes
Respiratory: Crackles (Bilateral lower lobe crackles)
Cardiac: Regular Rhythm and S1/S2
GI: Soft, Nontender, Normal Bowel Sounds and Distended
Rectal: Deferred by Provider
Genito-urinary: Other (Large hydrocele)
Musculoskeletal: No Clubbing and Other (Bilateral +1 pitting edema)
Skin: Warm
Neuro: Awake, Oriented and AO x 3; Negative Tremors
Psych: Calm and Confused
Data Reviewed
-
Diagnostic Radiology: Image personally visualized and interpreted, Report Reviewed by me and Discussed with Physician
Medical Tests (Nuc Med, Echo etc): Report Reviewed by me and Discussed with Physician
Labs: Labs Reviewed by me
Old Records: Reviewed
--- NOTE | 2023-11-06 11:19 | CM ---
Patient seen in chair, reports no needs to CM at this time. Patient is current with [facility]. CM will continue to follow for discharge planning needs.
Plan; [facility] when stable.
--- NOTE | 2023-11-06 11:28 | W.PN.GI.CBS2 ---
Today's Communication / Plan
-
Paracentesis with albumin replacement. Resume Lactulose, start Xifaxin 550mg BID daily. Retrial on diuretics tomorrow, if Cr. stable.
Assessment / Plan
-
A/P: Himanshu Garrido is a 67 y.o. male with history of Decompensated EtoH cirrhosis c/b recurrent ascites requiring large volume paracentesis, hx GI bleeding, DM2, HTN, CAD s/p CABG, BPH, HLD, umbilical hernia, hydrocele, neuropathy admitted with
large-volume hematochezia and encephalopathy. Patient has frequent readmissions for intermittent hematochezia as well as large-volume hematochezia with unclear etiology, attributed to bleeding hemorrhoids versus possible rectal varix, without
adequate visualization of the rectum due to poor prep on recent flex sig. So far, he has had 9 units of blood transfused since the start of 2023. Propanolol was recently discontinued, unable to tolerate due to hypotension, now on midodrine. On
admission, he had elevated BUN/Cr. slightly worse from labs on 10/31 but new elevation from baseline.
#Recurrent rectal bleeding
-Hgb 6.3 on arrival --> 8.7 s/p 2 units of PRBC
-s/p EGD And Colonoscopy-- EGD with 1 small varix; 2 AVMs treated with APC in D2. Colonoscopy with scattered AVMs treated with APC as well as large prolapsed internal hemorrhoids and rectal varices, which did not have any stigmata of recent
bleeding; difficult to say etiology of bleeding, however, suspect it was more likely due to bleeding AVMs rather than his rectal varices
-recommend completing at least 5 days of antibiotics for SBP prophylaxis, today is day 3/5
-Continue octreotide gtt given unclear if rectal varices culprit of bleeding, day 3
-okay to advance to regular diet
#Decompensated EtoH Cirrhosis--MELD 3.0 = 21
-established care with Dr. Womack, initial transplant consultation scheduled at [facility] on 11/29
-Ascites-- recurrent, requiring weekly LVP. No hx SBP. CA has now resolved, will order paracentesis today with albumin replacement following procedure. He is off of diuretics for the last few months due to electrolyte abnormalities, would favor
another trial, but will wait until after his paracentesis and albumin replacement to rechallenge him
-EV: one column of small EV; +rectal varices-- consideration of TIPS for recurrent ascites, will also help with rectal varices, however, I am not convinced this is the source of bleeding
-Hepatic Encephalopathy: mentation is back to baseline. Resume lactulose and add Rifaximin. Should be discharged with this as well; titrate to 2-3 loose BMs daily
-HCC Surveillance: Needs US +AFP q6 months; Abdominal US (07/2022); AFP <1.8 (10/27/23)
-Immunizations: HAV IgM neg, HAV IgG positive, HBsAg neg, HBcAb IgM/IgG, HBsAb neg, HCV Ab neg., (08/26/21); Immunity to Hep A; lacks immunity to hepatitis B, should be vaccinated as outpatient
Subjective
Subjective
Date of Service: November 06, 2023
Patient seen in follow-up today, appears well and comfortable, sitting in chair. Offers no complaints. He would like to have his paracentesis today, but overall, does not feel too uncomfortable. He is s/p EGD and Colonoscopy yesterday, findings
below. Hemoglobin stable this morning, no bleeding overnight.
Objective
Data Reviewed
Laboratory Data:
Laboratory Results
11/06/23 06:52
11/06/23 06:52
Laboratory Results
PT 19.2 Sec (11.4-14.6) H 11/05/23 04:55
INR 1.60 11/05/23 04:55
Total Bilirubin 1.8 mg/dl (0.2-1.3) H 11/05/23 04:55
AST 34 U/L (17-59) 11/05/23 04:55
ALT 15 U/L (0-50) 11/05/23 04:55
Alkaline Phosphatase 171 U/L (38-126) H 11/05/23 04:55
Vital Signs and I&O:
Vital Signs
Temp Pulse Resp BP Pulse Ox
98.1 F 87 18 111/61 99
11/06/23 07:00 11/06/23 07:00 11/06/23 07:00 11/06/23 07:00 11/06/23 07:00
I&O
11/05/23 11/06/23 11/07/23
06:59 06:59 06:59
Intake Total 1220 / 1220 950 / 950
Output Total 500 / 500 350 / 350
Balance 720 / 720 600 / 600
Physical Exam
Physical Exam
GENERAL: In no acute distress, appears comfortable
HEENT: no scleral icterus, mucous membranes moist, OP clear
RESP: Nonlabored respirations, clear to ausculation, b/l
CV: RRR, S1/S2
ABDOMEN: +BS; distended, dull to percussion; +reducible umbilical hernia
: ++scrotal edema
EXT: No LE edema
SKIN: Dry, warm
NEURO: AAOx3. No asterixes
[2023-11-06 12:12] LABS: Glucose - Point of Care 103 mg/dl (70-99)
[2023-11-06] MEDS: DUPHALAC/CHRONULAC PO (13:35)
[2023-11-06] MEDS: NOVOLOG FLEXPEN SC ×2 (13:37→17:10)
[2023-11-06] MEDS: ROCEPHIN 1000 MG IV (13:38)
[2023-11-06] MEDS: STERILE WATER FOR INJECTION 10 ML IV (13:38)
[2023-11-06] MEDS: NOVOLOG FLEXPEN 5 UNITS SC (13:44)
[2023-11-06 15:11] LABS: Body Fluid Mononuclear 88.8 %; Body Fluid Polymorphonuclear 11.2 %; Body Fluid WBC 232 /CUMM
[2023-11-06 15:16] LABS: Body Fluid Second Tech HB
[2023-11-06 15:24] LABS: Body Fluid Albumin < 1.0 g/dl; Body Fluid Protein < 2.0 g/dl
[2023-11-06] MEDS: FLEXBUMIN IV (16:58)
[2023-11-06] MEDS: SANDOSTATIN IV (16:58)
[2023-11-06 17:12] LABS: Glucose - Point of Care 61 mg/dl (70-99)
[2023-11-06 17:30] LABS: Glucose - Point of Care 59 mg/dl (70-99)
[2023-11-06 17:42] LABS: % Basophils 1.3 % (0-2); % Eosinophils 3.8 % (0-6); % Immature Granulocytes 0.4 % (0-0.5); % Lymphocytes 12.2 % (20.5-51.1); % Neutrophils 69.3 % (42.2-75.2); Absolute Basophils 0.1 10^3/uL (0-0.2); Absolute Eosinophils 0.4 10^3/uL (0-0.7); Absolute Lymphocytes 1.1 10^3/uL (1.2-3.4); Absolute Monocytes 1.2 10^3/uL (0.1-0.6); Absolute Neutrophils 6.3 10^3/uL (1.4-6.5); Hematocrit 25.8 % (39.0-52.0); Hemoglobin 8.6 g/dL (13.0-18.0); Mean Corp Hgb Conc. 33.3 g/dL (33.0-37.0); Mean Corpuscular Hgb 28.1 pg (27.0-31.0); Mean Corpuscular Volume 84.3 fL (80.0-94.0); Mean Platelet Volume 9.1 fL (7.4-10.4); Nucleated Red Blood Cells % 0 % (-); Platelet Count 186 10^3/uL (130-400); Red Blood Cell Count 3.06 10^6/uL (4.70-6.10); Red Cell Dist. Width 18.5 % (11.5-14.5); White Blood Cell Count 9.2 10^3/uL (4.8-10.8)
[2023-11-06 17:57] LABS: Glucose - Point of Care 76 mg/dl (70-99)
[2023-11-06] MEDS: FLEXBUMIN 50 IV (18:15)
--- NOTE | 2023-11-06 18:15 | PTCARENOTE ---
1800 DR. Cobos notified pt had 2 episodes of bloody stools. Vs stable. Pt denies acute discomfort. Dr. Cobos came up to see pt at bedside and aware blood sugars were low prior to dinner meal. See Hypoglycemic treatment documentation. Noted MD
orders,continue to monitor pt closely.
[2023-11-06 20:52] LABS: Hematocrit 24.4 % (39.0-52.0); Hemoglobin 8.3 g/dL (13.0-18.0); Mean Corpuscular Hgb 28.7 pg (27.0-31.0); Mean Corpuscular Volume 84.4 fL (80.0-94.0); Mean Platelet Volume 8.8 fL (7.4-10.4); Platelet Count 184 10^3/uL (130-400); Red Blood Cell Count 2.89 10^6/uL (4.70-6.10); Red Cell Dist. Width 18.2 % (11.5-14.5); White Blood Cell Count 10.7 10^3/uL (4.8-10.8)
[2023-11-06 20:57] LABS: Glucose - Point of Care 252 mg/dl (70-99)
[2023-11-06] MEDS: ANUSOL HC 25 MG RECTAL (21:08)
[2023-11-06] MEDS: FLEXBUMIN 100 IV ×2 (21:28→23:10)
[2023-11-06] MEDS: FLUSH (NSS) 2 FLUSH IV (21:33)
[2023-11-06] MEDS: LIPITOR 10 MG PO (22:30)
[2023-11-06] MEDS: LANTUS 0.119999999999999996 UNITS SC (22:31)
[2023-11-06 23:31] LABS: Glucose - Point of Care 202 mg/dl (70-99)
[2023-11-07] VITALS (10 sets, daily range): BP systolic 104–134; BP diastolic 47–58
[2023-11-07 03:05] LABS: Glucose - Point of Care 176 mg/dl (70-99)
--- NOTE | 2023-11-07 05:00 | PTCARENOTE ---
Pt. had several moderate bright red blood episodes per rectum in the toilet, asymptomatic, MIRELLA Nunn, labs ordered in a.m., will continue to monitor.
[2023-11-07 08:03] LABS: Glucose - Point of Care 158 mg/dl (70-99)
[2023-11-07] MEDS: THERAGRAN 1 TABLET PO (08:47)
[2023-11-07] MEDS: OCUVITE SOFTGEL 1 CAP PO ×2 (08:47→21:16)
[2023-11-07] MEDS: NOVOLOG FLEXPEN-LOW RESISTANCE 1 UNITS SC (08:47)
[2023-11-07] MEDS: ProAmatine 10 MG PO ×3 (08:48→17:52)
[2023-11-07] MEDS: NEURONTIN 300 MG PO ×2 (08:48→21:17)
[2023-11-07] MEDS: VITAMIN D3 (cholecalciferol) 50 MCG PO (08:48)
[2023-11-07] MEDS: VITAMIN B-12 500 MCG PO (08:50)
[2023-11-07] MEDS: FOLVITE 1 MG PO (08:50)
[2023-11-07] MEDS: THIAMINE INJECTION 100 MG IV (08:51)
[2023-11-07] MEDS: TIMOPTIC 0.5% OPHTHALMIC SOLUTION 1 DROP LEFT EYE ×2 (08:51→21:16)
[2023-11-07] MEDS: XIFAXAN 550 MG PO ×2 (08:52→21:16)
[2023-11-07] MEDS: DUPHALAC/CHRONULAC 20 GRAMS PO (08:53)
[2023-11-07] MEDS: ANUSOL HC 25 MG RECTAL ×2 (09:01→21:16)
[2023-11-07] MEDS: ASPIR LOW (ENTERIC COATED) 81 MG PO (09:02)
[2023-11-07 10:05] LABS: Hematocrit 21.7 % (39.0-52.0); Hemoglobin 7.2 g/dL (13.0-18.0); Mean Corp Hgb Conc. 33.2 g/dL (33.0-37.0); Mean Corpuscular Hgb 28.1 pg (27.0-31.0); Mean Corpuscular Volume 84.8 fL (80.0-94.0); Mean Platelet Volume 9.8 fL (7.4-10.4); Platelet Count 150 10^3/uL (130-400); Red Blood Cell Count 2.56 10^6/uL (4.70-6.10); Red Cell Dist. Width 17.9 % (11.5-14.5); White Blood Cell Count 7.1 10^3/uL (4.8-10.8)
[2023-11-07 10:19] LABS: Blood Urea Nitrogen 33 mg/dl (9-20); Calcium 7.8 mg/dl (8.4-10.2); Carbon Dioxide 22 mmol/L (22-30); Chloride 103 mmol/L (98-107); Estimated Creatinine Clearance 72 ml/min; Glucose 181 mg/dl (70-99); Potassium 4.1 mmol/L (3.5-5.1); Sodium 128 mmol/L (135-145); eGFR > 60.00
--- NOTE | 2023-11-07 11:33 | CON.CRS ---
Consultation
-
Requesting Provider: Chandrika
Performing Provider: Stephen Camara
Medical History
-
Chief Complaint: bleeding
History of Present Illness:
Mr. Garrido is a 67 yo male known to our service from prior consultation for recurrent rectal bleeding with most recent presentation about 3 weeks ago presenting again for the same. He has a history of decompensated alcoholic cirrhosis with secondary
esophageal varices and ascites as well as known history of hemorrhoids. Colonoscopy this admission with gastroenterology demonstrated several angiodysplastic lesions which appeared to be the source of this episode of bleeding and were cauterized.
Non-bleeding hemorrhoids and rectal varices noted. He has outpatient follow up planned in early November at [facility] with the liver team procedure. Currently, his greatest complaint is scrotal edema and discomfort. He denies n/v. Some blood still in stools.
Last paracentesis was yesterday.
Past Medical History
Past Medical History: CAD, HTN and Other (alcoholic cirrhosis, esophageal and rectal varices, hemorrhoids, BPH)
Past Surgical History: Cardiac (CABG x5), Orthopedic (right knee), Urological (right hydrocele) and Other (mastoidectomy)
Social History
Tobacco: Former Smoker
Alcohol: Former
Personal:
Living: With Family
Family History
Family History: Reviewed & Not Pertinent
Allergies / Home Medications
Allergy/AdvReac Type Severity Reaction Status Date / Time
empagliflozin Allergy potential Verified 11/04/23 07:14
[From Synjardy XR] cause of
euglycemic
DKA 03/26/23
metformin [From Synjardy XR] Allergy potential Verified 11/04/23 07:14
cause of
euglycemic
DKA 03/26/23
Sulfa (Sulfonamide Allergy Hives Verified 11/04/23 07:14
Antibiotics)
�Medication �Instructions �Recorded �Confirmed �Type
cyanocobalamin (vitamin B-12) 500 500 mcg PO DAILY Supplement 03/25/23 11/04/23 History
mcg tablet
pantoprazole 40 mg tablet,delayed 40 mg PO DAILY Gastrointestinal 03/25/23 11/04/23 History
release (Protonix) Issue
timolol maleate 0.5 % eye drops 1 drp LEFT EYE BID Eye Condition 03/25/23 11/04/23 History
vitamins A,C,K-dixx-fqdxfd 2,148 1 tab PO BID Supplement 03/25/23 11/04/23 History
mcg-113 mg-45 mg-17.4 mg tablet
(PreserVision AREDS)
atorvastatin 10 mg tablet (Lipitor) 10 mg PO HS High Cholesterol 05/20/23 11/04/23 History
gabapentin 300 mg capsule 300 mg PO BID Pain 08/08/23 11/04/23 History
sitagliptin phosphate 100 mg 100 mg PO DAILY Diabetes 08/08/23 11/04/23 History
tablet (Januvia)
aspirin 81 mg tablet,delayed 81 mg PO DAILY Blood Clot 10/08/23 11/04/23 History
release Prevention/Tx
cholecalciferol (vitamin D3) 50 50 mcg PO DAILY Supplement 10/13/23 11/04/23 History
mcg (2,000 unit) tablet
insulin aspart U-100 100 unit/mL 10 unit SC AC Diabetes 11/04/23 11/04/23 History
(3 mL) subcutaneous pen (Novolog
FlexPen U-100 Insulin aspart)
insulin glargine 100 unit/mL (3 12 unit SC HS Diabetes 11/04/23 11/04/23 History
mL) subcutaneous pen (Basaglar
KwikPen U-100 Insulin)
lactulose 20 gram/30 mL oral 20 g PO DAILY Constipation 11/04/23 11/04/23 History
solution
midodrine 5 mg tablet 10 mg PO TID@0800,1300,1800 Blood 11/04/23 11/04/23 History
Pressure
Review of Systems
-
History Source: Patient and Family
All other systems: Negative unless noted
A 10 point review of systems was completed, and was negative except as per HPI.
Physical Exam
Vital Signs
Temp 97.7 F 11/07/23 11:21
Pulse 59 11/07/23 11:21
Resp Rate 16 11/07/23 11:21
Blood pressure 122/55 11/07/23 11:21
SaO2 100 11/07/23 11:21
11/06/23 11/07/2324
06:59 06:59 06:59
Actual Weight 77.649 kg
Body Mass Index (BMI) 25.3
Lab Results / Allergies
11/07/23 09:01
11/07/23 09:04
WBC 7.1 10^3/uL (4.8-10.8) 11/07/23 09:01
Hgb 7.2 g/dL (13.0-18.0) L 11/07/23 09:01
Hct 21.7 % (39.0-52.0) L 11/07/23 09:01
Plt Count 150 10^3/uL (130-400) 11/07/23 09:01
Abs Immat Gran (auto) 0.0 10^3/uL (0-0.05) 11/06/23 17:28
Neutrophils % 69.3 % (42.2-75.2) 11/06/23 17:28
Allergy/AdvReac Type Severity Reaction Status Date / Time
empagliflozin Allergy potential Verified 11/04/23 07:14
[From Synjardy XR] cause of
euglycemic
DKA 03/26/23
metformin [From Synjardy XR] Allergy potential Verified 11/04/23 07:14
cause of
euglycemic
DKA 03/26/23
Sulfa (Sulfonamide Allergy Hives Verified 11/04/23 07:14
Antibiotics)
Physical Exam
General: Well Developed and Well Nourished
HEENT: Moist Mucous Membranes
Respiratory: Non Labored Respirations
GI: Soft, Non Tender and Other (ascites)
Skin: Warm and Other (pale)
Neuro: Awake, Alert and AO x 3
Data Reviewed
-
Medical Tests (Nuc Med, Echo etc): Report Reviewed by me, Discussed with Physician, Discussed with Patient and Discussed with Family
Labs: Labs Reviewed by me, Discussed with Physician, Discussed with Patient and Discussed with Family
Old Records: Reviewed
Assessment / Plan
-
67 yo male with decompensated liver cirrhosis presenting with recurrent rectal bleeding. GI following for management with colonoscopy and paracentesis this admission. AFVSS. Anemia present but relatively stable.
No plan for surgical intervention at this time.
Continue plans to follow with Dr. Womack at [facility].
Medical management as per GI
Surgery to follow peripherally, please call with questions/concerns
--- NOTE | 2023-11-07 11:40 | W.PN.HOSP.TC ---
Today's Communication/Plan
-
Transfuse PRBC
Hold starting diuretics
Continue lactulose and rifaximin
Long-term prognosis guarded
Assessment / Plan
Assessment / Plan
ASSESSMENT: Patient is a 37-year-old male past medical history of compensated alcoholic cirrhosis, hemorrhoids, esophageal varices, hypertension, who presented to ED on 11/04/2023 with complaints of large-volume hematochezia that worsened in the
a.m. of presentation. Patient was treated with 2 units of PRBC transferred to telemetry for further evaluation and management.
CONDITIONS PRIOR TO ADMISSION:
Type 2 diabetes mellitus
CAD (s/p CABG)
Anemia of chronic disease
BPH
Orthostatic hypotension
Portal gastropathy
IMPRESSION:
Presentation with large-volume hematochezia.
Coagulopathy with thrombocytopenia
EtOH abuse
Anemia-Acute blood loss vs anemia of chronic disease
Alcoholic cirrhosis with esophageal varices and ascites
CA
Massive hydrocele
Hyponatremia
PLAN:
Presentation with large-volume hematochezia:
-Recurrent hematochezia with acute blood loss likely due to GI bleed from internal hemorrhoids vs rectal varices.
-Colonoscopy 11/05/2023 reported to recently bleeding colonic angiodysplastic lesions, nonbleeding internal hemorrhoids, perianal hemorrhoids and rectal varices appreciated.
-EGD 11/05/2023 reported grade 1 esophageal varices, and 2 angioplastic lesions in the duodenum that was treated intra operatively.
-Continue to have large volume hematochezia post paracentesis.
-Patient remained hemodynamically stable.
-Continues with intermittent Blood per the rectum. Per GI secondary to AVMs versus hemorrhoidal. Hemoglobin downtrending 7.2. Order additional unit of PRBC
-Follow H&H and replete as appropriate.
-Anusol HC suppository.
-Advance diet
-No real indication for emergent TIPS, continue octreotide for the next 48 hours per GI
-GI following, recs appreciated.
-Outpatient follow-up with Dr. Womack for TIPS procedure.
Decompensated liver cirrhosis with esophageal varices and ascites
-Large-volume paracentesis 10/28/2023 s/p 9900 cc of clear yellow ascites fluid evacuated.
-Repeat large-volume paracentesis 11/06/2023 s/p 9250 mL of ascitic fluid obtained. Fluid sent for lab analysis. Transudative
-Status post albumin post paracentesis on 11/05.
-Continue ceftriaxone for SBP prophylaxis. 5-day course of antibiotics
-Continue midodrine. Patient with worsening of sodium consider holding starting diuretics.
-
Intermittent hypoglycemia:
-Patient with intermittent decrease in blood glucose level.
-Hold NovoLog for now since patient not eating regular diet.
-Continue sliding scale protocol.
Massive hydrocele:
-Left-sided scrotal, communicating hydrocele due to ascites.
-Evaluated by urology in June with no definitive treatment except treatments of ascites.
-Pain management.
Hepatic encephalopathy:
-Presentation with asterixis and other stigmata of HE.
-Continue lactulose and rifaximin.
-
EtOH abuse:
- last drink 11 days ago per patient. Doub will go in withdrawal at this point.
-Thiamine and folic acid replacement.
Hyponatremia:
-Likely hypervolemic hyponatremia given ascites and volume overload.
-Worsening of sodium level-hold off on restarting diuretic for today.
-Monitor and replete electrolytes as needed.
DM2 with neuropathy and hyperglycemia
-Hemoglobin A1c 8.0 09/22/2023
-Hold Januvia
-Continue Lantus 12 units and NovoLog before meals 10 units per protocol.
-Maintain on ISS.
CA
-Improved.
-Monitor renal function.
DVT prophylaxis:
-SCD
CODE STATUS: DNR/DNI
Discussed with spouse at bedside in detail
Long-term prognosis severely guarded.

Anticipated Discharge: > 48 hours
Subjective/Interval History
-
Date of Service: November 07, 2023
Morning with mild bright red blood per the rectum
States significant improvement in the abdomen
Objective Data
-
Labs:
Laboratory Results
11/07/23 11/07/23
09:01 09:04
WBC 7.1
Hgb 7.2 L
Hct 21.7 L
Plt Count 150
Sodium 128 L
Potassium 4.1
Chloride 103
Carbon Dioxide 22
BUN 33 H
Creatinine 1.0
Glucose 181 H
Calcium 7.8 L
Vital Signs:
Vital Signs
Temp Pulse Resp BP Pulse Ox
97.7 F 59 16 122/55 100
11/07/23 11:21 11/07/23 11:21 11/07/23 11:21 11/07/23 11:21 11/07/23 11:21
I&O
11/06/23 11/07/23 11/08/23
06:59 06:59 06:59
Intake Total 950 / 950 1320 / 1320
Output Total 350 / 350
Balance 600 / 600 1320 / 1320
Physical Exam
-
General: No Apparent Distress and Appears Chronically Ill
HEENT: Normocephalic, Atraumatic and Moist Mucous Membranes
Respiratory: Decreased Breath Sounds
Cardiac: Regular Rhythm and S1/S2
GI: Soft, Nontender, Nondistended and Normal Bowel Sounds
Rectal: Deferred by Provider
Genito-urinary: Other (Large hydrocele)
Musculoskeletal: No Clubbing and Other (Bilateral +1 pitting edema)
Skin: Warm
Neuro: Awake, Oriented and AO x 3; Negative Tremors
Psych: Calm and Confused
Data Reviewed
-
Total Time Spent with Patient (in minutes): 56
[2023-11-07 12:09] LABS: Glucose - Point of Care 262 mg/dl (70-99)
[2023-11-07] MEDS: NOVOLOG FLEXPEN-LOW RESISTANCE 3 UNITS SC (12:16)
--- NOTE | 2023-11-07 12:47 | W.PN.GI.CBS2 ---
Today's Communication / Plan
-
Monitor H&H
Continue Anusol HC suppository
Assessment / Plan
-
A/P: Himanshu Garrido is a 67 y.o. male with history of Decompensated EtoH cirrhosis c/b recurrent ascites requiring large volume paracentesis, hx GI bleeding, DM2, HTN, CAD s/p CABG, BPH, HLD, umbilical hernia, hydrocele, neuropathy admitted with
large-volume hematochezia and encephalopathy. Patient has frequent readmissions for intermittent hematochezia as well as large-volume hematochezia with unclear etiology, attributed to bleeding hemorrhoids versus possible rectal varix, without
adequate visualization of the rectum due to poor prep on recent flex sig. So far, he has had 9 units of blood transfused since the start of 2023. Propanolol was recently discontinued, unable to tolerate due to hypotension, now on midodrine. On
admission, he had elevated BUN/Cr. slightly worse from labs on 10/31 but new elevation from baseline.
#Recurrent rectal bleeding
-Hgb 6.3 on arrival --> 8.7 s/p 2 units of PRBC
-s/p EGD And Colonoscopy-- EGD with 1 small varix; 2 AVMs treated with APC in D2. Colonoscopy with scattered AVMs treated with APC as well as large prolapsed internal hemorrhoids and rectal varices, which did not have any stigmata of recent
bleeding; difficult to say etiology of bleeding, however, suspect it was more likely due to bleeding AVMs rather than his rectal varices
Patient had few episodes of bright red blood per rectum since yesterday evening. Less bleeding this a.m. Started on Anusol HC suppository. Evaluated by colorectal this morning. Hemoglobin relatively stable last night
-recommend completing at least 5 days of antibiotics for SBP prophylaxis, today is day 10/01
-Continue Anusol suppository
-Monitor H&H
-okay to advance to regular diet
#Decompensated EtoH Cirrhosis--MELD 3.0 = 21
-established care with Dr. Womack, initial transplant consultation scheduled at [facility] on 11/29
-Ascites-- recurrent, requiring weekly LVP. Last paracentesis 11/06/2023 with removal of 9250 ml. Albumin was given post paracentesis. Fluid negative for SBP. Patient's patient could not tolerate diuretics in the past because of orthostatic
hypotension/fall risk. Will hold off on it. Advised on 2 g sodium diet
-EV: one column of small EV; +rectal varices-- consideration of TIPS for recurrent ascites, will also help with rectal varices, however, I am not convinced this is the source of bleeding
-Hepatic Encephalopathy: mentation is back to baseline. Resume lactulose and add Rifaximin. Should be discharged with this as well; titrate to 2-3 loose BMs daily
-HCC Surveillance: Needs US +AFP q6 months; Abdominal US (07/2022); AFP <1.8 (10/27/23)
-Immunizations: HAV IgM neg, HAV IgG positive, HBsAg neg, HBcAb IgM/IgG, HBsAb neg, HCV Ab neg., (08/26/21); Immunity to Hep A; lacks immunity to hepatitis B, should be vaccinated as outpatient
Recommend follow-up with Dr. Ramirez /Dr. Womack upon discharge
Total Time Spent with Patient (in minutes): 35
Subjective
Subjective
Date of Service: November 07, 2023
Patient had 2 episode of rectal bleeding yesterday. 1 episode this morning but less bleeding. Denies any abdominal pain/nausea/vomiting
Objective
Data Reviewed
Laboratory Data:
Laboratory Results
11/07/23 09:01
11/07/23 09:04
Laboratory Results
PT 19.2 Sec (11.4-14.6) H 11/05/23 04:55
INR 1.60 11/05/23 04:55
Total Bilirubin 1.8 mg/dl (0.2-1.3) H 11/05/23 04:55
AST 34 U/L (17-59) 11/05/23 04:55
ALT 15 U/L (0-50) 11/05/23 04:55
Alkaline Phosphatase 171 U/L (38-126) H 11/05/23 04:55
Vital Signs and I&O:
Vital Signs
Temp Pulse Resp BP Pulse Ox
97.6 F 65 16 115/56 98
11/07/23 12:42 11/07/23 12:42 11/07/23 12:42 11/07/23 12:42 11/07/23 12:42
I&O
11/06/23 11/07/23 11/08/23
06:59 06:59 06:59
Intake Total 950 / 950 1320 / 1320 0 / 0
Output Total 350 / 350
Balance 600 / 600 1320 / 1320 0 / 0
Physical Exam
Physical Exam
GI: Soft, Non Distended and Non Tender
[2023-11-07] MEDS: STERILE WATER FOR INJECTION 10 ML IV (15:52)
[2023-11-07] MEDS: ROCEPHIN 1000 MG IV (15:53)
[2023-11-07 16:58] LABS: Glucose - Point of Care 305 mg/dl (70-99)
[2023-11-07] MEDS: NOVOLOG FLEXPEN-LOW RESISTANCE 4 UNITS SC (17:45)
[2023-11-07] MEDS: PROTONIX 40 MG PO (21:17)
[2023-11-07 21:22] LABS: Glucose - Point of Care 180 mg/dl (70-99)
[2023-11-07] MEDS: LANTUS 0.119999999999999996 UNITS SC (22:26)
[2023-11-07] MEDS: LIPITOR 10 MG PO (22:26)
--- NOTE | 2023-11-07 23:10 | PTCARENOTE ---
Pt. had several large blood clots in toilet, asymptomatic, vs stable, notified MIRELLA Fernandes, ordered labs and type and screen, also notified television installer helper GI but no response.
[2023-11-08] VITALS (11 sets, daily range): BP systolic 95–124; BP diastolic 42–85
[2023-11-08 01:16] LABS: Hemoglobin 7.4 g/dL (13.0-18.0)
[2023-11-08 07:54] LABS: Glucose - Point of Care 198 mg/dl (70-99)
[2023-11-08] MEDS: ProAmatine 10 MG PO ×3 (08:34→17:38)
[2023-11-08] MEDS: NOVOLOG FLEXPEN-LOW RESISTANCE 1 UNITS SC (08:34)
[2023-11-08] MEDS: PROTONIX 40 MG PO ×2 (08:34→20:03)
[2023-11-08] MEDS: DUPHALAC/CHRONULAC 20 GRAMS PO ×3 (08:34→21:43)
[2023-11-08] MEDS: ASPIR LOW (ENTERIC COATED) 81 MG PO (08:35)
[2023-11-08] MEDS: NEURONTIN 300 MG PO ×2 (08:35→20:03)
[2023-11-08] MEDS: VITAMIN D3 (cholecalciferol) 50 MCG PO (08:35)
[2023-11-08] MEDS: FOLVITE 1 MG PO (08:35)
[2023-11-08] MEDS: XIFAXAN 550 MG PO ×2 (08:35→20:04)
[2023-11-08] MEDS: ANUSOL HC 25 MG RECTAL ×2 (08:38→20:03)
[2023-11-08] MEDS: OCUVITE SOFTGEL 1 CAP PO ×2 (08:38→20:03)
[2023-11-08] MEDS: VITAMIN B-12 500 MCG PO (08:38)
[2023-11-08] MEDS: THIAMINE INJECTION 100 MG IV (08:39)
[2023-11-08] MEDS: THERAGRAN 1 TABLET PO (08:45)
[2023-11-08] MEDS: TIMOPTIC 0.5% OPHTHALMIC SOLUTION 1 DROP LEFT EYE ×2 (08:45→20:04)
[2023-11-08 11:15] LABS: % Eosinophils 2.6 % (0-6); % Immature Granulocytes 0.4 % (0-0.5); % Lymphocytes 16.1 % (20.5-51.1); % Monocytes 10.8 % (1.7-9.3); % Neutrophils 69.1 % (42.2-75.2); Absolute Basophils 0.1 10^3/uL (0-0.2); Absolute Eosinophils 0.2 10^3/uL (0-0.7); Absolute Lymphocytes 1.3 10^3/uL (1.2-3.4); Absolute Monocytes 0.9 10^3/uL (0.1-0.6); Absolute Neutrophils 5.7 10^3/uL (1.4-6.5); Hematocrit 26.4 % (39.0-52.0); Mean Corp Hgb Conc. 32.6 g/dL (33.0-37.0); Mean Corpuscular Hgb 28.5 pg (27.0-31.0); Mean Corpuscular Volume 87.4 fL (80.0-94.0); Nucleated Red Blood Cells % 0 % (-); Red Blood Cell Count 3.02 10^6/uL (4.70-6.10); Red Cell Dist. Width 16.9 % (11.5-14.5); White Blood Cell Count 8.2 10^3/uL (4.8-10.8)
[2023-11-08 11:18] LABS: Glucose - Point of Care 223 mg/dl (70-99)
--- NOTE | 2023-11-08 11:21 | W.PN.HOSP.TC ---
Today's Communication/Plan
-
Increase lactulose to 3 times daily
Awaiting labs
Check ammonia level
GI recommendation
Assessment / Plan
Assessment / Plan
ASSESSMENT: Patient is a 37-year-old male past medical history of compensated alcoholic cirrhosis, hemorrhoids, esophageal varices, hypertension, who presented to ED on 11/04/2023 with complaints of large-volume hematochezia that worsened in the
a.m. of presentation. Patient was treated with 2 units of PRBC transferred to telemetry for further evaluation and management.
CONDITIONS PRIOR TO ADMISSION:
Type 2 diabetes mellitus
CAD (s/p CABG)
Anemia of chronic disease
BPH
Orthostatic hypotension
Portal gastropathy
IMPRESSION:
Presentation with large-volume hematochezia.
Coagulopathy with thrombocytopenia
EtOH abuse
Anemia-Acute blood loss vs anemia of chronic disease
Alcoholic cirrhosis with esophageal varices and ascites
CA
Massive hydrocele
Hyponatremia
PLAN:
Presentation with large-volume hematochezia:
-Recurrent hematochezia with acute blood loss likely due to GI bleed from internal hemorrhoids vs rectal varices.
-Colonoscopy 11/05/2023 reported to recently bleeding colonic angiodysplastic lesions, nonbleeding internal hemorrhoids, perianal hemorrhoids and rectal varices appreciated.
-EGD 11/05/2023 reported grade 1 esophageal varices, and 2 angioplastic lesions in the duodenum that was treated intra operatively.
-Continue to have large volume hematochezia post paracentesis.
-Patient remained hemodynamically stable.
-Continues with intermittent Blood per the rectum. Per GI secondary to AVMs versus hemorrhoidal. Hemoglobin 7.4. Repeat pending. Status post 4 unit of PRBC so far.
-Follow H&H and replete as appropriate.
-Anusol HC suppository.
-Advance diet
-No real indication for emergent TIPS status post octreotide tried drip
-GI following, recs appreciated.
-Outpatient follow-up with Dr. Womack for TIPS procedure.
Decompensated liver cirrhosis with esophageal varices and ascites
Toxic metabolic encephalopathy secondary to decompensated liver cirrhosis
-Large-volume paracentesis 10/28/2023 s/p 9900 cc of clear yellow ascites fluid evacuated.
-Repeat large-volume paracentesis 11/06/2023 s/p 9250 mL of ascitic fluid obtained. Fluid sent for lab analysis. Transudative
-Status post albumin post paracentesis on 11/05.
-Continue ceftriaxone for SBP prophylaxis. 5-day course of antibiotics
-Continue midodrine. Patient with worsening of sodium consider holding starting diuretics.
-Per spouse patient with confusion today. Increase lactulose to 3 times daily with goal of at least 3 loose bowel movements daily.
Intermittent hypoglycemia:
-Patient with intermittent decrease in blood glucose level.
-Hold NovoLog for now since patient not eating regular diet.
-Continue sliding scale protocol.
Massive hydrocele:
-Left-sided scrotal, communicating hydrocele due to ascites.
-Evaluated by urology in June with no definitive treatment except treatments of ascites.
-Pain management.
Hepatic encephalopathy:
-Presentation with asterixis and other stigmata of HE.
-Continue lactulose and rifaximin.
-
EtOH abuse:
- last drink 11 days ago per patient. Doub will go in withdrawal at this point.
-Thiamine and folic acid replacement.
Hyponatremia:
-Likely hypervolemic hyponatremia given ascites and volume overload.
-Worsening of sodium level-hold off on restarting diuretic for today.
-Monitor and replete electrolytes as needed.
DM2 with neuropathy and hyperglycemia
-Hemoglobin A1c 8.0 09/22/2023
-Hold Januvia
-Continue Lantus 12 units and NovoLog before meals 10 units per protocol.
-Maintain on ISS.
CA
-Improved.
-Monitor renal function.
DVT prophylaxis:
-SCD
CODE STATUS: DNR/DNI
Discussed with spouse at bedside in detail
Long-term prognosis severely guarded.

Anticipated Discharge: > 48 hours
Subjective/Interval History
-
Date of Service: November 08, 2023
Having bm x 1 yesteday and overnight. +blood clots
no abd pain or cramps
Objective Data
-
Labs:
Laboratory Results
11/08/23 11/08/23 11/08/23
01:10 11:03 11:03
WBC Pending
Hgb 7.4 L Pending Pending
Hct 23.0 L Pending
Plt Count
Sodium
Potassium
Chloride
Carbon Dioxide
BUN
Creatinine
Glucose
Calcium
11/08/23
11:03
WBC
Hgb
Hct Pending
Plt Count Pending
Sodium Pending
Potassium Pending
Chloride Pending
Carbon Dioxide Pending
BUN Pending
Creatinine Pending
Glucose Pending
Calcium Pending
Vital Signs:
Vital Signs
Temp Pulse Resp BP Pulse Ox
97.7 F 78 16 105/60 96
11/08/23 07:50 11/08/23 08:34 11/08/23 07:50 11/08/23 08:34 11/08/23 07:50
I&O
11/07/23 11/08/23 11/09/23
06:59 06:59 06:59
Intake Total 1320 / 1320 670 / 670 250 / 250
Output Total 150 / 150
Balance 1320 / 1320 520 / 520 250 / 250
Physical Exam
-
General: No Apparent Distress and Appears Chronically Ill
HEENT: Normocephalic, Atraumatic and Moist Mucous Membranes
Respiratory: Decreased Breath Sounds
Cardiac: Regular Rhythm and S1/S2
GI: Soft, Nontender, Nondistended and Normal Bowel Sounds
Rectal: Deferred by Provider
Genito-urinary: Other (Large hydrocele)
Musculoskeletal: No Clubbing and Other (Bilateral +1 pitting edema)
Skin: Warm
Neuro: Awake, Oriented and AO x 3; Negative Tremors
Psych: Calm and Confused
Data Reviewed
-
Total Time Spent with Patient (in minutes): 55
[2023-11-08 11:34] LABS: Blood Urea Nitrogen 30 mg/dl (9-20); Calcium 7.7 mg/dl (8.4-10.2); Carbon Dioxide 21 mmol/L (22-30); Chloride 106 mmol/L (98-107); Estimated Creatinine Clearance 72 ml/min; Glucose 189 mg/dl (70-99); Potassium 4.2 mmol/L (3.5-5.1); Sodium 130 mmol/L (135-145); eGFR > 60.00
[2023-11-08 11:35] LABS: Ammonia < 9 umol/L (9-30)
[2023-11-08 11:39] LABS: Hemoglobin 8.6 g/dL (13.0-18.0)
--- NOTE | 2023-11-08 11:39 | W.PN.GI.CBS2 ---
Today's Communication / Plan
-
Monitor H&H
octreotide drip
Tagged red cell scan
Assessment / Plan
-
A/P: Himanshu Garrido is a 67 y.o. male with history of Decompensated EtoH cirrhosis c/b recurrent ascites requiring large volume paracentesis, hx GI bleeding, DM2, HTN, CAD s/p CABG, BPH, HLD, umbilical hernia, hydrocele, neuropathy admitted with
large-volume hematochezia and encephalopathy. Patient has frequent readmissions for intermittent hematochezia as well as large-volume hematochezia with unclear etiology, attributed to bleeding hemorrhoids versus possible rectal varix, without
adequate visualization of the rectum due to poor prep on recent flex sig. So far, he has had 9 units of blood transfused since the start of 2023. Propanolol was recently discontinued, unable to tolerate due to hypotension, now on midodrine. On
admission, he had elevated BUN/Cr. slightly worse from labs on 10/31 but new elevation from baseline.
#Recurrent rectal bleeding
-Hgb 6.3 on arrival --> 8.7 s/p 2 units of PRBC
-s/p EGD And Colonoscopy-- EGD with 1 small varix; 2 AVMs treated with APC in D2. Colonoscopy with scattered AVMs treated with APC as well as large prolapsed internal hemorrhoids and rectal varices, which did not have any stigmata of recent
bleeding; difficult to say etiology of bleeding, however, suspect it was more likely due to bleeding AVMs rather than his rectal varices
Patient continues to have episodes of bright red blood per rectum . He had some brown stool without any blood yesterday afternoon as per nursing.
Will put him back on clear liquid diet
Continue monitor H&H
Transfuse to keep hemoglobin above 7
Will put him back on octreotide drip
Recent EGD/colonoscopy not showing any active bleeding from varices. Noted to have multiple AVMs in the small intestine/large intestine. I will order a tagged red cell scan
I will also discussed with transplant hepatology at [place] -whether the patient is a candidate for inpatient transfer for evaluation of TIPS after bleeding scan
Colorectal surgical eval noted-high risk for surgical intervention considering history of decompensated liver cirrhosis
recommend completing at least 5 days of antibiotics for SBP prophylaxis, today is day 10/31
Continue Anusol suppository
#Decompensated EtoH Cirrhosis--MELD 3.0 = 21
-established care with Dr. Womack, initial transplant consultation scheduled at [facility] on 11/29
-Ascites-- recurrent, requiring weekly LVP. Last paracentesis 11/06/2023 with removal of 9250 ml. Albumin was given post paracentesis. Fluid negative for SBP. Patient's patient could not tolerate diuretics in the past because of orthostatic
hypotension/fall risk. Will hold off on it. Advised on 2 g sodium diet
-EV: one column of small EV; +rectal varices-- consideration of TIPS for recurrent ascites, will also help with rectal varices, however, I am not convinced this is the source of bleeding
-Hepatic Encephalopathy: mentation is back to baseline. Resume lactulose and add Rifaximin. Should be discharged with this as well; titrate to 2-3 loose BMs daily
-HCC Surveillance: Needs US +AFP q6 months; Abdominal US (07/2022); AFP <1.8 (10/27/23)
-Immunizations: HAV IgM neg, HAV IgG positive, HBsAg neg, HBcAb IgM/IgG, HBsAb neg, HCV Ab neg., (08/26/21); Immunity to Hep A; lacks immunity to hepatitis B, should be vaccinated as outpatient
Recommend follow-up with Dr. Ramirez /Dr. Womack upon discharge
Total Time Spent with Patient (in minutes): 35
Subjective
Subjective
Date of Service: November 08, 2023
Patient had few brown stools yesterday afternoon. But started having rectal bleeding with passing clots last night and this morning. Denies any abdominal pain/nausea/vomiting.
Objective
Data Reviewed
Laboratory Data:
Laboratory Results
11/08/23 11:03
Laboratory Results
PT 19.2 Sec (11.4-14.6) H 11/05/23 04:55
INR 1.60 11/05/23 04:55
Total Bilirubin 1.8 mg/dl (0.2-1.3) H 11/05/23 04:55
AST 34 U/L (17-59) 11/05/23 04:55
ALT 15 U/L (0-50) 11/05/23 04:55
Alkaline Phosphatase 171 U/L (38-126) H 11/05/23 04:55
Vital Signs and I&O:
Vital Signs
Temp Pulse Resp BP Pulse Ox
97.7 F 78 16 105/60 96
11/08/23 07:50 11/08/23 08:34 11/08/23 07:50 11/08/23 08:34 11/08/23 07:50
I&O
11/07/23 11/08/23 11/09/23
06:59 06:59 06:59
Intake Total 1320 / 1320 670 / 670 250 / 250
Output Total 150 / 150
Balance 1320 / 1320 520 / 520 250 / 250
Physical Exam
Physical Exam
GI: Soft, Distended (Mildly) and Non Tender
Neuro: Other (AAO x 3)
[2023-11-08] MEDS: NOVOLOG FLEXPEN-LOW RESISTANCE 2 UNITS SC (13:10)
[2023-11-08] MEDS: SANDOSTATIN 500.600000000000023 MCG IV (13:10)
[2023-11-08] MEDS: STERILE WATER FOR INJECTION 10 ML IV (13:27)
[2023-11-08] MEDS: ROCEPHIN 1000 MG IV (13:27)
[2023-11-08 16:47] LABS: Glucose - Point of Care 327 mg/dl (70-99)
[2023-11-08] MEDS: NOVOLOG FLEXPEN-LOW RESISTANCE 4 UNITS SC (17:32)
[2023-11-08 21:35] LABS: Glucose - Point of Care 198 mg/dl (70-99)
[2023-11-08] MEDS: LIPITOR 10 MG PO (21:43)
[2023-11-08] MEDS: LANTUS 0.119999999999999996 UNITS SC (21:43)
[2023-11-09] VITALS (9 sets, daily range): BP systolic 77–128; BP diastolic 36–62; PULSE 70–75; BMI 25.3
[2023-11-09] MEDS: SANDOSTATIN 500.600000000000023 MCG IV ×2 (00:54→15:49)
[2023-11-09 07:26] LABS: Glucose - Point of Care 109 mg/dl (70-99)
[2023-11-09] MEDS: NOVOLOG FLEXPEN-LOW RESISTANCE SC (07:35)
[2023-11-09 08:05] LABS: % Basophils 1.6 % (0-2); % Eosinophils 5.1 % (0-6); % Immature Granulocytes 0.4 % (0-0.5); % Monocytes 12.8 % (1.7-9.3); % Neutrophils 60.1 % (42.2-75.2); Absolute Basophils 0.2 10^3/uL (0-0.2); Absolute Eosinophils 0.5 10^3/uL (0-0.7); Absolute Lymphocytes 1.9 10^3/uL (1.2-3.4); Absolute Monocytes 1.2 10^3/uL (0.1-0.6); Absolute Neutrophils 5.7 10^3/uL (1.4-6.5); Hematocrit 22.1 % (39.0-52.0); Hemoglobin 7.2 g/dL (13.0-18.0); Mean Corp Hgb Conc. 32.6 g/dL (33.0-37.0); Mean Corpuscular Hgb 28.7 pg (27.0-31.0); Mean Platelet Volume 9.7 fL (7.4-10.4); Nucleated Red Blood Cells % 0.2 % (-); Platelet Count 170 10^3/uL (130-400); Red Blood Cell Count 2.51 10^6/uL (4.70-6.10); White Blood Cell Count 9.5 10^3/uL (4.8-10.8)
[2023-11-09 08:07] LABS: INR 1.67; PT 19.6 Sec (11.4-14.6)
[2023-11-09] MEDS: ANUSOL HC 25 MG RECTAL ×2 (08:12→21:55)
[2023-11-09] MEDS: DUPHALAC/CHRONULAC 20 GRAMS PO ×3 (08:14→21:55)
[2023-11-09] MEDS: NEURONTIN 300 MG PO ×2 (08:16→21:55)
[2023-11-09] MEDS: THERAGRAN 1 TABLET PO (08:16)
[2023-11-09] MEDS: OCUVITE SOFTGEL 1 CAP PO ×2 (08:16→21:55)
[2023-11-09] MEDS: FOLVITE 1 MG PO (08:16)
[2023-11-09] MEDS: VITAMIN D3 (cholecalciferol) 50 MCG PO (08:17)
[2023-11-09] MEDS: VITAMIN B-12 500 MCG PO (08:17)
[2023-11-09] MEDS: ProAmatine 10 MG PO ×3 (08:17→17:28)
[2023-11-09] MEDS: PROTONIX 40 MG PO ×2 (08:17→21:55)
[2023-11-09] MEDS: TIMOPTIC 0.5% OPHTHALMIC SOLUTION 1 DROP LEFT EYE ×2 (08:18→21:55)
[2023-11-09] MEDS: THIAMINE INJECTION 100 MG IV (08:18)
[2023-11-09] MEDS: XIFAXAN 550 MG PO ×2 (08:19→21:55)
[2023-11-09 08:22] LABS: ALT (SGPT) < 10 U/L (0-50); AST (SGOT) 22 U/L (17-59); Albumin 1.9 g/dl (3.5-5.0); Alkaline Phosphatase 97 U/L (38-126); Blood Urea Nitrogen 28 mg/dl (9-20); Calcium 7.8 mg/dl (8.4-10.2); Carbon Dioxide 21 mmol/L (22-30); Chloride 106 mmol/L (98-107); Estimated Creatinine Clearance 60 ml/min; Glucose 95 mg/dl (70-99); Potassium 4.2 mmol/L (3.5-5.1); Sodium 132 mmol/L (135-145); Total Bilirubin 1.4 mg/dl (0.2-1.3); Total Protein 4.9 g/dl (6.3-8.2); eGFR > 60.00
--- NOTE | 2023-11-09 09:30 | W.PN.HOSP.TC ---
Addendum entered and electronically signed by Chandra Goldberg MD 11/09/23 15:38:
Patient seen and examined
Discussed with resident
Discussed with patient's at the bedside.
Discussed with gastroenterology.
Impression/plan:
Gastrointestinal hemorrhage, presented with persistent hematochezia.
Acute blood loss anemia requiring transfusion
Advanced alcoholic cirrhosis.
Ascites.
Persistent hypotension requiring midodrine.
Pancytopenia.
Coagulopathy.
Acute kidney injury.
Severe alcohol use disorder last drink 2 weeks prior to presentation with so far no evidence of delirium tremens.
Extensive workup for source of gastrointestinal hemorrhage with unrevealing EGD and colonoscopy.
Suspected hemorrhoidal bleeding in patient with portal hypertension and varices.
Nuclear scan today with no evidence of extravasation.
Hemoglobin drops from 8-7 over last 24 hours. Will transfuse additional unit of packed red blood cells to keep above 8.
With absence of apparent source and decompensated cirrhosis/portal hypertension reinstated on octreotide drip.
Status post diagnostic and therapeutic paracentesis 11/05 9250 mL. Albumin given
Empiric antibiotics ceftriaxone to complete 5-day course of therapy.
Discussed with GI as well as hematology service at [facility] with current plan for transfer and consideration of TIPS.
MELD 21. Initial appointment with transplant team noted.
Original Note:
Today's Communication/Plan
-
1 unit of blood transfusion.
Midodrine drip.
Octreotide drip.
Transferred to [facility] inpatient under Dr. Adal Monet's GI team.
Assessment / Plan
Assessment / Plan
ASSESSMENT:
37-year-old male with PMHx of decompensated alcoholic cirrhosis (last EtOH consumption 14 days ago), hemorrhoids, AVM, varices, hypertension presents to the [facility] on 11/04/2023 for large-volume hematochezia that worsened in the AM.
PLAN:
large-volume hematochezia:
Acute blood loss secondary to GI bleed from internal hemorrhoids versus rectal varices versus AVM.
Received 2 units of transfusion on day of admission.
Colonoscopy 11/05/2023 reported to recently bleeding colonic angiodysplastic lesions, nonbleeding internal hemorrhoids, perianal hemorrhoids and rectal varices appreciated.
EGD 11/05/2023 reported grade 1 esophageal varices, and 2 angioplastic lesions in the duodenum that was treated intra operatively.
Continue to have large-volume hematochezia post EGD and colonoscopy.
Remained hemodynamically stable. Repeat hemoglobin at 7.4. 2 more units of blood transfusion on 11/06.
Hb improved to 8.6 yesterday. Repeat Hb low at 7.4. Another unit of blood transfusion on 11/08.
Anusol HC suppository.
Advance diet as tolerated. GI following. Consulted with Dr. Womack and team, and Dr. Adal Monet accepted him as inpatient at [facility]. Consideration is to get him scheduled for TIPS procedure.
Currently patient on octreotide drip.
Decompensated liver cirrhosis with esophageal varices and ascites
Toxic metabolic encephalopathy secondary to decompensated liver cirrhosis
Large-volume paracentesis 10/28/2023 with 9000 mL of fluid, repeat on 11/06/2023 with 925 0 mL of fluid. Most of the fluid transudate.
Status post albumin transfusion on 11/05.
Finished 5-day course of ceftriaxone for SBP prophylaxis.
Midodrine drip for hypotension.
Patient with worsening of sodium consider holding starting diuretics.
Per spouse less confusion today. Increase lactulose to 3 times daily with goal of at least 3 loose bowel movements daily.
Intermittent hypoglycemia:
Patient with intermittent decrease in blood glucose level.
Hold NovoLog for now since patient not eating regular diet.
Continue sliding scale protocol.
Massive hydrocele:
left-sided scrotal, communicating hydrocele due to ascites.
Evaluated by urology in June with no definitive treatment except treatments of ascites.
Pain management.
Hepatic encephalopathy:
Presentation with asterixis and other stigmata of HE that resolved.
Continue lactulose and rifaximin.
EtOH abuse:
last drink 14 days ago per patient.
Thiamine and folic acid replacement.
Hyponatremia:
Likely hypervolemic hyponatremia given ascites and volume overload.
Diuretics on hold. Monitor and replete electrolytes as needed.
DM2 with neuropathy and hyperglycemia
Hemoglobin A1c 8.0 09/22/2023
Januvia on hold. Insulin basal bolus regimen per protocol initiated.
CA
Improved.
Monitor renal function.
DVT prophylaxis:
SCD
CODE STATUS: DNR/DNI
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
Type 2 diabetes mellitus
CAD (s/p CABG)
Anemia of chronic disease
BPH
Orthostatic hypotension
Portal gastropathy
Anticipated Discharge: Within 24 hours
Subjective/Interval History
-
Date of Service: November 09, 2023
Reports no change in the color of stools overnight or no hematochezia.
Objective Data
-
Labs:
Laboratory Results
11/09/23
07:17
WBC 9.5
Hgb 7.2 L
Hct 22.1 L
Plt Count 170
PT 19.6 H
INR 1.67
Sodium 132 L
Potassium 4.2
Chloride 106
Carbon Dioxide 21 L
BUN 28 H
Creatinine 1.2
Glucose 95
Calcium 7.8 L
Total Bilirubin 1.4 H
AST 22
ALT < 10
Alkaline Phosphatase 97
Vital Signs:
Vital Signs
Temp Pulse Resp BP Pulse Ox
97.5 F 69 12 89/40 97
11/09/23 07:00 11/09/23 07:00 11/09/23 07:00 11/09/23 07:00 11/09/23 07:00
I&O
11/08/23 11/09/23 11/10/23
06:59 06:59 06:59
Intake Total 670 / 670 1640 / 1640
Output Total 150 / 150
Balance 520 / 520 1640 / 1640
Review of Systems
-
History Source: Patient
Constitutional: Reports Weight Loss
EENT: Reports Sore Throat
Respiratory: Reports No Symptoms
Cardiac: Reports No Symptoms
Abdomen/GI: Reports Nausea and Other (No bloody stools or black stools. Some constipation. Abdominal distention.)
Genitourinary: Reports No Symptoms
Musculoskeletal: Reports No Symptoms
Skin: Reports No Symptoms
Neuro: Reports No Symptoms
Hematologic / Lymphatic: Reports No Symptoms
Physical Exam
-
General: No Apparent Distress, Comfortable (On room air.) and Other (Pale and icteric.)
HEENT: Moist Mucous Membranes
Respiratory: Other (Mild bilateral lower lobe crackles present.)
Cardiac: Regular Rhythm, S1/S2 and Other (No murmurs, rubs, gallops.)
GI: Soft, Distended, No Hepatosplenomegaly and Other (Umbilicus everted. Fluctuance present.)
Musculoskeletal: No Clubbing, No Cyanosis and No Edema
Skin: Other (Palpable petechial rashes over the body.)
Neuro: AO x 3 and No Motor Deficits
Psych: Calm
[2023-11-09 12:04] LABS: Glucose - Point of Care 221 mg/dl (70-99)
[2023-11-09] MEDS: NOVOLOG FLEXPEN-LOW RESISTANCE 2 UNITS SC ×2 (12:10→16:02)
[2023-11-09 13:22] LABS: Alcohol None Detected
--- NOTE | 2023-11-09 13:25 | W.PN.UPDATE ---
Update Note
Progress Note Update
I spoke with Dr. Terri Ortiz transplant sap fico architect at [facility]. Discussed patient's case in detail. She is willing to accept patient for inpatient transfer. Patient/patient's agreeable for transfer.
Will speak to the hospitalist to arrange transfer. Will advised to do COVID testing prior to transfer as requested by [facility] liver team
[2023-11-09 14:25] LABS: COVID-19 Antigen Negative (Negative)
--- NOTE | 2023-11-09 15:10 | CM ---
CM reviewed chart, patient transfer to [facility] when bed available. CM will continue to follow for discharge planning needs.
Plan; transfer to [facility] when bed available.
--- NOTE | 2023-11-09 15:30 | W.DCSUMMARY ---
Discharge Summary
Discharge Data
Date of Admission: 11/04/23
Date of Discharge: 11/10/23
-
Pending Results: No
Hospital Course
67-year-old male with PMHx of decompensated alcoholic cirrhosis (last EtOH consumption 14 days ago), hemorrhoids, AVM, varices, hypertension presents to the [facility] on 11/04/2023 for large-volume hematochezia that worsened in the AM.
Diagnosed with acute hepatic encephalopathy, acute blood loss anemia status post 2 units transfusion.
Hospital course-5 days.
Patient received 2 units of blood transfusion in the emergency room after which she was admitted to telemetry and received a colonoscopy on 11/05/2023 that reported bleeding colonic angiodysplastic lesions, nonbleeding internal hemorrhoids, perianal
hemorrhoids and rectal varices. Hepatic EGD on 11/05/2023 that reported esophageal varices, 2 angiodysplastic lesions in the duodenum that were treated intraoperatively. Patient still continued to have hematochezia and tarry brown-colored stools.
Repeat blood transfusion of 2 more units was given on 11/06 and patient's hemoglobin went up to 8.6 however repeat hemoglobin today on 11/08 at 7.4. 1 more unit of blood transfusion given on 11/08. Anusol HC suppository was given to patient.
Patient also had confusion, asterixis, and other signs of toxic metabolic encephalopathy secondary to decompensated alcoholic cirrhosis with ascites. He received abdominal paracentesis on 10/28/2023, but 9000 mL of fluid drained. Repeat paracentesis
during the hospital admission on 11/06/2023, about 9200 mL of fluid drained. Pleural fluid analysis demonstrated transudate. Patient also received 1 unit of blood transfusion, was started on rifaximin and lactulose 3 times daily with a goal of at
least 3 bowel movements a day. Patient was also kept on octreotide as a treatment for potential variceal bleeds. Patient also received with spontaneous bacterial peritonitis prophylaxis for with ceftriaxone for 5 days.
Patient had CA during this whole episode that resolved with. Type 2 diabetes mellitus and hyperglycemia is treated with insulin basal bolus regimen and his home medication of Januvia was on hold. His hyponatremia resolved. DVT prophylaxis was
given with sequential compression devices. GI team on board who consulted Dr. Womack team at [place], and patient is being transferred to [facility] under Dr. Adal Monet's GI team care.
Reports -
NM GI bleeding scan - 11/09/23 -
Impression: Unremarkable GI bleeding scan.
Colonoscopy-11/05/2023.
Cecal polyp-tubular adenoma.
Hemorrhoids found on perianal exam.
- The examined portion of the ileum was normal.
- One diminutive polyp in the cecum, removed with a
cold biopsy forceps. Resected and retrieved. Clip was
placed.
- Two recently bleeding colonic angiodysplastic
lesions. Treated with a monopolar probe.
- Three non-bleeding colonic angiodysplastic lesions.
Treated with a monopolar probe.
- A single colonic angiodysplastic lesion. Treated
with a monopolar probe.
- Moderate colonic spasm.
- Submucosal nodule in the rectum. Not biopsied.
- Diverticulosis in the recto-sigmoid colon, in the
sigmoid colon and in the descending colon.
- Non-bleeding internal hemorrhoids.
- Rectal varices.
endoscopy-11/05/2023-
Impression-
- Grade I esophageal varices.
- Z-line regular, 42 cm from the incisors.
- Erythematous mucosa in the antrum.
- Two angiodysplastic lesions in the duodenum. Treated
with a monopolar probe.
- No specimens collected.
Discharge Plan
-
Patient Disposition: Acute Care Hospital
Condition: Fair
Discharge Orders:
Discharge Patient (As Directed); Ordered 11/09/23
Ordered By: Jeanie Quezada
Discharge Date and Time
Discharge Date/Time: 11/09/23 23:01
Print Language: [place]
--- NOTE | 2023-11-09 15:38 | W.PN.GI.CBS2 ---
Today's Communication / Plan
-
Transfer arrangement to [facility]-accepted by liver transplantation team ( Dr.Danielle Ortiz )
Continue monitor H&H
Assessment / Plan
-
A/P: Himanshu Garrido is a 67 y.o. male with history of Decompensated EtoH cirrhosis c/b recurrent ascites requiring large volume paracentesis, hx GI bleeding, DM2, HTN, CAD s/p CABG, BPH, HLD, umbilical hernia, hydrocele, neuropathy admitted with
large-volume hematochezia and encephalopathy. Patient has frequent readmissions for intermittent hematochezia as well as large-volume hematochezia with unclear etiology, attributed to bleeding hemorrhoids versus possible rectal varix, without
adequate visualization of the rectum due to poor prep on recent flex sig. So far, he has had 9 units of blood transfused since the start of 2023. Propanolol was recently discontinued, unable to tolerate due to hypotension, now on midodrine. On
admission, he had elevated BUN/Cr. slightly worse from labs on 10/31 but new elevation from baseline.
#Recurrent rectal bleeding
-Hb today 11/08- 7.2
-s/p EGD And Colonoscopy-- EGD with 1 small varix; 2 AVMs treated with APC in D2. Colonoscopy with scattered AVMs treated with APC as well as large prolapsed internal hemorrhoids and rectal varices, which did not have any stigmata of recent
bleeding; difficult to say etiology of bleeding, however, suspect it was more likely due to bleeding AVMs rather than his rectal varices
Patient was having multiple episodes of bright red blood per rectum over the weekend. Claims last episode was yesterday morning. No further bleeding since then. Tagged red cell scan today-no active bleeding
I discussed his case today with liver transplant team at [facility]-Dr. Terri Ortiz. They are agreeable to accept him for inpatient transfer to [facility] - further evaluation for TIPS. Discussed with patient/patient's /hospitalist.
Continue monitor H&H
Transfuse to keep hemoglobin above 7
Continue octreotide drip
Okay to advance diet as tolerated
Colorectal surgical eval noted-high risk for surgical intervention considering history of decompensated liver cirrhosis
Continue Anusol suppository
#Decompensated EtoH Cirrhosis--MELD 3.0 = 21
-established care with Dr. Womack, initial transplant consultation scheduled at [facility] on 11/29
-Ascites-- recurrent, requiring weekly LVP. Last paracentesis 11/06/2023 with removal of 9250 ml. Albumin was given post paracentesis. Fluid negative for SBP. Patient's patient could not tolerate diuretics in the past because of orthostatic
hypotension/fall risk. Will hold off on it. Advised on 2 g sodium diet
-EV: one column of small EV; +rectal varices-- consideration of TIPS for recurrent ascites, will also help with rectal varices, however, I am not convinced this is the source of bleeding
-Hepatic Encephalopathy: mentation is back to baseline. Resume lactulose and add Rifaximin. Should be discharged with this as well; titrate to 2-3 loose BMs daily
-HCC Surveillance: Needs US +AFP q6 months; Abdominal US (07/2022); AFP <1.8 (10/27/23)
-Immunizations: HAV IgM neg, HAV IgG positive, HBsAg neg, HBcAb IgM/IgG, HBsAb neg, HCV Ab neg., (08/26/21); Immunity to Hep A; lacks immunity to hepatitis B, should be vaccinated as outpatient
Recommend follow-up with Dr. Ramirez /Dr. Womack upon discharge
Total Time Spent with Patient (in minutes): 55
Subjective
Subjective
Date of Service: November 09, 2023
Denies any rectal bleeding since yesterday morning. Denies any abdominal pain/nausea/vomiting.
Objective
Data Reviewed
Laboratory Data:
Laboratory Results
11/09/23 07:17
11/09/23 07:17
Laboratory Results
PT 19.6 Sec (11.4-14.6) H 11/09/23 07:17
INR 1.67 11/09/23 07:17
Total Bilirubin 1.4 mg/dl (0.2-1.3) H 11/09/23 07:17
AST 22 U/L (17-59) 11/09/23 07:17
ALT < 10 U/L (0-50) 11/09/23 07:17
Alkaline Phosphatase 97 U/L (38-126) 11/09/23 07:17
Vital Signs and I&O:
Vital Signs
Temp Pulse Resp BP Pulse Ox
97.5 F 76 19 128/53 99
11/09/23 15:32 11/09/23 15:32 11/09/23 15:32 11/09/23 15:32 11/09/23 11:30
I&O
11/08/23 11/09/23 11/10/23
06:59 06:59 06:59
Intake Total 670 / 670 1640 / 1640 0 / 0
Output Total 150 / 150
Balance 520 / 520 1640 / 1640 0 / 0
Physical Exam
Physical Exam
GI: Soft, Distended (Mildly) and Non Tender
[2023-11-09 15:56] LABS: Glucose - Point of Care 206 mg/dl (70-99)
[2023-11-09] MEDS: LIPITOR 10 MG PO (21:55)
[2023-11-09] MEDS: LANTUS 0.119999999999999996 UNITS SC (22:02)
[2023-11-09 22:03] LABS: Glucose - Point of Care 191 mg/dl (70-99)
--- NOTE | 2023-11-09 23:30 | PTCARENOTE ---
Pt transferred to [facility] via ambulance. Tele removed, IV intact. Pt sent with belongings and paper work. Report given to [phone].
== END 2023-11-09 23:01 | disposition short-term general hospital (02) | DRG 378 ==
LOC: 4 WEST ACU 14:57
PROVIDERS: Hospitalist; Internal Medicine; Nurse Practitioner Family; Nurse Practitioner Gerontology; Radiology Vascular & Interventional Radiology; Student in an Organized Health Care Education/Training Program; ADMITTING PHYSICIAN Family Medicine; ATTENDING PHYSICIAN Internal Medicine; CONSULT PHYSICIAN Nurse Practitioner; CONSULT PHYSICIAN Surgery; EMERGENCY PHYSICIAN Emergency Medicine; FAMILY PHYSICIAN Family Medicine
PROC: 30233N1 Transfusion of Nonautologous Red Blood Cells into Peripheral Vein, Percutaneous Approach (ICD-10-PCS; 2023-11-04)
PROC: 0DBH8ZX Excision of Cecum, Via Natural or Artificial Opening Endoscopic, Diagnostic (ICD-10-PCS; 2023-11-05)
PROC: 0DJ08ZZ Inspection of Upper Intestinal Tract, Via Natural or Artificial Opening Endoscopic (ICD-10-PCS; 2023-11-05)
PROC: 0W9G3ZZ Drainage of Peritoneal Cavity, Percutaneous Approach (ICD-10-PCS; 2023-11-06)
DX: K92.2 Gastrointestinal hemorrhage, unspecified (principal); D61.818 Other pancytopenia; N17.9 Acute kidney failure, unspecified; E87.1 Hypo-osmolality and hyponatremia; D62 Acute posthemorrhagic anemia; F10.10 Alcohol abuse, uncomplicated; K55.21 Angiodysplasia of colon with hemorrhage; K70.31 Alcoholic cirrhosis of liver with ascites; K76.82 Hepatic encephalopathy; E11.40 Type 2 diabetes mellitus with diabetic neuropathy, unspecified; E11.65 Type 2 diabetes mellitus with hyperglycemia; I95.1 Orthostatic hypotension; Z87.891 Personal history of nicotine dependence; K64.1 Second degree hemorrhoids; K72.10 Chronic hepatic failure without coma; I86.8 Varicose veins of other specified sites; D12.0 Benign neoplasm of cecum; K58.9 Irritable bowel syndrome, unspecified
CPT/HCPCS: 88305; 36430; 49083; 78278; 80048; 80053; 82042; 82077; 82140; 82248; 82962; 84157; 85014; 85018; 85025; 85027; 85610; 86850; 86900; 86901; 86920; 87015; 87070; 87205; 87811; 89051; 93005; 96365; 97162; 97166; 99291; A9560; J1610; P9016; P9047